=== PATIENT | female | born 1930 | race Caucasian/White ===

== ENCOUNTER 2016-04-13 10:26 | Observation (INO) | payer MEDICARE, BC ==
--- NOTE | 2016-04-13 12:18 | ED ---
General Adult HPI - General Chief complaint: Recheck/Abnormal Lab/Rx Stated complaint: Kidneys problems Time Seen by Provider: 04/13/16 11:35 Source: patient, RN notes reviewed Mode of arrival: ambulatory - History of Present Illness Initial comments: This is an 86-year-old female who presents emergency Department knows her kidney doctor center and to be evaluated. Patient states she's been feeling fine she's had no complaints and does not know why she is here. Patient states she recently saw her kidney doctor and kidney doctor did do some blood work and that is all she knows per patient denies headache patient denies numbness weakness. Patient denies lightheadedness dizziness or near syncopal episode. Patient denies any chest pain palpitations difficulty breathing shortness of breath per patient denies any recent fever chills or cough. Patient denies abdominal pain patient denies nausea vomiting diarrhea. Patient denies any back pain. Patient denies any dysuria hematuria urinary frequency. Patient states she feels perfectly fine and she's been eating and drinking normally. - Related Data Home Medications Medication Instructions Recorded Confirmed Aspirin 81 mg PO DAILY 08/26/13 04/13/16 Atorvastatin [Lipitor] 20 mg PO DAILY 08/26/13 04/13/16 Metoprolol Tartrate [Lopressor] 50 mg PO DAILY 08/26/13 04/13/16 Ergocalciferol (Vitamin D2) 50,000 unit PO VIZCAINO 05/23/14 04/13/16 [Drisdol] Febuxostat [Uloric] 40 mg PO DAILY 05/23/14 04/13/16 Pantoprazole Sodium [Protonix] 40 mg PO DAILY 05/23/14 04/13/16 Calcitriol [Rocaltrol] 0.25 mcg PO MOWEFRSA 10/11/15 04/13/16 Ferrous Sulfate [Iron (65 MG 325 mg PO BID 04/13/16 04/13/16 Elemental)] Furosemide [Lasix] 40 mg PO BID 04/13/16 04/13/16 Klor-Con (Unknown Dose) 1 dose PO DAILY 04/13/16 04/13/16 Meclizine [Antivert] 12.5 mg PO Q8HR PRN 04/13/16 04/13/16 Metolazone [Zaroxolyn] 2.5 mg PO Q48H 04/13/16 04/13/16 Warfarin [Coumadin] 3 mg PO SUWESA 04/13/16 04/13/16 cloNIDine HCL [Catapres] 0.2 mg PO BID 04/13/16 04/13/16 Allergies Allergy/AdvReac Type Severity Reaction Status Date / Time morphine Allergy Unknown Verified 04/13/16 11:38 Review of Systems ROS Statement: Those systems with pertinent positive or pertinent negative responses have been documented in the HPI. ROS Other: All systems not noted in ROS Statement are negative. Past Medical History Past Medical History: Chest Pain / Angina, Heart Failure, Hyperlipidemia, Hypertension, Sleep Apnea/CPAP/BIPAP History of Any Multi-Drug Resistant Organisms: None Reported Past Surgical History: Hysterectomy, Joint Replacement Additional Past Surgical History / Comment(s): bilateral knee replacement, hemorrhoid surgery, AAA repair, LITHOTRIPSY Past Anesthesia/Blood Transfusion Reactions: No Reported Reaction Past Psychological History: No Psychological Hx Reported Smoking Status: Never smoker Past Alcohol Use History: None Reported Past Drug Use History: None Reported General Exam - General Exam Comments Initial Comments: GENERAL: Patient is well-developed and well-nourished. Patient is nontoxic and well- hydrated and is in no acute distress. ENT: Neck is soft and supple. No significant lymphadenopathy is noted. Oropharynx is clear. Moist mucous membranes. Neck has full range of motion without eliciting any pain. EYES: The sclera were anicteric and conjunctiva were pink and moist. Extraocular movements were intact and pupils were equal round and reactive to light. Eyelids were unremarkable. PULMONARY: Unlabored respirations. Good breath sounds bilaterally. No audible rales rhonchi or wheezing was noted. CARDIOVASCULAR: There is a regular rate and rhythm without any murmurs gallops or rubs. ABDOMEN: Soft and nontender with normal bowel sounds. No palpable organomegaly was noted. There is no palpable pulsatile mass. SKIN: Skin is clear with no lesions or rashes and otherwise unremarkable. NEUROLOGIC: Patient is alert and oriented x3. Cranial nerves II through XII are grossly intact. Motor and sensory are also intact. Normal speech, volume and content. Symmetrical smile. MUSCULOSKELETAL: Normal extremities with adequate strength and full range of motion. LYMPHATICS: No significant lymphadenopathy is noted PSYCHIATRIC: Normal psychiatric evaluation. Course Vital Signs 04/13/16 04/13/16 11:32 14:12 Temperature 97.6 F 96.7 F L Pulse Rate 58 L 58 L Respiratory 18 18 Rate Blood Pressure 116/57 125/63 O2 Sat by Pulse 96 99 Oximetry Medical Decision Making - Medical Decision Making EKG shows sinus bradycardia 55 bpm PA interval is 282 which is first degree AV block QRS is 82 QT intervals 454 QTC is 434. Patient's EKG shows no ST segment elevation or depression. - Lab Data Result diagrams: 04/13/16 12:46 04/13/16 12:46 Lab Results 04/13/16 04/13/16 04/13/16 Range/Units 12:46 12:46 12:46 WBC 7.3 (3.8-10.6) k/uL RBC 3.99 (3.80-5.40) m/uL Hgb 11.5 (11.4-16.0) gm/dL Hct 35.9 (34.0-46.0) % MCV 90.0 (80.0-100.0) fL MCH 28.8 (25.0-35.0) pg MCHC 32.0 (31.0-37.0) g/dL RDW 16.4 H (11.5-15.5) % Plt Count 211 (150-450) k/uL Neutrophils % 59 % Lymphocytes % 28 % Monocytes % 5 % Eosinophils % 4 % Basophils % 1 % Neutrophils # 4.3 (1.3-7.7) k/uL Lymphocytes # 2.0 (1.0-4.8) k/uL Monocytes # 0.4 (0-1.0) k/uL Eosinophils # 0.3 (0-0.7) k/uL Basophils # 0.0 (0-0.2) k/uL Anisocytosis Slight Sodium 141 (137-145) mmol/L Potassium 3.7 (3.5-5.1) mmol/L Chloride 97 L (98-107) mmol/L Carbon Dioxide 30 (22-30) mmol/L Anion Gap 14 mmol/L BUN 107 H* (7-17) mg/dL Creatinine 2.00 H (0.52-1.04) mg/dL Est GFR (MDRD) Af Amer 29 (>60 ml/min/1.73 sqM) Est GFR (MDRD) Non-Af 24 (>60 ml/min/1.73 sqM) Glucose 171 H (74-99) mg/dL Calcium 9.5 (8.4-10.2) mg/dL Total Bilirubin 0.5 (0.2-1.3) mg/dL AST 21 (14-36) U/L ALT 28 (9-52) U/L Alkaline Phosphatase 136 H (38-126) U/L Total Protein 7.0 (6.3-8.2) g/dL Albumin 4.1 (3.5-5.0) g/dL Amylase 88 (30-110) U/L Lipase 237 (23-300) U/L Urine Color Light Yellow Urine Appearance Clear (Clear) Urine pH 5.5 (5.0-8.0) Ur Specific Morrow 1.006 (1.001-1.035) Urine Protein Negative (Negative) Urine Glucose (UA) Negative (Negative) Urine Ketones Negative (Negative) Urine Blood Negative (Negative) Urine Nitrate Negative (Negative) Urine Bilirubin Negative (Negative) Urine Urobilinogen <2.0 (<2.0) mg/dL Ur Leukocyte Esterase Negative (Negative) Disposition Clinical Impression: Acute on chronic renal failure Disposition: ADMITTED IP TO THIS [facility] Time of Disposition: 14:15
[2016-04-13 13:06] LABS: Appearance,Urine Clear (Clear); Bilirubin,Urine Negative (Negative); Glucose,Urine (UA) Negative (Negative); Ketones,Urine Negative (Negative); Leukocyte Esterase,Urine Negative (Negative); Nitrite,Urine Negative (Negative); PH, Urine 5.5 (5.0-8.0); Protein,Urine Negative (Negative); Specific Gravity,Urine 1.006 (1.001-1.035); UA Billing (MACRO vs. MICRO) CHEM; Urobilinogen,Urine <2.0 mg/dL (<2.0)
[2016-04-13 13:09] LABS: Anisocytosis Slight; Basophils % (A) 1 %; CH 29.1; CHCM 32.4; Eosinophils # (A) 0.3 k/uL (0-0.7); Eosinophils % (A) 4 %; HCT 35.9 % (34.0-46.0); HDW 2.71; HGB 11.5 gm/dL (11.4-16.0); Luc # (Auto) 0.22; Luc % (Auto) 3; Lymphocytes % (A) 28 %; MCH 28.8 pg (25.0-35.0); Mean Platelet Volume 8.3; Monocytes # (A) 0.4 k/uL (0-1.0); Monocytes % (A) 5 %; Neutrophils # (A) 4.3 k/uL (1.3-7.7); Neutrophils % (A) 59 %; RBC 3.99 m/uL (3.80-5.40); RDW 16.4 % (11.5-15.5); WBC 7.3 k/uL (3.8-10.6); WBC (Perox) 7.28
[2016-04-13 13:11] LABS: Calcium 9.5 mg/dL (8.4-10.2); Potassium 3.7 mmol/L (3.5-5.1); Total Bilirubin 0.5 mg/dL (0.2-1.3)
[2016-04-13] MEDS ORDERED: SODIUM CHLORIDE 0.9% 1,000 ML IV ONE (14:16)
[2016-04-13] MEDS ORDERED: MECLIZINE 12.5 MG TAB PO PRN (22:46)
[2016-04-13] MEDS ORDERED: MAGNESIUM HYDROXIDE 2,400 MG/10 ML CUP PO PRN (22:54)
[2016-04-13] MEDS ORDERED: METOLAZONE 2.5 MG TAB PO SCH (23:00)
[2016-04-13] MEDS: POTASSIUM CHLORIDE ER 20 MEQ TAB.ER PO SCH (23:45)
[2016-04-13] MEDS: FUROSEMIDE 40 MG TAB PO SCH (23:46)
[2016-04-13] MEDS: ALLOPURINOL 100 MG TAB PO SCH (23:50)
[2016-04-14] MEDS: FUROSEMIDE 40 MG TAB PO SCH (08:09)
[2016-04-14] MEDS: cloNIDine HCL 0.2 MG TAB PO SCH ×2 (08:09→20:04)
[2016-04-14] MEDS: PANTOPRAZOLE 40 MG TABLET PO SCH (08:09)
[2016-04-14] MEDS: VIT A,C & E-LUTEIN-MINERALS 1 EACH TAB PO SCH ×2 (08:09→20:05)
[2016-04-14] MEDS: POTASSIUM CHLORIDE ER 20 MEQ TAB.ER PO SCH (08:10)
[2016-04-14] MEDS: METOPROLOL TARTRATE 50 MG TAB PO SCH (08:10)
[2016-04-14] MEDS ORDERED: CALCITRIOL 0.25 MCG CAP PO SCH (09:00)
[2016-04-14 09:28] LABS: INR 1.7 (<1.1); Prothrombin Time 16.8 sec (9.0-12.0)
[2016-04-14 09:49] LABS: Calcium 9.7 mg/dL (8.4-10.2); Potassium 3.5 mmol/L (3.5-5.1); Total Bilirubin 0.7 mg/dL (0.2-1.3); Total Protein 7.3 g/dL (6.3-8.2)
--- NOTE | 2016-04-14 10:42 | P.NPCON ---
History of Present Illness - Reason for Consult acute renal failure - History of Present Illness Reason for consultation: Acute kidney injury History of present illness: Patient is a 86-year-old female seen in renal consultation for acute kidney injury on chronic kidney disease. Patient has chronic kidney disease stage III with baseline creatinine in the range of 1.2-1.4 secondary to nephrosclerosis. Patient had blood work done as an outpatient and was noted to have abnormal labs particularly elevated BUN and creatinine and was advised to go to the hospital for further care. Her BUN admission was 107 with creatinine 2.0. She denies any hematuria or dysuria. Admits to good urine output. Denies any chest pain or shortness of breath. No melena or hematochezia. She denies any sort of obvious bleeding. She does have history of diastolic CHF for which she is maintained on Lasix 40 mg twice daily along with potassium supplementation. Her appetite has been good. Denies any fever or chills. Denies any vomiting or diarrhea. Denies use of NSAIDs at home. Vital signs are stable. General: The patient appeared well nourished and normally developed. HEENT: Head exam is unremarkable. Neck is without jugular venous distension. LUNGS: Lungs are clear to auscultation and percussion. Breath sounds decreased. HEART: Rate and Rhythm are regular. First and second heart sounds normal. No murmurs, rubs or gallops. ABDOMEN: Abdominal exam reveals normal bowel sounds. Non-tender and non- distended. No evidence of peritonitis. EXTREMITITES: No clubbing, cyanosis, or edema. Past Medical History Past Medical History: Chest Pain / Angina, Heart Failure, Hyperlipidemia, Hypertension, Pulmonary Embolus (PE), Renal Disease, Sleep Apnea/CPAP/BIPAP Additional Past Medical History / Comment(s): CHACHO PE,BRONCHITIS,DIVERTICULOSIS, VERTIGO, FALLS, CONSTIPATION D/T MEDS-LAST BM Tuesday04-11-16. History of Any Multi-Drug Resistant Organisms: None Reported Past Surgical History: Hysterectomy, Joint Replacement Additional Past Surgical History / Comment(s): bilateral knee replacement, hemorrhoid surgery, AAA repair, LITHOTRIPSY Past Anesthesia/Blood Transfusion Reactions: No Reported Reaction Past Psychological History: No Psychological Hx Reported Smoking Status: Never smoker Past Alcohol Use History: None Reported Past Drug Use History: None Reported - Past Family History Mother History Unknown: Yes Additional Family Medical History / Comment(s): PT DOES'NT KNOW ANY HX ON MOPM- MOM LEFT HOME WHEN PT WAS 9 MONTHS OLD. Father Family Medical History: Coronary Artery Disease (CAD), Myocardial Infarction ([place] ) Additional Family Medical History / Comment(s): CABG Medications and Allergies Home Medications Medication Instructions Recorded Confirmed Type Aspirin 81 mg PO 1200 08/26/13 04/13/16 History Atorvastatin [Lipitor] 20 mg PO DAILY 08/26/13 04/13/16 History Metoprolol Tartrate [Lopressor] 50 mg PO DAILY 08/26/13 04/13/16 History Ergocalciferol (Vitamin D2) 50,000 unit PO VIZCAINO 05/23/14 04/13/16 History [Drisdol] Febuxostat [Uloric] 40 mg PO HS 05/23/14 04/13/16 History Pantoprazole Sodium [Protonix] 40 mg PO DAILY 05/23/14 04/13/16 History Calcitriol [Rocaltrol] 0.25 mcg PO MOWEFRSA 10/11/15 04/13/16 History Ferrous Sulfate [Iron (65 MG 625 mg PO 1200 04/13/16 04/13/16 History Elemental)] Furosemide [Lasix] 40 mg PO BID 04/13/16 04/13/16 History Meclizine [Antivert] 12.5 mg PO Q8HR PRN 04/13/16 04/13/16 History Metolazone [Zaroxolyn] 2.5 mg PO Q48H 04/13/16 04/13/16 History Potassium Chloride [Klor-Con 20 meq PO QID 04/13/16 04/13/16 History Sprinkle] Vit C/E/Zn/Coppr/Lutein/Zeaxan 2 cap PO BID 04/13/16 04/13/16 History [Preservision Areds 2 Softgel] Warfarin [Coumadin] 3 mg PO SUWESA 04/13/16 04/13/16 History cloNIDine HCL [Catapres] 0.2 mg PO BID 04/13/16 04/13/16 History Allergies Allergy/AdvReac Type Severity Reaction Status Date / Time morphine Allergy Rash/Hives Verified 04/13/16 21:41 Physical Exam Vitals: Vital Signs Temp Pulse Pulse Resp BP BP Pulse Ox 04/14/16 07:00 97.7 F 85 19 135/75 96 04/13/16 23:00 97.2 F L 71 18 122/72 92 L 04/13/16 20:30 97.8 F 71 18 115/51 95 04/13/16 20:17 97.9 F 59 L 16 126/58 98 04/13/16 18:37 97.8 F 62 18 120/58 95 Intake and Output 04/13/16 04/14/16 04/14/16 22:59 06:59 14:59 Output Total 700 50 Balance -700 -50 Output: Urine 700 50 Other: Voiding Method Bedside Commode # Voids 1 # Bowel Movements 1 Weight 82.327 kg 82.554 kg Results - Lab Results Most recent lab results Calcium 9.5 mg/dL (8.4-10.2) 04/13/16 12:46 04/13/16 12:46 04/13/16 12:46 Assessment and Plan Plan: Assessment: #1. Nonoliguric acute kidney injury mostly prerenal in nature secondary to diuretics. Creatinine 2.0 on admission with BUN at 107. No evidence of bleeding. She is not on any steroids. #2. Chronic kidney disease stage III secondary to nephrosclerosis with baseline creatinine in the range of 1.2-1.4. Ultrasound from November 2014 revealed normal sized kidneys with cortical thinning suggestive of chronic kidney disease. #3. Diastolic CHF. Currently compensated. Plan: Hold diuretics. Gentle IV hydration with normal saline to be run at 50 mL an hour for the next 24 hours. Avoid nephrotoxic agents and hypotensive episodes. Repeat electrolytes the morning. Thank you for the consultation. I will continue to follow patient with you during her hospital stay.
[2016-04-14] MEDS ORDERED: FERROUS SULFATE 325 MG TAB PO SCH (12:00)
[2016-04-14] MEDS: ASPIRIN 81 MG CHEW PO SCH (12:39)
[2016-04-14] MEDS: SODIUM CHLORIDE 0.9% 1,000 ML IV SCH (12:43)
--- NOTE | 2016-04-14 16:57 | P.HPIM ---
History of Present Illness H&P Date: 04/14/16 Chief Complaint: Fatigue and abnormal labs Patient is an 86-year-old female patient of [facility], who is also followed by Dr. Infante due to chronic kidney disease and bilateral lower extremity swelling, she has been maintained on diuretics including Lasix and Zaroxolyn. Recently patient has been complaining of fatigue, she had blood test done and revealed BUN more than 100 and creatinine of 2,0 she was told to go to emergency room she was evaluated in the emergency room and was admitted to medical floor for hydration and further evaluation legit consultation was requested Past Medical History Past Medical History: Chest Pain / Angina, Heart Failure, Hyperlipidemia, Hypertension, Pulmonary Embolus (PE), Renal Disease, Sleep Apnea/CPAP/BIPAP Additional Past Medical History / Comment(s): CHACHO PE,BRONCHITIS,DIVERTICULOSIS, VERTIGO, FALLS, CONSTIPATION D/T MEDS-LAST BM Tuesday04-11-16. History of Any Multi-Drug Resistant Organisms: None Reported Past Surgical History: Hysterectomy, Joint Replacement Additional Past Surgical History / Comment(s): bilateral knee replacement, hemorrhoid surgery, AAA repair, LITHOTRIPSY Past Anesthesia/Blood Transfusion Reactions: No Reported Reaction Past Psychological History: No Psychological Hx Reported Smoking Status: Never smoker Past Alcohol Use History: None Reported Past Drug Use History: None Reported - Past Family History Mother History Unknown: Yes Additional Family Medical History / Comment(s): PT DOES'NT KNOW ANY HX ON MOPM- MOM LEFT HOME WHEN PT WAS 9 MONTHS OLD. Father Family Medical History: Coronary Artery Disease (CAD), Myocardial Infarction ([place] ) Additional Family Medical History / Comment(s): CABG Medications and Allergies Home Medications Medication Instructions Recorded Confirmed Type Aspirin 81 mg PO 1200 08/26/13 04/13/16 History Atorvastatin [Lipitor] 20 mg PO DAILY 08/26/13 04/13/16 History Metoprolol Tartrate [Lopressor] 50 mg PO DAILY 08/26/13 04/13/16 History Ergocalciferol (Vitamin D2) 50,000 unit PO VIZCAINO 05/23/14 04/13/16 History [Drisdol] Febuxostat [Uloric] 40 mg PO HS 05/23/14 04/13/16 History Pantoprazole Sodium [Protonix] 40 mg PO DAILY 05/23/14 04/13/16 History Calcitriol [Rocaltrol] 0.25 mcg PO MOWEFRSA 10/11/15 04/13/16 History Ferrous Sulfate [Iron (65 MG 625 mg PO 1200 04/13/16 04/13/16 History Elemental)] Furosemide [Lasix] 40 mg PO BID 04/13/16 04/13/16 History Meclizine [Antivert] 12.5 mg PO Q8HR PRN 04/13/16 04/13/16 History Metolazone [Zaroxolyn] 2.5 mg PO Q48H 04/13/16 04/13/16 History Potassium Chloride [Klor-Con 20 meq PO QID 04/13/16 04/13/16 History Sprinkle] Vit C/E/Zn/Coppr/Lutein/Zeaxan 2 cap PO BID 04/13/16 04/13/16 History [Preservision Areds 2 Softgel] Warfarin [Coumadin] 3 mg PO SUWESA 04/13/16 04/13/16 History cloNIDine HCL [Catapres] 0.2 mg PO BID 04/13/16 04/13/16 History Allergies Allergy/AdvReac Type Severity Reaction Status Date / Time morphine Allergy Rash/Hives Verified 04/13/16 21:41 Physical Exam Vitals: Vital Signs Temp Pulse Pulse Resp BP BP Pulse Ox 04/14/16 08:00 85 19 04/14/16 07:00 97.7 F 85 19 135/75 96 04/13/16 23:00 97.2 F L 71 18 122/72 92 L 04/13/16 20:30 97.8 F 71 18 115/51 95 04/13/16 20:17 97.9 F 59 L 16 126/58 98 04/13/16 18:37 97.8 F 62 18 120/58 95 Intake and Output 04/14/16 04/14/16 04/14/16 06:59 14:59 22:59 Output Total 700 850 Balance -700 -850 Output: Urine 700 850 Other: Voiding Method Bedside Commode # Voids 2 # Bowel Movements 1 Weight 82.554 kg In general patient is alert and oriented 3 in no apparent distress HEENT head normocephalic and traumatic Neck is supple no JVD no goiter no lymphadenopathy Chest exam is clear to auscultation no crackles no wheezing Cardiac exam reveals regular heart sounds no murmurs Abdomen is soft nontender no organomegaly with normal bowel sounds Extremity exam reveals minimal edema no cyanosis or clubbing Results CBC & Chem 7: 04/13/16 12:46 04/14/16 08:59 Labs: Abnormal Lab Results - Last 24 Hours (Table) 04/14/16 04/14/16 Range/Units 08:59 09:03 PT 16.8 H (9.0-12.0) sec BUN 84 H* (7-17) mg/dL Creatinine 1.71 H (0.52-1.04) mg/dL Glucose 207 H (74-99) mg/dL Thrombosis Risk Factor Assmnt - Choose All That Apply Any of the Below Risk Factors Present?: Yes Each Factor Represents 1 point: Obesity (BMI >25) Other Risk Factors: Yes Each Risk Factor Represents 3 Points: Age 75 years or older, History of DVT/PE Other congenital or acquired thrombophilia - If yes, enter type in comment: No Thrombosis Risk Factor Assessment Total Risk Factor Score: 7 Thrombosis Risk Factor Assessment Level: High Risk Assessment and Plan Plan: #1 acute on chronic kidney disease acute component is related to prerenal azotemia related to diuretic use at this point Lasix and Zaroxolyn are on hold patient is receiving IV fluid normal saline for hydration we are monitoring kidney function closely #2 underlying history of hypertension at this time blood pressure is well- controlled continue was current medications #3 for DVT prophylaxis patient on Lovenox for GI prophylaxis will give Pepcid Will follow during this admission possible discharge within 1-2 days
[2016-04-14] MEDS ORDERED: WARFARIN 5 MG TAB PO ONE (18:00)
[2016-04-14 19:58] VITALS: RESP 16
[2016-04-14] MEDS: ALLOPURINOL 100 MG TAB PO SCH (20:05)
[2016-04-14] MEDS ORDERED: WARFARIN 3 MG TAB PO SCH (22:46)
[2016-04-15] MEDS: VIT A,C & E-LUTEIN-MINERALS 1 EACH TAB PO SCH (08:09)
[2016-04-15] MEDS: PANTOPRAZOLE 40 MG TABLET PO SCH (08:09)
[2016-04-15] MEDS: cloNIDine HCL 0.2 MG TAB PO SCH (08:09)
[2016-04-15] MEDS: METOPROLOL TARTRATE 50 MG TAB PO SCH (08:09)
[2016-04-15] MEDS: SODIUM CHLORIDE 0.9% 1,000 ML IV SCH (08:10)
[2016-04-15 09:18] LABS: Anisocytosis Slight; Basophils # (A) 0.1 k/uL (0-0.2); Basophils % (A) 1 %; CH 28.8; CHCM 31.6; Eosinophils # (A) 0.3 k/uL (0-0.7); Eosinophils % (A) 4 %; HCT 36.1 % (34.0-46.0); HDW 2.69; HGB 11.3 gm/dL (11.4-16.0); Hypochromasia Slight; Luc # (Auto) 0.17; Luc % (Auto) 2; Lymphocytes # (A) 2.2 k/uL (1.0-4.8); Lymphocytes % (A) 28 %; MCH 28.7 pg (25.0-35.0); MCHC 31.4 g/dL (31.0-37.0); MCV 91.5 fL (80.0-100.0); Mean Platelet Volume 8.1; Monocytes # (A) 0.4 k/uL (0-1.0); Monocytes % (A) 5 %; Neutrophils # (A) 4.7 k/uL (1.3-7.7); Neutrophils % (A) 60 %; RBC 3.94 m/uL (3.80-5.40); RDW 16.3 % (11.5-15.5); WBC 7.9 k/uL (3.8-10.6); WBC (Perox) 8.28
[2016-04-15 09:22] LABS: INR 1.5 (<1.1)
[2016-04-15 09:28] LABS: Calcium 9.6 mg/dL (8.4-10.2); Potassium 3.4 mmol/L (3.5-5.1); Total Bilirubin 0.6 mg/dL (0.2-1.3); Total Protein 6.7 g/dL (6.3-8.2)
[2016-04-15 09:39] VITALS: BP 121/62; PULSE 76; TEMP 97.7
[2016-04-15] MEDS ORDERED: POTASSIUM CHLORIDE ER 20 MEQ TAB.ER PO STA ×2 (09:50→09:52)
--- NOTE | 2016-04-15 11:11 | P.PN ---
Subjective Patient is seen in follow-up for acute kidney injury. Patient has chronic kidney disease stage III. Baseline creatinine in the range of 1.2-1.4 secondary to nephrosclerosis. Creatinine was 2 on admission and continues to improve with IV hydration and is down to 1.5 today. Appetite is good. No vomiting or diarrhea. No lower extremity edema. Vital signs are stable. General: The patient appeared well nourished and normally developed. HEENT: Head exam is unremarkable. Neck is without jugular venous distension. LUNGS: Lungs are clear to auscultation and percussion. Breath sounds decreased. HEART: Rate and Rhythm are regular. First and second heart sounds normal. No murmurs, rubs or gallops. ABDOMEN: Abdominal exam reveals normal bowel sounds. Non-tender and non- distended. No evidence of peritonitis. EXTREMITITES: No clubbing, cyanosis, or edema. Objective - Vital Signs Vital signs: Vital Signs Temp 97.7 F 04/15/16 07:00 Pulse 76 04/15/16 07:00 Resp 16 04/15/16 08:00 BP 121/62 04/15/16 07:00 Pulse Ox 90 L 04/15/16 07:00 Intake & Output 04/14/16 04/15/16 04/15/16 18:59 06:59 18:59 Intake Total 630 Output Total 850 300 Balance -850 330 Weight 84.822 kg Intake: Intake, IV Titration 550 Amount Sodium Chloride 0.9% 1, 550 000 ml @ 50 mls/hr IV . Q20H AMANDA Rx#:[id number] Oral 80 Output: Urine 850 300 Other: Voiding Method Bedside Commode Bedside Commode Bedside Commode # Voids 2 1 # Bowel Movements 1 - Labs CBC & Chem 7: 04/15/16 08:42 04/15/16 08:42 Labs: Abnormal Lab Results - Last 24 Hours (Table) 04/14/16 04/15/16 04/15/16 Range/Units 08:59 08:42 08:42 Hgb 11.3 L (11.4-16.0) gm/dL RDW 16.3 H (11.5-15.5) % PT (9.0-12.0) sec Potassium 3.4 L (3.5-5.1) mmol/L BUN 84 H* 62 H (7-17) mg/dL Creatinine 1.71 H 1.54 H (0.52-1.04) mg/dL Glucose 207 H 219 H (74-99) mg/dL Alkaline Phosphatase 127 H (38-126) U/L 04/15/16 Range/Units 08:42 Hgb (11.4-16.0) gm/dL RDW (11.5-15.5) % PT 15.0 H (9.0-12.0) sec Potassium (3.5-5.1) mmol/L BUN (7-17) mg/dL Creatinine (0.52-1.04) mg/dL Glucose (74-99) mg/dL Alkaline Phosphatase (38-126) U/L Assessment and Plan Plan: Assessment: #1. Nonoliguric acute kidney injury mostly prerenal in nature secondary to diuretics. Creatinine 2.0 on admission with BUN at 107. No evidence of bleeding. She is not on any steroids. Renal function improved with creatinine down to 1.5 and BUN down to 62 today. #2. Chronic kidney disease stage III secondary to nephrosclerosis with baseline creatinine in the range of 1.2-1.4. Ultrasound from November 2014 revealed normal sized kidneys with cortical thinning suggestive of chronic kidney disease. #3. Diastolic CHF. Currently compensated. #4. Hypokalemia. Plan: Hep-Lock IV fluids. Continue to hold diuretics for now. Avoid nephrotoxic agents and hypotensive episodes. Replace potassium. 40 mg once today. Stable to be discharged home from nephrology standpoint. I advised her to hold diuretics for the next 2-3 days and to gradually resume with Lasix 40 mg once daily. She will need to follow-up as an outpatient in the next 1-2 weeks.
[2016-04-15] MEDS: ASPIRIN 81 MG CHEW PO SCH (12:09)
--- NOTE | 2016-04-15 13:38 | P.DS ---
Providers Date of admission: 04/13/16 14:17 Expected date of discharge: 04/15/16 Attending physician: Chari Avelar Consults: Dr. Zapata Primary care physician: Karlie Ruiz Hospital Course: Discharge diagnosis #1 acute on chronic kidney disease , stage III. acute component is related to prerenal azotemia related to diuretic use at this point Lasix and Zaroxolyn are on hold patient is receiving IV fluid normal saline for hydration we are monitoring kidney function closely. Reevaluated by nephrology. The recommending to hold the diuretics for 3 days. Then resume Lasix at 40 mg daily. #2 underlying history of hypertension at this time blood pressure is well- controlled continue was current medications #3 history of pulmonary embolus on Coumadin #4 chronic diastolic congestive heart failure. Currently compensated Hospital course This is a 86-year-old female who has known chronic kidney disease. She is maintained on diuretics at home for her lower extremity edema. She usually on Lasix 40 mg twice a day and Zaroxolyn was recently added. She's been complaining of fatigue and had abnormal blood work. A BUN more than 100 and creatinine at 2. She was told to present to the emergency room. Lasix and Zaroxolyn were placed on hold and she was given IV fluids. Nephrology is following. Creatinine did decrease from 2 to 1.54. Nephrology is recommending that she continues to hold her diuretics for the next 3 days. And she can resume Lasix at a decreased dose of 40 mg daily on Tuesday, April 19. She's also have a CBC BMP and PT/INR checked on Tuesday. She'll follow-up with the kidney specialist next week. At that point they can do further adjustments of diuretics if needed. Also decrease her potassium dose since the diuretics have been decreased. INR at discharge is 1.5. She'll receive Coumadin 5 mg tonight and then continue with her scheduled dose of Coumadin. Recommend checking PT/ INR on Tuesday. We'll have lab results since to both Dr. Zapata and Dr. Ruiz. Patient is medically stable for discharge. Case also discussed with patient's family. Please refer to chart for any further details. Patient Condition at Discharge: Stable Plan - Discharge Summary Discharge Medication List Aspirin 81 mg PO 1200 08/26/13 [History] Atorvastatin [Lipitor] 20 mg PO DAILY 08/26/13 [History] Metoprolol Tartrate [Lopressor] 50 mg PO DAILY 08/26/13 [History] Ergocalciferol (Vitamin D2) [Drisdol] 50,000 unit PO VIZCAINO 05/23/14 [History] Febuxostat [Uloric] 40 mg PO HS 05/23/14 [History] Pantoprazole Sodium [Protonix] 40 mg PO DAILY 05/23/14 [History] Calcitriol [Rocaltrol] 0.25 mcg PO MOWEFRSA 10/11/15 [History] Ferrous Sulfate [Iron (65 MG Elemental)] 625 mg PO 1200 04/13/16 [History] Meclizine [Antivert] 12.5 mg PO Q8HR PRN 04/13/16 [History] Vit C/E/Zn/Coppr/Lutein/Zeaxan [Preservision Areds 2 Softgel] 2 cap PO BID 04/13 [History] Warfarin [Coumadin] 3 mg PO SUWESA 04/13/16 [History] cloNIDine HCL [Catapres] 0.2 mg PO BID 04/13/16 [History] Furosemide [Lasix] 40 mg PO DAILY #0 04/15/16 [Rx] Potassium Chloride [Klor-Con Sprinkle] 20 meq PO DAILY #0 04/15/16 [Rx] Follow up Appointment(s)/Referral(s): Karlie Ruiz DO [Primary Care Provider] - 1 Week Guevara Zapata DO [STAFF PHYSICIAN] - 1 Week Patient Instructions/Handouts: Heart Failure (DC) Activity/Diet/Wound Care/Special Instructions: Diet: renal, cardiac Activity: as tolerated Discharge Disposition: HOME SELF-CARE
[2016-04-15] MEDS ORDERED: WARFARIN 5 MG TAB PO ONE (18:00)
[2016-04-18] MEDS ORDERED: ERGOCALCIFEROL 50,000 UNIT CAP PO SCH (09:00)
== END 2016-04-15 14:51 | disposition home or self-care (01) ==
LOC: EC 10:26 → 4MS4W 14:17
PROVIDERS: ADMIT Internal Medicine; ATTEND Internal Medicine
DX: N17.9 Acute kidney failure, unspecified (principal); N18.3 Chronic kidney disease, stage 3 (moderate); I13.0 Hypertensive heart and chronic kidney disease with heart failure and stage 1 through stage 4 chronic kidney disease, or unspecified chronic kidney disease; I50.32 Chronic diastolic (congestive) heart failure; N14.1 Nephropathy induced by other drugs, medicaments and biological substances; E78.5 Hyperlipidemia, unspecified; G47.30 Sleep apnea, unspecified; Z99.89 Dependence on other enabling machines and devices; Z96.653 Presence of artificial knee joint, bilateral; Z86.711 Personal history of pulmonary embolism; Z79.82 Long term (current) use of aspirin; Z79.899 Other long term (current) drug therapy; Z79.01 Long term (current) use of anticoagulants; Z88.5 Allergy status to narcotic agent; Z82.49 Family history of ischemic heart disease and other diseases of the circulatory system; T50.2X5A Adverse effect of carbonic-anhydrase inhibitors, benzothiadiazides and other diuretics, initial encounter; Y92.9 Unspecified place or not applicable
CPT/HCPCS: 36415; 93005; 80053 ×3; 82150; 83690; 85025 ×2; 85610 ×2; 81003; 99284; 96360; 96361 ×5; G0378 ×3

== ENCOUNTER 2016-06-03 09:10 | Inpatient (IN) | payer MEDICARE, BC ==
--- NOTE | 2016-06-03 09:51 | ED ---
General Adult HPI - General Chief complaint: Dizziness Stated complaint: dizzy,heart racing Time Seen by Provider: 06/03/16 09:22 Source: patient, RN notes reviewed, old records reviewed Mode of arrival: wheelchair Limitations: no limitations - History of Present Illness Initial comments: This is an 86-year-old female ER for evaluation of dizziness. Patient's multiple medical issues and medical comorbidities including CHF and renal failure. Patient coming in with increasing exertional shortness of breath, patient was offered home oxygen at home and refused. Patient states her heart beating fast in her chest she feels like hisshe also feels like her breathing is getting harder at rest and with activity. No cough congestion no fever no travel history no sick contacts - Related Data Home Medications Medication Instructions Recorded Confirmed Aspirin 81 mg PO DAILY 08/26/13 06/03/16 Atorvastatin [Lipitor] 20 mg PO DAILY 08/26/13 06/03/16 Metoprolol Tartrate [Lopressor] 50 mg PO DAILY 08/26/13 06/03/16 Ergocalciferol (Vitamin D2) 50,000 unit PO MO 05/23/14 06/03/16 [Drisdol] Febuxostat [Uloric] 40 mg PO HS 05/23/14 06/03/16 Pantoprazole Sodium [Protonix] 40 mg PO DAILY 05/23/14 06/03/16 Calcitriol [Rocaltrol] 0.25 mcg PO MOWEFRSA 10/11/15 06/03/16 Meclizine [Antivert] 12.5 mg PO Q8HR PRN 04/13/16 06/03/16 Vit C/E/Zn/Coppr/Lutein/Zeaxan 2 cap PO BID 04/13/16 06/03/16 [Preservision Areds 2 Softgel] Warfarin [Coumadin] 3 mg PO MOWEFR 04/13/16 06/03/16 cloNIDine HCL [Catapres] 0.2 mg PO BID 04/13/16 06/03/16 Warfarin [Coumadin] 1.5 mg PO SUTUTHSA 06/03/16 06/03/16 hydrALAZINE HCL [Apresoline] 50 mg PO TID 06/03/16 06/03/16 Previous Rx's Medication Instructions Recorded Furosemide [Lasix] 40 mg PO DAILY #0 04/15/16 Allergies Allergy/AdvReac Type Severity Reaction Status Date / Time morphine Allergy Rash/Hives Verified 06/03/16 10:33 Review of Systems ROS Statement: Those systems with pertinent positive or pertinent negative responses have been documented in the HPI. ROS Other: All systems not noted in ROS Statement are negative. Past Medical History Past Medical History: Chest Pain / Angina, Heart Failure, Hyperlipidemia, Hypertension, Pulmonary Embolus (PE), Renal Disease, Sleep Apnea/CPAP/BIPAP Additional Past Medical History / Comment(s): CHACHO PE,BRONCHITIS,DIVERTICULOSIS, VERTIGO, FALLS, CONSTIPATION D/T History of Any Multi-Drug Resistant Organisms: None Reported Past Surgical History: Hysterectomy, Joint Replacement Additional Past Surgical History / Comment(s): bilateral knee replacement, hemorrhoid surgery, AAA repair, LITHOTRIPSY Past Anesthesia/Blood Transfusion Reactions: No Reported Reaction Past Psychological History: No Psychological Hx Reported Smoking Status: Never smoker Past Alcohol Use History: None Reported Past Drug Use History: None Reported - Past Family History Mother History Unknown: Yes Additional Family Medical History / Comment(s): PT DOES'NT KNOW ANY HX ON MOPM- MOM LEFT HOME WHEN PT WAS 9 MONTHS OLD. Father Family Medical History: Coronary Artery Disease (CAD), Myocardial Infarction ([place] ) Additional Family Medical History / Comment(s): CABG General Exam Limitations: no limitations General appearance: alert, anxious, in distress, obese Head exam: Present: atraumatic, normocephalic, normal inspection Eye exam: Present: normal appearance, PERRL, EOMI. Absent: scleral icterus, conjunctival injection, periorbital swelling ENT exam: Present: normal exam, mucous membranes moist Neck exam: Present: normal inspection. Absent: tenderness, meningismus, lymphadenopathy Respiratory exam: Present: normal lung sounds bilaterally, respiratory distress , accessory muscle use, decreased breath sounds, prolonged expiratory. Absent: wheezes, rales, rhonchi, stridor Cardiovascular Exam: Present: normal rhythm, bradycardia, normal heart sounds. Absent: systolic murmur, diastolic murmur, rubs, gallop, clicks GI/Abdominal exam: Present: soft, normal bowel sounds. Absent: distended, tenderness, guarding, rebound, rigid Extremities exam: Present: normal inspection, full ROM, normal capillary refill. Absent: tenderness, pedal edema, joint swelling, calf tenderness Back exam: Present: normal inspection Neurological exam: Present: alert, oriented X3, CN II-XII intact Psychiatric exam: Present: normal affect, normal mood Skin exam: Present: warm, dry, intact, normal color. Absent: rash Course Vital Signs 06/03/16 09:25 Temperature 97.8 F Pulse Rate 42 L Respiratory 18 Rate Blood Pressure 157/66 O2 Sat by Pulse 95 Oximetry - Reevaluation(s) Reevaluation #1: 06/03/16 10:42 Patient's symptoms are worse with any movement, worse when she attempts to stand up EKG Findings - EKG Comments: EKG Findings:: EKG shows sinus bradycardia rate 44, para 488, QRS 84, QTC 408 Medical Decision Making - Medical Decision Making 86 female the ER for evaluation of near syncope and dizziness, patient is known to be bradycardic which is new, no third-degree heart block, patient will be admitted for cardiovascular evaluation, patient's blood pressure is maintained at this time, patient is without syncopal event as long as she is lying still. Patient also has chronic renal failure - Lab Data Result diagrams: 06/03/16 09:40 06/03/16 09:40 Lab Results 06/03/16 06/03/16 06/03/16 Range/Units 09:40 09:40 09:40 WBC 9.6 (3.8-10.6) k/uL RBC 3.64 L (3.80-5.40) m/uL Hgb 10.8 L (11.4-16.0) gm/dL Hct 34.7 (34.0-46.0) % MCV 95.3 (80.0-100.0) fL MCH 29.6 (25.0-35.0) pg MCHC 31.1 (31.0-37.0) g/dL RDW 16.5 H (11.5-15.5) % Plt Count 160 (150-450) k/uL Neutrophils % 82 % Lymphocytes % 10 % Monocytes % 5 % Eosinophils % 2 % Basophils % 0 % Neutrophils # 7.8 H (1.3-7.7) k/uL Lymphocytes # 1.0 (1.0-4.8) k/uL Monocytes # 0.4 (0-1.0) k/uL Eosinophils # 0.2 (0-0.7) k/uL Basophils # 0.0 (0-0.2) k/uL Hypochromasia Slight Anisocytosis Slight PT (9.0-12.0) sec INR (<1.1) APTT (22.0-30.0) sec Sodium 142 (137-145) mmol/L Potassium 4.7 (3.5-5.1) mmol/L Chloride 106 (98-107) mmol/L Carbon Dioxide 25 (22-30) mmol/L Anion Gap 11 mmol/L BUN 36 H (7-17) mg/dL Creatinine 1.48 H (0.52-1.04) mg/dL Est GFR (MDRD) Af Amer 41 (>60 ml/min/1.73 sqM) Est GFR (MDRD) Non-Af 33 (>60 ml/min/1.73 sqM) Glucose 248 H (74-99) mg/dL Calcium 9.1 (8.4-10.2) mg/dL Phosphorus 3.6 (2.5-4.5) mg/dL Magnesium 1.9 (1.6-2.3) mg/dL Total Bilirubin 0.6 (0.2-1.3) mg/dL AST 138 H (14-36) U/L ALT 122 H (9-52) U/L Alkaline Phosphatase 172 H (38-126) U/L Total Creatine Kinase 45 (30-135) U/L CK-MB (CK-2) 1.2 (0.0-2.4) ng/mL CK-MB (CK-2) Rel Index 2.7 Troponin I 0.086 H* (0.000-0.034) ng/mL Total Protein 6.3 (6.3-8.2) g/dL Albumin 3.6 (3.5-5.0) g/dL TSH 3.470 (0.465-4.680) mIU/L 06/03/16 Range/Units 09:40 WBC (3.8-10.6) k/uL RBC (3.80-5.40) m/uL Hgb (11.4-16.0) gm/dL Hct (34.0-46.0) % MCV (80.0-100.0) fL MCH (25.0-35.0) pg MCHC (31.0-37.0) g/dL RDW (11.5-15.5) % Plt Count (150-450) k/uL Neutrophils % % Lymphocytes % % Monocytes % % Eosinophils % % Basophils % % Neutrophils # (1.3-7.7) k/uL Lymphocytes # (1.0-4.8) k/uL Monocytes # (0-1.0) k/uL Eosinophils # (0-0.7) k/uL Basophils # (0-0.2) k/uL Hypochromasia Anisocytosis PT 29.2 H (9.0-12.0) sec INR 3.0 (<1.1) APTT 32.0 H (22.0-30.0) sec Sodium (137-145) mmol/L Potassium (3.5-5.1) mmol/L Chloride (98-107) mmol/L Carbon Dioxide (22-30) mmol/L Anion Gap mmol/L BUN (7-17) mg/dL Creatinine (0.52-1.04) mg/dL Est GFR (MDRD) Af Amer (>60 ml/min/1.73 sqM) Est GFR (MDRD) Non-Af (>60 ml/min/1.73 sqM) Glucose (74-99) mg/dL Calcium (8.4-10.2) mg/dL Phosphorus (2.5-4.5) mg/dL Magnesium (1.6-2.3) mg/dL Total Bilirubin (0.2-1.3) mg/dL AST (14-36) U/L ALT (9-52) U/L Alkaline Phosphatase (38-126) U/L Total Creatine Kinase (30-135) U/L CK-MB (CK-2) (0.0-2.4) ng/mL CK-MB (CK-2) Rel Index Troponin I (0.000-0.034) ng/mL Total Protein (6.3-8.2) g/dL Albumin (3.5-5.0) g/dL TSH (0.465-4.680) mIU/L - Radiology Data Radiology results: report reviewed, image reviewed Critical Care Time Critical Care Time: Yes Total Critical Care Time: 31 Disposition Clinical Impression: Vasovagal syncope, Acute on chronic renal failure, Bradycardia, CHF ( congestive heart failure), Dizziness Disposition: ADMITTED IP TO THIS HOSP Condition: Serious Referrals: Karlie Ruiz DO [Primary Care Provider] - 1-2 days
[2016-06-03 09:54] LABS: Anisocytosis Slight; Basophils % (A) 0 %; CH 29.4; Eosinophils # (A) 0.2 k/uL (0-0.7); Eosinophils % (A) 2 %; HCT 34.7 % (34.0-46.0); HDW 2.69; HGB 10.8 gm/dL (11.4-16.0); Hypochromasia Slight; Luc # (Auto) 0.17; Luc % (Auto) 2; Lymphocytes % (A) 10 %; MCH 29.6 pg (25.0-35.0); MCHC 31.1 g/dL (31.0-37.0); MCV 95.3 fL (80.0-100.0); Mean Platelet Volume 9.3; Monocytes # (A) 0.4 k/uL (0-1.0); Monocytes % (A) 5 %; Neutrophils # (A) 7.8 k/uL (1.3-7.7); Neutrophils % (A) 82 %; RBC 3.64 m/uL (3.80-5.40); RDW 16.5 % (11.5-15.5); WBC 9.6 k/uL (3.8-10.6); WBC (Perox) 9.98
[2016-06-03 10:04] LABS: Prothrombin Time 29.2 sec (9.0-12.0)
[2016-06-03 10:07] LABS: Calcium 9.1 mg/dL (8.4-10.2); Magnesium 1.9 mg/dL (1.6-2.3); Phosphorous 3.6 mg/dL (2.5-4.5); Potassium 4.7 mmol/L (3.5-5.1); Total Bilirubin 0.6 mg/dL (0.2-1.3); Total Protein 6.3 g/dL (6.3-8.2)
[2016-06-03 10:29] LABS: Creatine Kinase MB 1.2 ng/mL (0.0-2.4)
--- NOTE | 2016-06-03 10:33 | XR ---
EXAMINATION TYPE: XR chest 2V DATE OF EXAM: 06/03/2016 10:15 AM COMPARISON: 10/11/2015 HISTORY: 86-year-old female with weakness TECHNIQUE: Frontal and lateral views FINDINGS: Evaluation limited due to portable technique and large patient body habitus resulting in underpenetra tion. The heart remains borderline enlarged. Diffuse interstitial prominence is noted. Lateral view s hows no significant pleural effusion. Elongation of the thoracic aorta with atherosclerotic arch calc ifications. IMPRESSION: Limited portable exam. Correlate to exclude mild pulmonary vascular congestion.
[2016-06-03 10:35] LABS: Troponin I 0.086 ng/mL (0.000-0.034)
[2016-06-03] MEDS ORDERED: ASPIRIN 81 MG CHEW PO STA (11:16)
[2016-06-03] MEDS ORDERED: NITROGLYCERIN SL TABS 0.4 MG TAB SUBLINGUAL PRN (11:16)
[2016-06-03 11:39] LABS: Appearance,Urine Cloudy (Clear); Bacteria,Urine Few /hpf; Bilirubin,Urine Negative (Negative); Glucose,Urine (UA) Negative (Negative); Ketones,Urine Negative (Negative); Leukocyte Esterase,Urine Negative (Negative); Mucus,Urine Rare /hpf; Nitrite,Urine Negative (Negative); PH, Urine 5.5 (5.0-8.0); Particle Count 18665; Protein,Urine Negative (Negative); RBC,Urine 5 /hpf (0-5); Specific Gravity,Urine 1.007 (1.001-1.035); Squamous Epithelial Cell,Urine 8 /hpf (0-4); UA Billing (MACRO vs. MICRO) MICRO; Urobilinogen,Urine <2.0 mg/dL (<2.0); WBC,Urine 5 /hpf (0-5)
[2016-06-03] MEDS ORDERED: MECLIZINE 12.5 MG TAB PO PRN (13:06)
--- NOTE | 2016-06-03 14:13 | P.HPIM ---
History of Present Illness H&P Date: 06/03/16 Chief Complaint: dizziness this is a 86-year-old female, patient of [facility]. She has a known past medical history of congestive heart failure, pulmonary was him, hypertension, chronic kidney disease stage III, hyperlipidemia, vertigo and obstructive sleep apnea. Patient presents to the emergency room with complaints of severe dizziness and near syncope. Patient reports no new changes in medications. However she is on Lopressor at home. She was found to be bradycardic heart rate in the 30s in the emergency room. Initial EKG had shown a s a first-degree AV block with a heart rate of 44. She was placed on telemetry there were initially concerns about possible third degree block. EKG completed and showed a second-degree AV block with 2-1 conduction with occasional PVCs. Patient has been admitted to the sixth floor. Cardiology has been consulted. Her Lopressor has been discontinued.patient reports having dizziness and shortness of breath with just sitting. Also note that she has some elevation to her liver numbers AST 138 ALT 122 and alk phos 172. Denies any abdominal pain. Denies any alcohol use or history of hepatitis. She also had a blood sugar of 248. Earlier in the day she ate zucchini bread and chocolate milk. She denies any history of diabetes.patient denies any chest pain. Denies any heart palpitations. Denies any vomiting. Denies any bowel movement changes or urinary symptoms. Review of Systems please refer to HPI otherwise unremarkable Past Medical History Past Medical History: Chest Pain / Angina, Heart Failure, Hyperlipidemia, Hypertension, Pulmonary Embolus (PE), Renal Disease, Sleep Apnea/CPAP/BIPAP Additional Past Medical History / Comment(s): CKD stage III, NEPHROLITHIASIS, CHACHO PE, GOLDY WITH CPAP USE, BRONCHITIS,DIVERTICULOSIS, VERTIGO, FALLS, recent infection/rash bilateral lower legs almost healed per pt. History of Any Multi-Drug Resistant Organisms: None Reported Past Surgical History: Hysterectomy, Joint Replacement Additional Past Surgical History / Comment(s): bilateral knee replacement, hemorrhoid surgery, AAA repair, LITHOTRIPSY Past Anesthesia/Blood Transfusion Reactions: No Reported Reaction Additional Past Anesthesia/Blood Transfusion Reaction / Comment(s): Pt states she received blood with AAA repair. No reaction. Past Psychological History: No Psychological Hx Reported Additional Psychological History / Comment(s): Pt resides alone. She uses a walker or cane at times to ambulate. She drives. Her don, Latrice, assists her with her medications at times. Smoking Status: Never smoker Past Alcohol Use History: None Reported Past Drug Use History: None Reported - Past Family History Mother History Unknown: Yes Additional Family Medical History / Comment(s): PT DOES'NT KNOW ANY HX ON MOPM- MOM LEFT HOME WHEN PT WAS 9 MONTHS OLD. Father Family Medical History: Coronary Artery Disease (CAD), Myocardial Infarction ([place] ) Additional Family Medical History / Comment(s): CABG Medications and Allergies Home Medications Medication Instructions Recorded Confirmed Type Aspirin 81 mg PO DAILY 08/26/13 06/03/16 History Atorvastatin [Lipitor] 20 mg PO DAILY 08/26/13 06/03/16 History Metoprolol Tartrate [Lopressor] 50 mg PO DAILY 08/26/13 06/03/16 History Ergocalciferol (Vitamin D2) 50,000 unit PO MO 05/23/14 06/03/16 History [Drisdol] Febuxostat [Uloric] 40 mg PO HS 05/23/14 06/03/16 History Pantoprazole Sodium [Protonix] 40 mg PO DAILY 05/23/14 06/03/16 History Calcitriol [Rocaltrol] 0.25 mcg PO MOWEFRSA 10/11/15 06/03/16 History Meclizine [Antivert] 12.5 mg PO Q8HR PRN 04/13/16 06/03/16 History Vit C/E/Zn/Coppr/Lutein/Zeaxan 2 cap PO BID 04/13/16 06/03/16 History [Preservision Areds 2 Softgel] Warfarin [Coumadin] 3 mg PO MOWEFR 04/13/16 06/03/16 History cloNIDine HCL [Catapres] 0.2 mg PO BID 04/13/16 06/03/16 History Warfarin [Coumadin] 1.5 mg PO SUTUTHSA 06/03/16 06/03/16 History hydrALAZINE HCL [Apresoline] 50 mg PO TID 06/03/16 06/03/16 History Allergies Allergy/AdvReac Type Severity Reaction Status Date / Time morphine Allergy Rash/Hives Verified 06/03/16 10:33 Physical Exam Vitals: Vital Signs Temp Pulse Resp BP Pulse Ox 06/03/16 11:32 97.2 F L 44 L 16 136/60 95 Head normocephalic Neck supple Lungs clear to auscultation bilaterally no wheezing or crackles Heart bradycardic Abdomen is soft nontender nondistended positive bowel sounds no hepatosplenomegaly Extremities no edema Neuro alert and orientated to 3 Results CBC & Chem 7: 06/03/16 09:40 06/03/16 09:40 Thrombosis Risk Factor Assmnt - Choose All That Apply Any of the Below Risk Factors Present?: Yes Each Factor Represents 1 point: Heart failure (<1month), Obesity (BMI >25) Other Risk Factors: Yes Each Risk Factor Represents 3 Points: Age 75 years or older Other congenital or acquired thrombophilia - If yes, enter type in comment: No Thrombosis Risk Factor Assessment Total Risk Factor Score: 5 Thrombosis Risk Factor Assessment Level: High Risk Assessment and Plan Plan: 1. Symptomatic bradycardia with dizziness and near syncopal episode: EKG showing a second-degree AV block. Lopressor discontinued. Cardiology has been consulted. Continue with telemetry monitoring.TSH level normal at 3.470 2.elevated troponin may be secondary to her chronic kidney disease. No chest pain. Patient will be evaluated by cardiology 3. elevated LFTs: Possibly related to the Lipitor. Discontinue Lipitor repeat labs in a.m. Patient denies any abdominal pain. If continue to increase we'll check liver ultrasound. 4. hyperglycemia with a blood sugar of 248 on admission. No history of diabetes. check hemoglobin A1c. Check blood sugars every before meals and at bedtime. Start sliding scale coverage 5. Hyperlipidemia: Hold Lipitor 6. History of chronic kidney disease stage III 7. History of chronic diastolic CHF. Echo from March 2014 shows an EF of 50- 55%. Check BNP level. Chest x-ray did show mild pulmonary vascular congestion 8. History of pulmonary embolism: Patient on Coumadin at home. Hold Coumadin due to the INR being elevated at 3.0. Check daily PT/INR 9. History of vertigo. On Antivert at home. 10. Essential hypertension: Resume hydralazine and Catapres GI prophylaxis Protonix and DVT prophylaxis Coumadin on hold due to elevated INR Time with Patient: Greater than 30 (Greater than 50% of the total time spent in counseling and coordination of care.I performed an examination of the patient and discussed their management with the physician Literacy Consultant. I have reviewed the Physician Literacy Consultant's notes and agree with the documented findings and plan of care)
[2016-06-03 14:30] VITALS: BMI 42.2
[2016-06-03] MEDS ORDERED: ATROPINE SULFATE 0.1 MG/ML 10ML SYRINGE IV PRN (14:47)
[2016-06-03 16:10] LABS: Bilirubin, Delta 0.2 mg/dL (0.0-0.2); Total Bilirubin 0.5 mg/dL (0.2-1.3); Total Protein 6.1 g/dL (6.3-8.2)
[2016-06-03 16:15] LABS: Hemoglobin A1C 7.2 % (4.2-6.1)
[2016-06-03] MEDS: hydrALAZINE HCL 50 MG TAB PO SCH ×2 (16:20→21:58)
[2016-06-03 16:31] LABS: Creatine Kinase MB 1.1 ng/mL (0.0-2.4)
[2016-06-03 16:36] LABS: Troponin I 0.109 ng/mL (0.000-0.034)
[2016-06-03 16:56] LABS: Glucose,Whole Blood 181 mg/dL (75-99)
[2016-06-03] MEDS: INSULIN LISPRO (humaLOG) 300 UNIT/3 ML VIAL SQ SCH ×2 (17:23→21:44)
[2016-06-03 20:49] LABS: Glucose,Whole Blood 125 mg/dL (75-99)
[2016-06-03] MEDS ORDERED: cloNIDine HCL 0.2 MG TAB PO SCH (21:00)
[2016-06-03] MEDS: ALLOPURINOL 100 MG TAB PO SCH (21:46)
[2016-06-03] MEDS: VIT A,C & E-LUTEIN-MINERALS 1 EACH TAB PO SCH (21:46)
[2016-06-03 22:59] LABS: Troponin I 0.114 ng/mL (0.000-0.034)
[2016-06-04 06:08] LABS: Glucose,Whole Blood 170 mg/dL (75-99)
[2016-06-04 06:25] LABS: Anisocytosis Slight; Basophils # (A) 0.1 k/uL (0-0.2); Basophils % (A) 1 %; CH 29.1; CHCM 29.7; Eosinophils # (A) 0.3 k/uL (0-0.7); Eosinophils % (A) 4 %; HDW 2.61; HGB 10.7 gm/dL (11.4-16.0); Hypochromasia Marked; Luc # (Auto) 0.26; Luc % (Auto) 3; Lymphocytes # (A) 2.2 k/uL (1.0-4.8); Lymphocytes % (A) 26 %; MCHC 30.6 g/dL (31.0-37.0); MCV 98.2 fL (80.0-100.0); Macrocytosis Slight; Mean Platelet Volume 9.2; Monocytes # (A) 0.5 k/uL (0-1.0); Monocytes % (A) 6 %; Neutrophils # (A) 5.2 k/uL (1.3-7.7); Neutrophils % (A) 61 %; RBC 3.56 m/uL (3.80-5.40); RDW 16.5 % (11.5-15.5); WBC 8.6 k/uL (3.8-10.6); WBC (Perox) 8.94
[2016-06-04 06:35] LABS: INR 2.9 (<1.1); Prothrombin Time 27.9 sec (9.0-12.0)
[2016-06-04 06:41] LABS: Calcium 9.1 mg/dL (8.4-10.2); Potassium 4.5 mmol/L (3.5-5.1); Total Bilirubin 0.6 mg/dL (0.2-1.3)
[2016-06-04] MEDS: INSULIN LISPRO (humaLOG) 300 UNIT/3 ML VIAL SQ SCH ×4 (06:47→21:26)
--- NOTE | 2016-06-04 08:20 | P.PN ---
Subjective Principal diagnosis: Dr. Braden spoke to me about this patient Very symptomatic with dizziness and lightheadedness with A-V dissociation and severe bradycardia Will check TSH Beta blockers have already been discontinued and she remains bradycardic and dizzy If she and her family members consent for permanent pacemaker implantation I would proceed with this in the next 2 days No EKG patches in the left shoulder area, daily Hibiclens bath, clean area with ChloraPrep Objective - Vital Signs Vital signs: Vital Signs Temp 97 F L 06/04/16 04:00 Pulse 53 L 06/04/16 04:00 Resp 20 06/04/16 04:00 BP 176/77 06/04/16 04:00 Pulse Ox 98 06/04/16 04:00 Intake & Output 06/03/16 06/04/16 06/04/16 18:59 06:59 18:59 Intake Total 520 Output Total 400 Balance 120 Weight 88.5 kg 88.5 kg Intake: Oral 520 Output: Urine 400 Other: Voiding Method Bedpan # Voids 1 - Labs CBC & Chem 7: 06/04/16 06:08 06/04/16 06:08 Labs: Abnormal Lab Results - Last 24 Hours (Table) 06/03/16 06/03/16 06/03/16 Range/Units 15:42 15:42 16:51 RBC (3.80-5.40) m/uL Hgb (11.4-16.0) gm/dL MCHC (31.0-37.0) g/dL RDW (11.5-15.5) % PT (9.0-12.0) sec BUN (7-17) mg/dL Creatinine (0.52-1.04) mg/dL Glucose (74-99) mg/dL POC Glucose (mg/dL) 181 H (75-99) mg/dL AST 78 H (14-36) U/L ALT 112 H (9-52) U/L Alkaline Phosphatase 141 H (38-126) U/L Troponin I 0.109 H* (0.000-0.034) ng/mL Total Protein 6.1 L (6.3-8.2) g/dL Albumin (3.5-5.0) g/dL Triglycerides (<150) mg/dL Cholesterol (<200) mg/dL HDL Cholesterol (40-60) mg/dL 06/03/16 06/03/16 06/04/16 Range/Units 20:48 21:38 06:06 RBC (3.80-5.40) m/uL Hgb (11.4-16.0) gm/dL MCHC (31.0-37.0) g/dL RDW (11.5-15.5) % PT (9.0-12.0) sec BUN (7-17) mg/dL Creatinine (0.52-1.04) mg/dL Glucose (74-99) mg/dL POC Glucose (mg/dL) 125 H 170 H (75-99) mg/dL AST (14-36) U/L ALT (9-52) U/L Alkaline Phosphatase (38-126) U/L Troponin I 0.114 H* (0.000-0.034) ng/mL Total Protein (6.3-8.2) g/dL Albumin (3.5-5.0) g/dL Triglycerides (<150) mg/dL Cholesterol (<200) mg/dL HDL Cholesterol (40-60) mg/dL 06/04/16 06/04/16 06/04/16 Range/Units 06:08 06:08 06:08 RBC 3.56 L (3.80-5.40) m/uL Hgb 10.7 L (11.4-16.0) gm/dL MCHC 30.6 L (31.0-37.0) g/dL RDW 16.5 H (11.5-15.5) % PT 27.9 H (9.0-12.0) sec BUN 35 H (7-17) mg/dL Creatinine 1.41 H (0.52-1.04) mg/dL Glucose 149 H (74-99) mg/dL POC Glucose (mg/dL) (75-99) mg/dL AST 39 H (14-36) U/L ALT 91 H (9-52) U/L Alkaline Phosphatase (38-126) U/L Troponin I (0.000-0.034) ng/mL Total Protein 6.0 L (6.3-8.2) g/dL Albumin 3.3 L (3.5-5.0) g/dL Triglycerides 437 H (<150) mg/dL Cholesterol 200 H (<200) mg/dL HDL Cholesterol 27 L (40-60) mg/dL
[2016-06-04] MEDS ORDERED: ENOXAPARIN 30 MG/0.3 ML SYRINGE SQ SCH (09:00)
[2016-06-04] MEDS ORDERED: ASPIRIN 325 MG TAB PO SCH (09:00)
[2016-06-04] MEDS ORDERED: ENOXAPARIN 40 MG/0.4 ML SYRINGE SQ SCH (09:00)
[2016-06-04] MEDS ORDERED: ATORVASTATIN 20 MG TAB PO SCH (09:00)
--- NOTE | 2016-06-04 09:30 | CONS ---
DATE OF CONSULTATION: This is an 86-year-old female. Patient follows with Dr. Karlie Ruiz as an outpatient. Patient is admitted to the hospital with dizzy spells, noted to have severe bradycardia, rates 30 to 40 range with episodes first degree with a Mobitz type 1 block, with progressive prolongation of OH interval and followed by dropped P wave. At times, patient is having ventricular escape rhythm. In view of severe bradycardia and normal TSH, patient has been on Lopressor, which has been discontinued and will also go ahead and discontinue the Catapres. The patient has elevated liver enzymes probably related to statins, will discontinue the statin also. The patient is moderately obese. Lives alone by herself. She takes care of herself and even though patient is stated to be a NO CODE agreeable for a pacemaker, but wants to have discussion with her daughter before she gives the final okay. Patient has multiple medical problems, which include history of congestive heart failure, history of hypertension, history of chronic kidney disease stage III and hyperlipidemia, history of chronic obstructive lung disease, history of pulmonary embolism 4 or 5 years who has been on therapeutic dose of Coumadin with pro times normal. Will check the D-dimer also to make sure patient does not have any evidence of pulmonary embolism. Patient has no overt failure. Patient may have a question of congestion, but there is no over history of congestive heart failure. No history of coronary artery disease in the past. Patient is on BiPAP at home for sleep apnea. Patient has a past history of smoking ( ). Patient's past surgical history is remarkable for hysterectomy, joint replacement. Denies any chest pain or pressure at present time, bilateral knee replacements, hemorrhoid surgery. Medications prior to admission include aspirin 81 mg p.o. daily, atorvastatin which is discontinued 20 mg because of liver enzyme elevation; metoprolol tartrate has been discontinued 50 mg p.o. daily; vitamin D2, 50,000 units monthly; Uloric 40 mg p.o. at bedtime, Protonix 40 mg p.o. daily, Calcitriol 0.25 mcg p.o. daily, meclizine 12.5 mg q.8 hours p.r.n., warfarin 3 mg daily per pro time, clonidine 0.2 mg p.o. b.i.d. will be discontinued to see whether there is any improvement ( ), hydralazine 50 mg p.o. t.i.d. is continued . Patient will have amlodipine 5 mg p.o. daily added. Patient's laboratory data: Patient has troponin values borderline in a patient with a creatinine of 1.41. Will get an echocardiogram to assess LV function. Physical examination revealed well-developed, well-nourished 86-year-old female not in acute distress, oriented x3 with a pulse rate of 50 beats to 143 beats per minute and is irregular with Mobitz type 1 block, progressive prolongation of OH interval followed by dropped ( ) QRS. Blood pressure 122/58, respirations of 20. HEAD: Normocephalic. HEENT: Unremarkable. NECK: Neck is supple. No thyroid enlargement. No bruit noted. No JVD. CARDIAC EXAMINATION: S1 and S2. Short systolic murmur noted at the apex, grade 2/6. Lungs are clinically to auscultation and percussion. ABDOMEN: Obese. No organomegaly. Active bowel sounds. EXTREMITIES: Decreased pedal pulses. No pedal edema. ENTRY MANAGER EXAMINATION: Grossly within normal limits. ASSESSMENT: 1. Dizziness most likely related to bradycardia Mobitz type 1 block with escape ( ) and aggravated by Lopressor and probably clonidine, both are discontinued. 2. Elevated liver enzymes secondary to statin. 3. Sleep apnea syndrome on BiPAP. 4. Past history of pulmonary embolism on therapeutic dose of Coumadin. 5. Hypertension. 6. Diabetes mellitus on insulin. RECOMMENDATIONS: Will verify the TSH has been normal and D-dimer has been ordered and will get the BNP level. Discussed with the patient extensively with the pacemaker. Patient wanted to talk to her daughter and with her consent spoke with Dr. Rios regarding pacemaker ( ) if patient's daughter agrees, tentatively scheduled for over the or Tuesday.
[2016-06-04] MEDS: amLODIPine 5 MG TAB PO SCH (09:41)
[2016-06-04] MEDS: CALCITRIOL 0.25 MCG CAP PO SCH (09:42)
[2016-06-04] MEDS: PANTOPRAZOLE 40 MG TABLET PO SCH (09:42)
[2016-06-04] MEDS: FUROSEMIDE 40 MG TAB PO SCH (09:43)
[2016-06-04] MEDS: hydrALAZINE HCL 50 MG TAB PO SCH ×3 (09:43→21:24)
[2016-06-04] MEDS: VIT A,C & E-LUTEIN-MINERALS 1 EACH TAB PO SCH ×2 (09:43→21:24)
[2016-06-04] MEDS: ASPIRIN 81 MG CHEW PO SCH (09:44)
--- NOTE | 2016-06-04 09:58 | ECHOF ---
Referral Reason:lv function MEASUREMENTS -------- HEIGHT: 149.9 cm WEIGHT: 88.5 kg BP: 176/77 IVSd: 1.5 cm (0.6 - 1.1) LVIDd: 4.7 cm (3.9 - 5.3) LVPWd: 1.6 cm (0.6 - 1.1) IVSs: 1.9 cm LVIDs: 3.7 cm LVPWs: 1.3 cm LAESV Index (A-L): 62.68 ml/m MV EXCURSION: 13.666 mm (> 18.000) MV EF SLOPE: 30 mm/s (70 - 150) EPSS: 1.1 cm MV E Jhonny: 1.09 m/s MV DecT: 314 ms MV A Jhonny: 1.31 m/s MV E/A Ratio: 0.83 AV maxP.84 mmHg AV meanP.39 mmHg RAP: 5.00 mmHg RVSP: 12.14 mmHg FINDINGS -------- Undetermined rhythm. This was a technically adequate study. There is mild concentric left ventricular hypertrophy. Overall left ventricular systolic function is low-normal with, an EF between 50 - 55 %. The right ventricle is normal in size. LA is severely dilated >40 ml/m2 echo dense lesion in left atrium - artifact vs mass lesion - consider JIMBO The right atrial size is normal. Peak/mean gradient across the Aortic Valve is 14.84mmHg / 6.39mmHg. Aov is stenotic with decrease opening. The peak and mean MV gradients are 15.87mmHg 4.25mmHg as measured by doppler. MV is Stenotic with decrease opening Mild tricuspid regurgitation present. There is no evidence of pulmonary hypertension. The right ventricular systolic pressure, as measured by Doppler, is 12.14mmHg. There is no pulmonic regurgitation present. The aortic root size is normal. There is no pericardial effusion. CONCLUSIONS -------- 1. There is mild concentric left ventricular hypertrophy. 2. The right ventricular systolic pressure, as measured by Doppler, is 12.14mmHg. 3. Overall left ventricular systolic function is low-normal with, an EF between 50 - 55 %. 4. LA is severely dilated >40 ml/m2 5. Peak/mean gradient across the Aortic Valve is 14.84mmHg / 6.39mmHg. 6. Aov is stenotic with decrease opening. 7. The peak and mean MV gradients are 15.87mmHg 4.25mmHg as measured by doppler. 8. MV is Stenotic with decrease opening 9. Mild tricuspid regurgitation present. 10. There is no evidence of pulmonary hypertension. FINANCIAL DEALERS: Cat Abrams RDCS
--- NOTE | 2016-06-04 11:12 | P.PN ---
Subjective patient presented with severe dizziness and near syncope and evidence of symptomatic bradycardia. EKG had showed a second-degree AV block with 2-1 conduction with occasional PVCs. Beta momo discontinued. Cardiology is evaluating patient for possible pacemaker placement. Patient had echo completed today. She still having some dizziness and bradycardia. patient has been diagnosed with diabetes during this admission. Denies any chest pain or shortness of breath. Denies any nausea or vomiting. Denies any bowel movement changes or urinary symptoms. Objective - Vital Signs Vital signs: Vital Signs Temp 97.1 F L 06/04/16 08:30 Pulse 42 L 06/04/16 08:30 Resp 18 06/04/16 08:30 BP 162/72 06/04/16 08:30 Pulse Ox 97 06/04/16 08:30 Intake & Output 06/03/16 06/04/16 06/04/16 18:59 06:59 18:59 Intake Total 520 Output Total 400 Balance 120 Weight 88.5 kg 88.5 kg Intake: Oral 520 Output: Urine 400 Other: Voiding Method Bedpan # Voids 1 - Exam Head normocephalic Neck supple Lungs clear to auscultation bilaterally no wheezing or crackles Heart bradycardic Abdomen is soft nontender nondistended positive bowel sounds no hepatosplenomegaly Extremities no edema Neuro alert and orientated to 3 - Labs CBC & Chem 7: 06/04/16 06:08 06/04/16 06:08 Labs: Abnormal Lab Results - Last 24 Hours (Table) 06/03/16 06/03/16 06/03/16 Range/Units 15:42 15:42 16:51 RBC (3.80-5.40) m/uL Hgb (11.4-16.0) gm/dL MCHC (31.0-37.0) g/dL RDW (11.5-15.5) % PT (9.0-12.0) sec D-Dimer (<0.60) mg/L FEU BUN (7-17) mg/dL Creatinine (0.52-1.04) mg/dL Glucose (74-99) mg/dL POC Glucose (mg/dL) 181 H (75-99) mg/dL AST 78 H (14-36) U/L ALT 112 H (9-52) U/L Alkaline Phosphatase 141 H (38-126) U/L Troponin I 0.109 H* (0.000-0.034) ng/mL Total Protein 6.1 L (6.3-8.2) g/dL Albumin (3.5-5.0) g/dL Triglycerides (<150) mg/dL Cholesterol (<200) mg/dL HDL Cholesterol (40-60) mg/dL 06/03/16 06/03/16 06/04/16 Range/Units 20:48 21:38 06:06 RBC (3.80-5.40) m/uL Hgb (11.4-16.0) gm/dL MCHC (31.0-37.0) g/dL RDW (11.5-15.5) % PT (9.0-12.0) sec D-Dimer (<0.60) mg/L FEU BUN (7-17) mg/dL Creatinine (0.52-1.04) mg/dL Glucose (74-99) mg/dL POC Glucose (mg/dL) 125 H 170 H (75-99) mg/dL AST (14-36) U/L ALT (9-52) U/L Alkaline Phosphatase (38-126) U/L Troponin I 0.114 H* (0.000-0.034) ng/mL Total Protein (6.3-8.2) g/dL Albumin (3.5-5.0) g/dL Triglycerides (<150) mg/dL Cholesterol (<200) mg/dL HDL Cholesterol (40-60) mg/dL 06/04/16 06/04/16 06/04/16 Range/Units 06:08 06:08 06:08 RBC 3.56 L (3.80-5.40) m/uL Hgb 10.7 L (11.4-16.0) gm/dL MCHC 30.6 L (31.0-37.0) g/dL RDW 16.5 H (11.5-15.5) % PT 27.9 H (9.0-12.0) sec D-Dimer (<0.60) mg/L FEU BUN 35 H (7-17) mg/dL Creatinine 1.41 H (0.52-1.04) mg/dL Glucose 149 H (74-99) mg/dL POC Glucose (mg/dL) (75-99) mg/dL AST 39 H (14-36) U/L ALT 91 H (9-52) U/L Alkaline Phosphatase (38-126) U/L Troponin I (0.000-0.034) ng/mL Total Protein 6.0 L (6.3-8.2) g/dL Albumin 3.3 L (3.5-5.0) g/dL Triglycerides 437 H (<150) mg/dL Cholesterol 200 H (<200) mg/dL HDL Cholesterol 27 L (40-60) mg/dL 06/04/16 Range/Units 06:08 RBC (3.80-5.40) m/uL Hgb (11.4-16.0) gm/dL MCHC (31.0-37.0) g/dL RDW (11.5-15.5) % PT (9.0-12.0) sec D-Dimer 0.68 H (<0.60) mg/L FEU BUN (7-17) mg/dL Creatinine (0.52-1.04) mg/dL Glucose (74-99) mg/dL POC Glucose (mg/dL) (75-99) mg/dL AST (14-36) U/L ALT (9-52) U/L Alkaline Phosphatase (38-126) U/L Troponin I (0.000-0.034) ng/mL Total Protein (6.3-8.2) g/dL Albumin (3.5-5.0) g/dL Triglycerides (<150) mg/dL Cholesterol (<200) mg/dL HDL Cholesterol (40-60) mg/dL Assessment and Plan Plan: 1. Symptomatic bradycardia with dizziness and near syncopal episode: EKG showing a second-degree AV block. Lopressor discontinued. patient seen by cardiology. They're evaluating patient for possible pacemaker placement. Continue with telemetry monitoring.TSH level normal at 3.470 2.elevated troponin may be secondary to her chronic kidney disease. No chest pain. Patient will be evaluated by cardiology 3. elevated LFTs: Possibly related to the Lipitor. Discontinue Lipitor. LFTs are showing improvement in trending down. Hepatitis panel pending 4. new diagnoses of diabetes mellitus type 2. hyperglycemia with a blood sugar of 248 on admission. hemoglobin A1c 7.2. Continue with Accu-Cheks every before meals and at bedtime with sliding scale coverage for now. likely will be discharged home with glipizide. Consults art educator and dietitian 5. Hyperlipidemia: Hold Lipitor 6. History of chronic kidney disease stage III 7. History of chronic diastolic CHF. Echo from March 2014 shows an EF of 50- 55%. no evidence of exacerbation 8. History of pulmonary embolism: Patient on Coumadin at home. Hold Coumadin due to the INR being elevated at 2.9. Check daily PT/INR 9. History of vertigo. On Antivert at home. 10. Essential hypertension: continue hydralazine and Catapres. Elevated blood pressure this morning of 176/77. Repeat blood pressure 162/72. Continue to monitor 11. Hypertriglyceridemia: Triglycerides level 437. GI prophylaxis Protonix and DVT prophylaxis Coumadin on hold due to elevated INR
[2016-06-04 11:37] LABS: Glucose,Whole Blood 201 mg/dL (75-99)
[2016-06-04] MEDS: SODIUM CHLORIDE 0.9% 1,000 ML IV SCH (11:44)
[2016-06-04 12:00] LABS: % Iron Saturation 16.5 % (20-50)
[2016-06-04 16:42] LABS: Glucose,Whole Blood 119 mg/dL (75-99)
[2016-06-04 20:50] LABS: Glucose,Whole Blood 143 mg/dL (75-99)
[2016-06-04] MEDS: ALLOPURINOL 100 MG TAB PO SCH (21:23)
[2016-06-05 06:16] LABS: Anisocytosis Slight; Basophils # (A) 0.1 k/uL (0-0.2); Basophils % (A) 1 %; CH 29.5; CHCM 31.1; Eosinophils # (A) 0.3 k/uL (0-0.7); Eosinophils % (A) 3 %; HCT 35.3 % (34.0-46.0); HGB 10.8 gm/dL (11.4-16.0); Hypochromasia Slight; Luc # (Auto) 0.24; Luc % (Auto) 3; Lymphocytes # (A) 2.2 k/uL (1.0-4.8); Lymphocytes % (A) 24 %; MCH 29.2 pg (25.0-35.0); MCHC 30.6 g/dL (31.0-37.0); MCV 95.2 fL (80.0-100.0); Monocytes # (A) 0.6 k/uL (0-1.0); Monocytes % (A) 6 %; Neutrophils # (A) 5.9 k/uL (1.3-7.7); Neutrophils % (A) 64 %; RBC 3.71 m/uL (3.80-5.40); RDW 16.6 % (11.5-15.5); WBC 9.2 k/uL (3.8-10.6)
[2016-06-05 06:21] LABS: Prothrombin Time 19.5 sec (9.0-12.0)
[2016-06-05 06:27] LABS: Calcium 9.2 mg/dL (8.4-10.2); Potassium 4.5 mmol/L (3.5-5.1); Total Bilirubin 0.9 mg/dL (0.2-1.3); Total Protein 6.4 g/dL (6.3-8.2)
[2016-06-05 06:32] LABS: Glucose,Whole Blood 145 mg/dL (75-99)
[2016-06-05] MEDS: INSULIN LISPRO (humaLOG) 300 UNIT/3 ML VIAL SQ SCH ×4 (06:34→21:53)
[2016-06-05] MEDS ORDERED: ceFAZolin 2 GM in SODIUM CHLORIDE 0.9% 100 ML IVPB ONE (09:05)
[2016-06-05] MEDS ORDERED: ceFAZolin 1,000 MG in SODIUM CHLORIDE 0.9% IRRIGATIO 250 ML IRRIGATION ONE (09:07)
[2016-06-05] MEDS: amLODIPine 5 MG TAB PO SCH (09:40)
[2016-06-05] MEDS: ASPIRIN 81 MG CHEW PO SCH (09:40)
[2016-06-05] MEDS: CALCITRIOL 0.25 MCG CAP PO SCH (09:41)
[2016-06-05] MEDS: hydrALAZINE HCL 50 MG TAB PO SCH ×3 (09:41→21:53)
[2016-06-05] MEDS: PANTOPRAZOLE 40 MG TABLET PO SCH (09:41)
[2016-06-05] MEDS: VIT A,C & E-LUTEIN-MINERALS 1 EACH TAB PO SCH ×2 (09:43→21:55)
[2016-06-05] MEDS ORDERED: MIDAZOLAM 2 MG/2 ML VIAL ONE (11:04)
--- NOTE | 2016-06-05 11:06 | P.PN ---
Subjective Principal diagnosis: Patient was admitted with dizzy spells for the last several weeks twelve-lead ECG showed a ventricular rate of 39 beats a minute with A-V dissociation, third degree heart block After discontinuation of metoprolol for 24-48 hours, heart rates remain at 40 beats a minute with a very prolonged NM interval of greater than [address] Braden. Discussed with family. Proceed with single chamber pacemaker implantation Risks and benefits discussed with the patient's family, including cardiac perforation, lung puncture and infection Objective - Vital Signs Vital signs: Vital Signs Temp 97.8 F 06/05/16 09:15 Pulse 44 L 06/05/16 09:15 Resp 18 06/05/16 09:15 BP 167/78 06/05/16 09:15 Pulse Ox 94 L 06/05/16 09:15 Intake & Output 06/04/16 06/05/16 06/05/16 18:59 06:59 18:59 Intake Total 180 Output Total 400 650 Balance -400 -470 Weight 88.5 kg 87.5 kg Intake: IV 180 0.9 @20mls/hr 180 Output: Urine 400 650 Other: Voiding Method Bedpan Bedpan # Voids 1 1 - Labs CBC & Chem 7: 06/05/16 05:58 06/05/16 05:58 Labs: Abnormal Lab Results - Last 24 Hours (Table) 06/04/16 06/04/16 06/04/16 Range/Units 06:08 11:34 16:37 RBC (3.80-5.40) m/uL Hgb (11.4-16.0) gm/dL MCHC (31.0-37.0) g/dL RDW (11.5-15.5) % PT (9.0-12.0) sec BUN (7-17) mg/dL Creatinine (0.52-1.04) mg/dL Glucose (74-99) mg/dL POC Glucose (mg/dL) 201 H 119 H (75-99) mg/dL TIBC 260 L (265-497) ug/dL % Saturation 16.5 L (20-50) % ALT (9-52) U/L Alkaline Phosphatase (38-126) U/L 06/04/16 06/05/16 06/05/16 Range/Units 20:48 05:58 05:58 RBC 3.71 L (3.80-5.40) m/uL Hgb 10.8 L (11.4-16.0) gm/dL MCHC 30.6 L (31.0-37.0) g/dL RDW 16.6 H (11.5-15.5) % PT (9.0-12.0) sec BUN 35 H (7-17) mg/dL Creatinine 1.38 H (0.52-1.04) mg/dL Glucose 154 H (74-99) mg/dL POC Glucose (mg/dL) 143 H (75-99) mg/dL TIBC (265-497) ug/dL % Saturation (20-50) % ALT 72 H (9-52) U/L Alkaline Phosphatase 133 H (38-126) U/L /18/17 /18/17 Range/Units 05:58 06:31 RBC (3.80-5.40) m/uL Hgb (11.4-16.0) gm/dL MCHC (31.0-37.0) g/dL RDW (11.5-15.5) % PT 19.5 H (9.0-12.0) sec BUN (7-17) mg/dL Creatinine (0.52-1.04) mg/dL Glucose (74-99) mg/dL POC Glucose (mg/dL) 145 H (75-99) mg/dL TIBC (265-497) ug/dL % Saturation (20-50) % ALT (9-52) U/L Alkaline Phosphatase (38-126) U/L
[2016-06-05] MEDS ORDERED: IODIXANOL 320 MG/ML 100 ML IV ONE (11:15)
[2016-06-05] MEDS: MIDAZOLAM 2 MG/2 ML VIAL IVP ONE ×2 (11:23→11:54)
[2016-06-05] MEDS ORDERED: IV FLUID CONTINUATION 500 ML IV ONE (11:23)
[2016-06-05] MEDS: LIDOCAINE 1% INJ 10MG/ML (20 ML MDV) SQ ONE ×2 (11:36→11:40)
[2016-06-05] MEDS ORDERED: LIDOCAINE 1% INJ 10MG/ML (20 ML MDV) SQ ONE (11:48)
--- NOTE | 2016-06-05 12:01 | P.PN ---
Subjective Patient is scheduled for pacemaker placement today Objective - Vital Signs Vital signs: Vital Signs Temp 97.8 F 06/05/16 09:15 Pulse 44 L 06/05/16 09:15 Resp 18 06/05/16 09:15 BP 167/78 06/05/16 09:15 Pulse Ox 94 L 06/05/16 09:15 Intake & Output 06/04/16 06/05/16 06/05/16 18:59 06:59 18:59 Intake Total 180 100 Output Total 400 650 Balance -400 -470 100 Weight 88.5 kg 87.5 kg Intake: IV 180 100 0.9 @20mls/hr 180 Output: Urine 400 650 Other: Voiding Method Bedpan Bedpan # Voids 1 1 - Labs CBC & Chem 7: 06/05/16 05:58 06/05/16 05:58 Labs: Abnormal Lab Results - Last 24 Hours (Table) 06/04/16 06/04/16 06/04/16 Range/Units 06:08 16:37 20:48 RBC (3.80-5.40) m/uL Hgb (11.4-16.0) gm/dL MCHC (31.0-37.0) g/dL RDW (11.5-15.5) % PT (9.0-12.0) sec BUN (7-17) mg/dL Creatinine (0.52-1.04) mg/dL Glucose (74-99) mg/dL POC Glucose (mg/dL) 119 H 143 H (75-99) mg/dL TIBC 260 L (265-497) ug/dL % Saturation 16.5 L (20-50) % ALT (9-52) U/L Alkaline Phosphatase (38-126) U/L 06/05/16 06/05/16 06/05/16 Range/Units 05:58 05:58 05:58 RBC 3.71 L (3.80-5.40) m/uL Hgb 10.8 L (11.4-16.0) gm/dL MCHC 30.6 L (31.0-37.0) g/dL RDW 16.6 H (11.5-15.5) % PT 19.5 H (9.0-12.0) sec BUN 35 H (7-17) mg/dL Creatinine 1.38 H (0.52-1.04) mg/dL Glucose 154 H (74-99) mg/dL POC Glucose (mg/dL) (75-99) mg/dL TIBC (265-497) ug/dL % Saturation (20-50) % ALT 72 H (9-52) U/L Alkaline Phosphatase 133 H (38-126) U/L // Range/Units 06:31 RBC (3.80-5.40) m/uL Hgb (11.4-16.0) gm/dL MCHC (31.0-37.0) g/dL RDW (11.5-15.5) % PT (9.0-12.0) sec BUN (7-17) mg/dL Creatinine (0.52-1.04) mg/dL Glucose (74-99) mg/dL POC Glucose (mg/dL) 145 H (75-99) mg/dL TIBC (265-497) ug/dL % Saturation (20-50) % ALT (9-52) U/L Alkaline Phosphatase (38-126) U/L Assessment and Plan Plan: 1. Symptomatic bradycardia with dizziness and near syncopal episode: EKG showing a second-degree AV block. Lopressor discontinued. patient seen by cardiology. Plan for pacemaker implantation today. Continue telemetry monitoring. TSH level normal at 3.470 2.elevated troponin may be secondary to her chronic kidney disease. No chest pain. Patient will be evaluated by cardiology 3. elevated LFTs: Possibly related to the Lipitor. Discontinue Lipitor. LFTs are showing improvement in trending down. Hepatitis panel negative 4. new diagnoses of diabetes mellitus type 2. hyperglycemia with a blood sugar of 248 on admission. hemoglobin A1c 7.2. Continue with Accu-Cheks every before meals and at bedtime with sliding scale coverage for now. likely will be discharged home with glipizide. Consults chemical educator and dietitian 5. Hyperlipidemia: Hold Lipitor 6. History of chronic kidney disease stage III 7. History of chronic diastolic CHF. Echo from March 2014 shows an EF of 50- 55%. no evidence of exacerbation 8. History of pulmonary embolism: Patient on Coumadin at home. Hold Coumadin due to the INR being elevated at 2.9. Check daily PT/INR 9. History of vertigo. On Antivert at home. 10. Essential hypertension: continue hydralazine and Catapres. Elevated blood pressure this morning of 176/77. Repeat blood pressure 162/72. Continue to monitor 11. Hypertriglyceridemia: Triglycerides level 437. GI prophylaxis Protonix and DVT prophylaxis Coumadin
[2016-06-05] MEDS ORDERED: ACETAMINOPHEN IV (For NPO) 1,000 MG in EMPTY BAG 1 BAG IVPB ONE (12:25)
[2016-06-05] MEDS ORDERED: HYDROcodone/APAP 5-325MG 1 EACH TAB PO PRN (12:25)
--- NOTE | 2016-06-05 12:48 | PCN ---
Mrs. King was admitted with third degree heart block. Beta blockers were discontinued for 24 to 48 hours. This morning when I examined her, she was in sinus rhythm with a heart rate in the low 40s with a very long MI interval of 400 ms; however, later she again went into third degree heart block prior to pacemaker implantation. Therefore, a decision was made to proceed with pacemaker implantation. The patient was brought to the EP lab in the fasting state. Written informed consent was obtained prior to the procedure. The left shoulder area was prepped and draped as per protocol. One percent lidocaine was used for local anesthesia. A 4 cm incision was made parallel to the deltopectoral groove, about 1.5 cm medial to it. The incision was carried down to level of pectoralis muscle. A subfascial pocket was made. Hemostasis was assured. The left axillary vein was accessed at a single point and via an appropriate-sized introducer sheath, a mat lead was positioned in the RV apex. The RV is greater than 12 mV, pacing threshold at 0.5 V at 0.5 ms, 10 V test was negative. Pacing impedance of 790 ohms. The lead was secured to the underlying pectoralis muscle with 2 nonabsorbable sutures. The pocket was irrigated with antibiotic solution. The lead was connected to the generator. The generator showed a [id number], serial #[id number]. The leads and the generator were then placed in the subfascial pocket and the wound was closed in 3 layers and dressed per protocol. The ventricular lead was a [employer] IsoFlex Optim 1948, 58 cm in length and serial [id number]. Patient tolerated the procedure well without any acute complications. Pacing was programmed VVIR at 50-110 BPM.
--- NOTE | 2016-06-05 12:50 | LTR ---
June 05, 2016 RE: Fernando Jessica Antwan Dear Karlie: I had the pleasure of seeing Jessica King in electrophysiology consultation. Jessica came in with complete heart block which persisted, despite discontinuation of beta blockers. Heart rate was in the low 40s. She underwent a single-chamber pacemaker implantation successfully and she will be discharged home after completion of IV antibiotics. I will continue to follow her in the device clinic. Thank you for entrusting us with the care of your patient. Warm regards. Sincerely, WINSTON ACKERMAN MD
[2016-06-05 16:22] LABS: Glucose,Whole Blood 136 mg/dL (75-99)
[2016-06-05] MEDS: FUROSEMIDE 40 MG TAB PO SCH (17:19)
[2016-06-05] MEDS: ceFAZolin 2 GM in SODIUM CHLORIDE 0.9% 100 ML IVPB SCH ×2 (17:20→23:32)
[2016-06-05] MEDS: WARFARIN 1.5 MG TAB PO SCH (17:23)
[2016-06-05 21:47] LABS: Glucose,Whole Blood 144 mg/dL (75-99)
[2016-06-05] MEDS: SODIUM CHLORIDE 0.9% 1,000 ML IV SCH (21:54)
[2016-06-05] MEDS: ALLOPURINOL 100 MG TAB PO SCH (21:54)
[2016-06-06] MEDS: ceFAZolin 2 GM in SODIUM CHLORIDE 0.9% 100 ML IVPB SCH ×2 (05:32→11:35)
[2016-06-06 06:12] LABS: Glucose,Whole Blood 140 mg/dL (75-99)
[2016-06-06 06:29] LABS: Anisocytosis Slight; Basophils % (A) 0 %; CH 28.6; CHCM 30.2; Eosinophils # (A) 0.2 k/uL (0-0.7); Eosinophils % (A) 2 %; HCT 33.7 % (34.0-46.0); HDW 2.59; HGB 10.3 gm/dL (11.4-16.0); Hypochromasia Moderate; Luc # (Auto) 0.22; Luc % (Auto) 2; Lymphocytes # (A) 1.6 k/uL (1.0-4.8); Lymphocytes % (A) 18 %; MCH 28.9 pg (25.0-35.0); MCHC 30.5 g/dL (31.0-37.0); MCV 94.8 fL (80.0-100.0); Mean Platelet Volume 8.1; Monocytes # (A) 0.7 k/uL (0-1.0); Monocytes % (A) 7 %; Neutrophils # (A) 6.5 k/uL (1.3-7.7); Neutrophils % (A) 71 %; RBC 3.56 m/uL (3.80-5.40); WBC 9.2 k/uL (3.8-10.6); WBC (Perox) 9.54
[2016-06-06 06:31] LABS: INR 1.7 (<1.1); Prothrombin Time 16.7 sec (9.0-12.0)
[2016-06-06] MEDS: INSULIN LISPRO (humaLOG) 300 UNIT/3 ML VIAL SQ SCH ×4 (06:34→21:41)
[2016-06-06 06:45] LABS: Calcium 8.8 mg/dL (8.4-10.2); Potassium 4.5 mmol/L (3.5-5.1); Total Bilirubin 0.8 mg/dL (0.2-1.3); Total Protein 6.1 g/dL (6.3-8.2)
--- NOTE | 2016-06-06 07:51 | XR ---
EXAMINATION TYPE: XR chest 2V DATE OF EXAM: 06/06/2016 6:50 AM COMPARISON: Prior chest x-ray 03 June 2016 HISTORY: Lead placement check TECHNIQUE: Frontal and lateral views of the chest are obtained. FINDINGS: Interval placement of a generator in the left pectoral region, there is a lead in the righ t atrium. Prominent lung volumes compatible with underlying COPD The heart is enlarged. Interstitium and central vascularity are prominent. The aorta is dense and likely ectatic. No evident pneumothorax or sizable effusion. IMPRESSION: No evident complication status post pacemaker placement
[2016-06-06] MEDS: PANTOPRAZOLE 40 MG TABLET PO SCH (08:52)
[2016-06-06] MEDS: amLODIPine 5 MG TAB PO SCH (08:52)
[2016-06-06] MEDS: ACETAMINOPHEN TAB 325 MG TAB PO PRN ×2 (08:52→21:40)
[2016-06-06] MEDS: ASPIRIN 81 MG CHEW PO SCH (08:54)
[2016-06-06] MEDS: FUROSEMIDE 40 MG TAB PO SCH (08:54)
[2016-06-06] MEDS: hydrALAZINE HCL 50 MG TAB PO SCH ×3 (08:54→21:41)
[2016-06-06] MEDS: VIT A,C & E-LUTEIN-MINERALS 1 EACH TAB PO SCH ×2 (08:55→21:41)
[2016-06-06] MEDS: SODIUM CHLORIDE 0.9% 1,000 ML IV SCH (08:57)
[2016-06-06 12:06] LABS: Glucose,Whole Blood 222 mg/dL (75-99)
--- NOTE | 2016-06-06 12:56 | P.PN ---
Subjective Patient is doing well today. She is having some tenderness at the pacemaker site. Objective - Vital Signs Vital signs: Vital Signs Temp 97.0 F L 06/06/16 08:45 Pulse 50 L 06/06/16 08:45 Resp 18 06/06/16 08:45 BP 173/73 06/06/16 08:45 Pulse Ox 99 06/06/16 08:45 Intake & Output 06/05/16 06/06/16 06/06/16 18:59 06:59 18:59 Intake Total 500 440 Output Total 350 400 Balance 150 40 Weight 89 kg Intake: IV 350 240 0.9 @20mls/hr 100 240 Intake, IV Titration 100 200 Amount ceFAZolin 2 gm In Sodium 100 200 Chloride 0.9% 100 ml @ 100 mls/hr IVPB Q6H AMANDA Rx#:[id number] Oral 50 Output: Urine 350 400 Other: Voiding Method Bedpan Bedpan # Voids 1 - Exam General: The patient is awake and alert, in no distress Eye: there is normal conjunctiva bilaterally. Neck: The neck is supple, there is no JVD. Cardiovascular: Normal S1-S2, no S3-S4, no murmurs. Respiratory: Lungs clear to auscultation bilaterally Gastrointestinal: Abdomen is soft, nontender Musculoskeletal: There is no pedal edema. Neurological:. Speech is normal. Skin: Skin is warm and dry - Labs CBC & Chem 7: 06/06/16 06:08 06/06/16 06:08 Labs: Abnormal Lab Results - Last 24 Hours (Table) 06/05/16 06/05/16 06/06/16 Range/Units 16:20 21:46 06:08 RBC 3.56 L (3.80-5.40) m/uL Hgb 10.3 L (11.4-16.0) gm/dL Hct 33.7 L (34.0-46.0) % MCHC 30.5 L (31.0-37.0) g/dL RDW 16.0 H (11.5-15.5) % PT (9.0-12.0) sec Chloride (98-107) mmol/L BUN (7-17) mg/dL Creatinine (0.52-1.04) mg/dL Glucose (74-99) mg/dL POC Glucose (mg/dL) 136 H 144 H (75-99) mg/dL Total Protein (6.3-8.2) g/dL Albumin (3.5-5.0) g/dL 06/06/16 06/06/16 06/06/16 Range/Units 06:08 06:08 06:10 RBC (3.80-5.40) m/uL Hgb (11.4-16.0) gm/dL Hct (34.0-46.0) % MCHC (31.0-37.0) g/dL RDW (11.5-15.5) % PT 16.7 H (9.0-12.0) sec Chloride 108 H (98-107) mmol/L BUN 30 H (7-17) mg/dL Creatinine 1.25 H (0.52-1.04) mg/dL Glucose 146 H (74-99) mg/dL POC Glucose (mg/dL) 140 H (75-99) mg/dL Total Protein 6.1 L (6.3-8.2) g/dL Albumin 3.3 L (3.5-5.0) g/dL 06/06/16 Range/Units 11:56 RBC (3.80-5.40) m/uL Hgb (11.4-16.0) gm/dL Hct (34.0-46.0) % MCHC (31.0-37.0) g/dL RDW (11.5-15.5) % PT (9.0-12.0) sec Chloride (98-107) mmol/L BUN (7-17) mg/dL Creatinine (0.52-1.04) mg/dL Glucose (74-99) mg/dL POC Glucose (mg/dL) 222 H (75-99) mg/dL Total Protein (6.3-8.2) g/dL Albumin (3.5-5.0) g/dL Assessment and Plan Plan: 1. Symptomatic bradycardia with dizziness and near syncopal episode: EKG showing a second-degree AV block. Lopressor discontinued. patient seen by cardiology. Status post pacemaker implantation to the left chest. Continue telemetry monitoring. TSH level normal at 3.470 2.elevated troponin may be secondary to her chronic kidney disease. No chest pain. Patient will be evaluated by cardiology 3. elevated LFTs: Possibly related to the Lipitor. Discontinue Lipitor. LFTs are showing improvement in trending down. Hepatitis panel negative 4. new diagnoses of diabetes mellitus type 2. hyperglycemia with a blood sugar of 248 on admission. hemoglobin A1c 7.2. Continue with Accu-Cheks every before meals and at bedtime with sliding scale coverage for now. likely will be discharged home with glipizide. Consults chaser tar and dietitian 5. Hyperlipidemia: Hold Lipitor 6. History of chronic kidney disease stage III 7. History of chronic diastolic CHF. Echo from March 2014 shows an EF of 50- 55%. no evidence of exacerbation 8. History of pulmonary embolism: Patient on Coumadin at home. Hold Coumadin due to the INR being elevated at 2.9. Check daily PT/INR 9. History of vertigo. On Antivert at home. 10. Essential hypertension: continue hydralazine and Catapres. Elevated blood pressure this morning of 176/77. Repeat blood pressure 162/72. Continue to monitor 11. Hypertriglyceridemia: Triglycerides level 437. GI prophylaxis Protonix and DVT prophylaxis Coumadin
--- NOTE | 2016-06-06 13:05 | P.PN ---
Progress Note - Text This is a pleasant 86-year-old female patient with a past medical history significant for hypertension as well as multiple comorbid conditions who was admitted to the hospital with symptomatic bradycardia. The patient heart rate did not recover in spite of stopping the AV pedro momo agents. She underwent yesterday successful placement of permanent pacemaker by Dr. Rios. I'll follow-up with her today, she denies having any chest pain or discomfort. Overall she is feeling better. The chest x-ray from today showed no evidence of pneumothorax. We'll continue the current medical treatment except for increasing the dose of Norvasc to 10 mg daily for better blood pressure control. We'll continue following up with her.
[2016-06-06 17:13] LABS: Glucose,Whole Blood 169 mg/dL (75-99)
[2016-06-06] MEDS: WARFARIN 1.5 MG TAB PO SCH (17:28)
[2016-06-06 20:47] LABS: Glucose,Whole Blood 143 mg/dL (75-99)
[2016-06-06] MEDS: ALLOPURINOL 100 MG TAB PO SCH (21:42)
[2016-06-07 05:45] LABS: Glucose,Whole Blood 143 mg/dL (75-99)
[2016-06-07] MEDS: INSULIN LISPRO (humaLOG) 300 UNIT/3 ML VIAL SQ SCH ×4 (06:17→22:41)
[2016-06-07 06:33] LABS: Basophils % (A) 0 %; CH 28.4; Eosinophils # (A) 0.3 k/uL (0-0.7); Eosinophils % (A) 4 %; HCT 35.3 % (34.0-46.0); HDW 2.58; HGB 10.5 gm/dL (11.4-16.0); Hypochromasia Marked; Luc # (Auto) 0.19; Luc % (Auto) 2; Lymphocytes # (A) 1.5 k/uL (1.0-4.8); Lymphocytes % (A) 17 %; MCH 28.4 pg (25.0-35.0); MCHC 29.9 g/dL (31.0-37.0); MCV 95.1 fL (80.0-100.0); Mean Platelet Volume 8.2; Monocytes # (A) 0.5 k/uL (0-1.0); Monocytes % (A) 6 %; Neutrophils # (A) 6.1 k/uL (1.3-7.7); Neutrophils % (A) 71 %; RBC 3.71 m/uL (3.80-5.40); RDW 15.9 % (11.5-15.5); WBC 8.6 k/uL (3.8-10.6); WBC (Perox) 9.59
[2016-06-07 06:38] LABS: INR 1.8 (<1.1); Prothrombin Time 17.2 sec (9.0-12.0)
[2016-06-07 06:48] LABS: Calcium 9.3 mg/dL (8.4-10.2); Potassium 4.2 mmol/L (3.5-5.1); Total Bilirubin 0.6 mg/dL (0.2-1.3); Total Protein 6.1 g/dL (6.3-8.2)
[2016-06-07] MEDS: ASPIRIN 81 MG CHEW PO SCH (09:02)
[2016-06-07] MEDS: FUROSEMIDE 40 MG TAB PO SCH (09:02)
[2016-06-07] MEDS: amLODIPine 10 MG TAB PO SCH (09:02)
[2016-06-07] MEDS: hydrALAZINE HCL 50 MG TAB PO SCH ×3 (09:02→22:42)
[2016-06-07] MEDS: CALCITRIOL 0.25 MCG CAP PO SCH (09:02)
[2016-06-07] MEDS: PANTOPRAZOLE 40 MG TABLET PO SCH (09:02)
[2016-06-07 09:09] VITALS: RESP 20
[2016-06-07 11:59] LABS: Glucose,Whole Blood 197 mg/dL (75-99)
[2016-06-07] MEDS ORDERED: ERGOCALCIFEROL 50,000 UNIT CAP PO SCH (12:00)
[2016-06-07] MEDS: SODIUM CHLORIDE 0.9% 1,000 ML IV SCH (12:10)
[2016-06-07] MEDS: VIT A,C & E-LUTEIN-MINERALS 1 EACH TAB PO SCH ×2 (12:15→22:42)
[2016-06-07] MEDS: ATENOLOL 25 MG TAB PO SCH (12:15)
--- NOTE | 2016-06-07 12:24 | PN ---
86-year-old lady was admitted to hospital with syncope secondary to complete heart block, had a permanent pacemaker done, doing well this morning, her pacemaker is functioning normally. Blood pressures have been poorly controlled with her blood pressure being 169/73 today. The rest of her exam, there is no jugular venous distention. Chest exam reveals good air entry bilaterally. Heart exam reveals first and second heart sounds. No gallop. Exam of the extremities did not reveal any edema. Peripheral pulses are palpable. She is currently on Norvasc 10 mg daily, aspirin, Lasix, hydralazine and Coumadin. INR is 1.8. I will add beta momo to her current medical regimen for optimal blood pressure control.
[2016-06-07] MEDS ORDERED: ENOXAPARIN 40 MG/0.4 ML SYRINGE SQ STA (12:35)
--- NOTE | 2016-06-07 12:42 | P.PN ---
Subjective patient presented with severe dizziness and near syncope and evidence of symptomatic bradycardia. She had evidence of third-degree heart block. Patient had pacemaker placement on 06/05/2016. Her dizziness has now resolved. Cardiology added Norvasc yesterday. They have now added atenolol 25 mg daily. Objective - Vital Signs Vital signs: Vital Signs Temp 98.2 F 06/07/16 11:37 Pulse 50 L 06/07/16 11:37 Resp 20 06/07/16 11:37 BP 169/73 06/07/16 11:37 Pulse Ox 91 L 06/07/16 11:37 Intake & Output 06/06/16 06/07/16 06/07/16 18:59 06:59 18:59 Intake Total 820 200 Output Total 150 Balance 820 50 Weight 85.8 kg Intake: Intake, IV Titration 100 Amount ceFAZolin 2 gm In Sodium 100 Chloride 0.9% 100 ml @ 100 mls/hr IVPB Q6H AMANDA Rx#:[id number] Oral 720 200 Output: Urine 150 Other: Voiding Method Toilet # Voids 1 1 # Bowel Movements 0 - Exam Head normocephalic Neck supple Lungs clear to auscultation bilaterally no wheezing or crackles Heart bradycardic Abdomen is soft nontender nondistended positive bowel sounds no hepatosplenomegaly Extremities no edema Neuro alert and orientated to 3 - Labs CBC & Chem 7: 06/07/16 05:45 06/07/16 05:45 Labs: Abnormal Lab Results - Last 24 Hours (Table) 06/06/16 06/06/16 06/07/16 Range/Units 16:40 20:46 05:43 RBC (3.80-5.40) m/uL Hgb (11.4-16.0) gm/dL MCHC (31.0-37.0) g/dL RDW (11.5-15.5) % PT (9.0-12.0) sec BUN (7-17) mg/dL Creatinine (0.52-1.04) mg/dL Glucose (74-99) mg/dL POC Glucose (mg/dL) 169 H 143 H 143 H (75-99) mg/dL Total Protein (6.3-8.2) g/dL Albumin (3.5-5.0) g/dL 0306/07/16 06/07/16 Range/Units 05:45 05:45 05:45 RBC 3.71 L (3.80-5.40) m/uL Hgb 10.5 L (11.4-16.0) gm/dL MCHC 29.9 L (31.0-37.0) g/dL RDW 15.9 H (11.5-15.5) % PT 17.2 H (9.0-12.0) sec BUN 32 H (7-17) mg/dL Creatinine 1.40 H (0.52-1.04) mg/dL Glucose 150 H (74-99) mg/dL POC Glucose (mg/dL) (75-99) mg/dL Total Protein 6.1 L (6.3-8.2) g/dL Albumin 3.3 L (3.5-5.0) g/dL 06/07/16 Range/Units 11:41 RBC (3.80-5.40) m/uL Hgb (11.4-16.0) gm/dL MCHC (31.0-37.0) g/dL RDW (11.5-15.5) % PT (9.0-12.0) sec BUN (7-17) mg/dL Creatinine (0.52-1.04) mg/dL Glucose (74-99) mg/dL POC Glucose (mg/dL) 197 H (75-99) mg/dL Total Protein (6.3-8.2) g/dL Albumin (3.5-5.0) g/dL Assessment and Plan Plan: 1. Symptomatic bradycardia with dizziness and near syncopal episode: With evidence of third-degree heart block. Patient is status post pacemaker placement on 06/05/2016 Continue with telemetry monitoring.TSH level normal at 3.470. 2.elevated troponin may be secondary to her chronic kidney disease. No chest pain. Patient will be evaluated by cardiology 3. elevated LFTs: Possibly related to the Lipitor. Discontinue Lipitor. LFTs are showing improvement in trending down. Hepatitis panel pending 4. new diagnoses of diabetes mellitus type 2. hyperglycemia with a blood sugar of 248 on admission. hemoglobin A1c 7.2. Continue with Accu-Cheks every before meals and at bedtime with sliding scale coverage for now. likely will be discharged home with glipizide. Consults adaptive physical educator and dietitian 5. Hyperlipidemia: Hold Lipitor 6. History of chronic kidney disease stage III 7. History of chronic diastolic CHF. Echo from March 2014 shows an EF of 50- 55%. no evidence of exacerbation 8. History of pulmonary embolism: Patient on Coumadin at home. Patient will receive Coumadin 3 mg tonight. INR 1.8. We'll give 1 dose of Lovenox 40 mg subcu 1 for subtherapeutic INR 9. History of vertigo. On Antivert at home. 10. Essential hypertension: continue hydralazine and Catapres. Cardiology has added Norvasc and atenolol for better blood pressure control 11. Hypertriglyceridemia: Triglycerides level 437. GI prophylaxis Protonix and DVT prophylaxis Coumadin Anticipate discharge to [facility] possibly tomorrow
[2016-06-07 16:48] LABS: Glucose,Whole Blood 149 mg/dL (75-99)
[2016-06-07] MEDS ORDERED: WARFARIN 3 MG TAB PO SCH (18:00)
[2016-06-07 21:30] LABS: Glucose,Whole Blood 177 mg/dL (75-99)
[2016-06-07] MEDS: ALLOPURINOL 100 MG TAB PO SCH (22:41)
[2016-06-08 06:08] LABS: Glucose,Whole Blood 137 mg/dL (75-99)
[2016-06-08 06:27] LABS: Anisocytosis Slight; Basophils # (A) 0.1 k/uL (0-0.2); Basophils % (A) 1 %; CH 28.8; CHCM 30.2; Eosinophils # (A) 0.5 k/uL (0-0.7); Eosinophils % (A) 6 %; HCT 35.4 % (34.0-46.0); HDW 2.62; HGB 10.7 gm/dL (11.4-16.0); Hypochromasia Moderate; Luc # (Auto) 0.24; Luc % (Auto) 3; Lymphocytes # (A) 2.2 k/uL (1.0-4.8); Lymphocytes % (A) 25 %; MCHC 30.3 g/dL (31.0-37.0); MCV 95.6 fL (80.0-100.0); Mean Platelet Volume 9.5; Monocytes # (A) 0.5 k/uL (0-1.0); Monocytes % (A) 6 %; Neutrophils # (A) 5.1 k/uL (1.3-7.7); Neutrophils % (A) 59 %; WBC 8.7 k/uL (3.8-10.6); WBC (Perox) 8.81
[2016-06-08 06:33] LABS: INR 1.6 (<1.1); Prothrombin Time 15.9 sec (9.0-12.0)
[2016-06-08 06:36] VITALS: PULSE 50
[2016-06-08 06:38] LABS: Calcium 9.2 mg/dL (8.4-10.2); Potassium 3.9 mmol/L (3.5-5.1); Total Bilirubin 0.6 mg/dL (0.2-1.3); Total Protein 6.4 g/dL (6.3-8.2)
[2016-06-08] MEDS: INSULIN LISPRO (humaLOG) 300 UNIT/3 ML VIAL SQ SCH ×2 (07:03→11:58)
[2016-06-08] MEDS: PANTOPRAZOLE 40 MG TABLET PO SCH (07:59)
[2016-06-08] MEDS: ATENOLOL 25 MG TAB PO SCH (07:59)
[2016-06-08] MEDS: VIT A,C & E-LUTEIN-MINERALS 1 EACH TAB PO SCH (07:59)
[2016-06-08] MEDS: ASPIRIN 81 MG CHEW PO SCH (07:59)
[2016-06-08] MEDS: FUROSEMIDE 40 MG TAB PO SCH (07:59)
[2016-06-08] MEDS: hydrALAZINE HCL 50 MG TAB PO SCH ×2 (07:59→15:33)
[2016-06-08] MEDS: amLODIPine 10 MG TAB PO SCH (07:59)
[2016-06-08 11:38] LABS: Glucose,Whole Blood 164 mg/dL (75-99)
[2016-06-08 11:42] VITALS: BP 157/70; TEMP 98.1
--- NOTE | 2016-06-08 14:58 | P.DS ---
Providers Date of admission: 06/03/16 11:17 Expected date of discharge: 06/08/16 Attending physician: Chari Avelar Primary care physician: Karlie Ruiz [facility] Course: 1. Symptomatic bradycardia with dizziness and near syncopal episode: EKG showing a second-degree AV block. Lopressor discontinued. patient seen by cardiology. Status post pacemaker implantation to the left chest. Continue telemetry monitoring. TSH level normal at 3.470 2. new diagnoses of diabetes mellitus type 2. 3. Hyperlipidemia 4. Chronic kidney disease stage III 5. Chronic diastolic CHF. Echo from March 2014 shows an EF of 50-55%. no evidence of exacerbation 6. History of pulmonary embolism: Patient on Coumadin at home. Hold Coumadin due to the INR being elevated at 2.9. Check daily PT/INR 7. History of vertigo. On Antivert at home. 8. Essential hypertension: Blood pressure well-controlled 9. Hypertriglyceridemia: Triglycerides level 437. Patient Condition at Discharge: Serious Plan - Discharge Summary New Discharge Prescriptions: amLODIPine [Norvasc] 5 mg PO DAILY #30 tab Discharge Medication List Aspirin 81 mg PO DAILY 08/26/13 [History] Ergocalciferol (Vitamin D2) [Drisdol] 50,000 unit PO MO 05/23/14 [History] Febuxostat [Uloric] 40 mg PO HS 05/23/14 [History] Pantoprazole Sodium [Protonix] 40 mg PO DAILY 05/23/14 [History] Calcitriol [Rocaltrol] 0.25 mcg PO MOWEFRSA 10/11/15 [History] Meclizine [Antivert] 12.5 mg PO Q8HR PRN 04/13/16 [History] Vit C/E/Zn/Coppr/Lutein/Zeaxan [Preservision Areds 2 Softgel] 2 cap PO BID 04/13 [History] Warfarin [Coumadin] 3 mg PO MOWEFR 04/13/16 [History] cloNIDine HCL [Catapres] 0.2 mg PO BID 04/13/16 [History] Furosemide [Lasix] 40 mg PO DAILY #0 04/15/16 [Rx] Warfarin [Coumadin] 1.5 mg PO SUTUTHSA 06/03/16 [History] hydrALAZINE HCL [Apresoline] 50 mg PO TID 06/03/16 [History] Atorvastatin [Lipitor] 20 mg PO HS #0 06/08/16 [Rx] amLODIPine [Norvasc] 5 mg PO DAILY #30 tab 06/08/16 [Rx] Follow up Appointment(s)/Referral(s): Karlie Ruiz DO [Primary Care Provider] - 1-2 days Missy Conte MD [STAFF PHYSICIAN] - 1 Week Discharge Disposition: TRANSFER TO SNF/ECF
--- NOTE | 2016-06-08 15:28 | P.PN ---
Subjective Principal diagnosis: CHB She is a pleasant 86-year-old female who was admitted to the hospital with syncope secondary to complete heart block. He underwent single-chamber pacemaker implant. She is doing well. Pacemaker is functioning properly. Atenolol 25 mg by mouth daily was added just today for better blood pressure control. Upon examination today, patient is sitting up in a chair. She says she is feeling much better. Left arm restrictions reinforced to the patient as well as site care. Objective - Vital Signs Vital signs: Vital Signs Temp 98.1 F 06/08/16 11:40 Pulse 50 L 06/08/16 11:40 Resp 20 06/08/16 11:40 BP 157/70 06/08/16 11:40 Pulse Ox 94 L 06/08/16 11:40 Intake & Output 06/07/16 06/08/16 06/08/16 18:59 06:59 18:59 Intake Total 180 450 Output Total 1000 Balance -820 450 Weight 85.6 kg Intake: Oral 180 450 Output: Urine 1000 Other: Voiding Method Toilet Toilet # Voids 1 - Exam PHYSICAL EXAMINATION: HEENT: Head is atraumatic, normocephalic. Pupils equal, round. Neck is supple. There is no elevated jugular venous pressure. HEART EXAMINATION: Heart sounds regular, S1 and S2 normal. No murmur or gallop heard. CHEST EXAMINATION: Lungs are clear to auscultation and precussion. No chest wall tenderness is noted on palpation or with deep breathing. LIC incision soft with dressing dry and intact. ABDOMEN: Soft, nontender. Bowel sounds are heard. No organomegaly noted. EXTREMITIES: 2+ peripheral pulses with no evidence of peripheral edema and no calf tenderness noted. NEUROLOGIC patient is awake, alert and oriented x3. . - Labs CBC & Chem 7: 06/08/16 06:07 06/08/16 06:07 Labs: Abnormal Lab Results - Last 24 Hours (Table) 06/07/16 06/07/16 06/08/16 Range/Units 16:36 21:28 06:06 RBC (3.80-5.40) m/uL Hgb (11.4-16.0) gm/dL MCHC (31.0-37.0) g/dL RDW (11.5-15.5) % PT (9.0-12.0) sec Sodium (137-145) mmol/L BUN (7-17) mg/dL Creatinine (0.52-1.04) mg/dL Glucose (74-99) mg/dL POC Glucose (mg/dL) 149 H 177 H 137 H (75-99) mg/dL Albumin (3.5-5.0) g/dL 06/08/16 06/08/16 06/08/16 Range/Units 06:07 06:07 06:07 RBC 3.70 L (3.80-5.40) m/uL Hgb 10.7 L (11.4-16.0) gm/dL MCHC 30.3 L (31.0-37.0) g/dL RDW 16.0 H (11.5-15.5) % PT 15.9 H (9.0-12.0) sec Sodium 146 H (137-145) mmol/L BUN 34 H (7-17) mg/dL Creatinine 1.33 H (0.52-1.04) mg/dL Glucose 146 H (74-99) mg/dL POC Glucose (mg/dL) (75-99) mg/dL Albumin 3.4 L (3.5-5.0) g/dL 06/08/16 Range/Units 11:31 RBC (3.80-5.40) m/uL Hgb (11.4-16.0) gm/dL MCHC (31.0-37.0) g/dL RDW (11.5-15.5) % PT (9.0-12.0) sec Sodium (137-145) mmol/L BUN (7-17) mg/dL Creatinine (0.52-1.04) mg/dL Glucose (74-99) mg/dL POC Glucose (mg/dL) 164 H (75-99) mg/dL Albumin (3.5-5.0) g/dL Assessment and Plan Plan: Assessment and plan #1 complete heart block #2 status post pacemaker implant #3 hypertension From Cardiology's perspective, patient may be discharged home. Please schedule the patient for device interrogation and follow up office visit with Dr. DELMY Art in one week. The above dictated assessment and findings were discussed with signing physician. The impression and plan of care have been directed as dictated. Crystal Joshua, Nurse Practitioner, acting as scribe for signing physician.
[2016-06-08] MEDS: SODIUM CHLORIDE 0.9% 1,000 ML IV SCH (15:33)
== END 2016-06-08 16:26 | DRG 243 ==
LOC: EC 09:10 → 6SEL 11:17
PROVIDERS: ADMIT Internal Medicine; ATTEND Internal Medicine
PROC: 02HK3JZ Insertion of Pacemaker Lead into Right Ventricle, Percutaneous Approach (ICD-10-PCS; 2016-06-05)
PROC: 0JH605Z Insertion of Pacemaker, Single Chamber Rate Responsive into Chest Subcutaneous Tissue and Fascia, Open Approach (ICD-10-PCS; principal; 2016-06-05 10:58)
DX: I44.2 Atrioventricular block, complete (principal); I13.0 Hypertensive heart and chronic kidney disease with heart failure and stage 1 through stage 4 chronic kidney disease, or unspecified chronic kidney disease; N17.9 Acute kidney failure, unspecified; I50.32 Chronic diastolic (congestive) heart failure; E11.22 Type 2 diabetes mellitus with diabetic chronic kidney disease; E11.65 Type 2 diabetes mellitus with hyperglycemia; E66.9 Obesity, unspecified; E78.1 Pure hyperglyceridemia; G47.33 Obstructive sleep apnea (adult) (pediatric); N18.3 Chronic kidney disease, stage 3 (moderate); J44.9 Chronic obstructive pulmonary disease, unspecified; K57.90 Diverticulosis of intestine, part unspecified, without perforation or abscess without bleeding; R79.89 Other specified abnormal findings of blood chemistry; T46.6X5A Adverse effect of antihyperlipidemic and antiarteriosclerotic drugs, initial encounter; T44.7X5A Adverse effect of beta-adrenoreceptor antagonists, initial encounter; T46.5X5A Adverse effect of other antihypertensive drugs, initial encounter; E78.5 Hyperlipidemia, unspecified; Z79.01 Long term (current) use of anticoagulants; Z79.82 Long term (current) use of aspirin; Z79.899 Other long term (current) drug therapy; Z87.891 Personal history of nicotine dependence; Z96.653 Presence of artificial knee joint, bilateral; Z88.5 Allergy status to narcotic agent; Z82.49 Family history of ischemic heart disease and other diseases of the circulatory system; Y92.009 Unspecified place in unspecified non-institutional (private) residence as the place of occurrence of the external cause
CPT/HCPCS: 33207; 36415; 71020; 80053; 80061; 80076; 81001; 82550; 82553; 82728; 83036; 83540; 83550; 83735; 83880; 84100; 84443; 84484; 85025; 85379; 85610; 85730; 93005; 93306; 99291

== ENCOUNTER → 2017-01-31 | Outpatient (CLI) | payer MEDICARE, BC ==
[2017-01-31 09:59] LABS: Anisocytosis Slight; CHCM 30.8; HCT 39.7 % (34.0-46.0); HGB 12.3 gm/dL (11.4-16.0); Hypochromasia Slight; MCH 28.3 pg (25.0-35.0); MCHC 31.1 g/dL (31.0-37.0); MCV 91.2 fL (80.0-100.0); RBC 4.36 m/uL (3.80-5.40); RDW 16.5 % (11.5-15.5); WBC 8.1 k/uL (3.8-10.6)
[2017-01-31 10:33] LABS: Calcium 9.9 mg/dL (8.4-10.2); Potassium 3.4 mmol/L (3.5-5.1)
== END | disposition home or self-care (01) ==
LOC: LABWHC1 09:00
PROVIDERS: ATTEND Internal Medicine Interventional Cardiology
DX: I13.0 Hypertensive heart and chronic kidney disease with heart failure and stage 1 through stage 4 chronic kidney disease, or unspecified chronic kidney disease (principal); I50.9 Heart failure, unspecified; N18.9 Chronic kidney disease, unspecified
CPT/HCPCS: 36415; 80048; 85027

== ENCOUNTER → 2018-01-03 | Outpatient (CLI) | payer MEDICARE, BC ==
--- NOTE | 2018-01-03 13:30 | US ---
EXAMINATION TYPE: US kidneys/renal and bladder DATE OF EXAM: 01/03/2018 COMPARISON: 12/02/2014 CLINICAL HISTORY: N18.3 Chronic kidney disease stage 3. EXAM MEASUREMENTS: Right Kidney: 9.4 x 3.8 x 4.6 cm Left Kidney: 9.3 x 4.8 x 6.2 cm Right Kidney: Cortical thinning and diminished cortical medullary differentiation, 7mm cortical cyst Left Kidney: Cortical thinning and diminished cortical medullary differentiation, with 2 cysts Bladder: wnl There is no evidence for hydronephrosis at this point in time. No nephrolithiasis is seen. No nemo s are identified. The urinary bladder is anechoic. Bilateral ureteral jets are seen. IMPRESSION: Sonographic sequela of medical renal disease with bilateral cortical renal cysts.
== END | disposition home or self-care (01) ==
LOC: RADUSWWP 12:09
PROVIDERS: ATTEND Internal Medicine Nephrology
DX: N28.1 Cyst of kidney, acquired (principal); N18.3 Chronic kidney disease, stage 3 (moderate)
CPT/HCPCS: 76770

== ENCOUNTER 2019-05-02 07:42 | Inpatient (IN) | payer MEDICARE, BC ==
--- NOTE | 2019-05-02 08:09 | ED ---
Recheck HPI - General Source: patient Mode of arrival: wheelchair Limitations: no limitations <April Valerio - Last Filed: 05/02/19 10:35> <Cornell Lagos - Last Filed: 05/02/19 10:51> - General Chief Complaint: Recheck/Abnormal Lab/Rx Stated Complaint: abd pain Time Seen by Provider: 05/02/19 07:51 - History of Present Illness Initial Comments: 89-year-old female presenting today for chief complaint of belching and abdominal pain. Patient states she has been belching for the past day she states she has experienced this in the past however it went away. Patient states that she has now abdominal pain all over the entire abdomen. Patient denies vomiting. States the last bowel movement was yesterday was normal no melena or hematochezia. Patient denies any new shortness of breath she states she has chronic shortness of breath. Denies any chest pain. Patient denies hemoptysis or increasing leg swelling or waking. Patient denies any headache dizziness. Patient states that she was told by her head bellhop captain that due to her end stage renal disease she might have uremia that could cause hiccups or belch ing. Upon arrival patient is obvious belching otherwise does not appears in acute distress. BP mildly elevated otherwise VS within acceptable limits. (April Valerio) - Related Data Home Medications Medication Instructions Recorded Confirmed Aspirin 81 mg PO DAILY 08/26/13 05/02/19 Meclizine [Antivert] 12.5 mg PO Q8HR PRN 04/13/16 05/02/19 Vit C/E/Zn/Coppr/Lutein/Zeaxan 1 cap PO BID 04/13/16 05/02/19 [Preservision Areds 2 Softgel] cloNIDine HCL [Catapres] 0.2 mg PO BID 04/13/16 05/02/19 hydrALAZINE HCL [Apresoline] 50 mg PO BID 06/03/16 05/02/19 Ergocalciferol [Vitamin D2 50,000 units PO MO 07/21/16 05/02/19 (DRISDOL)] Cinacalcet [Sensipar] 30 mg PO Q14D 05/01/19 05/02/19 Febuxostat [Uloric] 40 mg PO BID 05/01/19 05/02/19 Furosemide [Lasix] 40 mg PO DAILY 05/01/19 05/02/19 Potassium Chloride ER [K-Dur 10] 10 meq PO DAILY 05/01/19 05/02/19 Repaglinide [Prandin] 0.5 mg PO AC-BID 05/01/19 05/02/19 Spironolactone [Aldactone] 50 mg PO DAILY 05/01/19 05/02/19 Artificial Tears-Hypromellose 1 drop BOTH EYES HS 05/02/19 05/02/19 [Artificial Tear Drops] Warfarin Sodium [Coumadin] 4 mg PO DAILY 05/02/19 05/02/19 Previous Rx's Medication Instructions Recorded Atorvastatin [Lipitor] 20 mg PO HS #0 06/08/16 amLODIPine [Norvasc] 5 mg PO DAILY #30 tab 06/08/16 Allergies Allergy/AdvReac Type Severity Reaction Status Date / Time morphine Allergy Rash/Hives Verified 05/02/19 09:57 Review of Systems ROS Other: All systems not noted in ROS Statement are negative. <April Vlaerio - Last Filed: 05/02/19 10:35> ROS Other: All systems not noted in ROS Statement are negative. <Cornell Lagos - Last Filed: 05/02/19 10:51> ROS Statement: Those systems with pertinent positive or pertinent negative responses have been documented in the HPI. Past Medical History Past Medical History: Chest Pain / Angina, Heart Failure, Hyperlipidemia, Hypertension, Pulmonary Embolus (PE), Renal Disease, Sleep Apnea/CPAP/BIPAP Additional Past Medical History / Comment(s): CKD stage III, NEPHROLITHIASIS, CHACHO PE, GOLDY WITH CPAP USE, BRONCHITIS,DIVERTICULOSIS, VERTIGO, FALLS, recent infection/rash bilateral lower legs almost healed per pt. History of Any Multi-Drug Resistant Organisms: None Reported Past Surgical History: Hysterectomy, Joint Replacement Additional Past Surgical History / Comment(s): bilateral knee replacement, hemorrhoid surgery, AAA repair, LITHOTRIPSY Past Anesthesia/Blood Transfusion Reactions: No Reported Reaction Additional Past Anesthesia/Blood Transfusion Reaction / Comment(s): Pt states she received blood with AAA repair. No reaction. Past Psychological History: No Psychological Hx Reported Smoking Status: Never smoker - Past Family History Mother History Unknown: Yes Additional Family Medical History / Comment(s): PT DOES'NT KNOW ANY HX ON MOPM- MOM LEFT HOME WHEN PT WAS 9 MONTHS OLD. Father Family Medical History: Coronary Artery Disease (CAD), Myocardial Infarction (ME) Additional Family Medical History / Comment(s): CABG <April Valerio - Last Filed: 05/02/19 10:35> General Exam Limitations: no limitations <April Valerio - Last Filed: 05/02/19 10:35> - General Exam Comments Initial Comments: General: The patient is awake and alert, in no distress Eye: +3 mm pupils are equal, round and reactive to light, extra-ocular movements are intact. No nystagmus. There is normal conjunctiva bilaterally. No signs of icterus. Ears, nose, mouth and throat: There are moist mucous membranes and no oral lesions. Neck: The neck is supple, there is no tenderness or JVD. Cardiovascular: There is a regular rate and rhythm. No murmur, rub or gallop is appreciated. Respiratory: Lungs are clear to auscultation, respirations are non-labored, breath sounds are equal. No wheezes, stridor, rales, or rhonchi. Gastrointestinal: Soft, non-distended, abdomen diffusely tender without masses or organomegaly noted. There is no rebound or guarding present. Belching. Musculoskeletal: Normal ROM, no tenderness. Strength 5/5. Sensation intact. Radial pulses equal bilaterally 2+. Neurological: A&O x 3. CN II-XII intact grossly, There are no obvious motor or sensory deficits. Coordination appears grossly intact. Speech is normal. Skin: Skin is warm and dry and no rashes or lesions are noted. No LE edema b/l. Psychiatric: Cooperative, appropriate mood & affect, normal judgment. (April Valerio) Course Vital Signs 05/02/19 05/02/19 07:42 09:36 Temperature 97.9 F Pulse Rate 62 76 Respiratory 18 16 Rate Blood Pressure 160/73 140/70 O2 Sat by Pulse 96 99 Oximetry Medical Decision Making - Lab Data Result diagrams: 05/02/19 08:29 05/02/19 08:29 <April Valerio - Last Filed: 05/02/19 10:35> - Lab Data Result diagrams: 05/02/19 08:29 05/02/19 08:29 <Cornell Lagos - Last Filed: 05/02/19 10:51> - Medical Decision Making 89-year-old female presenting for belching abdominal pain which she feels is attributed to the belching. Patient denies chest pain or shortness of breath. Patient is found in nature fibrillation denies known history. INR greater than 10. Denies rectal bleeding. No headache. Patient has end-stage renal disease, uremia with BUN of 104, increased Cr from us recent previous creatinine on file at this facility. Patient has elevation of BNP with small pleural effusion. No significant LE edema. Feel a lot of the CMP derangements maybe secondary to decreased excretion. As including elevation of troponin however cannot rule out ACS EKG we have no recent previous 2017. Discussed case with Dr. Demond merritt patient. Dr. Lagos spoke with both admitting provider and cardiology who are aware of the patient in the emergency department. DR. Lagos as well as admitting provider did not to reverse INR until further cardiology evaluation. (April Valerio) Patient was reevaluated by myself, Dr. Lagos. Patient has recurrent what appears to be type of pickup. Patient states is starting to cause some discomfort near the diaphragm. Patient is in no respiratory distress, lungs are clear. Patient and family are updated on results. Case was discussed in [facility] with Dr. Boyer, who will admit covering for Dr. Ruiz. Case also discussed with Dr. Bravo, who will consult. (Cornell Lagos) - Lab Data Lab Results 05/02/19 05/02/19 05/02/19 Range/Units 08:29 08:29 08:29 WBC 11.6 H (3.8-10.6) k/uL RBC 4.09 (3.80-5.40) m/uL Hgb 12.0 (11.4-16.0) gm/dL Hct 37.5 (34.0-46.0) % MCV 91.8 (80.0-100.0) fL MCH 29.5 (25.0-35.0) pg MCHC 32.1 (31.0-37.0) g/dL RDW 15.3 (11.5-15.5) % Plt Count 230 (150-450) k/uL Neutrophils % 90 % Lymphocytes % 6 % Monocytes % 3 % Eosinophils % 1 % Basophils % 0 % Neutrophils # 10.5 H (1.3-7.7) k/uL Lymphocytes # 0.7 L (1.0-4.8) k/uL Monocytes # 0.3 (0-1.0) k/uL Eosinophils # 0.1 (0-0.7) k/uL Basophils # 0.0 (0-0.2) k/uL PT (9.0-12.0) sec INR (<1.2) APTT (22.0-30.0) sec Sodium 136 L (137-145) mmol/L Potassium 5.5 H (3.5-5.1) mmol/L Chloride 101 (98-107) mmol/L Carbon Dioxide 22 (22-30) mmol/L Anion Gap 13 mmol/L BUN 104 H* (7-17) mg/dL Creatinine 2.65 H (0.52-1.04) mg/dL Est GFR (CKD-EPI)AfAm 18 (>60 ml/min/1.73 sqM) Est GFR (CKD-EPI)NonAf 15 (>60 ml/min/1.73 sqM) Glucose 171 H (74-99) mg/dL Calcium 10.1 (8.4-10.2) mg/dL Phosphorus 4.5 (2.5-4.5) mg/dL Magnesium 2.6 H (1.6-2.3) mg/dL Total Bilirubin 1.3 (0.2-1.3) mg/dL AST 27 (14-36) U/L ALT 19 (4-34) U/L Alkaline Phosphatase 151 H (38-126) U/L Troponin I (0.000-0.034) ng/mL NT-Pro-B Natriuret Pep 64606 pg/mL Total Protein 8.6 H (6.3-8.2) g/dL Albumin 4.7 (3.5-5.0) g/dL 05/02/19 05/02/19 Range/Units 08:29 08:29 WBC (3.8-10.6) k/uL RBC (3.80-5.40) m/uL Hgb (11.4-16.0) gm/dL Hct (34.0-46.0) % MCV (80.0-100.0) fL MCH (25.0-35.0) pg MCHC (31.0-37.0) g/dL RDW (11.5-15.5) % Plt Count (150-450) k/uL Neutrophils % % Lymphocytes % % Monocytes % % Eosinophils % % Basophils % % Neutrophils # (1.3-7.7) k/uL Lymphocytes # (1.0-4.8) k/uL Monocytes # (0-1.0) k/uL Eosinophils # (0-0.7) k/uL Basophils # (0-0.2) k/uL PT >130.0 H (9.0-12.0) sec INR >10.0 H* (<1.2) APTT 61.3 H (22.0-30.0) sec Sodium (137-145) mmol/L Potassium (3.5-5.1) mmol/L Chloride (98-107) mmol/L Carbon Dioxide (22-30) mmol/L Anion Gap mmol/L BUN (7-17) mg/dL Creatinine (0.52-1.04) mg/dL Est GFR (CKD-EPI)AfAm (>60 ml/min/1.73 sqM) Est GFR (CKD-EPI)NonAf (>60 ml/min/1.73 sqM) Glucose (74-99) mg/dL Calcium (8.4-10.2) mg/dL Phosphorus (2.5-4.5) mg/dL Magnesium (1.6-2.3) mg/dL Total Bilirubin (0.2-1.3) mg/dL AST (14-36) U/L ALT (4-34) U/L Alkaline Phosphatase (38-126) U/L Troponin I 0.241 H* (0.000-0.034) ng/mL NT-Pro-B Natriuret Pep pg/mL Total Protein (6.3-8.2) g/dL Albumin (3.5-5.0) g/dL Disposition Is patient prescribed a controlled substance at d/c from ED?: No Time of Disposition: 10:09 <April Valerio - Last Filed: 05/02/19 10:35> <Cornell Lagos - Last Filed: 05/02/19 10:51> Clinical Impression: Uremia, ESRD (end stage renal disease), Pleural effusion, Belching, Supratherapeutic INR, Elevated troponin, Elevated brain natriuretic peptide (BNP) level Disposition: ADMITTED IP TO THIS HOSP Condition: Serious
[2019-05-02 08:46] LABS: Basophils % (A) 0 %; Eosinophils # (A) 0.1 k/uL (0-0.7); Eosinophils % (A) 1 %; HCT 37.5 % (34.0-46.0); Lymphocytes # (A) 0.7 k/uL (1.0-4.8); Lymphocytes % (A) 6 %; MCH 29.5 pg (25.0-35.0); MCHC 32.1 g/dL (31.0-37.0); MCV 91.8 fL (80.0-100.0); Mean Platelet Volume 9.1; Monocytes # (A) 0.3 k/uL (0-1.0); Monocytes % (A) 3 %; Neutrophils # (A) 10.5 k/uL (1.3-7.7); Neutrophils % (A) 90 %; Platelet Count 230 k/uL (150-450); RBC 4.09 m/uL (3.80-5.40); RDW 15.3 % (11.5-15.5); WBC 11.6 k/uL (3.8-10.6)
[2019-05-02 09:05] LABS: Albumin 4.7 g/dL (3.5-5.0); Calcium 10.1 mg/dL (8.4-10.2); Magnesium 2.6 mg/dL (1.6-2.3); Phosphorus 4.5 mg/dL (2.5-4.5); Potassium 5.5 mmol/L (3.5-5.1); Total Bilirubin 1.3 mg/dL (0.2-1.3); Total Protein 8.6 g/dL (6.3-8.2)
--- NOTE | 2019-05-02 09:16 | XR ---
EXAMINATION TYPE: XR chest 2V DATE OF EXAM: 05/02/2019 COMPARISON: 06/06/2016 TECHNIQUE: PA and lateral views submitted. HISTORY: Cough FINDINGS: The heart is enlarged there is a cardiac device with mild interstitial prominence. Arthropathy should ers. Left basilar infiltrate and tiny bilateral effusions are suspected. Hypertrophic and degenerativ e change of the spine IMPRESSION: 1. Basilar infiltrate or atelectasis with tiny effusions correlate for mild central venous congestion .
--- NOTE | 2019-05-02 09:20 | CT ---
EXAMINATION TYPE: CT abdomen pelvis wo con DATE OF EXAM: 05/02/2019 COMPARISON: CT 08/29/2013 HISTORY: pain, belching CT DLP: 752.2 mGycm Automated exposure control for dose reduction was used. TECHNIQUE: Helical acquisition of images from the lung bases through the pelvis. FINDINGS: Lack of intravenous contrast could compromise sensitivity of the exam. The heart is enlarge d. There is mitral annular calcification. Intracardiac lead is present in the right ventricle, no ple ural or pericardial effusion LUNG BASES: Some probable basilar scarring or atelectatic changes are present. AORTA: Extensive atheromatous changes are present which also involve the iliac vasculature, proximal mesenteric vasculature, renal vasculature. LIVER/GB: Cystic focus is present along the medial aspect of the lateral segment left lobe liver post eriorly measuring 3.7 cm which statistically is likely to represent cysts, gallbladder is normal. PANCREAS: No significant abnormality is seen. SPLEEN: No significant abnormality is seen. ADRENALS: No significant abnormality is seen. KIDNEYS: There is exophytic posterior cyst at the mid pole left kidney measuring 2.2 cm, lower pole e xophytic focus shows higher attenuation and measures 2 cm. At the lateral margin of the midpole the l eft kidney there is a probable large exophytic cyst measuring 10 cm or greater to be well evaluated w ith ultrasound. There is no hydronephrosis bilaterally. Renal cortices are thinned. Lower pole of lef t kidney also shows a smaller hypodense focus measuring 7 mm laterally. No evident ureteral calcifica tion, phleboliths noted within the right ovarian vein. REPRODUCTIVE ORGANS: Uterus is not present. Suspect the ovarian tissue is atrophy URINARY BLADDER: No significant abnormality is seen. BOWEL: There is abnormal thickening involving the proximal jejunum axial images #[id number] 34, some surroun ding inflammatory changes present Extensive diverticular change noted within the sigmoid colon. No ev ident bowel obstruction. Entire colon is not included on exam secondary to patient's body habitus at the descending level, additional diverticular change present throughout much of the colon. FREE AIR: No Free Air is visible. ASCITES: None visible. PELVIC ADENOPATHY: None visualized. RETROPERITONEAL ADENOPATHY: No Retroperitoneal Adenopathy visible. OSSEOUS STRUCTURES: There is extensive degenerative disc change in the visualized spine, osteoarthri tis in the hips. Sclerotic focus in the left ilium is stable and likely represents bone island. IMPRESSION: CORRELATE FOR POSSIBLE ENTERITIS PROXIMAL JEJUNUM, FOLLOW-UP RECOMMENDED. POSSIBLE PROTEINACEOUS CYST S LEFT KIDNEY COULD BE BETTER EVALUATED WITH MRI ALTHOUGH ULTRASOUND COULD BE PERFORMED TO ASSESS FOR STABILITY, LARGE EXOPHYTIC MID POLE CYST IS INCREASED IN SIZE COMPARED TO PRIOR EXAM. EXTENSIVE DIVE RTICULOSIS. LIMITATIONS DESCRIBED DUE TO PATIENT BODY HABITUS. POSTOP CHANGE. ADDITIONAL FINDINGS ABOVE. NONCONTRAST EXAM.
[2019-05-02] MEDS ORDERED: SODIUM CHLORIDE 0.9% 500 ML 500 ML IV ONE (09:23)
[2019-05-02] MEDS ORDERED: SODIUM CHLORIDE 0.9% 1,000 ML IV SCH (09:30)
[2019-05-02 09:32] LABS: Prothrombin Time >130.0 sec (9.0-12.0)
[2019-05-02 09:34] LABS: INR >10.0 (<1.2); Partial Thromboplastin Time 61.3 sec (22.0-30.0)
[2019-05-02] MEDS ORDERED: NALOXONE 0.4 MG/ML 1 ML VIAL IV PRN (10:05)
[2019-05-02] MEDS ORDERED: DIAZEPAM 2 MG TAB PO STA (10:35)
[2019-05-02] MEDS ORDERED: METOCLOPRAMIDE 5 MG/ML 2 ML VIAL IVP STA (10:35)
[2019-05-02] MEDS ORDERED: HYDROmorphone 0.5 MG/0.5 ML SYRINGE IVP STA (11:07)
[2019-05-02] MEDS ORDERED: PHYTONADIONE ORAL 5 MG/5 ML ORAL.SYRG PO STA ×2 (12:46→21:00)
--- NOTE | 2019-05-02 13:01 | CONS ---
CONSULTATION CHIEF COMPLAINT: Hiccups. This is an 89-year-old lady with history of congestive heart failure, permanent atrial fibrillation, status post permanent pacemaker, who is admitted to the hospital with the complaints of hiccups. She is fatigued, tired and has nausea. She was on Lasix 40 mg daily along with spironolactone 50 mg daily. On her initial presentation to the ER, she is extremely dehydrated with a BUN of 104 and creatinine of 2.6. Potassium is elevated at 5.5. Her INR is over 10 and BNP is elevated at 12,200. Troponin is mildly elevated at 0.241. The chest x-ray did not show significant pleural effusion or pulmonary congestion. An EKG showed paced rhythm. PAST MEDICAL HISTORY: Significant for congestive heart failure, permanent pacemaker, atrial fibrillation, chronic renal insufficiency. MEDICATIONS: At home included Apresoline, Catapres, Norvasc, Coumadin, Aldactone, Prandin, K-Dur, Antivert, Lasix 40 mg daily, Drisdol, Lipitor, aspirin. ALLERGIES: To MORPHINE. FAMILY HISTORY: Negative for premature coronary artery disease. SOCIAL HISTORY: Negative for current smoking, EtOH abuse, or drug abuse. REVIEW OF SYSTEMS: HEENT: Unremarkable. CARDIAC: As described above. RESPIRATORY: Negative. GI: As described above. GENITOURINARY: Significant for renal failure. PSYCHOSOCIAL: Negative. ENDOCRINE: Negative. DERM: Negative. CONSTITUTIONAL: As described above. ONCOLOGICAL: Negative. Rest of the system review is not relevant. PHYSICAL EXAM: Comfortable at rest. Heart rate is 76 beats per minute. Blood pressure is 140/70, respiratory rate is 18, O2 saturation is 99% on room air. There is no jugular venous distention. Carotid upstroke is diminished. There is no bruit. Chest exam reveals good air entry bilaterally. Heart exam reveals first and second heart sounds and a systolic murmur at the left lower sternal border. Abdomen is soft. Exam of the extremities did not reveal any edema. Peripheral pulses are palpable. ASSESSMENT: 1. Acute exacerbation of chronic renal failure secondary to over-diuresis. 2. History of diastolic heart failure. 3. Permanent atrial fibrillation. 4. Sick sinus syndrome, status post permanent pacemaker. 5. Elevated troponin. PLAN: I am going to hold the Coumadin, give vitamin K to reverse the coagulopathy, hydrate the patient. Obtain a 2D echo. The troponin elevation is probably related to the renal failure. MMODL / IJN: [id number] /
[2019-05-02] MEDS: HYDROmorphone 0.5 MG/0.5 ML SYRINGE IVP PRN (17:01)
[2019-05-02 20:20] LABS: Calcium 9.7 mg/dL (8.4-10.2); Potassium 5.1 mmol/L (3.5-5.1)
[2019-05-02 20:21] LABS: Prothrombin Time 103.4 sec (9.0-12.0)
[2019-05-02 20:41] LABS: INR 9.8 (<1.2)
[2019-05-02] MEDS: SIMETHICONE 80 MG CHEWABLE PO SCH (21:52)
[2019-05-02] MEDS: ATORVASTATIN 20 MG TAB PO SCH (21:52)
[2019-05-02 21:53] LABS: Glucose,Whole Blood 159 mg/dL (75-99)
[2019-05-03 06:11] LABS: Glucose,Whole Blood 138 mg/dL (75-99)
[2019-05-03] MEDS: INSULIN ASPART (NovoLOG) 100 UNIT/ML VIAL SQ SCH ×4 (06:40→21:05)
[2019-05-03 07:21] LABS: INR 2.3 (<1.2); Prothrombin Time 22.4 sec (9.0-12.0)
--- NOTE | 2019-05-03 07:42 | ECHOF ---
Referral Reason: MEASUREMENTS -------- HEIGHT: 127.0 cm WEIGHT: 82.6 kg BP: RVIDd: 3.1 cm (< 3.3) IVSd: 1.8 cm (0.6 - 1.1) LVIDd: 3.7 cm (3.9 - 5.3) LVPWd: 1.8 cm (0.6 - 1.1) IVSs: 2.4 cm LVIDs: 2.0 cm LVPWs: 2.2 cm LAESV Index (A-L): 53.15 ml/m Ao Diam: 3.0 cm (2.0 - 3.7) AV Cusp: 1.9 cm (1.5 - 2.6) LA Diam: 4.1 cm (2.7 - 3.8) MV E Jhonny: 1.46 m/s MV DecT: 323 ms MV A Jhonny: 0.41 m/s MV E/A Ratio: 3.55 AV maxP.55 mmHg AV meanP.34 mmHg RAP: 5.00 mmHg RVSP: 33.51 mmHg FINDINGS -------- Paced rhythm. This was a technically adequate study. The left ventricular size is normal. There is severe concentric left ventricular hypertrophy. Ove rall left ventricular systolic function is normal with, an EF between 60 - 65 %. The right ventricle is normal in size. LA is severely dilated >40 ml/m2 The right atrial size is normal. Aortic valve is trileaflet and is mildly thickened. There is mild aortic valve sclerosis. Peak/me an gradient across the Aortic Valve is 11.55mmHg / 5.34mmHg. The mitral valve is normal. The mitral valve leaflets are moderately thickened. Moderate mitral a nnular calcification present. Mild mitral regurgitation is present. The peak and mean MV gradien ts are 15.07mmHg 4.14mmHg as measured by doppler. Moderate mitral stenosis. The tricuspid valve appears structurally normal. Mild tricuspid regurgitation present. Right vent ricular systolic pressure is normal at < 35 mmHg. There is no pulmonic regurgitation present. The aortic root size is normal. Normal inferior vena cava with normal inspiratory collapse consistent with estimated right atrial pre ssure of 5 mmHg. There is no pericardial effusion. CONCLUSIONS -------- 1. Paced rhythm. 2. This was a technically adequate study. 3. The left ventricular size is normal. 4. There is severe concentric left ventricular hypertrophy. 5. Overall left ventricular systolic function is normal with, an EF between 60 - 65 %. 6. The right ventricle is normal in size. 7. LA is severely dilated >40 ml/m2 8. The right atrial size is normal. 9. Aortic valve is trileaflet and is mildly thickened. 10. There is mild aortic valve sclerosis. 11. Peak/mean gradient across the Aortic Valve is 11.55mmHg / 5.34mmHg. 12. The mitral valve is normal. 13. The mitral valve leaflets are moderately thickened. 14. Moderate mitral annular calcification present. 15. Mild mitral regurgitation is present. 16. The peak and mean MV gradients are 15.07mmHg 4.14mmHg as measured by doppler. 17. Moderate mitral stenosis. 18. The tricuspid valve appears structurally normal. 19. Mild tricuspid regurgitation present. 20. Right ventricular systolic pressure is normal at < 35 mmHg. 21. There is no pulmonic regurgitation present. 22. The aortic root size is normal. 23. Normal inferior vena cava with normal inspiratory collapse consistent with estimated right atrial pressure of 5 mmHg. 24. There is no pericardial effusion. INSTRUCTIONAL SYSTEMS DESIGN CONSULTANT: Savanna De La Cruz RDCS
[2019-05-03] MEDS: FUROSEMIDE 10 MG/ML 4 ML VIAL IV SCH (08:34)
[2019-05-03] MEDS: SIMETHICONE 80 MG CHEWABLE PO SCH ×4 (08:34→22:22)
[2019-05-03] MEDS ORDERED: POTASSIUM CHLORIDE ER 10 MEQ TAB.ER.PRT PO SCH (09:00)
[2019-05-03 10:46] LABS: Albumin 3.9 g/dL (3.5-5.0); Calcium 9.5 mg/dL (8.4-10.2); Potassium 5.2 mmol/L (3.5-5.1); Total Bilirubin 1.4 mg/dL (0.2-1.3); Total Protein 6.8 g/dL (6.3-8.2)
[2019-05-03 11:48] LABS: Glucose,Whole Blood 160 mg/dL (75-99)
[2019-05-03] MEDS ORDERED: PIPERACILLIN-TAZOBACTAM 3.375 GM in SODIUM CHLORIDE 0.9% 100 ML IVPB SCH (12:00)
--- NOTE | 2019-05-03 12:42 | CONS ---
CONSULTATION REASON FOR CONSULT: Renal failure. HISTORY OF PRESENT ILLNESS: The patient is an 89-year-old female with history of chronic kidney disease NKF stage IIIB to IV, with previous creatinine of about 1.8 and 1.3 in 2017. Patient was seen in the office in April at which time her creatinine was 2.5 based on labs on 04/10/2019. At this time there is no plan for renal replacement therapy down the road. The patient was admitted to the hospital with complaints of weakness and excessive belching and abdominal pain. She denies significant shortness of breath, nausea, or vomiting. No fevers, chills. Her serum creatinine is 2.4, which is not far from her previous labs in March. The patient continues to have good urine output. She was not on any ALLAN inhibitors or NSAIDs prior to admission. PAST MEDICAL HISTORY: CKD, CKD mineral bone disorder, type 2 diabetes, chest pain, hyperlipidemia, history of PE, obstructive sleep apnea, nephrolithiasis, diverticulosis. PAST SURGICAL HISTORY: Hysterectomy, bilateral knee arthroplasty, hemorrhoid surgery, lithotripsy, abdominal aortic aneurysm repair. SOCIAL HISTORY: Negative for smoking, drug abuse or alcohol abuse. MEDICATIONS: Medications prior to admission included Antivert, aspirin, clonidine, hydralazine, Uloric, Sensipar, Lasix, potassium, Prandin, Aldactone, Coumadin, Lipitor, Norvasc. ALLERGIES: Allergies include MORPHINE. REVIEW OF SYSTEMS: As per HPI. Other systems negative. PHYSICAL EXAMINATION: On examination, patient is comfortable, awake, not in any acute distress. The blood pressure is 128/63, heart rate 61 per minute. Patient is afebrile. EXAMINATION OF THE HEART: S1, S2. EXAMINATION OF THE LUNGS: Bilateral breath sounds are heard. ABDOMEN: Soft, nontender. Examination of lower extremities shows trace edema bilaterally. POOL ATTENDANT exam grossly intact. LABS: Labs show sodium 138, potassium 5.2, chloride 105, BUN 93, creatinine 2.39, calcium 9.7, troponin 0.4. CAT scan shows possible enteritis in the proximal jejunum. There is a left renal cyst. No hydronephrosis. The UA is not done. ASSESSMENT: 1. Chronic kidney disease, NKF stage IV with renal function close to baseline. Patient's creatinine was 2.5 in March of 2019 in the office. There are no plans for renal replacement therapy down the road. 2. Hiccups, etiology unclear. Patient is not significantly uremic to the hiccups from that. CT abdomen does not show any significant diaphragmatic abnormalities. 3. Coagulopathy. INR was 9.8, now down to 2.3. The patient was on Coumadin. 4. History of pulmonary embolism. 5. Mild volume overload, maintained on IV Lasix, which I will continue for now. PLAN: Discontinued potassium. Continue IV Lasix. Repeat labs in a.m. MMODL / IJN: [id number] /
[2019-05-03] MEDS: PIPERACILLIN-TAZOBACTAM 3.375 GM in SODIUM CHLORIDE 0.9% 100 ML IVPB SCH ×2 (12:44→22:23)
[2019-05-03] MEDS: IOPAMIDOL CONTRAST (ORAL USE) VIAL PO PRN ×2 (13:26→14:46)
--- NOTE | 2019-05-03 14:09 | P.PN ---
Subjective Progress Note Date: 05/03/19 This is an 89-year-old lady with history of congestive heart failure, presented to hospital with symptoms of persistent hiccups. Seen in consultation yesterday by Dr. Rush. Presentation here she was noted to be extremely dehydrated with an elevated potassium, BUN and creatinine. Her INR was over 10, she was also noted to have an elevated BNP level. Chest x-ray did not show significant pleural effusion or pulmonary congestion and her EKG showed a paced rhythm. Patient was given a dose of vitamin K, her INR today is down to 2.3. An echocardiogram with Doppler study was also performed which revealed an ejection fraction of 60-65%. Today the patient is in atrial flutter, typical, heart rate is in the 60s, blood pressure 128/60, 92% on 2 L of oxygen. An echocardiogram with Doppler study was performed which revealed an ejection fraction of 60-65%, moderate mitral stenosis noted. Patient does state that she's feeling better but is still is having occasional hiccups, significantly improved from admission here. Objective - Vital Signs Vital signs: Vital Signs Temp 98.3 F 05/03/19 04:00 Pulse 61 05/03/19 04:00 Resp 18 05/03/19 04:00 BP 128/63 05/03/19 04:00 Pulse Ox 92 L 05/03/19 04:00 Intake & Output 05/02/19 05/03/19 05/03/19 18:59 06:59 18:59 Intake Total 360 Output Total 400 Balance -400 360 Weight 90 kg 80.6 kg Intake: Oral 360 Output: Urine 400 Other: Voiding Method Toilet # Bowel Movements 2 - Exam PHYSICAL EXAMINATION: GENERAL: 89-year-old female in no acute distress at the time of my examination HEENT: Head is atraumatic, normocephalic. Pupils equal, round. Sclera anicteri c. Conjunctiva are clear. Mucous membranes of the mouth are moist. Neck is supple. There is no elevated jugular venous pressure. No carotid bruit is heard. HEART EXAMINATION: S1 and S2 irregularly irregular a systolic murmur is heard CHEST EXAMINATION: Lungs are clear to auscultation and precussion. No chest wall tenderness is noted on palpation or with deep breathing. ABDOMEN: Soft, nontender. Bowel sounds are heard. No organomegaly noted. EXTREMITIES: 2+ peripheral pulses with no evidence of peripheral edema and no calf tenderness noted. NEUROLOGIC patient is awake, alert and oriented 3 . . - Labs CBC & Chem 7: 05/02/19 08:29 05/03/19 06:41 Labs: Abnormal Lab Results - Last 24 Hours (Table) 05/02/19 05/02/19 05/02/19 Range/Units 19:39 19:39 21:02 PT 103.4 H (9.0-12.0) sec INR 9.8 H* (<1.2) Potassium (3.5-5.1) mmol/L BUN 99 H (7-17) mg/dL Creatinine 2.48 H (0.52-1.04) mg/dL Glucose 128 H (74-99) mg/dL POC Glucose (mg/dL) (75-99) mg/dL Total Bilirubin (0.2-1.3) mg/dL Alkaline Phosphatase (38-126) U/L Troponin I 0.436 H* (0.000-0.034) ng/mL 05/02/19 05/03/19 05/03/19 Range/Units 21:51 06:10 06:41 PT 22.4 H (9.0-12.0) sec INR 2.3 H (<1.2) Potassium (3.5-5.1) mmol/L BUN (7-17) mg/dL Creatinine (0.52-1.04) mg/dL Glucose (74-99) mg/dL POC Glucose (mg/dL) 159 H 138 H (75-99) mg/dL Total Bilirubin (0.2-1.3) mg/dL Alkaline Phosphatase (38-126) U/L Troponin I (0.000-0.034) ng/mL 05/03/19 05/03/19 Range/Units 06:41 11:44 PT (9.0-12.0) sec INR (<1.2) Potassium 5.2 H (3.5-5.1) mmol/L BUN 93 H (7-17) mg/dL Creatinine 2.39 H (0.52-1.04) mg/dL Glucose 125 H (74-99) mg/dL POC Glucose (mg/dL) 160 H (75-99) mg/dL Total Bilirubin 1.4 H (0.2-1.3) mg/dL Alkaline Phosphatase 132 H (38-126) U/L Troponin I (0.000-0.034) ng/mL Assessment and Plan Plan: Assessment and plan #1 acute exacerbation of chronic renal failure secondary to overdiuresis #2 history of diastolic congestive heart failure, BNP elevated on admission, no clear-cut congestive heart failure active at this time. #3 permanent atrial fibrillation #4 sick sinus syndrome with prior pacemaker #5 abnormal troponin likely secondary to renal failure #6 elevated INR Plan Patient's INR today is 2.3, we will look into see if the patient has coverage for Eliquis, if so once the INR is 2 we will initiate Eliquis 2-1/2 mg one tablet by mouth twice a day and discontinue the Coumadin. He is currently in atrial flutter with a controlled ventricular response. DNP note has been reviewed, I agree with a documented findings and plan of care. Patient was seen and examined.
--- NOTE | 2019-05-03 14:57 | P.GSCN ---
History of Present Illness Consult date: 05/03/19 Reason for Consult: Abdominal pain Requesting physician: Karlo Boyer History of present illness: CHIEF COMPLAINT: Abdominal pain HISTORY OF PRESENT ILLNESS: 89-year-old female who presented to the emergency room with chief complaint of abdominal pain. Patient examined at the bedside with Dr. Doe. Patient reports she has been belching since Tuesday. She reports some nausea but denies vomiting. Reports passing flatus and having a bowel movement today. She denies diarrhea. She denies abdominal pain at the time of examination. PAST MEDICAL HISTORY: See list. PAST SURGICAL HISTORY: See list. SOCIAL HISTORY: No illicit drug use. REVIEW OF SYSTEMS: CONSTITUTIONAL: Denies fever or chills. HEENT: Denies blurred vision, vision changes, or eye pain. Denies hemoptysis CARDIOVASCULAR: Denies chest pain or pressure. RESPIRATORY: No shortness of breath. GASTROINTESTINAL: Refer to [facility] for pertinent findings HEMATOLOGIC: Denies bleeding disorders. GENITOURINARY: Denies any blood in urine. SKIN: Denies pruitis. Denies rash. PHYSICAL EXAM: VITAL SIGNS: Reviewed. GENERAL: Well-developed in no acute distress. HEENT: No sclera icterus. Extraocular movements grossly intact. Moist buccal mucosa. Head is atraumatic, normocephalic. ABDOMEN: Soft. Nondistended. Tenderness upon palpation of left lower quadrant NEUROLOGIC: Alert and oriented. Cranial nerves II through XII grossly intact. LABORATORY DATA: WBC 11.6. Hemoglobin 12.0. Platelet count 230. INR greater than 10 on admission IMAGING: CT abdomen and pelvis completed without contrast reveals possible enteritis of the proximal jejunum. Diverticulosis. ASSESSMENT: 1. Abdominal pain 2. Possible enteritis 3. Diverticulosis PLAN: Repeat CT scan with oral contrast. Await results Diet as tolerated Begin antibiotics in the form of Zosyn No surgical intervention recommended Further recommendations pending patient's course Nurse practitioner note has been reviewed by physician. Signing provider agrees with the documented findings, assessment, and plan of care. Past Medical History Past Medical History: Chest Pain / Angina, Heart Failure, Diabetes Mellitus, Hyperlipidemia, Hypertension, Pulmonary Embolus (PE), Renal Disease, Sleep Apnea/CPAP/BIPAP Additional Past Medical History / Comment(s): CKD stage III, NEPHROLITHIASIS, CHACHO PE, GOLDY WITH CPAP USE, BRONCHITIS,DIVERTICULOSIS, VERTIGO, FALLS, recent infection/rash bilateral lower legs almost healed per pt. History of Any Multi-Drug Resistant Organisms: None Reported Past Surgical History: Hysterectomy, Joint Replacement Additional Past Surgical History / Comment(s): bilateral knee replacement, hemorrhoid surgery, AAA repair, LITHOTRIPSY Past Anesthesia/Blood Transfusion Reactions: No Reported Reaction Additional Past Anesthesia/Blood Transfusion Reaction / Comm: Pt states she received blood with AAA repair. No reaction. Past Psychological History: No Psychological Hx Reported Additional Psychological History / Comment(s): Pt resides alone. She uses a walker or cane at times to ambulate. She drives. Her don, Latrice, assists her with her medications at times. Smoking Status: Never smoker Past Alcohol Use History: None Reported Past Drug Use History: None Reported - Past Family History Mother History Unknown: Yes Additional Family Medical History / Comment(s): PT DOES'NT KNOW ANY HX ON MOPM- MOM LEFT HOME WHEN PT WAS 9 MONTHS OLD. Father Family Medical History: Coronary Artery Disease (CAD), Myocardial Infarction (HI) Additional Family Medical History / Comment(s): CABG Medications and Allergies Home Medications Medication Instructions Recorded Confirmed Type Aspirin 81 mg PO DAILY 08/26/13 05/02/19 History Meclizine [Antivert] 12.5 mg PO Q8HR PRN 04/13/16 05/02/19 History Vit C/E/Zn/Coppr/Lutein/Zeaxan 1 cap PO BID 04/13/16 05/02/19 History [Preservision Areds 2 Softgel] cloNIDine HCL [Catapres] 0.2 mg PO BID 04/13/16 05/02/19 History hydrALAZINE HCL [Apresoline] 50 mg PO BID 06/03/16 05/02/19 History Atorvastatin [Lipitor] 20 mg PO HS #0 06/08/16 05/02/19 Rx amLODIPine [Norvasc] 5 mg PO DAILY #30 tab 06/08/16 05/02/19 Rx Ergocalciferol [Vitamin D2 50,000 units PO MO 07/21/16 05/02/19 History (DRISDOL)] Cinacalcet [Sensipar] 30 mg PO Q14D 05/01/19 05/02/19 History Febuxostat [Uloric] 40 mg PO BID 05/01/19 05/02/19 History Furosemide [Lasix] 40 mg PO DAILY 05/01/19 05/02/19 History Potassium Chloride ER [K-Dur 10] 10 meq PO DAILY 05/01/19 05/02/19 History Repaglinide [Prandin] 0.5 mg PO AC-BID 05/01/19 05/02/19 History Spironolactone [Aldactone] 50 mg PO DAILY 05/01/19 05/02/19 History Artificial Tears-Hypromellose 1 drop BOTH EYES HS 05/02/19 05/02/19 History [Artificial Tear Drops] Warfarin Sodium [Coumadin] 4 mg PO DAILY 05/02/19 05/02/19 History Allergies Allergy/AdvReac Type Severity Reaction Status Date / Time morphine Allergy Rash/Hives Verified 05/02/19 09:57 Surgical - Exam Vital Signs Temp Pulse Resp BP Pulse Ox 97.9 F 62 18 160/73 96 05/02/19 07:42 05/02/19 07:42 05/02/19 07:42 05/02/19 07:42 05/02/19 07:42 Results - Labs 05/02/19 08:29 05/03/19 06:41 Abnormal Lab Results - Last 24 Hours (Table) 05/02/19 05/02/19 05/02/19 Range/Units 19:39 19:39 21:02 PT 103.4 H (9.0-12.0) sec INR 9.8 H* (<1.2) Potassium (3.5-5.1) mmol/L BUN 99 H (7-17) mg/dL Creatinine 2.48 H (0.52-1.04) mg/dL Glucose 128 H (74-99) mg/dL POC Glucose (mg/dL) (75-99) mg/dL Total Bilirubin (0.2-1.3) mg/dL Alkaline Phosphatase (38-126) U/L Troponin I 0.436 H* (0.000-0.034) ng/mL 05/02/19 05/03/19 05/03/19 Range/Units 21:51 06:10 06:41 PT 22.4 H (9.0-12.0) sec INR 2.3 H (<1.2) Potassium (3.5-5.1) mmol/L BUN (7-17) mg/dL Creatinine (0.52-1.04) mg/dL Glucose (74-99) mg/dL POC Glucose (mg/dL) 159 H 138 H (75-99) mg/dL Total Bilirubin (0.2-1.3) mg/dL Alkaline Phosphatase (38-126) U/L Troponin I (0.000-0.034) ng/mL 05/03/19 05/03/19 Range/Units 06:41 11:44 PT (9.0-12.0) sec INR (<1.2) Potassium 5.2 H (3.5-5.1) mmol/L BUN 93 H (7-17) mg/dL Creatinine 2.39 H (0.52-1.04) mg/dL Glucose 125 H (74-99) mg/dL POC Glucose (mg/dL) 160 H (75-99) mg/dL Total Bilirubin 1.4 H (0.2-1.3) mg/dL Alkaline Phosphatase 132 H (38-126) U/L Troponin I (0.000-0.034) ng/mL Diabetes panel 05/02/19 05/03/19 Range/Units 19:39 06:41 Sodium 137 138 (137-145) mmol/L Potassium 5.1 5.2 H (3.5-5.1) mmol/L Chloride 103 105 (98-107) mmol/L Carbon Dioxide 24 22 (22-30) mmol/L BUN 99 H 93 H (7-17) mg/dL Creatinine 2.48 H 2.39 H (0.52-1.04) mg/dL Glucose 128 H 125 H (74-99) mg/dL Calcium 9.7 9.5 (8.4-10.2) mg/dL AST 22 (14-36) U/L ALT 16 (4-34) U/L Alkaline Phosphatase 132 H (38-126) U/L Total Protein 6.8 (6.3-8.2) g/dL Albumin 3.9 (3.5-5.0) g/dL Calcium panel 05/02/19 05/03/19 Range/Units 19:39 06:41 Calcium 9.7 9.5 (8.4-10.2) mg/dL Albumin 3.9 (3.5-5.0) g/dL Pituitary panel 05/02/19 05/03/19 Range/Units 19:39 06:41 Sodium 137 138 (137-145) mmol/L Potassium 5.1 5.2 H (3.5-5.1) mmol/L Chloride 103 105 (98-107) mmol/L Carbon Dioxide 24 22 (22-30) mmol/L BUN 99 H 93 H (7-17) mg/dL Creatinine 2.48 H 2.39 H (0.52-1.04) mg/dL Glucose 128 H 125 H (74-99) mg/dL Calcium 9.7 9.5 (8.4-10.2) mg/dL Adrenal panel 05/02/19 05/03/19 Range/Units 19:39 06:41 Sodium 137 138 (137-145) mmol/L Potassium 5.1 5.2 H (3.5-5.1) mmol/L Chloride 103 105 (98-107) mmol/L Carbon Dioxide 24 22 (22-30) mmol/L BUN 99 H 93 H (7-17) mg/dL Creatinine 2.48 H 2.39 H (0.52-1.04) mg/dL Glucose 128 H 125 H (74-99) mg/dL Calcium 9.7 9.5 (8.4-10.2) mg/dL Total Bilirubin 1.4 H (0.2-1.3) mg/dL AST 22 (14-36) U/L ALT 16 (4-34) U/L Alkaline Phosphatase 132 H (38-126) U/L Total Protein 6.8 (6.3-8.2) g/dL Albumin 3.9 (3.5-5.0) g/dL
--- NOTE | 2019-05-03 15:40 | CT ---
EXAMINATION TYPE: CT abdomen pelvis wo con DATE OF EXAM: 05/03/2019 COMPARISON: 05/02/2019 HISTORY: Abdominal pain. CT DLP: 843.8 mGycm Examination of the solid and hollow viscera is limited given the lack of contrast. FINDINGS: LUNG BASES: No evidence for nodule. No evidence for infiltrate. Small right-sided effusion. Cardiomeg jeffrey. LIVER/GB: The gallbladder is unremarkable. No space-occupying hepatic lesion. PANCREAS: No pancreatic mass identified. No inflammatory process seen. SPLEEN: No evidence for splenomegaly. No intrasplenic lesions seen. ADRENALS: No adrenal nodules identified. No evidence for thickening. KIDNEYS: Renal lesions as noted on prior study. No nephrolithiasis. No hydronephrosis. BOWEL: Postoperative change of appendicitis appendectomy. Persistent jejunal wall thickening noted pr oximally may reflect enteritis. There is no evidence for perforation or obstruction. Sigmoid divertic ulosis without diverticulitis. Lymph nodes: No evidence for adenopathy greater than 1 cm. Abdominal aorta: Atheromatous changes seen. No evidence for aneurysm. Genital organs: No significant abnormality. Other: No significant abnormality. IMPRESSION: 1. Stable features of jejunal enteritis. The remainder of the study is unchanged relative to yesterda y's examination.
[2019-05-03 16:52] LABS: Glucose,Whole Blood 121 mg/dL (75-99)
[2019-05-03 20:27] LABS: Glucose,Whole Blood 146 mg/dL (75-99)
[2019-05-03] MEDS: ATORVASTATIN 20 MG TAB PO SCH (21:05)
[2019-05-03] MEDS: HYDROmorphone 0.5 MG/0.5 ML SYRINGE IVP PRN (22:29)
[2019-05-04] MEDS: IPRATROPIUM-ALBUTEROL 3 ML NEB INHALATION PRN ×4 (03:29→19:50)
[2019-05-04] MEDS: HYDROmorphone 0.5 MG/0.5 ML SYRINGE IVP PRN (03:50)
[2019-05-04 06:24] LABS: Glucose,Whole Blood 174 mg/dL (75-99)
[2019-05-04] MEDS: INSULIN ASPART (NovoLOG) 100 UNIT/ML VIAL SQ SCH ×4 (06:50→21:07)
[2019-05-04 07:02] LABS: Calcium 9.3 mg/dL (8.4-10.2); Potassium 5.6 mmol/L (3.5-5.1); Total Bilirubin 1.6 mg/dL (0.2-1.3); Total Protein 6.9 g/dL (6.3-8.2)
--- NOTE | 2019-05-04 07:33 | P.HPIM ---
History of Present Illness H&P Date: 05/03/19 Chief Complaint: mustapha King is an 89 yo F with PMH of CKD4, atrial fibrillation, T2DM who presented to the ED complaining of belching, abdomianl distention and discomfort x2 days. She states these symptoms have been constant since onset and also having abdominal pain. She denies nausea or vomiting. 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 In the ED, pt's vitals stable, WBC 11.6k, INR >10, BUN 100, CR 2.6, trop 0.24, BNP 12k. CT shows thickening to jejunum. Pt was given 10 mg vitamin K and INR on recheck 9.8. Review of Systems All systems: negative Constitutional: Reports anorexia, Reports malaise, Reports weakness, Denies chills, Denies fever Eyes: denies blurred vision, denies pain Ears, nose, mouth and throat: Denies headache, Denies sore throat Cardiovascular: Denies chest pain, Denies shortness of breath Respiratory: Denies cough Gastrointestinal: Reports abdominal pain, Reports belching, Reports bloating, Denies change in bowel habits, Denies diarrhea, Denies nausea, Denies vomiting Genitourinary: Denies dysuria, Denies hematuria Musculoskeletal: Denies myalgias Integumentary: Denies pruritus, Denies rash Neurological: Denies numbness, Denies weakness Psychiatric: Denies anxiety, Denies depression Endocrine: Denies fatigue, Denies weight change Past Medical History Past Medical History: Chest Pain / Angina, Heart Failure, Diabetes Mellitus, Hyperlipidemia, Hypertension, Pulmonary Embolus (PE), Renal Disease, Sleep Apnea/CPAP/BIPAP Additional Past Medical History / Comment(s): CKD stage III, NEPHROLITHIASIS, CHACHO PE, GOLDY WITH CPAP USE, BRONCHITIS,DIVERTICULOSIS, VERTIGO, FALLS, recent infection/rash bilateral lower legs almost healed per pt. History of Any Multi-Drug Resistant Organisms: None Reported Past Surgical History: Hysterectomy, Joint Replacement Additional Past Surgical History / Comment(s): bilateral knee replacement, hemorrhoid surgery, AAA repair, LITHOTRIPSY Past Anesthesia/Blood Transfusion Reactions: No Reported Reaction Additional Past Anesthesia/Blood Transfusion Reaction / Comment(s): Pt states she received blood with AAA repair. No reaction. Past Psychological History: No Psychological Hx Reported Additional Psychological History / Comment(s): Pt resides alone. She uses a walker or cane at times to ambulate. She drives. Her don, Latrice, assists her with her medications at times. Smoking Status: Never smoker Past Alcohol Use History: None Reported Past Drug Use History: None Reported - Past Family History Mother History Unknown: Yes Additional Family Medical History / Comment(s): PT DOES'NT KNOW ANY HX ON MOPM- MOM LEFT HOME WHEN PT WAS 9 MONTHS OLD. Father Family Medical History: Coronary Artery Disease (CAD), Myocardial Infarction (PA) Additional Family Medical History / Comment(s): CABG Medications and Allergies Home Medications Medication Instructions Recorded Confirmed Type Aspirin 81 mg PO DAILY 08/26/13 05/02/19 History Meclizine [Antivert] 12.5 mg PO Q8HR PRN 04/13/16 05/02/19 History Vit C/E/Zn/Coppr/Lutein/Zeaxan 1 cap PO BID 04/13/16 05/02/19 History [Preservision Areds 2 Softgel] cloNIDine HCL [Catapres] 0.2 mg PO BID 04/13/16 05/02/19 History hydrALAZINE HCL [Apresoline] 50 mg PO BID 06/03/16 05/02/19 History Atorvastatin [Lipitor] 20 mg PO HS #0 06/08/16 05/02/19 Rx amLODIPine [Norvasc] 5 mg PO DAILY #30 tab 06/08/16 05/02/19 Rx Ergocalciferol [Vitamin D2 50,000 units PO MO 07/21/16 05/02/19 History (DRISDOL)] Cinacalcet [Sensipar] 30 mg PO Q14D 05/01/19 05/02/19 History Febuxostat [Uloric] 40 mg PO BID 05/01/19 05/02/19 History Furosemide [Lasix] 40 mg PO DAILY 05/01/19 05/02/19 History Potassium Chloride ER [K-Dur 10] 10 meq PO DAILY 05/01/19 05/02/19 History Repaglinide [Prandin] 0.5 mg PO AC-BID 05/01/19 05/02/19 History Spironolactone [Aldactone] 50 mg PO DAILY 05/01/19 05/02/19 History Artificial Tears-Hypromellose 1 drop BOTH EYES HS 05/02/19 05/02/19 History [Artificial Tear Drops] Warfarin Sodium [Coumadin] 4 mg PO DAILY 05/02/19 05/02/19 History Allergies Allergy/AdvReac Type Severity Reaction Status Date / Time morphine Allergy Rash/Hives Verified 05/02/19 09:57 Physical Exam Vitals: Vital Signs Temp Pulse Resp BP Pulse Ox 05/03/19 20:00 62 16 05/03/19 19:35 97.2 F L 93 16 140/66 05/03/19 16:00 97.9 F 62 16 160/74 95 05/03/19 12:00 98.2 F 60 16 138/65 95 05/03/19 08:00 98.2 F 60 14 138/65 95 05/03/19 04:00 98.3 F 61 18 128/63 92 L 05/03/19 00:00 98.0 F 60 16 132/60 92 L Intake and Output 05/03/19 05/03/19 05/03/19 06:59 14:59 22:59 Intake Total 1265 240 Output Total 300 525 Balance -300 1265 -285 Intake: Intake, IV Titration 25 Amount Piperacillin-Tazobactam 3 25 .375 gm In Sodium Chloride 0.9% 100 ml @ 25 mls/hr IVPB Q12H [facility] Rx# :[id number] Oral 1240 240 Output: Urine 300 525 Other: Voiding Method Toilet Toilet Toilet # Voids 1 # Bowel Movements 2 Weight 80.6 kg General: well nourished, well developed, NAD. Vitals reviewed Eyes: PERRL, EOMI, conjunctiva normal HENT: normocephalic, mucus membranes moist Neck: supple, no JVD Lungs: normal respiratory effort, no wheezes or rales CV: Regular rate and rhythm, no murmur. Peripheral pulses 2+ Abdomen: soft, nondistended, no organomegaly. Generalized tenderness Lymph: no cervical or axillary LAD Skin: warm and dry. Neuro: A&Ox3, normal mood and affect Results CBC & Chem 7: 05/02/19 08:29 05/04/19 06:02 Labs: Abnormal Lab Results - Last 24 Hours (Table) 0205/03/19 05/03/19 Range/Units 06:10 06:41 06:41 PT 22.4 H (9.0-12.0) sec INR 2.3 H (<1.2) Potassium 5.2 H (3.5-5.1) mmol/L BUN 93 H (7-17) mg/dL Creatinine 2.39 H (0.52-1.04) mg/dL Glucose 125 H (74-99) mg/dL POC Glucose (mg/dL) 138 H (75-99) mg/dL Total Bilirubin 1.4 H (0.2-1.3) mg/dL Alkaline Phosphatase 132 H (38-126) U/L 05/03/19 05/03/19 05/03/19 Range/Units 11:44 16:46 20:24 PT (9.0-12.0) sec INR (<1.2) Potassium (3.5-5.1) mmol/L BUN (7-17) mg/dL Creatinine (0.52-1.04) mg/dL Glucose (74-99) mg/dL POC Glucose (mg/dL) 160 H 121 H 146 H (75-99) mg/dL Total Bilirubin (0.2-1.3) mg/dL Alkaline Phosphatase (38-126) U/L Thrombosis Risk Factor Assmnt - Choose All That Apply Any of the Below Risk Factors Present?: Yes Each Factor Represents 1 point: Obesity (BMI >25) Other Risk Factors: Yes Each Risk Factor Represents 3 Points: Age 75 years or older Other congenital or acquired thrombophilia - If yes, enter type in comment: No Thrombosis Risk Factor Assessment Total Risk Factor Score: 4 Thrombosis Risk Factor Assessment Level: Moderate Risk Assessment and Plan (1) Belching Current Visit: Yes Status: Acute Code(s): R14.2 - ERUCTATION SNOMED Code(s): 909130436 (2) ESRD (end stage renal disease) Current Visit: Yes Status: Acute Code(s): N18.6 - END STAGE RENAL DISEASE SNOMED Code(s): 66884258 (3) Supratherapeutic INR Current Visit: Yes Status: Acute Code(s): R79.1 - ABNORMAL COAGULATION PROFILE SNOMED Code(s): 671627393 (4) CHF (congestive heart failure) Current Visit: No Status: Acute Code(s): I50.9 - HEART FAILURE, UNSPECIFIED SNOMED Code(s): 21252980 (5) Demand ischemia Current Visit: Yes Status: Acute Code(s): I24.8 - OTHER FORMS OF ACUTE ISCHEMIC HEART DISEASE SNOMED Code(s): 110313386 (6) Enteritis Current Visit: Yes Status: Acute Code(s): K52.9 - NONINFECTIVE GASTROENTERITIS AND COLITIS, UNSPECIFIED SNOMED Code(s): 60076579 (7) Elevated brain natriuretic peptide (BNP) level Current Visit: Yes Status: Acute Code(s): R79.89 - OTHER SPECIFIED ABNORMAL FINDINGS OF BLOOD CHEMISTRY SNOMED Code(s): 609441462 (8) Uremia Current Visit: Yes Status: Acute Code(s): N19 - UNSPECIFIED KIDNEY FAILURE SNOMED Code(s): 50264952 Plan: 1. Abdominal pain and belching. With elevated WBC and thickening of the jejunum. Suspect enteritis. Surgery consulted. Pt started on zosyn. Simethicone for symptomatic relief 2. ESRD with mild volume overload. Nephroogy consulted. Fluid restriction. Lasix 40 mg qd 3. Supratherapeutic INR. Treat with vitamin K 4. Acute on chronic diastolic CHF. Elevated troponin. Cardiology consulted. Pt on lasix, suspect elevated trop is due to ESRD 5. T2DM. Accucheck, sliding scale
[2019-05-04] MEDS: FUROSEMIDE 10 MG/ML 4 ML VIAL IV SCH ×2 (07:46→21:08)
[2019-05-04] MEDS: SIMETHICONE 80 MG CHEWABLE PO SCH ×4 (07:46→22:18)
--- NOTE | 2019-05-04 08:21 | XR ---
EXAMINATION TYPE: XR abdomen 2V DATE OF EXAM: 05/04/2019 COMPARISON: None INDICATION: Abdomen pain TECHNIQUE: Single view abdomen frontal projection supine view. An upright view was also obtained. FINDINGS: Contrast is within the colon. No suspicious air-fluid levels or differential air-fluid levels are pre sent. No free air is identified. A minimal right pleural effusion may be present. Psoas margins are normal. No organomegaly is present. A 0.3 cm calcification may be at the left L4-5 paraspinal region. A ureteral stone could be considere d. IMPRESSION: 1. Contrast throughout the colon. 2. Clinical consideration for a mid left ureteral stone is recommended
[2019-05-04] MEDS ORDERED: INSULIN REGULAR 100 UNIT/ML VIAL IV ONE (08:39)
[2019-05-04] MEDS ORDERED: DEXTROSE 10 % IN WATER 250 ML IV ONE (08:39)
--- NOTE | 2019-05-04 09:23 | P.PN ---
Subjective Patient is seen in follow-up for chronic kidney disease. Renal function is stable. Patient feels more short of breath today. Complaining of abdominal discomfort. No vomiting or diarrhea. Vital signs are stable. General: The patient appeared well nourished and normally developed. HEENT: Head exam is unremarkable. Neck is without jugular venous distension. LUNGS: Breath sounds decreased. Crackles at bases. HEART: Rate and Rhythm are regular. First and second heart sounds normal. No murmurs, rubs or gallops. ABDOMEN: Abdominal exam reveals normal bowel sounds. Non-tender and non- distended. No evidence of peritonitis. EXTREMITITES: No clubbing, cyanosis, or edema. Objective - Vital Signs Vital signs: Vital Signs Temp 97.9 F 05/04/19 07:42 Pulse 66 05/04/19 08:08 Resp 20 05/04/19 07:42 BP 150/70 05/04/19 07:42 Pulse Ox 91 L 05/04/19 07:42 Intake & Output 05/03/19 05/04/19 05/04/19 18:59 06:59 18:59 Intake Total 1505 Output Total 975 Balance 1505 -975 Weight 80.9 kg Intake: Intake, IV Titration 25 Amount Piperacillin-Tazobactam 3 25 .375 gm In Sodium Chloride 0.9% 100 ml @ 25 mls/hr IVPB Q12H [facility] Rx# :[id number] Oral 1480 Output: Urine 975 Other: Voiding Method Toilet Toilet Toilet # Voids 1 1 # Bowel Movements 2 - Labs CBC & Chem 7: 05/02/19 08:29 05/04/19 06:02 Labs: Abnormal Lab Results - Last 24 Hours (Table) 05/03/19 05/03/19 05/03/19 Range/Units 06:41 11:44 16:46 Potassium 5.2 H (3.5-5.1) mmol/L Carbon Dioxide (22-30) mmol/L BUN 93 H (7-17) mg/dL Creatinine 2.39 H (0.52-1.04) mg/dL Glucose 125 H (74-99) mg/dL POC Glucose (mg/dL) 160 H 121 H (75-99) mg/dL Total Bilirubin 1.4 H (0.2-1.3) mg/dL Alkaline Phosphatase 132 H (38-126) U/L 05/03/19 05/04/19 05/04/19 Range/Units 20:24 06:02 06:22 Potassium 5.6 H (3.5-5.1) mmol/L Carbon Dioxide 21 L (22-30) mmol/L BUN 82 H (7-17) mg/dL Creatinine 2.33 H (0.52-1.04) mg/dL Glucose 173 H (74-99) mg/dL POC Glucose (mg/dL) 146 H 174 H (75-99) mg/dL Total Bilirubin 1.6 H (0.2-1.3) mg/dL Alkaline Phosphatase 138 H (38-126) U/L Assessment and Plan Plan: Assessment: 1. Chronic kidney disease stage IV secondary to nephrosclerosis. GFR at baseline. 2. Coagulopathy. Improved. 3. Dyspnea secondary to volume overload. 4. Acute on chronic diastolic CHF with moderate mitral stenosis. 5. Metabolic acidosis secondary to chronic kidney disease. 6. Mild hyperkalemia secondary to chronic kidney disease. Potassium supplementation discontinued. Plan: Increase Lasix to 40 mg IV twice daily. 10 units of IV regular insulin with D10 now. Add oral sodium bicarbonate. Repeat potassium level this evening. Avoid nephrotoxins. Check chest x-ray.
[2019-05-04] MEDS: SODIUM BICARBONATE TAB 650 MG TAB PO SCH ×2 (11:01→21:06)
--- NOTE | 2019-05-04 11:24 | P.PN ---
Progress Note - Text Progress Note Date: 05/04/19 Patient feels better. She states she has less bloating. On exam her vital signs are stable. Her abdomen soft. She is tolerating a diet. Probable resolving ileus/gastritis. Patient will be discharged home per medicine. There is no surgical intervention planned
[2019-05-04 11:59] LABS: Glucose,Whole Blood 235 mg/dL (75-99)
[2019-05-04] MEDS: PIPERACILLIN-TAZOBACTAM 3.375 GM in SODIUM CHLORIDE 0.9% 100 ML IVPB SCH ×2 (12:16→22:17)
--- NOTE | 2019-05-04 14:52 | P.PN ---
Subjective Progress Note Date: 04/27/19 05/03/19 This is an 89-year-old lady with history of congestive heart failure, presented to hospital with symptoms of persistent hiccups. Seen in consultation yesterday by Dr. Rush. Presentation here she was noted to be extremely dehydrated with an elevated potassium, BUN and creatinine. Her INR was over 10, she was also noted to have an elevated BNP level. Chest x-ray did not show significant pleur al effusion or pulmonary congestion and her EKG showed a paced rhythm. Patient was given a dose of vitamin K, her INR today is down to 2.3. An echocardiogram with Doppler study was also performed which revealed an ejection fraction of 60- 65%. Today the patient is in atrial flutter, typical, heart rate is in the 60s, blood pressure 128/60, 92% on 2 L of oxygen. An echocardiogram with Doppler st udy was performed which revealed an ejection fraction of 60-65%, moderate mitral stenosis noted. Patient does state that she's feeling better but is still is having occasional hiccups, significantly improved from admission here. 05/04/2019:. Patient claims she is feeling much better. Patient is much less nauseated. Her renal function was improvement though her creatinine is still 2.33. Her INR is not available. If it is okay with nephrology, it was planned that patient be switched to new anticoagulation agent from Coumadin. Examination of the lungs still show expiratory rhonchi and wheezing Objective - Vital Signs Vital signs: Vital Signs Temp 97 F L 05/04/19 11:12 Pulse 74 05/04/19 12:03 Resp 20 05/04/19 11:12 BP 167/74 05/04/19 11:12 Pulse Ox 93 L 05/04/19 11:12 Intake & Output 05/03/19 05/04/19 05/04/19 18:59 06:59 18:59 Intake Total 1505 360 Output Total 975 Balance 1505 -975 360 Weight 80.9 kg Intake: Intake, IV Titration 25 Amount Piperacillin-Tazobactam 3 25 .375 gm In Sodium Chloride 0.9% 100 ml @ 25 mls/hr IVPB Q12H [facility] Rx# :[id number] Oral 1480 360 Output: Urine 975 Other: Voiding Method Toilet Toilet Toilet # Voids 1 1 # Bowel Movements 2 - Exam GENERAL EXAM: Patient is alert and oriented and doesn't appear to be in any acut e distress HEENT: Normocephalic. Normal reaction of pupils, equal size, normal range of extraocular motion. No erythema or exudates in the throat. NECK: No masses, no nuchal rigidity. CHEST: No chest wall deformity. LUNGS: Expiratory wheezes and rhonchi. HEART: S1 and S2 normal systolic murmur ABDOMEN: No hepatosplenomegaly, normal bowel sounds, no guarding or rigidity. SKIN: No rashes CENTRAL NERVOUS SYSTEM: No focal deficits. EXTREMITIES: No cyanosis, clubbing or edema. - Labs CBC & Chem 7: 05/02/19 08:29 05/04/19 06:02 Labs: Abnormal Lab Results - Last 24 Hours (Table) 05/03/19 05/03/19 05/04/19 Range/Units 16:46 20:24 06:02 Potassium 5.6 H (3.5-5.1) mmol/L Carbon Dioxide 21 L (22-30) mmol/L BUN 82 H (7-17) mg/dL Creatinine 2.33 H (0.52-1.04) mg/dL Glucose 173 H (74-99) mg/dL POC Glucose (mg/dL) 121 H 146 H (75-99) mg/dL Total Bilirubin 1.6 H (0.2-1.3) mg/dL Alkaline Phosphatase 138 H (38-126) U/L 05/04/19 05/04/19 Range/Units 06:22 11:52 Potassium (3.5-5.1) mmol/L Carbon Dioxide (22-30) mmol/L BUN (7-17) mg/dL Creatinine (0.52-1.04) mg/dL Glucose (74-99) mg/dL POC Glucose (mg/dL) 174 H 235 H (75-99) mg/dL Total Bilirubin (0.2-1.3) mg/dL Alkaline Phosphatase (38-126) U/L Assessment and Plan (1) Acute on chronic diastolic CHF (congestive heart failure) Current Visit: Yes Status: Acute Code(s): I50.33 - ACUTE ON CHRONIC DIASTOLIC (CONGESTIVE) HEART FAILURE SNOMED Code(s): 480523939 (2) Atrial flutter Current Visit: Yes Status: Acute Code(s): I48.92 - UNSPECIFIED ATRIAL FLUTTER SNOMED Code(s): 6846288 (3) Acute on chronic renal failure Current Visit: Yes Status: Acute Code(s): N17.9 - ACUTE KIDNEY FAILURE, UNSPECIFIED; N18.9 - CHRONIC KIDNEY DISEASE, UNSPECIFIED SNOMED Code(s): 781643062 Plan: Continue current medical therapy. May switch to Eliquis, if okay with nephrology
--- NOTE | 2019-05-04 16:12 | P.PN ---
Subjective Progress Note Date: 05/04/19 Jessica King is an 89 yo F with PMH of CKD4, atrial fibrillation, T2DM who presented to the ED complaining of belching, abdomianl distention and discomfort x2 days. She states these symptoms have been constant since onset and also having abdominal pain. She denies nausea or vomiting. 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 In the ED, pt's vitals stable, WBC 11.6k, INR >10, BUN 100, CR 2.6, trop 0.24, BNP 12k. CT shows thickening to jejunum. Pt was given 10 mg vitamin K and INR on recheck 9.8. 05/04/2019 patient reports rough night during the night with increased shortness of breath. Improved with nebulized bronchodilators. Denies nausea vomiting or diarrhea. Reports abdominal pain unchanged-suspect uremic. Renal function stable. Cardiology discussing switching anticoagulation to Eliquis. Hyperkalemic, received D10, regular insulin, oral sodium bicarb. Objective - Vital Signs Vital signs: Vital Signs Temp 97.8 F 05/04/19 15:16 Pulse 63 05/04/19 15:16 Resp 20 05/04/19 15:16 BP 171/70 05/04/19 15:16 Pulse Ox 93 L 05/04/19 15:16 Intake & Output 05/03/19 05/04/19 05/04/19 18:59 06:59 18:59 Intake Total 1505 360 Output Total 975 Balance 1505 -975 360 Weight 80.9 kg Intake: Intake, IV Titration 25 Amount Piperacillin-Tazobactam 3 25 .375 gm In Sodium Chloride 0.9% 100 ml @ 25 mls/hr IVPB Q12H [facility] Rx# :[id number] Oral 1480 360 Output: Urine 975 Other: Voiding Method Toilet Toilet Toilet # Voids 1 1 # Bowel Movements 2 - Exam General: well nourished, alert and oriented 3, sitting up in bed, no acute distress Eyes: PERRL, EOMI, conjunctiva normal HENT: normocephalic, mucus membranes moist Neck: supple, no JVD Lungs: normal respiratory effort, positive expiratory wheezes with bibasilar rales CV: Regular rate and rhythm, systolic murmur. Peripheral pulses 2+ Abdomen: soft, nontender, nondistended, no organomegaly. Generalized tenderness Lymph: no cervical or axillary LAD Skin: warm and dry. Neuro: No focal deficits - Labs CBC & Chem 7: 05/02/19 08:29 05/04/19 06:02 Labs: Abnormal Lab Results - Last 24 Hours (Table) 05/03/19 05/03/19 05/04/19 Range/Units 16:46 20:24 06:02 Potassium 5.6 H (3.5-5.1) mmol/L Carbon Dioxide 21 L (22-30) mmol/L BUN 82 H (7-17) mg/dL Creatinine 2.33 H (0.52-1.04) mg/dL Glucose 173 H (74-99) mg/dL POC Glucose (mg/dL) 121 H 146 H (75-99) mg/dL Total Bilirubin 1.6 H (0.2-1.3) mg/dL Alkaline Phosphatase 138 H (38-126) U/L 05/04/19 05/04/19 Range/Units 06:22 11:52 Potassium (3.5-5.1) mmol/L Carbon Dioxide (22-30) mmol/L BUN (7-17) mg/dL Creatinine (0.52-1.04) mg/dL Glucose (74-99) mg/dL POC Glucose (mg/dL) 174 H 235 H (75-99) mg/dL Total Bilirubin (0.2-1.3) mg/dL Alkaline Phosphatase (38-126) U/L Assessment and Plan Assessment: (1) Belching Current Visit: Yes Status: Acute Code(s): R14.2 - ERUCTATION SNOMED Code(s): 053857627 (2) ESRD (end stage renal disease) Current Visit: Yes Status: Acute Code(s): N18.6 - END STAGE RENAL DISEASE SNOMED Code(s): 54858175 (3) Supratherapeutic INR Current Visit: Yes Status: Acute Code(s): R79.1 - ABNORMAL COAGULATION PROFILE SNOMED Code(s): 387895914 (4) CHF (congestive heart failure) Current Visit: No Status: Acute Code(s): I50.9 - HEART FAILURE, UNSPECIFIED SNOMED Code(s): 67499285 (5) Demand ischemia Current Visit: Yes Status: Acute Code(s): I24.8 - OTHER FORMS OF ACUTE ISCHEMIC HEART DISEASE SNOMED Code(s): 777368645 (6) Enteritis Current Visit: Yes Status: Acute Code(s): K52.9 - NONINFECTIVE GASTROENTERITIS AND COLITIS, UNSPECIFIED SNOMED Code(s): 09273023 (7) Elevated brain natriuretic peptide (BNP) level Current Visit: Yes Status: Acute Code(s): R79.89 - OTHER SPECIFIED ABNORMAL FINDINGS OF BLOOD CHEMISTRY SNOMED Code(s): 858609609 (8) Uremia Current Visit: Yes Status: Acute Code(s): N19 - UNSPECIFIED KIDNEY FAILURE SNOMED Code(s): 34826145 Plan: Continue on current medication regime ,monitoring and symptomatic brandon atment. Follow up potassium level pending this afternoon .Maintained on antibiotics. Diuretics increased as per nephrology. Aggressive pulmonary toileting with nebulized bronchodilators. Follow closely with multiple consults. The impression and plan of care has been dictated as directed. : I performed a history and examination of this patient, discussed the same with the dictator. I agree with the dictator's note ,documented as a scribe. Any additional findings or plans will be noted.
[2019-05-04 17:03] LABS: Glucose,Whole Blood 211 mg/dL (75-99)
[2019-05-04 20:23] LABS: Glucose,Whole Blood 172 mg/dL (75-99)
[2019-05-04] MEDS: ATORVASTATIN 20 MG TAB PO SCH (21:06)
[2019-05-05 06:09] LABS: Glucose,Whole Blood 194 mg/dL (75-99)
[2019-05-05] MEDS: INSULIN ASPART (NovoLOG) 100 UNIT/ML VIAL SQ SCH ×4 (06:46→20:54)
[2019-05-05 06:53] LABS: Albumin 3.8 g/dL (3.5-5.0); Calcium 9.2 mg/dL (8.4-10.2); Magnesium 2.5 mg/dL (1.6-2.3); Total Bilirubin 1.4 mg/dL (0.2-1.3); Total Protein 6.8 g/dL (6.3-8.2)
--- NOTE | 2019-05-05 07:32 | XR ---
EXAMINATION TYPE: XR chest 1V DATE OF EXAM: 05/05/2019 HISTORY: sob. REFERENCE: Previous study dated 05/02/2019. FINDINGS: There is a unipolar pacemaker place on the left. The heart is mildly enlarged. There is vascular congestion and pulmonary edema. This is worsened from previous. I suspect small, bilateral effusions. IMPRESSION: WORSENING CHANGES OF PULMONARY EDEMA.
[2019-05-05] MEDS: IPRATROPIUM-ALBUTEROL 3 ML NEB INHALATION PRN ×4 (08:10→21:53)
[2019-05-05] MEDS: SODIUM BICARBONATE TAB 650 MG TAB PO SCH ×2 (09:16→20:53)
[2019-05-05] MEDS: FUROSEMIDE 10 MG/ML 4 ML VIAL IV SCH ×2 (09:16→20:52)
[2019-05-05] MEDS: SIMETHICONE 80 MG CHEWABLE PO SCH ×4 (09:16→20:59)
--- NOTE | 2019-05-05 09:19 | P.PN ---
Subjective Patient is seen in follow-up for chronic kidney disease. Renal function is a little better today. Dyspnea improved. Good urine output. Oral intake fair. No vomiting or diarrhea. Vital signs are stable. General: The patient appeared well nourished and normally developed. HEENT: Head exam is unremarkable. Neck is without jugular venous distension. LUNGS: Breath sounds decreased. Crackles at bases. HEART: Rate and Rhythm are regular. First and second heart sounds normal. No murmurs, rubs or gallops. ABDOMEN: Abdominal exam reveals normal bowel sounds. Non-tender and non- distended. No evidence of peritonitis. EXTREMITITES: No clubbing, cyanosis, or edema. Objective - Vital Signs Vital signs: Vital Signs Temp 97.9 F 05/05/19 03:39 Pulse 64 05/05/19 08:19 Resp 19 05/05/19 03:39 BP 166/77 05/05/19 03:39 Pulse Ox 91 L 05/05/19 03:39 Intake & Output 05/04/19 05/05/19 05/05/19 18:59 06:59 18:59 Intake Total 1010 180 Output Total 600 800 Balance 410 -800 180 Weight 80.7 kg Intake: IV 350 Dextrose 10 % in Water 250 250 ml @ 999 mls/hr IV ONCE ONE Rx#:[id number] Piperacillin-Tazobactam 3 100 .375 gm In Sodium Chloride 0.9% 100 ml @ 25 mls/hr IVPB Q12H [facility] Rx# :[id number] Oral 660 180 Output: Urine 600 800 Other: Voiding Method Toilet Toilet # Voids 3 4 1 # Bowel Movements 1 - Labs CBC & Chem 7: 05/02/19 08:29 05/05/19 06:16 Labs: Abnormal Lab Results - Last 24 Hours (Table) 05/04/19 05/04/19 05/04/19 Range/Units 11:52 16:57 20:21 BUN (7-17) mg/dL Creatinine (0.52-1.04) mg/dL Glucose (74-99) mg/dL POC Glucose (mg/dL) 235 H 211 H 172 H (75-99) mg/dL Magnesium (1.6-2.3) mg/dL Total Bilirubin (0.2-1.3) mg/dL Alkaline Phosphatase (38-126) U/L 05/05/19 05/05/19 Range/Units 06:08 06:16 BUN 70 H (7-17) mg/dL Creatinine 2.13 H (0.52-1.04) mg/dL Glucose 156 H (74-99) mg/dL POC Glucose (mg/dL) 194 H (75-99) mg/dL Magnesium 2.5 H (1.6-2.3) mg/dL Total Bilirubin 1.4 H (0.2-1.3) mg/dL Alkaline Phosphatase 131 H (38-126) U/L Assessment and Plan Plan: Assessment: 1. Chronic kidney disease stage IV secondary to nephrosclerosis. GFR at baseline. 2. Coagulopathy. Improved. 3. Dyspnea secondary to volume overload. Better today. 4. Acute on chronic diastolic CHF with moderate mitral stenosis. 5. Metabolic acidosis secondary to chronic kidney disease. Better. Maintained on oral sodium bicarbonate. 6. Mild hyperkalemia secondary to chronic kidney disease. Potassium supple mentation discontinued. Better. Plan: Maintain Lasix 40 mg IV twice daily. Avoid nephrotoxins. Repeat electrolytes in the morning.
[2019-05-05] MEDS: PIPERACILLIN-TAZOBACTAM 3.375 GM in SODIUM CHLORIDE 0.9% 100 ML IVPB SCH (11:38)
[2019-05-05 11:57] LABS: Glucose,Whole Blood 174 mg/dL (75-99)
[2019-05-05] MEDS ORDERED: MECLIZINE 12.5 MG TAB PO PRN (14:45)
--- NOTE | 2019-05-05 14:45 | P.PN ---
Subjective Progress Note Date: 05/05/19 Principal diagnosis: Atrial fibrillation / Toxic INR PROGRESS NOTE 05/05/19 89-year-old female with history of PE, S/P AAA repair, HTN, hyperlipidemia, C KD4, DMII, atrial fibrillation and CHF present to hospital with persistent hiccups, dehydration, hyperkalemia with elevated BUN and creatinine. Her INR was over 10 now improved to 2.3. Pt also had abdominal pain and possible ileus on admission. Patient currently resting in chair with no acute distress. Has no current complaints of belly pain or discomfort. Patient also has no current complaints of chest pain, chest pressure or palpitations. Most recent chest x- ray shows increasing CHF with bilateral pleural effusions. Patient has preserved ejection fraction at 60-65%. Currently A-flutter on telemetry, heart rate 60. Patient continues with bilateral wheeze/crackles/rhonchi and is on s upplemental O2 at 5 liters. Okay with nephrology to start Eliquis 2.5 mg twice daily for anticoagulation. No current distress but SOB and cough continues. PHYSICAL EXAMINATION: HEENT: Head is atraumatic, normocephalic. Pupils are equal, round. Sclerae anicteric. Conjunctivae are clear. Mucous membranes of the mouth are moist. Neck is supple. There is no jugular venous distention. No carotid bruit is heard. No thyromegaly. LUNGS: Audible rhonchi and wheeze bilaterally. No chest wall tenderness is noted on palpation or with deep breathing. HEART: Irregular rhythm with controlled rate. No murmurs, rubs or gallops. S1 and S2 heard. ABDOMEN: Abdominal exam revealed normal bowel sounds. The abdomen was soft, non- tender, and without masses, organomegaly, or appreciable enlargement of the abdominal aorta. EXTREMITIES: Examination of the extremities revealed easily palpable radial, femoral and pedal pulses. There was no cyanosis, clubbing or edema. No calf tenderness noted. VASCULAR: Radial and dorsalis pedis pulses palpated, no evidence of clubbing. NEUROLOGIC: Patient is awake, alert and oriented x3. There were no obvious focal neurologic abnormalities. LAB DATA: BUN70, CR 2.13. K5.0. Mag 2.5. FINAL IMPRESSION: 1. diastolic heart failure, acute on chronic 2. atrial flutter 3. Coumadin toxicity, improved 4. troponin elevation secondary to ARF 5. acute on chronic renal failure with fluid overload PLAN: Eliquis 2.5 mg twice daily. Repeat INR/PT/PTT. Continue same medical/medication regime. Continue IV diuresis. Repeat BMP/BNP. Heart Healthy diet. Objective - Vital Signs Vital signs: Vital Signs Temp 97.9 F 05/05/19 08:30 Pulse 60 05/05/19 12:15 Resp 19 05/05/19 12:15 BP 152/71 05/05/19 12:15 Pulse Ox 95 05/05/19 12:15 Intake & Output 05/04/19 05/05/19 05/05/19 18:59 06:59 18:59 Intake Total 1010 280 Output Total 600 800 300 Balance 410 -800 -20 Weight 80.7 kg Intake: IV 350 Dextrose 10 % in Water 250 250 ml @ 999 mls/hr IV ONCE ONE Rx#:[id number] Piperacillin-Tazobactam 3 100 .375 gm In Sodium Chloride 0.9% 100 ml @ 25 mls/hr IVPB Q12H [facility] Rx# :[id number] Oral 660 280 Output: Urine 600 800 300 Other: Voiding Method Toilet Toilet # Voids 3 4 1 # Bowel Movements 1 - Labs CBC & Chem 7: 05/02/19 08:29 05/05/19 06:16 Labs: Abnormal Lab Results - Last 24 Hours (Table) 05/04/19 05/04/19 05/05/19 Range/Units 16:57 20:21 06:08 BUN (7-17) mg/dL Creatinine (0.52-1.04) mg/dL Glucose (74-99) mg/dL POC Glucose (mg/dL) 211 H 172 H 194 H (75-99) mg/dL Magnesium (1.6-2.3) mg/dL Total Bilirubin (0.2-1.3) mg/dL Alkaline Phosphatase (38-126) U/L 05/05/19 05/05/19 Range/Units 06:16 11:53 BUN 70 H (7-17) mg/dL Creatinine 2.13 H (0.52-1.04) mg/dL Glucose 156 H (74-99) mg/dL POC Glucose (mg/dL) 174 H (75-99) mg/dL Magnesium 2.5 H (1.6-2.3) mg/dL Total Bilirubin 1.4 H (0.2-1.3) mg/dL Alkaline Phosphatase 131 H (38-126) U/L
[2019-05-05 15:21] LABS: Appearance,Urine Cloudy (Clear); Bacteria,Urine Rare /hpf; Bilirubin,Urine Negative (Negative); Blood,Urine Negative (Negative); Color,Urine Light Yellow; Glucose,Urine (UA) Negative (Negative); Hyaline Casts,Urine 1 /lpf (0-2); Ketones,Urine Negative (Negative); Leukocyte Esterase,Urine Negative (Negative); Mucus,Urine Occasional /hpf; Nitrite,Urine Negative (Negative); Protein,Urine Trace (Negative); RBC,Urine <1 /hpf (0-5); Specific Gravity,Urine 1.014 (1.001-1.035); Squamous Epithelial Cell,Urine 28 /hpf (0-4); Urobilinogen,Urine <2.0 mg/dL (<2.0); WBC,Urine 1 /hpf (0-5)
[2019-05-05 16:42] LABS: Glucose,Whole Blood 163 mg/dL (75-99)
--- NOTE | 2019-05-05 17:53 | PN ---
PROGRESS NOTE DATE OF SERVICE: 05/05/2019 I am covering for Dr. Boyer. This 89-year-old woman who was admitted with atrial fibrillation with a past medical, also had some abdominal discomfort. The patient also had low oxygen at this time. The most recent chest x-ray which was personally reviewed by me showed significant lesions on both lung [place], right more than the left. The patient's BNP is also 12,200. The 2D echo showed ejection fraction of 60-65% as well as [id number] valvular abnormalities including moderate mitral stenosis also. PAST MEDICAL HISTORY: Reviewed. REVIEW OF SYSTEMS: CARDIOVASCULAR SYSTEM: No angina. RESPIRATORY: As mentioned earlier. GI: As mentioned earlier. : No dysuria. NERVOUS SYSTEM: No numbness or weakness. CURRENT MEDICATIONS: 1. [place] 5 mg q.8 p.r.n. 2. DuoNeb q.i.d. and p.r.n. 3. Eliquis 2.5 mg b.i.d. 4. Lipitor 20 mg q.h.s. 5. Lasix 40 mg IV b.i.d. 6. Dilaudid 0.2 q.2 p.r.n. 7. Narcan. 8. Zosyn 3.5 IV b.i.d. 9. Sodium bicarb. PHYSICAL EXAMINATION: Alert and oriented x3. Pulse 60, blood pressure 150/70, respiration 18, temperature 97.9, pulse ox 94% on 5 L. HEENT: Conjunctivae normal. Oral mucosa moist. NECK: No jugular venous distention. No lymph node enlargement. CARDIOVASCULAR: S1, S2. RESPIRATORY: Diminished breath sounds at the bases. A few scattered rhonchi and crackles. ABDOMEN: Soft, nontender. No mass palpable. LEGS: Bilateral leg edema. NERVOUS SYSTEM: No focal deficits. LABS: At this time show WBC 11.6. Otherwise, sodium is 140, potassium 5, creatinine is 2.13, total bilirubin is 1.4, alkaline phosphatase 131. ASSESSMENT: 1. Atrial fibrillation with fast ventricular rate. 2. Congestive heart failure acute exacerbation, acute on chronic diastolic dysfunction, ejection fraction 60-65% with acute hypoxic respiratory failure. 3. Moderate mitral stenosis and mild mitral regurgitation. 4. Increased creatinine with acute on chronic renal failure. 5. Chronic kidney disease stage III. 6. Increased WBC. 7. Troponin 0.436. Possible acute vzm-NX-koiyrns-elevation myocardial infarction present on admission. 8. History of diabetes mellitus type 2. 9. History of hypertension. 10.History of hyperlipidemia. 11.History of pulmonary embolism. 12.History of sleep apnea. 13.History of nephrolithiasis. 14.History of bilateral pulmonary embolism. 15.History of vertigo. 16.History of lithotripsy. 17.NO CODE, NO CPR, NO VENT. 18.Obesity with body mass index 38.5. RECOMMENDATIONS AND DISCUSSION: This 89-year-old woman who presented with multiple complex medical issues, we will monitor the patient closely, continue the current medication, continue symptomatic treatment. The patient is on Lasix 40 mg IV b.i.d. We will limit the fluids. Otherwise, I would add bronchodilators to the current regimen and broad-spectrum IV antibiotics initiated already. Continue with the sodium bicarb. Repeat labs. Resume the home medication. Overall prognosis guarded because of multiple complex medical issues. Further recommendations to follow. Continue the Coumadin. MMODL / IJN: [id number] /
[2019-05-05 20:34] LABS: Glucose,Whole Blood 187 mg/dL (75-99)
[2019-05-05] MEDS: ALLOPURINOL 100 MG TAB PO SCH (20:51)
[2019-05-05] MEDS: APIXABAN 2.5 MG TABLET PO SCH (20:51)
[2019-05-05] MEDS: hydrALAZINE HCL 50 MG TAB PO SCH (20:52)
[2019-05-05] MEDS: cloNIDine HCL 0.2 MG TAB PO SCH (20:52)
[2019-05-05] MEDS: ATORVASTATIN 20 MG TAB PO SCH (20:52)
[2019-05-05] MEDS: ARTIFICIAL TEARS-HYPROMELLOSE DROPS 15 ML BTL BOTH EYES SCH (20:59)
[2019-05-05] MEDS: VIT A,C & E-LUTEIN-MINERALS 1 EACH TAB PO SCH (20:59)
[2019-05-06] MEDS: PIPERACILLIN-TAZOBACTAM 3.375 GM in SODIUM CHLORIDE 0.9% 100 ML IVPB SCH ×3 (05:16→22:30)
[2019-05-06 06:23] LABS: Glucose,Whole Blood 194 mg/dL (75-99)
[2019-05-06] MEDS: INSULIN ASPART (NovoLOG) 100 UNIT/ML VIAL SQ SCH ×4 (06:52→21:22)
[2019-05-06 06:55] LABS: Basophils % (A) 0 %; Eosinophils # (A) 0.2 k/uL (0-0.7); Eosinophils % (A) 2 %; HCT 31.1 % (34.0-46.0); Hypochromasia Slight; Lymphocytes # (A) 1.1 k/uL (1.0-4.8); Lymphocytes % (A) 12 %; MCH 29.7 pg (25.0-35.0); MCV 95.9 fL (80.0-100.0); Mean Platelet Volume 9.4; Monocytes # (A) 0.6 k/uL (0-1.0); Monocytes % (A) 6 %; Neutrophils # (A) 7.8 k/uL (1.3-7.7); Neutrophils % (A) 79 %; Platelet Count 167 k/uL (150-450); RBC 3.24 m/uL (3.80-5.40); RDW 15.9 % (11.5-15.5); WBC 9.8 k/uL (3.8-10.6)
[2019-05-06 06:56] LABS: INR 1.1 (<1.2); Prothrombin Time 11.4 sec (9.0-12.0)
[2019-05-06 06:57] LABS: Calcium 8.9 mg/dL (8.4-10.2); Potassium 4.6 mmol/L (3.5-5.1)
[2019-05-06 07:01] LABS: HGB 9.6 gm/dL (11.4-16.0)
[2019-05-06] MEDS: IPRATROPIUM-ALBUTEROL 3 ML NEB INHALATION PRN ×3 (07:40→16:25)
[2019-05-06] MEDS ORDERED: NON FORMULARY DRUG (Warfarin Sodium [Coumadin] 4 MG) PO SCH (09:00)
[2019-05-06] MEDS: SIMETHICONE 80 MG CHEWABLE PO SCH ×4 (09:08→21:22)
[2019-05-06] MEDS: hydrALAZINE HCL 50 MG TAB PO SCH ×2 (09:08→21:21)
[2019-05-06] MEDS: FUROSEMIDE 10 MG/ML 4 ML VIAL IV SCH ×3 (09:08→22:34)
[2019-05-06] MEDS: APIXABAN 2.5 MG TABLET PO SCH ×2 (09:09→21:21)
[2019-05-06] MEDS: ALLOPURINOL 100 MG TAB PO SCH ×2 (09:09→21:21)
[2019-05-06] MEDS: SODIUM BICARBONATE TAB 650 MG TAB PO SCH ×2 (09:09→21:22)
[2019-05-06] MEDS: ASPIRIN 81 MG PO SCH (09:09)
[2019-05-06] MEDS: VIT A,C & E-LUTEIN-MINERALS 1 EACH TAB PO SCH ×2 (09:09→21:22)
[2019-05-06] MEDS: cloNIDine HCL 0.2 MG TAB PO SCH ×2 (09:09→21:21)
--- NOTE | 2019-05-06 09:29 | P.PN ---
Subjective Patient is seen in follow-up for chronic kidney disease. Renal function is stable. Dyspnea improved. Good urine output. Oral intake fair. No vomiting or diarrhea. Vital signs are stable. General: The patient appeared well nourished and normally developed. HEENT: Head exam is unremarkable. Neck is without jugular venous distension. LUNGS: Breath sounds decreased. Crackles at bases. HEART: Rate and Rhythm are regular. First and second heart sounds normal. No murmurs, rubs or gallops. ABDOMEN: Abdominal exam reveals normal bowel sounds. Non-tender and non- distended. No evidence of peritonitis. EXTREMITITES: Trace edema. Objective - Vital Signs Vital signs: Vital Signs Temp 97.8 F 05/06/19 03:54 Pulse 68 05/06/19 07:49 Resp 24 05/06/19 03:54 BP 154/73 05/06/19 03:54 Pulse Ox 97 05/06/19 07:44 Intake & Output 05/05/19 05/06/19 05/06/19 18:59 06:59 18:59 Intake Total 380 120 120 Output Total 300 470 Balance 80 -350 120 Weight 80.4 kg Intake: IV 100 Piperacillin-Tazobactam 3 100 .375 gm In Sodium Chloride 0.9% 100 ml @ 25 mls/hr IVPB Q12H [facility] Rx# :[id number] Oral 280 120 120 Output: Urine 300 470 Other: Voiding Method Toilet # Voids 1 1 # Bowel Movements 1 - Labs CBC & Chem 7: 05/06/19 06:26 05/06/19 06:26 Labs: Abnormal Lab Results - Last 24 Hours (Table) 05/05/19 05/05/19 05/05/19 Range/Units 11:53 16:36 20:33 RBC (3.80-5.40) m/uL Hgb (11.4-16.0) gm/dL Hct (34.0-46.0) % RDW (11.5-15.5) % Neutrophils # (1.3-7.7) k/uL BUN (7-17) mg/dL Creatinine (0.52-1.04) mg/dL Glucose (74-99) mg/dL POC Glucose (mg/dL) 174 H 163 H 187 H (75-99) mg/dL Urine Appearance (Clear) Urine Protein (Negative) Ur Squamous Epith Cells (0-4) /hpf Urine Bacteria (None) /hpf Urine Mucus (None) /hpf 05/05/19 05/06/19 05/06/19 Range/Units Unknown 06:22 06:26 RBC 3.24 L (3.80-5.40) m/uL Hgb 9.6 L D (11.4-16.0) gm/dL Hct 31.1 L (34.0-46.0) % RDW 15.9 H (11.5-15.5) % Neutrophils # 7.8 H (1.3-7.7) k/uL BUN (7-17) mg/dL Creatinine (0.52-1.04) mg/dL Glucose (74-99) mg/dL POC Glucose (mg/dL) 194 H (75-99) mg/dL Urine Appearance Cloudy H (Clear) Urine Protein Trace H (Negative) Ur Squamous Epith Cells 28 H (0-4) /hpf Urine Bacteria Rare H (None) /hpf Urine Mucus Occasional H (None) /hpf 05/06/19 Range/Units 06:26 RBC (3.80-5.40) m/uL Hgb (11.4-16.0) gm/dL Hct (34.0-46.0) % RDW (11.5-15.5) % Neutrophils # (1.3-7.7) k/uL BUN 71 H (7-17) mg/dL Creatinine 2.16 H (0.52-1.04) mg/dL Glucose 157 H (74-99) mg/dL POC Glucose (mg/dL) (75-99) mg/dL Urine Appearance (Clear) Urine Protein (Negative) Ur Squamous Epith Cells (0-4) /hpf Urine Bacteria (None) /hpf Urine Mucus (None) /hpf Assessment and Plan Plan: Assessment: 1. Chronic kidney disease stage IV secondary to nephrosclerosis. GFR at baseline. 2. Coagulopathy. Improved. 3. Dyspnea secondary to volume overload. Better today. 4. Acute on chronic diastolic CHF with moderate mitral stenosis. 5. Metabolic acidosis secondary to chronic kidney disease. Better. Maintained on oral sodium bicarbonate. 6. Mild hyperkalemia secondary to chronic kidney disease. Potassium supplementation discontinued. Better. Plan: Maintain IV Lasix at current dose. Avoid nephrotoxins. Repeat electrolytes in the morning. Check iron studies.
--- NOTE | 2019-05-06 11:42 | P.PN ---
Subjective Progress Note Date: 05/06/19 Principal diagnosis: Atrial fibrillation / Toxic INR PROGRESS NOTE 05/05/19 89-year-old female with history of PE, S/P AAA repair, HTN, hyperlipidemia, CKD4, DMII, atrial fibrillation and CHF present to hospital with persistent hiccups, dehydration, hyperkalemia with elevated BUN and creatinine. Her INR was over 10 now improved to 2.3. Pt also had abdominal pain and possible ileus on admission. Patient currently resting in chair with no acute distress. Has no current complaints of belly pain or discomfort. Patient also has no current complaints of chest pain, chest pressure or palpitations. Most recent chest x- ray shows increasing CHF with bilateral pleural effusions. Patient has preserved ejection fraction at 60-65%. Currently A-flutter on telemetry, heart rate 60. Patient continues with bilateral wheeze/crackles/rhonchi and is on supplemental O2 at 5 liters. Okay with nephrology to start Eliquis 2.5 mg twice daily for anticoagulation. No current distress but SOB and cough continues. PROGRESS NOTE 05/05/19 it seems that he up in chair this a.m. and mildly improved. Patient continues with cough and is on 5 L of supplemental O2. Chest x-ray from 2:15 shows increasing pulmonary edema and BMP has climbed to 32,700. 2+ edema to the lower extremities Patient currently on Lasix 40 mg twice daily Will increase to every 8 hours. Otherwise patient seems improved. Continues controlled atrial flutter, heart rate 60. Patient in good spirits. PHYSICAL EXAMINATION: HEENT: Head is atraumatic, normocephalic. Pupils are equal, round. Sclerae anicteric. Conjunctivae are clear. Mucous membranes of the mouth are moist. Neck is supple. There is no jugular venous distention. No carotid bruit is heard. No thyromegaly. LUNGS: Audible rhonchi, course crackles and wheeze bilaterally. No chest wall tenderness is noted on palpation or with deep breathing. HEART: Irregular rhythm with controlled rate. No murmurs, rubs or gallops. S1 and S2 heard. ABDOMEN: Abdominal exam revealed normal bowel sounds. The abdomen was soft, non- tender, and without masses, organomegaly, or appreciable enlargement of the abdominal aorta. EXTREMITIES: Examination of the extremities revealed easily palpable radial, femoral and pedal pulses. There was no cyanosis, clubbing. 2-3+ lower extremity edema. No calf tenderness noted. VASCULAR: Radial and dorsalis pedis pulses palpated, no evidence of clubbing. NEUROLOGIC: Patient is awake, alert and oriented x3. There were no obvious focal neurologic abnormalities. LAB DATA: BUN 71, CR 2.16. K 4.6. BNP 32,700 FINAL IMPRESSION: 1. diastolic heart failure, acute on chronic 2. atrial flutter 3. Coumadin toxicity, resolved, now on Eliquis 2.5 BID 4. troponin elevation secondary to ARF 5. acute on chronic renal failure with fluid overload, improving PLAN: Increase lasix to 40 mg IV Q 8 hours. THEN CHANGE TO ORAL DOSING TOMORROW. Continue same medical/medication regime. Repeat BMP/BNP/mag level. Heart Healthy diet. Objective - Vital Signs Vital signs: Vital Signs Temp 97.6 F 05/06/19 08:20 Pulse 60 05/06/19 08:20 Resp 19 05/06/19 08:20 BP 139/66 05/06/19 08:20 Pulse Ox 95 05/06/19 08:20 Intake & Output 05/05/19 05/06/19 05/06/19 18:59 06:59 18:59 Intake Total 380 120 120 Output Total 300 470 Balance 80 -350 120 Weight 80.4 kg Intake: IV 100 Piperacillin-Tazobactam 3 100 .375 gm In Sodium Chloride 0.9% 100 ml @ 25 mls/hr IVPB Q12H [facility] Rx# :[id number] Oral 280 120 120 Output: Urine 300 470 Other: Voiding Method Toilet # Voids 1 1 # Bowel Movements 1 - Labs CBC & Chem 7: 05/06/19 06:26 05/06/19 06:26 Labs: Abnormal Lab Results - Last 24 Hours (Table) 05/05/19 05/05/19 05/05/19 Range/Units 11:53 16:36 20:33 RBC (3.80-5.40) m/uL Hgb (11.4-16.0) gm/dL Hct (34.0-46.0) % RDW (11.5-15.5) % Neutrophils # (1.3-7.7) k/uL BUN (7-17) mg/dL Creatinine (0.52-1.04) mg/dL Glucose (74-99) mg/dL POC Glucose (mg/dL) 174 H 163 H 187 H (75-99) mg/dL Urine Appearance (Clear) Urine Protein (Negative) Ur Squamous Epith Cells (0-4) /hpf Urine Bacteria (None) /hpf Urine Mucus (None) /hpf 05/05/19 05/06/19 05/06/19 Range/Units Unknown 06:22 06:26 RBC 3.24 L (3.80-5.40) m/uL Hgb 9.6 L D (11.4-16.0) gm/dL Hct 31.1 L (34.0-46.0) % RDW 15.9 H (11.5-15.5) % Neutrophils # 7.8 H (1.3-7.7) k/uL BUN (7-17) mg/dL Creatinine (0.52-1.04) mg/dL Glucose (74-99) mg/dL POC Glucose (mg/dL) 194 H (75-99) mg/dL Urine Appearance Cloudy H (Clear) Urine Protein Trace H (Negative) Ur Squamous Epith Cells 28 H (0-4) /hpf Urine Bacteria Rare H (None) /hpf Urine Mucus Occasional H (None) /hpf 05/06/19 Range/Units 06:26 RBC (3.80-5.40) m/uL Hgb (11.4-16.0) gm/dL Hct (34.0-46.0) % RDW (11.5-15.5) % Neutrophils # (1.3-7.7) k/uL BUN 71 H (7-17) mg/dL Creatinine 2.16 H (0.52-1.04) mg/dL Glucose 157 H (74-99) mg/dL POC Glucose (mg/dL) (75-99) mg/dL Urine Appearance (Clear) Urine Protein (Negative) Ur Squamous Epith Cells (0-4) /hpf Urine Bacteria (None) /hpf Urine Mucus (None) /hpf
[2019-05-06 12:06] LABS: Glucose,Whole Blood 211 mg/dL (75-99)
[2019-05-06 16:31] LABS: Glucose,Whole Blood 168 mg/dL (75-99)
[2019-05-06 20:02] LABS: Glucose,Whole Blood 166 mg/dL (75-99)
[2019-05-06] MEDS: ATORVASTATIN 20 MG TAB PO SCH (21:21)
[2019-05-06] MEDS: ARTIFICIAL TEARS-HYPROMELLOSE DROPS 15 ML BTL BOTH EYES SCH (21:23)
--- NOTE | 2019-05-06 22:01 | PN ---
PROGRESS NOTE DATE OF SERVICE: 05/06/2019 I am covering for Dr. Boyer. This 89-year-old woman who was admitted with atrial fibrillation with fast ventricular rate also had CHF also. The patient is being closely monitored at this time. Cardiology following the patient. No chest pain. No palpitations. No fever. PHYSICAL EXAMINATION: Alert and oriented x3. Pulse 62. Blood pressure 129/62, respiration 18, temperature 97.9, pulse ox 94% on 3 L. HEENT: Conjunctivae normal. NECK: No JVD. CARDIOVASCULAR: S1, S2 muffled. RESPIRATION: Breath sounds diminished in the bases. A few scattered rhonchi and crackles. Expiratory wheezing also present. ABDOMEN is soft, nontender. LEGS are no edema. No swelling. CENTRAL NERVOUS SYSTEM: No focal deficits. LABS: WBC 9.2, hemoglobin 9.6, and sodium 139, potassium 130, creatinine is 2.16, slightly improving. The chest x-ray which was done yesterday which was reviewed personally by me showed evidence of CHF. PAST MEDICAL HISTORY: Reviewed. REVIEW OF SYSTEMS: CARDIOVASCULAR is as mentioned earlier. RESPIRATORY : As mentioned earlier. GI: As mentioned earlier. : No dysuria. CURRENT MEDICATIONS: Reviewed and include: 1. [place] 5 mg q.8 p.r.n. 2. DuoNeb q.i.d. and p.r.n. 3. Zyloprim. 4. Eliquis 2.5 mg b.i.d. 5. Aspirin. 6. Lipitor. 7. Lasix 40 mg IV q.8h. 8. Apresoline. 9. Dilaudid. 10.Antivert. 11.Zosyn IV. PHYSICAL EXAM: Patient alert and oriented x3. Pulse 60. Blood pressure 130/69. Respirations 19, temperature 97.2, pulse ox 94% on 3 L. HEENT: Conjunctivae normal. NECK: No JVD. CARDIOVASCULAR: S1, S2 muffled. RESPIRATORY SYSTEM: Breath sounds diminished at the bases. Bilateral scattered rhonchi and crackles. Expiratory wheezing also present. ABDOMEN: Soft, nontender. LEGS are no edema. No swelling. CENTRAL NERVOUS SYSTEM: No focal deficits. LABS: WBC 9.2, hemoglobin 9.6, sodium 130, potassium 4.2, creatinine is 2.16. ASSESSMENT: 1. Atrial fibrillation with fast ventricular rate present on admission. 2. Congestive heart failure acute exacerbation with acute on chronic diastolic dysfunction, ejection fraction 60 to 65% as well as acute hypoxic respiratory failure. 3. Moderate mitral stenosis and mild mitral regurgitation. 4. Increased creatinine with acute on chronic renal failure. 5. Chronic kidney disease stage 3 baseline. 6. Increased WBC. 7. Troponin 0.436. Possible acute gse-CT-wyzjdrs-elevation myocardial infarction, present on admission. 8. History of diabetes type 2. 9. Hypertension. 10.Hyperlipidemia. 11.Coumadin coagulopathy present on admission. 12.History of pulmonary embolism. 13.History of sleep apnea. 14.History of nephrolithiasis. 15.History of bilateral pulmonary embolism. 16.History of vertigo. 17.History of lithotripsy. 18.Obesity with body mass index of 38.5. 19.NO CODE, NO CPR, NO VENT. RECOMMENDATIONS AND DISCUSSION: In this 89-year-old woman who presented with multiple complex medical issues, we will monitor the patient closely, continue the current medications, management and symptomatic treatment. We will continue with IV Lasix. Creatinine has slightly improved, but however the patient continues to be short of breath. Oxygen requirement is also slightly better. INR is improved to 1.1 at this time. We will continue to monitor. Otherwise, the patient is on apixaban at this time. Guarded prognosis because of multiple complex medical issues as mentioned earlier and further recommendations to follow. Cardiology is following the patient closely. Dr. Boyer will follow tomorrow. MMBRENDON / LEONIDASN: [id number] /
[2019-05-07 01:58] LABS: Glucose,Whole Blood 168 mg/dL (75-99)
[2019-05-07 06:26] LABS: Glucose,Whole Blood 160 mg/dL (75-99)
[2019-05-07] MEDS: INSULIN ASPART (NovoLOG) 100 UNIT/ML VIAL SQ SCH ×4 (06:39→21:33)
[2019-05-07 07:06] LABS: Basophils % (A) 0 %; Eosinophils # (A) 0.5 k/uL (0-0.7); Eosinophils % (A) 5 %; HCT 30.8 % (34.0-46.0); HGB 9.6 gm/dL (11.4-16.0); Hypochromasia Slight; Lymphocytes # (A) 1.4 k/uL (1.0-4.8); Lymphocytes % (A) 16 %; MCH 29.6 pg (25.0-35.0); MCHC 31.1 g/dL (31.0-37.0); MCV 95.1 fL (80.0-100.0); Mean Platelet Volume 8.9; Monocytes # (A) 0.5 k/uL (0-1.0); Monocytes % (A) 5 %; Neutrophils # (A) 6.5 k/uL (1.3-7.7); Neutrophils % (A) 73 %; Platelet Count 200 k/uL (150-450); RBC 3.24 m/uL (3.80-5.40); RDW 15.9 % (11.5-15.5)
[2019-05-07 07:09] LABS: INR 1.2 (<1.2); Prothrombin Time 11.7 sec (9.0-12.0)
[2019-05-07 07:31] LABS: Calcium 8.8 mg/dL (8.4-10.2); Magnesium 2.4 mg/dL (1.6-2.3); Potassium 4.3 mmol/L (3.5-5.1)
[2019-05-07] MEDS: IPRATROPIUM-ALBUTEROL 3 ML NEB INHALATION PRN ×3 (08:20→15:53)
[2019-05-07] MEDS: FUROSEMIDE 40 MG TAB PO SCH ×3 (09:31→21:32)
[2019-05-07] MEDS: SODIUM BICARBONATE TAB 650 MG TAB PO SCH ×2 (09:31→21:34)
[2019-05-07] MEDS: ALLOPURINOL 100 MG TAB PO SCH ×2 (09:31→21:32)
[2019-05-07] MEDS: APIXABAN 2.5 MG TABLET PO SCH ×2 (09:31→21:32)
[2019-05-07] MEDS: hydrALAZINE HCL 50 MG TAB PO SCH ×2 (09:31→21:32)
[2019-05-07] MEDS: cloNIDine HCL 0.2 MG TAB PO SCH ×2 (09:31→21:32)
[2019-05-07] MEDS: ASPIRIN 81 MG PO SCH (09:31)
[2019-05-07] MEDS: VIT A,C & E-LUTEIN-MINERALS 1 EACH TAB PO SCH ×2 (09:32→21:32)
[2019-05-07] MEDS: PIPERACILLIN-TAZOBACTAM 3.375 GM in SODIUM CHLORIDE 0.9% 100 ML IVPB SCH ×2 (09:32→23:24)
[2019-05-07 10:45] LABS: % Iron Saturation 41.63 (12.00-45.00)
[2019-05-07 11:08] LABS: Ferritin 878.5 ng/mL (10.0-291.0)
--- NOTE | 2019-05-07 12:01 | P.PN ---
Subjective Progress Note Date: 05/07/19 Principal diagnosis: Long-standing persistent atrial fibrillation This is an 89-year-old female patient who was admitted to the hospital with acute exacerbation of congestive heart failure secondary to diastole dysfunction as well as Coumadin toxicity. The troponin also was elevated which was related to renal failure. She was seen this morning. Overall she is feeling good from the cardiovascular standpoint. She is not on Coumadin anymore and now currently she is on Eliquis. The heart rate is controlled. She is on Lasix by mouth and she seems to be euvolemic on examination. From the cardiovascular standpoint of view, the patient can be possibly discharged in the next 24 hours Objective - Vital Signs Vital signs: Vital Signs Temp 97.9 F 05/07/19 02:09 Pulse 56 L 05/07/19 11:56 Resp 18 05/07/19 02:09 BP 119/58 05/07/19 02:09 Pulse Ox 91 L 05/07/19 02:09 Intake & Output 05/06/19 05/07/19 05/07/19 18:59 06:59 18:59 Intake Total 500 240 Output Total 400 920 Balance 100 -920 240 Weight 81.2 kg Intake: IV 100 Piperacillin-Tazobactam 3 100 .375 gm In Sodium Chloride 0.9% 100 ml @ 25 mls/hr IVPB Q12H [facility] Rx# :[id number] Oral 400 240 Output: Urine 400 920 Other: Voiding Method Toilet # Voids 3 1 # Bowel Movements 1 - Constitutional General appearance: Present: no acute distress - Respiratory Respiratory: bilateral: diminished - Cardiovascular Rhythm: irregularly irregular Heart sounds: normal: S1, S2 - Labs CBC & Chem 7: 05/07/19 06:11 05/07/19 06:11 Labs: Abnormal Lab Results - Last 24 Hours (Table) 05/06/19 05/06/19 05/06/19 Range/Units 06:26 12:05 16:29 RBC (3.80-5.40) m/uL Hgb (11.4-16.0) gm/dL Hct (34.0-46.0) % RDW (11.5-15.5) % INR (<1.2) Sodium (137-145) mmol/L BUN (7-17) mg/dL Creatinine (0.52-1.04) mg/dL Glucose (74-99) mg/dL POC Glucose (mg/dL) 211 H 168 H (75-99) mg/dL Magnesium (1.6-2.3) mg/dL Ferritin 878.5 H (10.0-291.0) ng/mL 05/06/19 05/07/19 05/07/19 Range/Units 20:00 01:56 06:11 RBC 3.24 L (3.80-5.40) m/uL Hgb 9.6 L (11.4-16.0) gm/dL Hct 30.8 L (34.0-46.0) % RDW 15.9 H (11.5-15.5) % INR (<1.2) Sodium (137-145) mmol/L BUN (7-17) mg/dL Creatinine (0.52-1.04) mg/dL Glucose (74-99) mg/dL POC Glucose (mg/dL) 166 H 168 H (75-99) mg/dL Magnesium (1.6-2.3) mg/dL Ferritin (10.0-291.0) ng/mL 05/07/19 05/07/19 05/07/19 Range/Units 06:11 06:11 06:24 RBC (3.80-5.40) m/uL Hgb (11.4-16.0) gm/dL Hct (34.0-46.0) % RDW (11.5-15.5) % INR 1.2 H (<1.2) Sodium 136 L (137-145) mmol/L BUN 77 H (7-17) mg/dL Creatinine 2.16 H (0.52-1.04) mg/dL Glucose 130 H (74-99) mg/dL POC Glucose (mg/dL) 160 H (75-99) mg/dL Magnesium 2.4 H (1.6-2.3) mg/dL Ferritin (10.0-291.0) ng/mL Assessment and Plan Assessment: Assessment #1 acute exacerbation of congestive heart failure secondary to diastole dysfunction #2 long-standing persistent atrial fibrillation was controlled heart rate #3 Coumadin toxicity which has resolved #4 acute on chronic renal failure Plan #1 continue the current medical regimen #2 possible discharge in the next 24 hours
[2019-05-07 12:02] LABS: Glucose,Whole Blood 178 mg/dL (75-99)
[2019-05-07] MEDS: SIMETHICONE 80 MG CHEWABLE PO SCH ×4 (12:12→23:24)
--- NOTE | 2019-05-07 12:38 | P.PN ---
Subjective Patient is seen in follow-up for chronic kidney disease. Renal function is stable. Dyspnea improved. Good urine output. Oral intake fair. No vomiting or diarrhea. No changes overnight. Vital signs are stable. General: The patient appeared well nourished and normally developed. HEENT: Head exam is unremarkable. Neck is without jugular venous distension. LUNGS: Breath sounds decreased. Crackles at bases. HEART: Rate and Rhythm are regular. First and second heart sounds normal. No murmurs, rubs or gallops. ABDOMEN: Abdominal exam reveals normal bowel sounds. Non-tender and non- distended. No evidence of peritonitis. EXTREMITITES: Trace edema. Objective - Vital Signs Vital signs: Vital Signs Temp 97.9 F 05/07/19 02:09 Pulse 56 L 05/07/19 11:56 Resp 18 05/07/19 02:09 BP 119/58 05/07/19 02:09 Pulse Ox 91 L 05/07/19 02:09 Intake & Output 05/06/19 05/07/19 05/07/19 18:59 06:59 18:59 Intake Total 500 240 Output Total 400 920 Balance 100 -920 240 Weight 81.2 kg Intake: IV 100 Piperacillin-Tazobactam 3 100 .375 gm In Sodium Chloride 0.9% 100 ml @ 25 mls/hr IVPB Q12H [facility] Rx# :[id number] Oral 400 240 Output: Urine 400 920 Other: Voiding Method Toilet # Voids 3 1 # Bowel Movements 1 - Labs CBC & Chem 7: 05/07/19 06:11 05/07/19 06:11 Labs: Abnormal Lab Results - Last 24 Hours (Table) 05/06/19 05/06/19 05/06/19 Range/Units 06:26 16:29 20:00 RBC (3.80-5.40) m/uL Hgb (11.4-16.0) gm/dL Hct (34.0-46.0) % RDW (11.5-15.5) % INR (<1.2) Sodium (137-145) mmol/L BUN (7-17) mg/dL Creatinine (0.52-1.04) mg/dL Glucose (74-99) mg/dL POC Glucose (mg/dL) 168 H 166 H (75-99) mg/dL Magnesium (1.6-2.3) mg/dL Ferritin 878.5 H (10.0-291.0) ng/mL 05/07/19 05/07/19 05/07/19 Range/Units 01:56 06:11 06:11 RBC 3.24 L (3.80-5.40) m/uL Hgb 9.6 L (11.4-16.0) gm/dL Hct 30.8 L (34.0-46.0) % RDW 15.9 H (11.5-15.5) % INR 1.2 H (<1.2) Sodium (137-145) mmol/L BUN (7-17) mg/dL Creatinine (0.52-1.04) mg/dL Glucose (74-99) mg/dL POC Glucose (mg/dL) 168 H (75-99) mg/dL Magnesium (1.6-2.3) mg/dL Ferritin (10.0-291.0) ng/mL 05/07/19 05/07/19 05/07/19 Range/Units 06:11 06:24 12:01 RBC (3.80-5.40) m/uL Hgb (11.4-16.0) gm/dL Hct (34.0-46.0) % RDW (11.5-15.5) % INR (<1.2) Sodium 136 L (137-145) mmol/L BUN 77 H (7-17) mg/dL Creatinine 2.16 H (0.52-1.04) mg/dL Glucose 130 H (74-99) mg/dL POC Glucose (mg/dL) 160 H 178 H (75-99) mg/dL Magnesium 2.4 H (1.6-2.3) mg/dL Ferritin (10.0-291.0) ng/mL Assessment and Plan Plan: Assessment: 1. Chronic kidney disease stage IV secondary to nephrosclerosis. GFR at baseline. 2. Coagulopathy. Improved. 3. Dyspnea secondary to volume overload. Better. 4. Acute on chronic diastolic CHF with moderate mitral stenosis. 5. Metabolic acidosis secondary to chronic kidney disease. Better. Maintained on oral sodium bicarbonate. 6. Mild hyperkalemia secondary to chronic kidney disease. Potassium supplementation discontinued. Better. 7. Anemia of chronic kidney disease. Iron replete. Plan: Maintain IV Lasix at current dose. Avoid nephrotoxins. Repeat electrolytes in the morning. Add Aranesp.
[2019-05-07] MEDS ORDERED: DARBEPOETIN ALFA 40 MCG/0.4 ML SYRINGE SQ SCH (13:00)
--- NOTE | 2019-05-07 13:38 | P.PN ---
Subjective Progress Note Date: 05/07/19 CHIEF COMPLAINT: Abdominal pain HISTORY OF PRESENT ILLNESS: Patient examined at the bedside with Dr. Maier. Patient denies abdominal pain. She is tolerating diet. Denies nausea or vomiting. Passing flatus and having bowel movements. PHYSICAL EXAM: VITAL SIGNS: Reviewed. GENERAL: Well-developed in no acute distress. HEENT: No sclera icterus. Extraocular movements grossly intact. Moist buccal mucosa. Head is atraumatic, normocephalic. ABDOMEN: Soft. Nondistended. Nontender. NEUROLOGIC: Alert and oriented. Cranial nerves II through XII grossly intact. ASSESSMENT: 1. Abdominal pain 2. Possible enteritis 3. Diverticulosis PLAN: Continue diet as tolerated No Surgical intervention recommended We will sign off. Please reconsult if needed. Nurse practitioner note has been reviewed by physician. Signing provider agrees with the documented findings, assessment, and plan of care. Objective - Vital Signs Vital signs: Vital Signs Temp 97.9 F 05/07/19 02:09 Pulse 56 L 05/07/19 11:56 Resp 18 05/07/19 02:09 BP 119/58 05/07/19 02:09 Pulse Ox 91 L 05/07/19 02:09 Intake & Output 05/06/19 05/07/19 05/07/19 18:59 06:59 18:59 Intake Total 500 240 Output Total 400 920 Balance 100 -920 240 Weight 81.2 kg Intake: IV 100 Piperacillin-Tazobactam 3 100 .375 gm In Sodium Chloride 0.9% 100 ml @ 25 mls/hr IVPB Q12H [facility] Rx# :[id number] Oral 400 240 Output: Urine 400 920 Other: Voiding Method Toilet # Voids 3 1 # Bowel Movements 1 - Labs CBC & Chem 7: 05/07/19 06:11 05/07/19 06:11 Labs: Abnormal Lab Results - Last 24 Hours (Table) 05/06/19 05/06/19 05/06/19 Range/Units 06:26 16:29 20:00 RBC (3.80-5.40) m/uL Hgb (11.4-16.0) gm/dL Hct (34.0-46.0) % RDW (11.5-15.5) % INR (<1.2) Sodium (137-145) mmol/L BUN (7-17) mg/dL Creatinine (0.52-1.04) mg/dL Glucose (74-99) mg/dL POC Glucose (mg/dL) 168 H 166 H (75-99) mg/dL Magnesium (1.6-2.3) mg/dL Ferritin 878.5 H (10.0-291.0) ng/mL 05/07/19 05/07/19 05/07/19 Range/Units 01:56 06:11 06:11 RBC 3.24 L (3.80-5.40) m/uL Hgb 9.6 L (11.4-16.0) gm/dL Hct 30.8 L (34.0-46.0) % RDW 15.9 H (11.5-15.5) % INR 1.2 H (<1.2) Sodium (137-145) mmol/L BUN (7-17) mg/dL Creatinine (0.52-1.04) mg/dL Glucose (74-99) mg/dL POC Glucose (mg/dL) 168 H (75-99) mg/dL Magnesium (1.6-2.3) mg/dL Ferritin (10.0-291.0) ng/mL 05/07/19 05/07/19 05/07/19 Range/Units 06:11 06:24 12:01 RBC (3.80-5.40) m/uL Hgb (11.4-16.0) gm/dL Hct (34.0-46.0) % RDW (11.5-15.5) % INR (<1.2) Sodium 136 L (137-145) mmol/L BUN 77 H (7-17) mg/dL Creatinine 2.16 H (0.52-1.04) mg/dL Glucose 130 H (74-99) mg/dL POC Glucose (mg/dL) 160 H 178 H (75-99) mg/dL Magnesium 2.4 H (1.6-2.3) mg/dL Ferritin (10.0-291.0) ng/mL
--- NOTE | 2019-05-07 13:39 | P.PN ---
Subjective Progress Note Date: 04/30/19 Jessica King is an 89 yo F with PMH of CKD4, atrial fibrillation, T2DM who presented to the ED complaining of belching, abdomianl distention and discomfort x2 days. She states these symptoms have been constant since onset and also having abdominal pain. She denies nausea or vomiting. 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 In the ED, pt's vitals stable, WBC 11.6k, INR >10, BUN 100, CR 2.6, trop 0.24, BNP 12k. CT shows thickening to jejunum. Pt was given 10 mg vitamin K and INR on recheck 9.8. 05/04/2019 patient reports rough night during the night with increased shortness of breath. Improved with nebulized bronchodilators. Denies nausea vomiting or diarrhea. Reports abdominal pain unchanged-suspect uremic. Renal function stable. Cardiology discussing switching anticoagulation to Eliquis. Hyperkalemic, received D10, regular insulin, oral sodium bicarb. 05/07/2019 yesterday Lasix IV push increased, diuresed well with 24-hour I&O reflecting a negative fluid balance. Converted to oral diuretics this morning. Maintaining O2 sats in the 90s on 3 L nasal cannula. Nonproductive cough. Creatinine maintained at 2.16. Anticoagulated on Eliquis. Objective - Vital Signs Vital signs: Vital Signs Temp 97.9 F 05/07/19 02:09 Pulse 56 L 05/07/19 11:56 Resp 18 05/07/19 02:09 BP 119/58 05/07/19 02:09 Pulse Ox 91 L 05/07/19 02:09 Intake & Output 05/06/19 05/07/19 05/07/19 18:59 06:59 18:59 Intake Total 500 240 Output Total 400 920 Balance 100 -920 240 Weight 81.2 kg Intake: IV 100 Piperacillin-Tazobactam 3 100 .375 gm In Sodium Chloride 0.9% 100 ml @ 25 mls/hr IVPB Q12H [facility] Rx# :[id number] Oral 400 240 Output: Urine 400 920 Other: Voiding Method Toilet # Voids 3 1 # Bowel Movements 1 - Exam General: well nourished, alert and oriented 3, sitting up in chair, no acute distress Eyes: PERRL, EOMI, conjunctiva normal HENT: normocephalic, mucus membranes moist Neck: supple, no JVD Lungs: normal respiratory effort, positive expiratory wheezes, no rhonchi, no crackles CV: Irregular rate and rhythm, systolic murmur. Peripheral pulses 2+ Abdomen: soft, nontender, nondistended, no organomegaly. Generalized tenderness. Positive Skin: warm and dry, trace edema. Neuro: No focal deficits - Labs CBC & Chem 7: 05/07/19 06:11 05/07/19 06:11 Labs: Abnormal Lab Results - Last 24 Hours (Table) 05/06/19 05/06/19 05/06/19 Range/Units 06:26 16:29 20:00 RBC (3.80-5.40) m/uL Hgb (11.4-16.0) gm/dL Hct (34.0-46.0) % RDW (11.5-15.5) % INR (<1.2) Sodium (137-145) mmol/L BUN (7-17) mg/dL Creatinine (0.52-1.04) mg/dL Glucose (74-99) mg/dL POC Glucose (mg/dL) 168 H 166 H (75-99) mg/dL Magnesium (1.6-2.3) mg/dL Ferritin 878.5 H (10.0-291.0) ng/mL 05/07/19 05/07/19 05/07/19 Range/Units 01:56 06:11 06:11 RBC 3.24 L (3.80-5.40) m/uL Hgb 9.6 L (11.4-16.0) gm/dL Hct 30.8 L (34.0-46.0) % RDW 15.9 H (11.5-15.5) % INR 1.2 H (<1.2) Sodium (137-145) mmol/L BUN (7-17) mg/dL Creatinine (0.52-1.04) mg/dL Glucose (74-99) mg/dL POC Glucose (mg/dL) 168 H (75-99) mg/dL Magnesium (1.6-2.3) mg/dL Ferritin (10.0-291.0) ng/mL 05/07/19 05/07/19 05/07/19 Range/Units 06:11 06:24 12:01 RBC (3.80-5.40) m/uL Hgb (11.4-16.0) gm/dL Hct (34.0-46.0) % RDW (11.5-15.5) % INR (<1.2) Sodium 136 L (137-145) mmol/L BUN 77 H (7-17) mg/dL Creatinine 2.16 H (0.52-1.04) mg/dL Glucose 130 H (74-99) mg/dL POC Glucose (mg/dL) 160 H 178 H (75-99) mg/dL Magnesium 2.4 H (1.6-2.3) mg/dL Ferritin (10.0-291.0) ng/mL Assessment and Plan Assessment: (1) Belching Current Visit: Yes Status: Acute Code(s): R14.2 - ERUCTATION SNOMED Code(s): 639652717 (2) ESRD (end stage renal disease) Current Visit: Yes Status: Acute Code(s): N18.6 - END STAGE RENAL DISEASE SNOMED Code(s): 84025888 (3) Supratherapeutic INR. Current Visit: Yes Status: Acute Code(s): R79.1 - ABNORMAL COAGULATION PROFILE SNOMED Code(s): 173598019 (4) CHF (congestive heart failure), acute diastolic dysfunction Current Visit: No Status: Acute Code(s): I50.9 - HEART FAILURE, UNSPECIFIED SNOMED Code(s): 44510123 (5) Demand ischemia Current Visit: Yes Status: Acute Code(s): I24.8 - OTHER FORMS OF ACUTE ISCHEMIC HEART DISEASE SNOMED Code(s): 489096695 (6) Enteritis Current Visit: Yes Status: Acute Code(s): K52.9 - NONINFECTIVE G ASTROENTERITIS AND COLITIS, UNSPECIFIED SNOMED Code(s): 97343632 (7) Elevated brain natriuretic peptide (BNP) level Current Visit: Yes Status: Acute Code(s): R79.89 - OTHER SPECIFIED ABNORMAL FINDINGS OF BLOOD CHEMISTRY SNOMED Code(s): 423753882 (8) Uremia Current Visit: Yes Status: Acute Code(s): N19 - UNSPECIFIED KIDNEY FAILURE SNOMED Code(s): 27382505 (9) chronic persistent atrial fibrillation with controlled ventricular rate (10) acute on chronic renal failure, stage IV (11) moderate mitral stenosis (12) metabolic acidosis secondary to CKD (13) anemia of chronic kidney disease Plan: Continue on current medication regime ,monitoring and symptomatic treatment. Anticoagulated on Eliquis Increase ambulation as tolerated. Discharge planning in progress for tomorrow pending clearance from consults. The impression and plan of care has been dictated as directed. : I performed a history and examination of this patient, discussed the same with the dictator. I agree with the dictator's note ,documented as a scribe. Any additional findings or plans will be noted.
[2019-05-07 16:56] LABS: Glucose,Whole Blood 185 mg/dL (75-99)
[2019-05-07] MEDS: FUROSEMIDE 10 MG/ML 4 ML VIAL IV SCH (18:36)
[2019-05-07 20:22] LABS: Glucose,Whole Blood 167 mg/dL (75-99)
[2019-05-07] MEDS: ATORVASTATIN 20 MG TAB PO SCH (21:32)
[2019-05-07] MEDS: ARTIFICIAL TEARS-HYPROMELLOSE DROPS 15 ML BTL BOTH EYES SCH (21:33)
[2019-05-08 06:11] LABS: Anisocytosis Slight; Basophils % (A) 0 %; Eosinophils # (A) 0.5 k/uL (0-0.7); Eosinophils % (A) 6 %; HCT 31.1 % (34.0-46.0); HGB 9.6 gm/dL (11.4-16.0); Hypochromasia Slight; Lymphocytes # (A) 1.1 k/uL (1.0-4.8); Lymphocytes % (A) 14 %; MCH 29.5 pg (25.0-35.0); MCHC 30.9 g/dL (31.0-37.0); MCV 95.7 fL (80.0-100.0); Mean Platelet Volume 9.1; Monocytes # (A) 0.4 k/uL (0-1.0); Monocytes % (A) 5 %; Neutrophils # (A) 5.5 k/uL (1.3-7.7); Neutrophils % (A) 73 %; Platelet Count 185 k/uL (150-450); RBC 3.25 m/uL (3.80-5.40); RDW 16.2 % (11.5-15.5); WBC 7.5 k/uL (3.8-10.6)
[2019-05-08 06:12] LABS: Glucose,Whole Blood 156 mg/dL (75-99)
[2019-05-08 06:17] LABS: INR 1.2 (<1.2); Prothrombin Time 11.9 sec (9.0-12.0)
[2019-05-08 06:21] LABS: Calcium 8.7 mg/dL (8.4-10.2); Magnesium 2.4 mg/dL (1.6-2.3); Potassium 4.3 mmol/L (3.5-5.1)
[2019-05-08] MEDS: HYDROcodone/APAP 5-325MG 1 EACH TAB PO PRN ×2 (06:54→22:53)
[2019-05-08] MEDS: INSULIN ASPART (NovoLOG) 100 UNIT/ML VIAL SQ SCH ×4 (06:55→21:19)
[2019-05-08] MEDS: hydrALAZINE HCL 50 MG TAB PO SCH ×2 (08:25→21:19)
[2019-05-08] MEDS: ALLOPURINOL 100 MG TAB PO SCH ×2 (08:25→21:19)
[2019-05-08] MEDS: APIXABAN 2.5 MG TABLET PO SCH ×2 (08:25→21:19)
[2019-05-08] MEDS: ASPIRIN 81 MG PO SCH (08:25)
[2019-05-08] MEDS: cloNIDine HCL 0.2 MG TAB PO SCH ×2 (08:25→21:19)
[2019-05-08] MEDS: SODIUM BICARBONATE TAB 650 MG TAB PO SCH ×2 (08:25→21:19)
[2019-05-08] MEDS: FUROSEMIDE 40 MG TAB PO SCH (08:25)
[2019-05-08] MEDS: SIMETHICONE 80 MG CHEWABLE PO SCH ×4 (08:26→21:19)
[2019-05-08] MEDS: VIT A,C & E-LUTEIN-MINERALS 1 EACH TAB PO SCH ×2 (08:26→21:19)
[2019-05-08] MEDS: IPRATROPIUM-ALBUTEROL 3 ML NEB INHALATION PRN (10:54)
--- NOTE | 2019-05-08 10:54 | P.PN ---
Subjective Patient is seen in follow-up for chronic kidney disease. Renal function is better. Dyspnea improved. Good urine output. Oral intake fair. No vomiting or diarrhea. No changes overnight. Vital signs are stable. General: The patient appeared well nourished and normally developed. HEENT: Head exam is unremarkable. Neck is without jugular venous distension. LUNGS: Breath sounds decreased. Crackles at bases. HEART: Rate and Rhythm are regular. First and second heart sounds normal. No murmurs, rubs or gallops. ABDOMEN: Abdominal exam reveals normal bowel sounds. Non-tender and non- distended. No evidence of peritonitis. EXTREMITITES: Trace edema. Objective - Vital Signs Vital signs: Vital Signs Temp 97.9 F 05/08/19 04:00 Pulse 60 05/08/19 08:00 Resp 16 05/08/19 08:00 BP 127/60 05/08/19 08:00 Pulse Ox 83 L 05/08/19 08:00 Intake & Output 05/07/19 05/08/19 05/08/19 18:59 06:59 18:59 Intake Total 1060 Output Total 1000 360 Balance 60 -360 Weight 81.7 kg Intake: Intake, IV Titration 100 Amount Piperacillin-Tazobactam 3 100 .375 gm In Sodium Chloride 0.9% 100 ml @ 25 mls/hr IVPB Q12H [facility] Rx# :[id number] Oral 960 Output: Urine 1000 360 Other: Voiding Method Toilet Toilet # Voids 2 2 1 # Bowel Movements 1 - Labs CBC & Chem 7: 05/08/19 05:50 05/08/19 05:50 Labs: Abnormal Lab Results - Last 24 Hours (Table) 05/06/19 05/07/19 05/07/19 Range/Units 06:26 12:01 16:54 RBC (3.80-5.40) m/uL Hgb (11.4-16.0) gm/dL Hct (34.0-46.0) % MCHC (31.0-37.0) g/dL RDW (11.5-15.5) % INR (<1.2) BUN (7-17) mg/dL Creatinine (0.52-1.04) mg/dL Glucose (74-99) mg/dL POC Glucose (mg/dL) 178 H 185 H (75-99) mg/dL Magnesium (1.6-2.3) mg/dL Ferritin 878.5 H (10.0-291.0) ng/mL 05/07/19 05/08/19 05/08/19 Range/Units 20:21 05:50 05:50 RBC 3.25 L (3.80-5.40) m/uL Hgb 9.6 L (11.4-16.0) gm/dL Hct 31.1 L (34.0-46.0) % MCHC 30.9 L (31.0-37.0) g/dL RDW 16.2 H (11.5-15.5) % INR 1.2 H (<1.2) BUN (7-17) mg/dL Creatinine (0.52-1.04) mg/dL Glucose (74-99) mg/dL POC Glucose (mg/dL) 167 H (75-99) mg/dL Magnesium (1.6-2.3) mg/dL Ferritin (10.0-291.0) ng/mL 05/08/19 05/08/19 Range/Units 05:50 06:10 RBC (3.80-5.40) m/uL Hgb (11.4-16.0) gm/dL Hct (34.0-46.0) % MCHC (31.0-37.0) g/dL RDW (11.5-15.5) % INR (<1.2) BUN 72 H (7-17) mg/dL Creatinine 1.81 H (0.52-1.04) mg/dL Glucose 132 H (74-99) mg/dL POC Glucose (mg/dL) 156 H (75-99) mg/dL Magnesium 2.4 H (1.6-2.3) mg/dL Ferritin (10.0-291.0) ng/mL Assessment and Plan Plan: Assessment: 1. Chronic kidney disease stage IV secondary to nephrosclerosis. GFR at baseline. 2. Coagulopathy. Improved. 3. Dyspnea secondary to volume overload. Better. 4. Acute on chronic diastolic CHF with moderate mitral stenosis. 5. Metabolic acidosis secondary to chronic kidney disease. Better. Maintained on oral sodium bicarbonate. 6. Mild hyperkalemia secondary to chronic kidney disease. Potassium supplementation discontinued. Better. 7. Anemia of chronic kidney disease. Iron replete. Maintained on Aranesp. Plan: Maintain IV Lasix at current dose. Avoid nephrotoxins. Repeat electrolytes in the morning.
[2019-05-08 11:57] LABS: Glucose,Whole Blood 157 mg/dL (75-99)
--- NOTE | 2019-05-08 12:47 | P.PN ---
Subjective Progress Note Date: 05/08/19 Principal diagnosis: Long-standing persistent atrial fibrillation This is an 89-year-old female patient who was admitted to the hospital with acute exacerbation of congestive heart failure secondary to diastole dysfunction as well as Coumadin toxicity. The troponin also was elevated which was related to renal failure. The patient was seen today. Overall she is not feeding well in terms of shortness of breath. On examination she does have bilateral expiratory wheezing. She does have also bilateral lower extremities edema. Currently she is on Lasix by mouth. Nephrology continues to be on the case as well. I'm going to obtain a chest x-ray and the patient possibly to be given an additional dose of Lasix IV. We'll discuss that with a nephrology. Objective - Vital Signs Vital signs: Vital Signs Temp 97.9 F 05/08/19 04:00 Pulse 64 05/08/19 11:08 Resp 16 05/08/19 12:00 BP 127/60 05/08/19 08:00 Pulse Ox 83 L 05/08/19 08:00 Intake & Output 05/07/19 05/08/19 05/08/19 18:59 06:59 18:59 Intake Total 1060 Output Total 1000 360 Balance 60 -360 Weight 81.7 kg Intake: Intake, IV Titration 100 Amount Piperacillin-Tazobactam 3 100 .375 gm In Sodium Chloride 0.9% 100 ml @ 25 mls/hr IVPB Q12H [facility] Rx# :[id number] Oral 960 Output: Urine 1000 360 Other: Voiding Method Toilet Toilet Toilet # Voids 2 2 1 # Bowel Movements 1 - Constitutional General appearance: Present: no acute distress - Respiratory Respiratory: bilateral: wheezing - Cardiovascular Heart sounds: normal: S1, S2 - Labs CBC & Chem 7: 05/08/19 05:50 05/08/19 05:50 Labs: Abnormal Lab Results - Last 24 Hours (Table) 05/07/19 05/07/19 05/08/19 Range/Units 16:54 20:21 05:50 RBC 3.25 L (3.80-5.40) m/uL Hgb 9.6 L (11.4-16.0) gm/dL Hct 31.1 L (34.0-46.0) % MCHC 30.9 L (31.0-37.0) g/dL RDW 16.2 H (11.5-15.5) % INR (<1.2) BUN (7-17) mg/dL Creatinine (0.52-1.04) mg/dL Glucose (74-99) mg/dL POC Glucose (mg/dL) 185 H 167 H (75-99) mg/dL Magnesium (1.6-2.3) mg/dL 05/08/19 05/08/19 05/08/19 Range/Units 05:50 05:50 06:10 RBC (3.80-5.40) m/uL Hgb (11.4-16.0) gm/dL Hct (34.0-46.0) % MCHC (31.0-37.0) g/dL RDW (11.5-15.5) % INR 1.2 H (<1.2) BUN 72 H (7-17) mg/dL Creatinine 1.81 H (0.52-1.04) mg/dL Glucose 132 H (74-99) mg/dL POC Glucose (mg/dL) 156 H (75-99) mg/dL Magnesium 2.4 H (1.6-2.3) mg/dL 05/08/19 Range/Units 11:56 RBC (3.80-5.40) m/uL Hgb (11.4-16.0) gm/dL Hct (34.0-46.0) % MCHC (31.0-37.0) g/dL RDW (11.5-15.5) % INR (<1.2) BUN (7-17) mg/dL Creatinine (0.52-1.04) mg/dL Glucose (74-99) mg/dL POC Glucose (mg/dL) 157 H (75-99) mg/dL Magnesium (1.6-2.3) mg/dL Assessment and Plan Assessment: Assessment #1 acute exacerbation of congestive heart failure secondary to diastole dysfunction #2 long-standing persistent atrial fibrillation was controlled heart rate #3 Coumadin toxicity which has resolved #4 acute on chronic renal failure Plan #1 chest x-ray #2 continue the current dose of Lasix by mouth #3 follow-up with the patient
[2019-05-08] MEDS: guaiFENesin 600 MG TABLET.ER PO SCH ×2 (13:13→21:21)
[2019-05-08] MEDS: PIPERACILLIN-TAZOBACTAM 3.375 GM in SODIUM CHLORIDE 0.9% 100 ML IVPB SCH ×2 (13:15→22:54)
--- NOTE | 2019-05-08 13:38 | XR ---
EXAMINATION TYPE: XR chest 2V DATE OF EXAM: 05/08/2019 COMPARISON: 05/05/2019 HISTORY: 89-year-old female fluid overload TECHNIQUE: AP and lateral views FINDINGS: Left anterior chest wall pacemaker generator with right ventricular lead. Heart mildly enlarged. Diff use interstitial and vascular prominence. Elongated/ectatic thoracic aorta. Small effusions with biba silar opacities. IMPRESSION: 1. Mild cardiomegaly with interstitial changes. Correlate for CHF and pulmonary vascular congestion/e florencia interstitial pulmonary edema. 2. Small pleural effusions with adjacent atelectasis and/or consolidation. 3. Tortuous/ectatic thoracic aorta.
[2019-05-08 14:06] VITALS: BMI 38.9
[2019-05-08] MEDS: FUROSEMIDE 10 MG/ML 4 ML VIAL IV SCH ×2 (16:04→21:18)
[2019-05-08 17:05] LABS: Glucose,Whole Blood 159 mg/dL (75-99)
[2019-05-08 20:19] LABS: Glucose,Whole Blood 150 mg/dL (75-99)
[2019-05-08] MEDS: ATORVASTATIN 20 MG TAB PO SCH (21:19)
[2019-05-08] MEDS: ARTIFICIAL TEARS-HYPROMELLOSE DROPS 15 ML BTL BOTH EYES SCH (21:21)
[2019-05-09 06:03] LABS: Glucose,Whole Blood 136 mg/dL (75-99)
[2019-05-09] MEDS: INSULIN ASPART (NovoLOG) 100 UNIT/ML VIAL SQ SCH ×4 (06:57→21:04)
--- NOTE | 2019-05-09 08:24 | P.PN ---
Subjective Progress Note Date: 05/08/19 Jessica King is an 89 yo F with PMH of CKD4, atrial fibrillation, T2DM who presented to the ED complaining of belching, abdomianl distention and discomfort x2 days. She states these symptoms have been constant since onset and also having abdominal pain. She denies nausea or vomiting. Pt was recently seen at her gear straight[employer] office and her GFR at that time was 18 and pt decided she did not want to pursue plans for dialysis. In the ED, pt's vitals stable, WBC 11.6k, INR >10, BUN 100, CR 2.6, trop 0.24, BNP 12k. CT shows thickening to jejunum. Pt was given 10 mg vitamin K and INR on recheck 9.8. 05/04/2019 patient reports rough night during the night with increased shortness of breath. Improved with nebulized bronchodilators. Denies nausea vomiting or diarrhea. Reports abdominal pain unchanged-suspect uremic. Renal function stable. Cardiology discussing switching anticoagulation to Eliquis. Hyperkalemic, received D10, regular insulin, oral sodium bicarb. 05/07/2019 yesterday Lasix IV push increased, diuresed well with 24-hour I&O reflecting a negative fluid balance. Converted to oral diuretics this morning. Maintaining O2 sats in the 90s on 3 L nasal cannula. Nonproductive cough. Creatinine maintained at 2.16. Anticoagulated on Eliquis. 05/08/2019. She continues to complain of cough but feels breathing is improved. She is down to 2 L O2. She remains in negative fluid balance. Creatinine down to 1.8. Objective - Vital Signs Vital signs: Vital Signs Temp 98.0 F 05/09/19 08:06 Pulse 60 05/09/19 08:06 Resp 18 05/09/19 08:06 BP 137/64 05/09/19 08:06 Pulse Ox 96 05/09/19 08:06 Intake & Output 05/08/19 05/09/19 05/09/19 18:59 06:59 18:59 Intake Total 420 Output Total 1400 Balance 420 -1400 Weight 81.7 kg 82.2 kg Intake: Oral 420 Output: Urine 1400 Other: Voiding Method Toilet # Voids 3 1 - Exam General: well nourished, alert and oriented 3, sitting up in chair, no acute distress Eyes: PERRL, EOMI, conjunctiva normal HENT: normocephalic, mucus membranes moist Neck: supple, no JVD Lungs: normal respiratory effort, positive expiratory wheezes, no rhonchi, no crackles CV: Irregular rate and rhythm, systolic murmur. Peripheral pulses 2+ Abdomen: soft, nontender, nondistended, no organomegaly. Nontender Skin: warm and dry, trace edema. Neuro: No focal deficits - Labs CBC & Chem 7: 05/08/19 05:50 05/08/19 05:50 Labs: Abnormal Lab Results - Last 24 Hours (Table) 05/08/19 05/08/19 05/08/19 Range/Units 11:56 17:04 20:17 POC Glucose (mg/dL) 157 H 159 H 150 H (75-99) mg/dL 05/09/19 Range/Units 06:01 POC Glucose (mg/dL) 136 H (75-99) mg/dL Assessment and Plan (1) Belching Current Visit: Yes Status: Acute Code(s): R14.2 - ERUCTATION SNOMED Code(s): 055713721 (2) ESRD (end stage renal disease) Current Visit: Yes Status: Acute Code(s): N18.6 - END STAGE RENAL DISEASE SNOMED Code(s): 41732521 (3) Supratherapeutic INR Current Visit: Yes Status: Acute Code(s): R79.1 - ABNORMAL COAGULATION PROFILE SNOMED Code(s): 389157010 (4) CHF (congestive heart failure) Current Visit: No Status: Acute Code(s): I50.9 - HEART FAILURE, UNSPECIFIED SNOMED Code(s): 80625666 (5) Demand ischemia Current Visit: Yes Status: Acute Code(s): I24.8 - OTHER FORMS OF ACUTE ISCHEMIC HEART DISEASE SNOMED Code(s): 049165384 (6) Enteritis Current Visit: Yes Status: Acute Code(s): K52.9 - NONINFECTIVE GASTROENTERITIS AND COLITIS, UNSPECIFIED SNOMED Code(s): 13823780 (7) Elevated brain natriuretic peptide (BNP) level Current Visit: Yes Status: Acute Code(s): R79.89 - OTHER SPECIFIED ABNORMAL FINDINGS OF BLOOD CHEMISTRY SNOMED Code(s): 408614146 (8) Uremia Current Visit: Yes Status: Acute Code(s): N19 - UNSPECIFIED KIDNEY FAILURE SNOMED Code(s): 41915064 Plan: Continue to monitor, continue with current medications and treatments. Pt switched back to IV lasix today per cardiology will continue diuresing. Discharge planning in progress to [facility] tomorrow
[2019-05-09] MEDS: ALLOPURINOL 100 MG TAB PO SCH ×2 (11:05→21:03)
[2019-05-09] MEDS: APIXABAN 2.5 MG TABLET PO SCH ×2 (11:06→21:03)
[2019-05-09] MEDS: ASPIRIN 81 MG PO SCH (11:07)
[2019-05-09] MEDS: FUROSEMIDE 10 MG/ML 4 ML VIAL IV SCH (11:07)
[2019-05-09] MEDS: cloNIDine HCL 0.2 MG TAB PO SCH ×2 (11:07→21:03)
[2019-05-09] MEDS: guaiFENesin 600 MG TABLET.ER PO SCH ×2 (11:08→21:03)
[2019-05-09] MEDS: hydrALAZINE HCL 50 MG TAB PO SCH ×2 (11:08→21:04)
[2019-05-09] MEDS: SODIUM BICARBONATE TAB 650 MG TAB PO SCH ×2 (11:09→21:04)
[2019-05-09] MEDS: VIT A,C & E-LUTEIN-MINERALS 1 EACH TAB PO SCH ×2 (11:09→21:04)
[2019-05-09] MEDS: SIMETHICONE 80 MG CHEWABLE PO SCH ×5 (11:09→22:41)
[2019-05-09 11:31] LABS: Glucose,Whole Blood 191 mg/dL (75-99)
[2019-05-09] MEDS: PIPERACILLIN-TAZOBACTAM 3.375 GM in SODIUM CHLORIDE 0.9% 100 ML IVPB SCH ×2 (12:02→22:41)
--- NOTE | 2019-05-09 12:19 | P.PN ---
Subjective Progress Note Date: 05/09/19 This is an 89-year-old lady with history of congestive heart failure, presented to hospital with symptoms of persistent hiccups. Seen in consultation yesterday by Dr. Rush. Presentation here she was noted to be extremely dehydrated with an elevated potassium, BUN and creatinine. Her INR was over 10, she was also noted to have an elevated BNP level. Chest x-ray did not show significant pleural effusion or pulmonary congestion and her EKG showed a paced rhythm. Patient was given a dose of vitamin K, her INR today is down to 2.3. An echocardiogram with Doppler study was also performed which revealed an ejection fraction of 60-65%. Today the patient is in atrial flutter, typical, heart rate is in the 60s, blood pressure 128/60, 92% on 2 L of oxygen. An echocardiogram with Doppler study was performed which revealed an ejection fraction of 60-65%, moderate mitral stenosis noted. Patient does state that she's feeling better but is still is having occasional hiccups, significantly improved from admission here. 05/09/2019 Patient seen and examined this morning, she did have an x-ray performed yesterday afternoon which revealed congestive heart failure, she was initiated on IV Lasix and diuresed well through the night last night. She does state overall that her breathing is better than yesterday but still complains of feeling somewhat short of breath today. Her blood pressure this morning 136/60 with a heart rate in the 60s, 96% on 2 L of oxygen. No lab data today. Objective - Vital Signs Vital signs: Vital Signs Temp 98.0 F 05/09/19 08:06 Pulse 60 05/09/19 08:06 Resp 18 05/09/19 08:06 BP 137/64 05/09/19 08:06 Pulse Ox 96 05/09/19 08:06 Intake & Output 05/08/19 05/09/19 05/09/19 18:59 06:59 18:59 Intake Total 420 240 Output Total 1400 950 Balance 420 -1400 -710 Weight 81.7 kg 82.2 kg Intake: Oral 420 240 Output: Urine 1400 950 Other: Voiding Method Toilet # Voids 3 1 - Exam PHYSICAL EXAMINATION: GENERAL: 89-year-old female in no acute distress at the time of my examination HEENT: Head is atraumatic, normocephalic. Pupils equal, round. Sclera anicteric. Conjunctiva are clear. Mucous membranes of the mouth are moist. Neck is supple. There is no elevated jugular venous pressure. No carotid bruit is heard. HEART EXAMINATION: S1 and S2 irregularly irregular a systolic murmur is heard CHEST EXAMINATION: Lungs are clear to auscultation with diminished air entry to the bases bilaterally . ABDOMEN: Soft, nontender. Bowel sounds are heard. No organomegaly noted. EXTREMITIES: 2+ peripheral pulses with no evidence of peripheral edema and no calf tenderness noted. NEUROLOGIC patient is awake, alert and oriented 3 . . - Labs CBC & Chem 7: 05/08/19 05:50 05/08/19 05:50 Labs: Abnormal Lab Results - Last 24 Hours (Table) 05/08/19 05/08/19 05/09/19 Range/Units 17:04 20:17 06:01 POC Glucose (mg/dL) 159 H 150 H 136 H (75-99) mg/dL 05/09/19 Range/Units 11:30 POC Glucose (mg/dL) 191 H (75-99) mg/dL Assessment and Plan Plan: Assessment and plan #1 acute exacerbation of chronic renal failure secondary to overdiuresis #2 history of diastolic congestive heart failure, BNP elevated on admission, no clear-cut congestive heart failure active at this time. #3 permanent atrial fibrillation #4 sick sinus syndrome with prior pacemaker #5 abnormal troponin likely secondary to renal failure #6 elevated INR Plan We will discontinue the IV Lasix today and start the patient on oral diuretics. Plan for possible discharge home in 24 hours if stable. Echo lytes BUN and creatinine in the morning. DNP note has been reviewed, I agree with a documented findings and plan of care. Patient was seen and examined.
--- NOTE | 2019-05-09 12:47 | P.PN ---
Subjective Progress Note Date: 05/09/19 Jessica King is an 89 yo F with PMH of CKD4, atrial fibrillation, T2DM who presented to the ED complaining of belching, abdomianl distention and discomfort x2 days. She states these symptoms have been constant since onset and also having abdominal pain. She denies nausea or vomiting. Pt was recently seen at her medical screener office and her GFR at that time was 18 and pt decided she did not want to pursue plans for dialysis. In the ED, pt's vitals stable, WBC 11.6k, INR >10, BUN 100, CR 2.6, trop 0.24, BNP 12k. CT shows thickening to jejunum. Pt was given 10 mg vitamin K and INR on recheck 9.8. 05/04/2019 patient reports rough night during the night with increased shortness of breath. Improved with nebulized bronchodilators. Denies nausea vomiting or diarrhea. Reports abdominal pain unchanged-suspect uremic. Renal function stable. Cardiology discussing switching anticoagulation to Eliquis. Hyperkalemic, received D10, regular insulin, oral sodium bicarb. 05/07/2019 yesterday Lasix IV push increased, diuresed well with 24-hour I&O reflecting a negative fluid balance. Converted to oral diuretics this morning. Maintaining O2 sats in the 90s on 3 L nasal cannula. Nonproductive cough. Creatinine maintained at 2.16. Anticoagulated on Eliquis. 05/09/2019 chest x-ray yesterday reported CHF. Lasix IV push reinitiated. Short of breath conversing, states she continues to lay flat at night sleeping. Complains of sore rib cage for nonproductive cough, improving with addition of Mucinex yesterday. Maintaining O2 sats in the 90s on 2 L nasal cannula. Objective - Vital Signs Vital signs: Vital Signs Temp 98.0 F 05/09/19 08:06 Pulse 60 05/09/19 08:06 Resp 18 05/09/19 08:06 BP 137/64 05/09/19 08:06 Pulse Ox 96 05/09/19 08:06 Intake & Output 05/08/19 05/09/19 05/09/19 18:59 06:59 18:59 Intake Total 420 Output Total 1400 Balance 420 -1400 Weight 81.7 kg 82.2 kg Intake: Oral 420 Output: Urine 1400 Other: Voiding Method Toilet # Voids 3 1 - Exam General: alert and oriented 3, sitting up in chair, no acute distress. Eyes: PERRL, EOMI, conjunctiva normal HENT: normocephalic, mucus membranes moist Neck: supple, no JVD Lungs: normal respiratory effort, minimal expiratory wheezes, no rhonchi, no crackles CV: Irregular rate and rhythm, systolic murmur. Peripheral pulses 2+ Abdomen: soft, nontender, nondistended, no organomegaly. Generalized tenderness. Positive Skin: warm and dry, no edema. Neuro: No focal deficits - Labs CBC & Chem 7: 05/08/19 05:50 05/08/19 05:50 Labs: Abnormal Lab Results - Last 24 Hours (Table) 05/08/19 05/08/19 05/08/19 Range/Units 11:56 17:04 20:17 POC Glucose (mg/dL) 157 H 159 H 150 H (75-99) mg/dL 05/09/19 Range/Units 06:01 POC Glucose (mg/dL) 136 H (75-99) mg/dL Assessment and Plan Assessment: (1) Belching Current Visit: Yes Status: Acute Code(s): R14.2 - ERUCTATION SNOMED Code(s): 668380919 (2) ESRD (end stage renal disease) Current Visit: Yes Status: Acute Code(s): N18.6 - END STAGE RENAL DISEASE SNOMED Code(s): 19878677 (3) Supratherapeutic INR. Current Visit: Yes Status: Acute Code(s): R79.1 - ABNORMAL COAGULATION PROFILE SNOMED Code(s): 165120338 (4) CHF (congestive heart failure), acute diastolic dysfunction Current Visit: No Status: Acute Code(s): I50.9 - HEART FAILURE, UNSPECIFIED SNOMED Code(s): 66287663 (5) Demand ischemia Current Visit: Yes Status: Acute Code(s): I24.8 - OTHER FORMS OF ACUTE ISCHEMIC HEART DISEASE SNOMED Code(s): 608942060 (6) Enteritis Current Visit: Yes Status: Acute Code(s): K52.9 - NONINFECTIVE GASTROENTERITIS AND COLITIS, UNSPECIFIED SNOMED Code(s): 78792987 (7) Elevated brain natriuretic peptide (BNP) level Current Visit: Yes Status: Acute Code(s): R79.89 - OTHER SPECIFIED ABNORMAL FINDINGS OF BLOOD CHEMISTRY SNOMED Code(s): 342116758 (8) Uremia Current Visit: Yes Status: Acute Code(s): N19 - UNSPECIFIED KIDNEY FAILURE SNOMED Code(s): 49197495 (9) chronic persistent atrial fibrillation with controlled ventricular rate (10) acute on chronic renal failure, stage IV (11) moderate mitral stenosis (12) metabolic acidosis secondary to CKD (13) anemia of chronic kidney disease (14) history of permanent pacemaker secondary to sick sinus syndrome. Plan: Continue on current medication regime ,monitoring and symptomatic treatment. Diuretics being converted to oral today .Anticoagulated on Eliquis Increase ambulation as tolerated. Discharge planning in progress for tomorrow to subacute rehab pending cardiology clearance. The impression and plan of care has been dictated as directed. : I performed a history and examination of this patient, discussed the same with the dictator. I agree with the dictator's note ,documented as a scribe. Any additional findings or plans will be noted.
--- NOTE | 2019-05-09 15:12 | PN ---
PROGRESS NOTE Patient is seen for followup for chronic kidney disease. She is currently doing fairly well. Patient is being diuresed. She is maintained on a small dose of oral Lasix. PHYSICAL EXAMINATION: On examination, blood pressure was 136/79, heart rate 60 per minute. She is afebrile. Examination of the heart S1, S2. Examination of the lungs, bilateral breath sounds are heard. Abdomen is soft, nontender. Examination of lower extremities shows trace edema bilaterally. [employer] exam grossly intact. LABS: Show sodium of 138, potassium 4.3, chloride 105, BUN 72, creatinine 1.8, hemoglobin 9.6 g/dL. ASSESSMENT: 1. Chronic kidney disease stage IV, secondary to nephrosclerosis, renal function at baseline. 2. Volume overload, now improved. 3. Metabolic acidosis secondary to CKD, maintained on oral sodium bicarb and improved. 4. Anemia of chronic disease, iron replete. Maintained on Aranesp. 5. Mild hyperkalemia associated with chronic kidney disease on potassium supplementation, currently improved, post discontinuation of potassium. PLAN: Continue current dose of diuretics. Possible discharge soon. Patient should follow up in the office in 1-2 weeks post discharge. MMODL / IJN: [id number] /
[2019-05-09 17:14] LABS: Glucose,Whole Blood 129 mg/dL (75-99)
[2019-05-09 20:29] LABS: Glucose,Whole Blood 384 mg/dL (75-99)
[2019-05-09] MEDS: ATORVASTATIN 20 MG TAB PO SCH (21:03)
[2019-05-09] MEDS: ARTIFICIAL TEARS-HYPROMELLOSE DROPS 15 ML BTL BOTH EYES SCH (22:41)
[2019-05-10 04:54] VITALS: RESP 20
[2019-05-10 06:02] LABS: Anisocytosis Slight; Basophils % (A) 1 %; Eosinophils # (A) 0.4 k/uL (0-0.7); Eosinophils % (A) 4 %; HCT 32.1 % (34.0-46.0); Hypochromasia Slight; Lymphocytes # (A) 1.1 k/uL (1.0-4.8); Lymphocytes % (A) 13 %; MCH 30.1 pg (25.0-35.0); MCHC 31.1 g/dL (31.0-37.0); MCV 96.6 fL (80.0-100.0); Macrocytosis Slight; Mean Platelet Volume 8.6; Monocytes # (A) 0.4 k/uL (0-1.0); Monocytes % (A) 5 %; Neutrophils # (A) 6.4 k/uL (1.3-7.7); Neutrophils % (A) 76 %; Platelet Count 207 k/uL (150-450); RBC 3.32 m/uL (3.80-5.40); RDW 16.1 % (11.5-15.5); WBC 8.5 k/uL (3.8-10.6)
[2019-05-10 06:02] LABS: Glucose,Whole Blood 128 mg/dL (75-99)
[2019-05-10] MEDS: INSULIN ASPART (NovoLOG) 100 UNIT/ML VIAL SQ SCH ×2 (06:10→12:33)
[2019-05-10 06:21] LABS: Potassium 4.1 mmol/L (3.5-5.1)
[2019-05-10] MEDS: ASPIRIN 81 MG PO SCH (08:27)
[2019-05-10] MEDS: guaiFENesin 600 MG TABLET.ER PO SCH (08:27)
[2019-05-10] MEDS: hydrALAZINE HCL 50 MG TAB PO SCH (08:27)
[2019-05-10] MEDS: SODIUM BICARBONATE TAB 650 MG TAB PO SCH (08:27)
[2019-05-10] MEDS: ALLOPURINOL 100 MG TAB PO SCH (08:27)
[2019-05-10] MEDS: VIT A,C & E-LUTEIN-MINERALS 1 EACH TAB PO SCH (08:27)
[2019-05-10] MEDS: APIXABAN 2.5 MG TABLET PO SCH (08:27)
[2019-05-10] MEDS: SIMETHICONE 80 MG CHEWABLE PO SCH ×2 (08:27→12:34)
[2019-05-10] MEDS: cloNIDine HCL 0.2 MG TAB PO SCH (08:27)
[2019-05-10] MEDS ORDERED: FUROSEMIDE 40 MG TAB PO SCH (09:00)
[2019-05-10] MEDS: IPRATROPIUM-ALBUTEROL 3 ML NEB INHALATION PRN (09:00)
--- NOTE | 2019-05-10 10:05 | P.PN ---
Subjective Progress Note Date: 05/10/19 Principal diagnosis: Long-standing persistent atrial fibrillation This is an 89-year-old female patient who was admitted to the hospital with acute exacerbation of congestive heart failure secondary to diastole dysfunction as well as Coumadin toxicity. The troponin also was elevated which was related to renal failure. The patient was seen today, 05/10/2019. She is doing good in terms of heart failure but she still have what it seems to be lower extremity cellulitis and cu rrently she is on IV antibiotic. Otherwise she is on Lasix by mouth. From a cardiovascular standpoint of view, the patient possibly can be discharged home if the antibiotic can be taken by mouth. Objective - Vital Signs Vital signs: Vital Signs Temp 98.0 F 05/10/19 04:00 Pulse 66 05/10/19 09:13 Resp 20 05/10/19 04:00 BP 166/76 05/10/19 04:00 Pulse Ox 96 05/10/19 09:02 Intake & Output 05/09/19 05/10/19 05/10/19 18:59 06:59 18:59 Intake Total 240 240 240 Output Total 1250 800 Balance -1010 -560 240 Weight 82.8 kg Intake: Oral 240 240 240 Output: Urine 1250 800 Other: Voiding Method Toilet # Voids 3 - Constitutional General appearance: Present: no acute distress - Respiratory Respiratory: bilateral: CTA - Cardiovascular Heart sounds: normal: S1, S2 - Labs CBC & Chem 7: 05/10/19 05:35 05/10/19 05:35 Labs: Abnormal Lab Results - Last 24 Hours (Table) 05/09/19 05/09/19 05/09/19 Range/Units 11:30 17:13 20:26 RBC (3.80-5.40) m/uL Hgb (11.4-16.0) gm/dL Hct (34.0-46.0) % RDW (11.5-15.5) % BUN (7-17) mg/dL Creatinine (0.52-1.04) mg/dL POC Glucose (mg/dL) 191 H 129 H 384 H (75-99) mg/dL 05/10/19 05/10/19 05/10/19 Range/Units 05:35 05:35 06:01 RBC 3.32 L (3.80-5.40) m/uL Hgb 10.0 L (11.4-16.0) gm/dL Hct 32.1 L (34.0-46.0) % RDW 16.1 H (11.5-15.5) % BUN 59 H (7-17) mg/dL Creatinine 1.87 H (0.52-1.04) mg/dL POC Glucose (mg/dL) 128 H (75-99) mg/dL Assessment and Plan Assessment: Assessment #1 acute exacerbation of congestive heart failure secondary to diastole dysfunction #2 long-standing persistent atrial fibrillation was controlled heart rate #3 Coumadin toxicity which has resolved #4 acute on chronic renal failure Plan #1 continue the current medical regimen #2 possible discharge home
[2019-05-10 12:01] VITALS: PULSE 60; TEMP 97.8
[2019-05-10 12:03] LABS: Glucose,Whole Blood 201 mg/dL (75-99)
--- NOTE | 2019-05-10 12:10 | P.DS ---
Providers Date of admission: 05/02/19 10:10 Expected date of discharge: 05/10/19 Attending physician: Karlo Boyer MD Consults: 05/02/19 10:07 Consult Physician Urgent Consulting Provider: Fede Correa Consult Reason/Comments: elevated troponin, ESRD, small pleural effusion Do you want consulting provider notified?: Yes Consult Physician Urgent Consulting Provider: Yudi Infante Consult Reason/Comments: Uremia, ESRD, INR > 10 Do you want consulting provider notified?: Yes Primary care physician: Karlie Ruiz Hospital Course: Final Diagnoses: (1) Belching Current Visit: Yes Status: Acute Code(s): R14.2 - ERUCTATION SNOMED Code(s): 785831804 (2) ESRD (end stage renal disease) Current Visit: Yes Status: Acute Code(s): N18.6 - END STAGE RENAL DISEASE SNOMED Code(s): 47165415 (3) Supratherapeutic INR. Current Visit: Yes Status: Acute Code(s): R79.1 - ABNORMAL COAGULATION PROFILE SNOMED Code(s): 258845392 (4) CHF (congestive heart failure), acute diastolic dysfunction Current Visit: No Status: Acute Code(s): I50.9 - HEART FAILURE, UNSPECIFIED SNOMED Code(s): 77215333 (5) Demand ischemia Current Visit: Yes Status: Acute Code(s): I24.8 - OTHER FORMS OF ACUTE ISCHEMIC HEART DISEASE SNOMED Code(s): 476784461 (6) Enteritis Current Visit: Yes Status: Acute Code(s): K52.9 - NONINFECTIVE GASTROENTERITIS AND COLITIS, UNSPECIFIED SNOMED Code(s): 19816316 (7) Elevated brain natriuretic peptide (BNP) level Current Visit: Yes Status: Acute Code(s): R79.89 - OTHER SPECIFIED ABNORMAL FINDINGS OF BLOOD CHEMISTRY SNOMED Code(s): 045080474 (8) Uremia Current Visit: Yes Status: Acute Code(s): N19 - UNSPECIFIED KIDNEY FAILURE SNOMED Code(s): 29520163 (9) chronic persistent atrial fibrillation with controlled ventricular rate (10) acute on chronic renal failure, stage IV (11) moderate mitral stenosis (12) metabolic acidosis secondary to CKD (13) anemia of chronic kidney disease (14) history of permanent pacemaker secondary to sick sinus syndrome. Hospital course:Jessica King is an 89 yo F with PMH of CKD4, atrial fibrillation, T2DM who presented to the ED complaining of belching, abdomianl distention and discomfort x2 days. She states these symptoms have been constant since onset and also having abdominal pain. She denies nausea or vomiting. 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 In the ED, pt's vitals stable, WBC 11.6k, INR >10, BUN 100, CR 2.6, trop 0.24, BNP 12k. CT shows thickening to jejunum. Pt was given 10 mg vitamin K and INR on recheck 9.8. 05/04/2019 patient reports rough night during the night with increased shortness of breath. Improved with nebulized bronchodilators. Denies nausea vomiting or diarrhea. Reports abdominal pain unchanged-suspect uremic. Renal function stable. Cardiology discussing switching anticoagulation to Eliquis. Hyperkalemic, received D10, regular insulin, oral sodium bicarb. 05/07/2019 yesterday Lasix IV push increased, diuresed well with 24-hour I&O reflecting a negative fluid balance. Converted to oral diuretics this morning. Maintaining O2 sats in the 90s on 3 L nasal cannula. Nonproductive cough. Creatinine maintained at 2.16. Anticoagulated on Eliquis. 05/09/2019 chest x-ray yesterday reported CHF. Lasix IV push reinitiated. Short of breath conversing, states she continues to lay flat at night sleeping. Complains of sore rib cage for nonproductive cough, improving with addition of Mucinex yesterday. Maintaining O2 sats in the 90s on 2 L nasal cannula. Significant clinical improvement. Cleared by cardiology, nephrology for discharge. Patient is being discharged to subacute rehab in a stable condition with guarded prognosis. - Exam General: alert and oriented 3, no acute distress. Neck: supple, no JVD Lungs: normal respiratory effort, minimal expiratory wheezes, no rhonchi, no crackles CV: Irregular rate and rhythm, systolic murmur. Peripheral pulses 2+ Abdomen: soft, nontender, nondistended, no organomegaly. Positive Skin: warm and dry, trace edema Neuro: No focal deficits The impression and plan of care has been dictated as directed. : I performed a history and examination of this patient, discussed the same with the dictator. I agree with the dictator's note ,documented as a scribe. Any additional findings or plans will be noted. Patient Condition at Discharge: Stable Plan - Discharge Summary Discharge Rx Participant: No New Discharge Prescriptions: New Ipratropium-Albuterol Nebulize [Duoneb 0.5 mg-3 mg/3 ml Soln] 3 ml INHALATION QID #1 ml Apixaban [Eliquis] 2.5 mg PO BID tablet INSULIN LISPRO (HumaLOG) [humaLOG] 0 unit SQ ACHS #1 vial guaiFENesin [Mucinex] 600 mg PO Q12HR tablet.er Simethicone Chew [Mylicon Chew] 80 mg PO QID chew Sodium Bicarbonate Tab 650 mg PO BID tab Acetaminophen Tab [Tylenol] 650 mg PO Q6H PRN #1 tab PRN Reason: Pain Continue cloNIDine HCL [Catapres] 0.2 mg PO BID Meclizine [Antivert] 12.5 mg PO Q8HR PRN PRN Reason: Vertigo hydrALAZINE HCL [Apresoline] 50 mg PO BID Atorvastatin [Lipitor] 20 mg PO HS #0 Ergocalciferol [Vitamin D2 (DRISDOL)] 50,000 units PO MO Cinacalcet [Sensipar] 30 mg PO Q14D Febuxostat [Uloric] 40 mg PO BID Furosemide [Lasix] 40 mg PO DAILY Artificial Tears-Hypromellose [Artificial Tear Drops] 1 drop BOTH EYES HS Discontinued amLODIPine [Norvasc] 5 mg PO DAILY #30 tab Spironolactone [Aldactone] 50 mg PO DAILY Warfarin Sodium [Coumadin] 4 mg PO DAILY No Action Aspirin 81 mg PO DAILY Vit C/E/Zn/Coppr/Lutein/Zeaxan [Preservision Areds 2 Softgel] 1 cap PO BID Discharge Medication List Aspirin 81 mg PO DAILY 08/26/13 [History] Meclizine [Antivert] 12.5 mg PO Q8HR PRN 04/13/16 [History] Vit C/E/Zn/Coppr/Lutein/Zeaxan [Preservision Areds 2 Softgel] 1 cap PO BID 04/13/16 [History] cloNIDine HCL [Catapres] 0.2 mg PO BID 04/13/16 [History] hydrALAZINE HCL [Apresoline] 50 mg PO BID 06/03/16 [History] Atorvastatin [Lipitor] 20 mg PO HS #0 06/08/16 [Rx] Ergocalciferol [Vitamin D2 (DRISDOL)] 50,000 units PO MO 07/21/16 [History] Cinacalcet [Sensipar] 30 mg PO Q14D 05/01/19 [History] Febuxostat [Uloric] 40 mg PO BID 05/01/19 [History] Furosemide [Lasix] 40 mg PO DAILY 05/01/19 [History] Artificial Tears-Hypromellose [Artificial Tear Drops] 1 drop BOTH EYES HS 05/02/19 [History] Acetaminophen Tab [Tylenol] 650 mg PO Q6H PRN #1 tab 05/10/19 [Rx] Apixaban [Eliquis] 2.5 mg PO BID tablet 05/10/19 [Rx] INSULIN LISPRO (HumaLOG) [humaLOG] 0 unit SQ ACHS #1 vial 05/10/19 [Rx] Ipratropium-Albuterol Nebulize [Duoneb 0.5 mg-3 mg/3 ml Soln] 3 ml INHALATION QID #1 ml 05/10/19 [Rx] Simethicone Chew [Mylicon Chew] 80 mg PO QID chew 05/10/19 [Rx] Sodium Bicarbonate Tab 650 mg PO BID tab 05/10/19 [Rx] guaiFENesin [Mucinex] 600 mg PO Q12HR tablet.er 05/10/19 [Rx] Follow up Appointment(s)/Referral(s): Roberto Doe MD [STAFF PHYSICIAN] - 1 Week Karlie Ruiz DO [Primary Care Provider] - 3 Days (after dc from sub acute rehab) Yudi Infante MD [STAFF PHYSICIAN] - 1 Week Activity/Diet/Wound Care/Special Instructions: Marie [facility] cbc,bmp in 3 days DIet:: Consist carb/renal/CHF, GIRISH Activity: as tolerated. Discharge Disposition: TRANSFER TO SNF/F
[2019-05-10 13:48] VITALS: BP 136/63
[2019-05-10] MEDS: PIPERACILLIN-TAZOBACTAM 3.375 GM in SODIUM CHLORIDE 0.9% 100 ML IVPB SCH (14:23)
--- NOTE | 2019-05-10 16:48 | PN ---
PROGRESS NOTE The patient is seen for followup for chronic kidney disease and acute kidney injury. Renal function is currently stable with creatinine staying at 1.8 mg/dL. It had peaked at 2.65 this admission. There are plans for possible discharge today to rehab. PHYSICAL EXAMINATION: On examination, blood pressure was 136/63, heart rate 60 per minute, patient is afebrile. Examination of the heart S1, S2. Examination of the lungs, decreased breath sounds at the bases. Abdomen is soft, nontender. Examination lower extremities shows trace edema bilaterally. Chronic skin changes noted bilaterally. [employer] exam grossly intact. LABS: Show sodium 139, potassium 4.1, chloride 103. CO2 is 27, BUN 59, creatinine 1.87, hemoglobin 10.0 g/dL. ASSESSMENT: 1. Acute kidney injury, currently improved, mainly cardiorenal. 2. Chronic kidney disease, stage IV, secondary to nephrosclerosis, renal function at baseline. 3. Metabolic acidosis associated with chronic kidney disease, stable. 4. Mild hyperkalemia, currently improved. 5. Volume overload, now improved as well. PLAN: Continue current dose of diuretics. Follow up as outpatient for CKD in 1-2 weeks. MMODL / IJN: [id number] /
[2019-05-14] MEDS ORDERED: CINACALCET 30 MG TAB PO SCH (09:00)
--- NOTE | 2019-05-17 06:01 | CDI ---
Documentation Clarification Form Date: 05/17/2019 05:44:11 AM From: Sasha Hudson Phone: If you have a question about this query, please contact Rasheeda Grimaldo, Saw Runner at [phone] between 8am and 5pm. Admit Date: 05/02/2019 10:10:00 AM Patient Name: Jessica King Visit Number: [id number] Discharge Date: 05/10/2019 04:46:00 PM ATTENTION: The Clinical Documentation Specialists (CDI) and [facility] Coding Staff appreciate your assistance in clarifying documentation. Please respond to the clarification below the line at the bottom and electronically sign. The CDI & [facility] Coding staff will review the response and follow-up if needed. Please note: Queries are made part of the Legal Health Record. If you have any questions, please contact the author of this message via ITS. Dr. Karlo Boyer Uremia is documented throughout the chart as a possible cause of patient's belching/abdominal pain. Please clarify cause of uremia: Patient history/risk factors: Documentation of CKD IV and ESRD Radiology: Labs: BUN 104 CREAT 2.65 GFR 15 Vital Signs:97.9 F, 62, 18, 160/73, 96 RA Consults: Nephrology Acute Renal failure CKD IV and ESRD both documented Clinical significance of diagnostic testing and treatment cannot be assumed or coded without physician documentation of the significance, if any. Signs or symptoms of an underlying condition should be coded only if not definite diagnosis is determined. In your professional opinion, can you please clarify the underlying cause of the patients uremia. if known? JAYE on CDK IV JAYE with ESRD, JAYE Other, please specify Unable to determine JAYE on CKD4 MTDD
--- NOTE | 2019-05-17 06:12 | CDI ---
Documentation Clarification Form Date: 05/17/2019 06:01:52 AM From: Sasha Hudson Phone: If you have a question about this query, please contact Rasheeda Grimaldo, Reimbursement Coordinator at [phone] between 8am and 5pm. Admit Date: 05/02/2019 10:10:00 AM Patient Name: Jessica King Visit Number: [id number] Discharge Date: 05/10/2019 04:46:00 PM ATTENTION: The Clinical Documentation Specialists (CDI) and [facility] Coding Staff appreciate your assistance in clarifying documentation. Please respond to the clarification below the line at the bottom and electronically sign. The CDI & [facility] Coding staff will review the response and follow-up if needed. Please note: Queries are made part of the Legal Health Record. If you have any questions, please contact the author of this message via ITS. Dr. Karlo Boyer Belching, abdominal pain, bloating and hiccoughs are documented throughout the chart. Please clarify the underlying cause. Patient history/risk factors: CKD, uremia, CHF, enteritis Vital Signs: 97.9 F, 62, 18, 160/73, 96 RA Consults: Nephrology Clinical significance of diagnostic testing and treatment cannot be assumed or coded without physician documentation of the significance, if any. Signs or symptoms of an underlying condition should be coded only if not definite diagnosis is determined. In your professional opinion, can you please clarify the underlying cause of the patients belching, abdominal pain and hiccoughs. Uremia Enteritis A/C diastolic CHF Other, please specify Unable to determine Uremia MTDD
== END 2019-05-10 16:46 | DRG 682 ==
LOC: EC 07:42 → 3SCARD 10:10
PROVIDERS: ADMIT Family Medicine; ATTEND Family Medicine
DX: N17.9 Acute kidney failure, unspecified (principal); I50.33 Acute on chronic diastolic (congestive) heart failure; J96.01 Acute respiratory failure with hypoxia; D68.9 Coagulation defect, unspecified; E87.2 Acidosis; I13.2 Hypertensive heart and chronic kidney disease with heart failure and with stage 5 chronic kidney disease, or end stage renal disease; I24.8 Other forms of acute ischemic heart disease; I48.21 Permanent atrial fibrillation; I48.3 Typical atrial flutter; K56.7 Ileus, unspecified; L03.119 Cellulitis of unspecified part of limb; K52.9 Noninfective gastroenteritis and colitis, unspecified; N18.6 End stage renal disease; K57.90 Diverticulosis of intestine, part unspecified, without perforation or abscess without bleeding; D63.1 Anemia in chronic kidney disease; E11.22 Type 2 diabetes mellitus with diabetic chronic kidney disease; E66.9 Obesity, unspecified; Z68.39 Body mass index [BMI] 39.0-39.9, adult; E78.5 Hyperlipidemia, unspecified; E86.0 Dehydration; E87.5 Hyperkalemia; I05.0 Rheumatic mitral stenosis; K29.70 Gastritis, unspecified, without bleeding; T45.515A Adverse effect of anticoagulants, initial encounter; T50.2X5A Adverse effect of carbonic-anhydrase inhibitors, benzothiadiazides and other diuretics, initial encounter; Z79.01 Long term (current) use of anticoagulants; Z79.82 Long term (current) use of aspirin; Z79.899 Other long term (current) drug therapy; Z82.49 Family history of ischemic heart disease and other diseases of the circulatory system; Z86.711 Personal history of pulmonary embolism; Z86.79 Personal history of other diseases of the circulatory system; Z87.442 Personal history of urinary calculi; Z90.710 Acquired absence of both cervix and uterus; Z95.0 Presence of cardiac pacemaker; Z96.653 Presence of artificial knee joint, bilateral; G47.33 Obstructive sleep apnea (adult) (pediatric); Z99.89 Dependence on other enabling machines and devices; R14.2 Eructation; Z60.2 Problems related to living alone; Z88.5 Allergy status to narcotic agent; E83.89 Other disorders of mineral metabolism
CPT/HCPCS: 36415; 71045; 71046; 74019; 74176; 80048; 80053; 81001; 82728; 83540; 83550; 83735; 83880; 84100; 84132; 84484; 85025; 85610; 85730; 93005; 93306; 94640; 94760; 96361; 96365; 96374; 96375; 96376; 99285

== ENCOUNTER 2019-08-11 10:55 | Inpatient (IN) | payer MEDICARE, BC ==
[2019-08-11 11:27] LABS: Anisocytosis Slight; Basophils % (A) 0 %; Eosinophils # (A) 0.2 k/uL (0-0.7); Eosinophils % (A) 3 %; HCT 33.8 % (34.0-46.0); HGB 10.4 gm/dL (11.4-16.0); Hypochromasia Marked; Lymphocytes # (A) 0.9 k/uL (1.0-4.8); Lymphocytes % (A) 12 %; MCH 29.3 pg (25.0-35.0); MCHC 30.6 g/dL (31.0-37.0); Mean Platelet Volume 9.2; Monocytes # (A) 0.4 k/uL (0-1.0); Monocytes % (A) 5 %; Neutrophils # (A) 5.6 k/uL (1.3-7.7); Neutrophils % (A) 78 %; Platelet Count 173 k/uL (150-450); RBC 3.54 m/uL (3.80-5.40); RDW 16.3 % (11.5-15.5); WBC 7.2 k/uL (3.8-10.6)
--- NOTE | 2019-08-11 11:28 | XR ---
EXAMINATION TYPE: XR chest 1V portable DATE OF EXAM: 08/11/2019 COMPARISON: Prior chest x-ray 05/08/2019 HISTORY: Shortness of breath, hypoxemia TECHNIQUE: Single frontal view of the chest is obtained. FINDINGS: The heart is enlarged. Central vascularity is increased. There is blunting of the costophr enic angles. Interstitium is prominent. No pneumothorax. Aorta is dense. Pacemaker is stable. IMPRESSION: Correlate for congestive heart failure. There are likely associated effusions.
[2019-08-11 11:29] LABS: MCV 95.5 fL (80.0-100.0)
[2019-08-11 11:33] LABS: INR 1.2 (<1.2); Partial Thromboplastin Time 24.5 sec (22.0-30.0); Prothrombin Time 11.9 sec (9.0-12.0)
[2019-08-11 11:34] LABS: Albumin 3.4 g/dL (3.5-5.0); Magnesium 1.9 mg/dL (1.6-2.3); Potassium 3.6 mmol/L (3.5-5.1); Total Bilirubin 0.6 mg/dL (0.2-1.3); Total Protein 6.4 g/dL (6.3-8.2)
[2019-08-11] MEDS ORDERED: FUROSEMIDE 10 MG/ML 10 ML VIAL IV STA (12:07)
[2019-08-11] MEDS ORDERED: NALOXONE 0.4 MG/ML 1 ML VIAL IV PRN (13:48)
--- NOTE | 2019-08-11 13:48 | ED ---
SOB HPI - General Chief Complaint: Shortness of Breath Stated Complaint: OFELIA Time Seen by Provider: 08/11/19 11:05 Source: patient, EMS Mode of arrival: EMS Limitations: no limitations - History of Present Illness Initial Comments: The patient is an 89-year-old female past history of diabetes, heart failure, PE who presents to the emergency department with complaint of respiratory insufficiency. She does wear 2 L of oxygen at all times and resides at [facility]. Facility states that the patient was having O2 in the high 80s. They tried to put her on a nonrebreather however she had no improvement in her oxygen saturations. EMS transferred her on 4 L and had 100% O2. The patient denies any chest pain. Does have a history of PE and is on Eliquis. Denies missing any doses. Denies cough or hemoptysis. No fevers or chills. Patient has bilateral lower externally edema which has been chronic for her. Patient reports orthopnea and exertional dyspnea. She is on Lasix 40 mg once daily per patient (noted to be BID on med rec) and Zaroxolyn 2.5 mg daily. There are no other alleviating, precipitating or modifying factors - Related Data Home Medications Medication Instructions Recorded Confirmed Aspirin 81 mg PO DAILY@1700 08/26/08/11/19 Meclizine [Antivert] 12.5 mg PO Q8HR PRN 04/13/16 08/11/19 Vit C/E/Zn/Coppr/Lutein/Zeaxan 1 cap PO BID@0800,1700 04/13/16 08/11/19 [Preservision Areds 2 Softgel] cloNIDine HCL [Catapres] 0.2 mg PO BID@0800,1700 04/13/16 08/11/19 Ergocalciferol [Vitamin D2 50,000 units PO MO 07/21/16 08/11/19 (DRISDOL)] Cinacalcet [Sensipar] 30 mg PO Q14D 05/01/19 08/11/19 Febuxostat [Uloric] 40 mg PO BID@0800,1700 05/01/19 08/11/19 Furosemide [Lasix] 40 mg PO DAILY@0800,1400 05/01/19 08/11/19 Artificial Tears-Hypromellose 1 drop BOTH EYES HS@2100 05/02/1920 [Artificial Tear Drops] Apixaban [Eliquis] 2.5 mg PO BID@0800,169908/11/19 08/11/19 Atorvastatin [Lipitor] 20 mg PO HS@209908/11/19 08/11/19 Bisacodyl [Dulcolax] 10 mg RECTAL DAILY PRN 08/11/19 08/11/19 Docusate [Colace] 100 mg PO BID@0800,169908/11/19 08/11/19 INSULIN LISPRO (HumaLOG) [humaLOG] See Protocol SQ ACHS 08/11/19 08/11/19 Insulin Glargine [Lantus] 12 unit SQ HS@212908/11/19 08/11/19 Ipratropium-Albuterol Nebulize 3 ml INHALATION RT-Q4H PRN 08/11/19 08/11/19 [Duoneb 0.5 mg-3 mg/3 ml Soln] Ipratropium-Albuterol Nebulize 3 ml INHALATION RT-QID 08/11/19 08/11/19 [Duoneb 0.5 mg-3 mg/3 ml Soln] Magnesium Hydroxide [Milk of 2,400 mg PO DAILY PRN 08/11/19 08/11/19 Magnesia] Metolazone [Zaroxolyn] 2.5 mg PO DAILY@59908/11/19 08/11/19 Na Phos,M-B/Na Phos,Di-Ba [Fleet 133 ml RECTAL ONCE PRN 08/11/19 08/11/19 Adult] Nystatin 100,000Unit/gm Cream 1 applic TOPICAL BID@0800,209908/11/19 08/11/19 [Mycostatin Cream] Polyethylene Glycol 3350 [Miralax] 17 gm PO DAILY PRN 08/11/19 08/11/19 Potassium Chloride ER [K-Dur 10] 10 meq PO DAILY@169908/11/19 08/11/19 SILVER sulfADIAZINE Cream 1 applic TOPICAL BID@0600,209908/11/19 08/11/19 [Silvadene 1% Cream] Sodium Bicarbonate Tab 650 mg PO BID@0800,169908/11/19 08/11/19 Triamcinolone 0.5% Cream [Kenalog 1 applic TOPICAL BID@0800,2100 08/11/19 08/11/19 0.5% Cream] guaiFENesin [Mucinex] 600 mg PO BID@0800,2100 08/11/19 08/11/19 hydrALAZINE HCL [Apresoline] 50 mg PO BID@0800,1700 08/11/19 08/11/19 Previous Rx's Medication Instructions Recorded Acetaminophen Tab [Tylenol] 650 mg PO Q6H PRN #1 tab 05/10/19 Simethicone Chew [Mylicon Chew] 80 mg PO QID chew 05/10/19 Allergies Allergy/AdvReac Type Severity Reaction Status Date / Time morphine Allergy Rash/Hives Verified 08/11/19 12:49 Review of Systems ROS Statement: Those systems with pertinent positive or pertinent negative responses have been documented in the HPI. ROS Other: All systems not noted in ROS Statement are negative. Past Medical History Past Medical History: Chest Pain / Angina, Heart Failure, Diabetes Mellitus, Hyperlipidemia, Hypertension, Pulmonary Embolus (PE), Renal Disease, Sleep Apne a/CPAP/BIPAP Additional Past Medical History / Comment(s): CKD stage III, NEPHROLITHIASIS, CHACHO PE, GOLDY WITH CPAP USE, BRONCHITIS,DIVERTICULOSIS, VERTIGO, FALLS, recent infection/rash bilateral lower legs almost healed per pt. History of Any Multi-Drug Resistant Organisms: None Reported Past Surgical History: Hysterectomy, Joint Replacement Additional Past Surgical History / Comment(s): bilateral knee replacement, hemorrhoid surgery, AAA repair, LITHOTRIPSY Past Anesthesia/Blood Transfusion Reactions: No Reported Reaction Additional Past Anesthesia/Blood Transfusion Reaction / Comment(s): Pt states she received blood with AAA repair. No reaction. Past Psychological History: No Psychological Hx Reported Smoking Status: Never smoker Past Alcohol Use History: None Reported Past Drug Use History: None Reported - Past Family History Mother History Unknown: Yes Additional Family Medical History / Comment(s): PT DOES'NT KNOW ANY HX ON MOPM- MOM LEFT HOME WHEN PT WAS 9 MONTHS OLD. Father Family Medical History: Coronary Artery Disease (CAD), Myocardial Infarction ([place]) Additional Family Medical History / Comment(s): CABG General Exam Limitations: no limitations General appearance: alert, anxious Eye exam: Present: normal appearance, PERRL, EOMI. Absent: scleral icterus, conjunctival injection, periorbital swelling Neck exam: Present: normal inspection. Absent: tenderness, meningismus, lymphadenopathy Respiratory exam: Present: wheezes, rales, decreased breath sounds (left greater than right), other (tachypnia). Absent: rhonchi, stridor Cardiovascular Exam: Present: regular rate, normal rhythm, normal heart sounds. Absent: systolic murmur, diastolic murmur, rubs, gallop, clicks Extremities exam: Present: pedal edema Neurological exam: Present: alert, oriented X3 Psychiatric exam: Present: anxious Skin exam: Present: warm, dry, intact, normal color. Absent: rash Course Vital Signs 08/11/19 08/11/19 08/11/19 11:05 11:09 11:10 Temperature 98.2 F Pulse Rate 60 Respiratory 18 18 18 Rate Blood Pressure 140/65 O2 Sat by Pulse 96 Oximetry 08/11/19 08/11/19 08/11/19 12:09 14:40 14:46 Temperature Pulse Rate 60 60 Respiratory 18 20 Rate Blood Pressure 140/72 163/80 O2 Sat by Pulse 97 92 L 98 Oximetry Medical Decision Making - Medical Decision Making Upon arrival the patient is placed into room 3. She is saturating 97% on 4 L. Peripheral IV had been established. Laboratories his were conducted. A portal chest x-ray was performed due to decreased breath sounds on the left. Portable chest x-ray demonstrates signs of congestive heart failure with associated effusions. Laboratory studies are remarkable for a creatinine of 1.5. Troponin 0.355 and BNP is 15,800. The patient does have a history of PE and therefore I recommended ventilation perfusion study. Patient is taken to nuclear medicine however is unable to tolerate the exam lying flat. At this time the patient will be continued on Ahlquist. She is given 60 mg of IV Lasix to be continued twice a day. I discussed the case with Dr. Tobar who accepted admission for the patient. I will consult cardiology. Patient was transferred to the floor in stable condition - Lab Data Result diagrams: 08/12/19 05:10 08/14/19 06:06 Lab Results 08/11/19 08/11/19 08/11/19 Range/Units 00:30 11:04 11:04 WBC 7.2 (3.8-10.6) k/uL RBC 3.54 L (3.80-5.40) m/uL Hgb 10.4 L (11.4-16.0) gm/dL Hct 33.8 L (34.0-46.0) % MCV 95.5 D (80.0-100.0) fL MCH 29.3 (25.0-35.0) pg MCHC 30.6 L (31.0-37.0) g/dL RDW 16.3 H (11.5-15.5) % Plt Count 173 (150-450) k/uL Neutrophils % 78 % Lymphocytes % 12 % Monocytes % 5 % Eosinophils % 3 % Basophils % 0 % Neutrophils # 5.6 (1.3-7.7) k/uL Lymphocytes # 0.9 L (1.0-4.8) k/uL Monocytes # 0.4 (0-1.0) k/uL Eosinophils # 0.2 (0-0.7) k/uL Basophils # 0.0 (0-0.2) k/uL Hypochromasia Marked Anisocytosis Slight PT 11.9 (9.0-12.0) sec INR 1.2 H (<1.2) APTT 24.5 (22.0-30.0) sec Sodium (137-145) mmol/L Potassium (3.5-5.1) mmol/L Chloride (98-107) mmol/L Carbon Dioxide (22-30) mmol/L Anion Gap mmol/L BUN (7-17) mg/dL Creatinine (0.52-1.04) mg/dL Est GFR (CKD-EPI)AfAm (>60 ml/min/1.73 sqM) Est GFR (CKD-EPI)NonAf (>60 ml/min/1.73 sqM) Glucose (74-99) mg/dL Plasma Lactic Acid Jairo (0.7-2.0) mmol/L Calcium (8.4-10.2) mg/dL Magnesium (1.6-2.3) mg/dL Total Bilirubin (0.2-1.3) mg/dL AST (14-36) U/L ALT (4-34) U/L Alkaline Phosphatase (38-126) U/L Troponin I (0.000-0.034) ng/mL NT-Pro-B Natriuret Pep pg/mL Total Protein (6.3-8.2) g/dL Albumin (3.5-5.0) g/dL Urine Color Light Yellow Urine Appearance Clear (Clear) Urine pH 7.0 (5.0-8.0) Ur Specific Knott 1.010 (1.001-1.035) Urine Protein Negative (Negative) Urine Glucose (UA) Negative (Negative) Urine Ketones Negative (Negative) Urine Blood Negative (Negative) Urine Nitrite Negative (Negative) Urine Bilirubin Negative (Negative) Urine Urobilinogen <2.0 (<2.0) mg/dL Ur Leukocyte Esterase Negative (Negative) 08/11/19 08/11/19 08/11/19 Range/Units 11:04 11:04 11:04 WBC (3.8-10.6) k/uL RBC (3.80-5.40) m/uL Hgb (11.4-16.0) gm/dL Hct (34.0-46.0) % MCV (80.0-100.0) fL MCH (25.0-35.0) pg MCHC (31.0-37.0) g/dL RDW (11.5-15.5) % Plt Count (150-450) k/uL Neutrophils % % Lymphocytes % % Monocytes % % Eosinophils % % Basophils % % Neutrophils # (1.3-7.7) k/uL Lymphocytes # (1.0-4.8) k/uL Monocytes # (0-1.0) k/uL Eosinophils # (0-0.7) k/uL Basophils # (0-0.2) k/uL Hypochromasia Anisocytosis PT (9.0-12.0) sec INR (<1.2) APTT (22.0-30.0) sec Sodium 140 (137-145) mmol/L Potassium 3.6 (3.5-5.1) mmol/L Chloride 93 L (98-107) mmol/L Carbon Dioxide 38 H (22-30) mmol/L Anion Gap 9 mmol/L BUN 67 H (7-17) mg/dL Creatinine 1.56 H (0.52-1.04) mg/dL Est GFR (CKD-EPI)AfAm 34 (>60 ml/min/1.73 sqM) Est GFR (CKD-EPI)NonAf 29 (>60 ml/min/1.73 sqM) Glucose 173 H (74-99) mg/dL Plasma Lactic Acid Jairo (0.7-2.0) mmol/L Calcium 9.0 (8.4-10.2) mg/dL Magnesium 1.9 (1.6-2.3) mg/dL Total Bilirubin 0.6 (0.2-1.3) mg/dL AST 23 (14-36) U/L ALT 17 (4-34) U/L Alkaline Phosphatase 160 H (38-126) U/L Troponin I 0.355 H* (0.000-0.034) ng/mL NT-Pro-B Natriuret Pep 02630 pg/mL Total Protein 6.4 (6.3-8.2) g/dL Albumin 3.4 L (3.5-5.0) g/dL Urine Color Urine Appearance (Clear) Urine pH (5.0-8.0) Ur Specific Knott (1.001-1.035) Urine Protein (Negative) Urine Glucose (UA) (Negative) Urine Ketones (Negative) Urine Blood (Negative) Urine Nitrite (Negative) Urine Bilirubin (Negative) Urine Urobilinogen (<2.0) mg/dL Ur Leukocyte Esterase (Negative) 08/11/19 Range/Units 11:30 WBC (3.8-10.6) k/uL RBC (3.80-5.40) m/uL Hgb (11.4-16.0) gm/dL Hct (34.0-46.0) % MCV (80.0-100.0) fL MCH (25.0-35.0) pg MCHC (31.0-37.0) g/dL RDW (11.5-15.5) % Plt Count (150-450) k/uL Neutrophils % % Lymphocytes % % Monocytes % % Eosinophils % % Basophils % % Neutrophils # (1.3-7.7) k/uL Lymphocytes # (1.0-4.8) k/uL Monocytes # (0-1.0) k/uL Eosinophils # (0-0.7) k/uL Basophils # (0-0.2) k/uL Hypochromasia Anisocytosis PT (9.0-12.0) sec INR (<1.2) APTT (22.0-30.0) sec Sodium (137-145) mmol/L Potassium (3.5-5.1) mmol/L Chloride (98-107) mmol/L Carbon Dioxide (22-30) mmol/L Anion Gap mmol/L BUN (7-17) mg/dL Creatinine (0.52-1.04) mg/dL Est GFR (CKD-EPI)AfAm (>60 ml/min/1.73 sqM) Est GFR (CKD-EPI)NonAf (>60 ml/min/1.73 sqM) Glucose (74-99) mg/dL Plasma Lactic Acid Jairo 1.2 (0.7-2.0) mmol/L Calcium (8.4-10.2) mg/dL Magnesium (1.6-2.3) mg/dL Total Bilirubin (0.2-1.3) mg/dL AST (14-36) U/L ALT (4-34) U/L Alkaline Phosphatase (38-126) U/L Troponin I (0.000-0.034) ng/mL NT-Pro-B Natriuret Pep pg/mL Total Protein (6.3-8.2) g/dL Albumin (3.5-5.0) g/dL Urine Color Urine Appearance (Clear) Urine pH (5.0-8.0) Ur Specific Knott (1.001-1.035) Urine Protein (Negative) Urine Glucose (UA) (Negative) Urine Ketones (Negative) Urine Blood (Negative) Urine Nitrite (Negative) Urine Bilirubin (Negative) Urine Urobilinogen (<2.0) mg/dL Ur Leukocyte Esterase (Negative) - EKG Data EKG Comments: EKG demonstrates A. fib with a rate of 60. QRS 142. QTC 590. There is an intraventricular block. No acute ST segment elevations or depressions. EKG compared to previous and is the same Disposition Clinical Impression: CHF (congestive heart failure), Elevated troponin, Fluid overload, Chronic renal failure Disposition: ADMITTED IP TO THIS [facility] Condition: Stable Is patient prescribed a controlled substance at d/c from ED?: No Decision to Admit Reason: Admit from EC Decision Date: 08/11/19 Decision Time: 13:48
[2019-08-11 16:59] LABS: Glucose,Whole Blood 155 mg/dL (75-99)
[2019-08-11] MEDS: POTASSIUM CHLORIDE ER 10 MEQ TAB.ER.PRT PO SCH (18:00)
[2019-08-11] MEDS: SODIUM BICARBONATE TAB 650 MG TAB PO SCH (18:00)
[2019-08-11] MEDS: hydrALAZINE HCL 50 MG TAB PO SCH (18:00)
[2019-08-11] MEDS: ASPIRIN 81 MG PO SCH (18:00)
[2019-08-11] MEDS: APIXABAN 2.5 MG TABLET PO SCH (18:00)
[2019-08-11] MEDS: cloNIDine HCL 0.2 MG TAB PO SCH (18:00)
--- NOTE | 2019-08-11 19:59 | NM ---
EXAMINATION TYPE: NM pul vent and perfuse DATE OF EXAM: 08/11/2019 COMPARISON: Chest x-ray dated 08/11/2019 HISTORY: Hypoxia TECHNIQUE: Utilizing inhalation of 39 mCi Tc 99m DTPA aerosol and intravenous injection of 5.2 mCi o f Tc 99m MAA, ventilation and perfusion images are acquired post injection in multiple projections. FINDINGS: The exam is markedly suboptimal with only posterior and lateral ventilation and perfusion images obta ined. Large defect is seen within the left lower lobe on both ventilation and perfusion corresponding to a matched defect. Heart is enlarged. Central radiotracer accumulation is seen in the ventilation portion examination suggesting reactive airway disease or COPD. Bronchitis as an alternative possibil ity. Ventilation portion is markedly limited with only patchy radiotracer seen in the lungs. Overall low lung volumes. IMPRESSION: Markedly limited examination as described above. Intermediate probability of pulmonary em bolus as the ventilation images are nearly nondiagnostic however there is a matched defect in the lef t lower lobe.
[2019-08-11 20:37] LABS: Glucose,Whole Blood 235 mg/dL (75-99)
[2019-08-11] MEDS ORDERED: POLYETHYLENE GLYCOL 3350 17 GM POWD.PACK PO PRN (20:39)
[2019-08-11] MEDS ORDERED: IPRATROPIUM-ALBUTEROL 3 ML NEB INHALATION PRN (20:39)
[2019-08-11] MEDS ORDERED: BISACODYL 10 MG SUPP RECTAL PRN (20:39)
[2019-08-11] MEDS ORDERED: MECLIZINE 25 MG TAB PO PRN (20:39)
[2019-08-11] MEDS ORDERED: ACETAMINOPHEN TAB 325 MG TAB PO PRN (20:39)
[2019-08-11] MEDS ORDERED: ATORVASTATIN 20 MG TAB PO SCH (21:00)
[2019-08-11] MEDS: guaiFENesin 600 MG TABLET.ER PO SCH (21:32)
[2019-08-11] MEDS: ARTIFICIAL TEARS-HYPROMELLOSE DROPS 15 ML BTL BOTH EYES SCH (21:32)
[2019-08-11] MEDS: INSULIN DETEMIR (LEVEMIR) 100 UNIT/ML SYR SQ SCH (21:33)
[2019-08-11] MEDS: NYSTATIN 100,000UNIT/GM CREAM 30 GM TUBE TOPICAL SCH (21:33)
[2019-08-11] MEDS: TRIAMCINOLONE ACET 0.5% CREAM 15 GM TUBE TOPICAL SCH (21:34)
--- NOTE | 2019-08-11 22:55 | HP ---
HISTORY AND PHYSICAL DATE OF SERVICE: 08/11/2019 CHIEF COMPLAINTS: Shortness of breath. HISTORY OF PRESENT ILLNESS: This 89-year-old woman with a past medical history of multiple medical problems including history of CHF, history of diabetes type 2, hyperlipidemia, history of pulmonary embolism, sleep apnea, hysterectomy, being followed by Dr. Karlie Ruiz in the outpatient setting, was complaining of shortness of breath for the last several days. Patient is on 2 L nasal cannula at home, but the oxygen was in high 80s and with 4 L of oxygen, the oxygenation improved and the patient came to [facility] and was admitted for further evaluation and treatment. The patient initially refused V/Q scan. The troponins elevated to 0.355, but however, mild chronic elevation of troponins are noted from the previous labs. There is no chest pain. The patient was given Lasix 60 mg IV in the ER which resulted in some significant improvement. As far as labs are concerned, the creatinine is 1.56. NT proBNP is elevated 15,800 and a chest x-ray which is done, which personally reviewed by me showed features of CHF and bilateral lower lobe lesions also and a V/Q scan was done eventually which showed markedly limited exam with intermediate probability. There is no history of any fever, rigors. No headache, loss of consciousness, seizures. No history of contact with Covid-19 cases either. PAST MEDICAL HISTORY: History of congestive heart failure, history of diabetes type 2, hypertension, hyperlipidemia, history of pulmonary embolism, history of hysterectomy. MEDICATIONS: Prior to admission include home medications are: 1. Milk of Magnesia 2.4 g daily. 2. MiraLAX 17 g daily. 3. DuoNeb q.4 p.r.n. 4. Fleets enema. 5. Dulcolax 10 mg rectally daily. 6. Mylicon 80 mg p.o. q. 7. Antivert 12.5 mg p.o. p.r.n. 8. Tylenol 650 q.6h p.r.n. 9. DuoNeb q.i.d. and p.r.n. 10.NovoLog scale. 11.Kenalog. 12.Silvadene b.i.d. 13.Sodium bicarb 650 p.o. b.i.d. 14.Nystatin. 15.Apresoline 50 mg p.o. b.i.d. 16.Lasix 40 mg p.o. daily. 17.Uloric 40 mg p.o. b.i.d. 18.Mucinex 600 mg p.o. b.i.d. 19.Colace 100 mg p.o. b.i.d. 20.Catapres 0.2 b.i.d. 21.Eliquis 2.5 mg b.i.d. 22.K-Dur 10 mg p.o. daily. 23.Sensipar 30 mg p.o. Q 14. 24.Zaroxolyn 2.5 mg daily. 25.Lantus 12 units subcu q.h.s. 26.Lipitor 20 mg q.h.s. 27.Drisdol 55567 p.o. Tuesday. 28.Aspirin 81 mg p.o. daily. 29.Artificial Tears 1 drop both eyes q.h.s. ALLERGIES: MORPHINE. FAMILY HISTORY: History of CAD, myocardial infarction. SOCIAL HISTORY: No history of smoking. No history of alcohol intake. REVIEW OF SYSTEMS: ENT: Diminished vision. Diminished hearing. CARDIOVASCULAR as mentioned earlier. RESPIRATORY: As mentioned earlier. GI no nausea or vomiting. no dysuria. NERVOUS SYSTEM: No numbness or weakness. ALLERGY/IMMUNOLOGY: No asthma or hayfever. MUSCULOSKELETAL as mentioned earlier. HEMATOLOGY/ONCOLOGY: No history of anemia. ENDOCRINE: History of diabetes. CONSTITUTIONAL: As mentioned earlier. DERMATOLOGY: Negative. RHEUMATOLOGY negative. PSYCHIATRY as mentioned earlier. PHYSICAL EXAM: Patient is alert and oriented x3. Pulse 57, blood pressure 117/80, respiration 20, temperature 97.9, pulse ox 98% on 4 L. HEENT: Normal. Oral mucosa moist. NECK is no jugular venous distention. No carotid bruit. No lymph enlargement. CARDIOVASCULAR system: S1, S2 muffled. RESPIRATORY: Breath sounds diminished in the bases. Bilateral scattered rhonchi and crackles. ABDOMEN: Soft, nontender. No mass palpable. LEGS: Bilateral leg edema which is bandaged. NERVOUS SYSTEM: Higher functions as mentioned earlier. Moves all 4 limbs. No focal motor-sensory deficits. LYMPHATICS: No lymph nodes palpable in the neck, axilla or groin. SKIN: No ulcer, rash or bleeding. JOINTS: No active deforming arthropathy. LABS: WBC 7.8, hemoglobin 10.4, sodium 140, potassium 3.2, creatinine is 1.56 and troponin 0.39. ASSESSMENT: 1. Shortness of breath, possible congestive heart failure acute exacerbation with ejection fraction 60 to 65% with acute on chronic diastolic dysfunction. 2. with acute hypoxic respiratory failure. 3. Moderate mitral stenosis in the previous 2D echo. 4. Anemia, normocytic anemia of chronic disease. 5. Increased creatinine with chronic kidney disease stage III. 6. Diabetes mellitus type 2. 7. Troponin 0.355, possibly chronic elevation related to congestive heart failure. 8. History of diabetes type 2. 9. Hypertension. 10.Hyperlipidemia. 11.History of pulmonary embolism. 12.History of obstructive sleep apnea. 13.History of nephrolithiasis. 14.History of bilateral pulmonary embolism. 15.History of CPAP. 16.History of degenerative joint disease. 17.History of abdominal aortic aneurysm repair. 18.Obesity with body mass index 43. 19.FULL CODE. RECOMMENDATIONS AND DISCUSSION: This 89-year-old woman presented with multiple complex medical issues, we will monitor the patient closely. Continue the current management. Symptomatic treatment. We will initiate intravenous Lasix and monitor fluid/electrolyte balance closely. Limit the intake fluid to 1200 mL per 24 hours. We will consult Cardiology and pulmonology. Otherwise V/Q scan is intermediate most likely due to CHF. Covid-19 testing is pending. Otherwise, nephrology also will be consulted. Prognosis extremely guarded because of multiple complex medical issues. Home medication also will be reconciled when available. Discussed with the patient who understands and agrees. Further recommendations to follow. A copy of dictation will be forwarded to Dr. Ruiz who is the primary physician. Dr. Boyer will follow on Tuesday. MMODL / IJN: [id number] /
[2019-08-11] MEDS: SIMETHICONE 80 MG CHEWABLE PO SCH (23:50)
[2019-08-11] MEDS: FUROSEMIDE 10 MG/ML 4 ML VIAL IV SCH (23:50)
[2019-08-12 05:00] LABS: Appearance,Urine Clear (Clear); Bilirubin,Urine Negative (Negative); Blood,Urine Negative (Negative); Color,Urine Light Yellow; Glucose,Urine (UA) Negative (Negative); Ketones,Urine Negative (Negative); Leukocyte Esterase,Urine Negative (Negative); Nitrite,Urine Negative (Negative); Protein,Urine Negative (Negative); Urobilinogen,Urine <2.0 mg/dL (<2.0)
[2019-08-12 05:58] LABS: Anisocytosis Slight; Basophils % (A) 1 %; Eosinophils # (A) 0.2 k/uL (0-0.7); Eosinophils % (A) 4 %; HCT 33.8 % (34.0-46.0); HGB 9.9 gm/dL (11.4-16.0); Hypochromasia Marked; Lymphocytes % (A) 16 %; MCH 28.4 pg (25.0-35.0); MCHC 29.4 g/dL (31.0-37.0); MCV 96.6 fL (80.0-100.0); Monocytes # (A) 0.3 k/uL (0-1.0); Monocytes % (A) 6 %; Neutrophils # (A) 4.2 k/uL (1.3-7.7); Neutrophils % (A) 72 %; Platelet Count 173 k/uL (150-450); WBC 5.8 k/uL (3.8-10.6)
[2019-08-12 06:11] LABS: Calcium 9.2 mg/dL (8.4-10.2); Potassium 3.8 mmol/L (3.5-5.1)
[2019-08-12 06:20] LABS: Glucose,Whole Blood 96 mg/dL (75-99)
[2019-08-12] MEDS: IPRATROPIUM-ALBUTEROL 3 ML NEB INHALATION SCH ×4 (07:48→20:19)
[2019-08-12] MEDS ORDERED: NON FORMULARY DRUG (Vit C/E/Zn/Coppr/Lutein/Zeaxan [Preservision Areds 2 Softgel] 1 CAP) PO SCH (08:00)
[2019-08-12] MEDS: APIXABAN 2.5 MG TABLET PO SCH ×2 (08:08→16:57)
[2019-08-12] MEDS: FUROSEMIDE 10 MG/ML 4 ML VIAL IV SCH ×2 (08:08→21:25)
[2019-08-12] MEDS: ALLOPURINOL 100 MG TAB PO SCH ×2 (08:08→16:57)
[2019-08-12] MEDS: hydrALAZINE HCL 50 MG TAB PO SCH ×2 (08:08→16:57)
[2019-08-12] MEDS: SODIUM BICARBONATE TAB 650 MG TAB PO SCH (08:08)
[2019-08-12] MEDS: SIMETHICONE 80 MG CHEWABLE PO SCH ×4 (08:08→21:43)
[2019-08-12] MEDS: cloNIDine HCL 0.2 MG TAB PO SCH ×2 (08:08→16:57)
[2019-08-12] MEDS: guaiFENesin 600 MG TABLET.ER PO SCH ×2 (08:09→21:24)
[2019-08-12] MEDS: DOCUSATE 100 MG CAP PO SCH ×2 (08:09→16:57)
[2019-08-12] MEDS: TRIAMCINOLONE ACET 0.5% CREAM 15 GM TUBE TOPICAL SCH ×2 (08:09→21:37)
[2019-08-12] MEDS ORDERED: FUROSEMIDE 10 MG/ML 4 ML VIAL IV SCH (09:00)
--- NOTE | 2019-08-12 11:46 | P.CRDCN ---
History of Present Illness History of present illness: Hananesultana King 89-year-old female This is Dr. Rios dictating a consult on this patient The patient was interviewed and examined by me IMPRESSION / ASSESSMENT: Patient admitted with hypoxia She has an intermediate probability of pulmonary embolism, and is being managed by pulmonary medicine/internal medicine She is already on apixaban 2.5 mg twice daily for history of pulmonary embolism as well as atrial fibrillation She is rate controlled atrial fibrillation and is relatively bradycardic She came in her blood pressure is quite high. She's been complaining of shortness of breath and orthopnea. She does have abnormal troponins and this could represent non-Q-wave [place] unless w e definitively prove that this is pulmonary embolism despite apixaban At this point we are not sure if this is simply myocardial injury secondary to a pulmonary event or true non-Q-wave myocardial infarction PLAN: Increase hydralazine to 50 mrem 3 times a day and added Imdur 30 mg by mouth daily Reduce Lasix to 40 mg twice daily IV Follow BMP Management of pulmonary embolism. Pulmonary medicine and internal medicine HPI: Elderly female who is on home oxygen, resides at [facility] presenting with difficulty breathing and respiratory insufficiency. The facility stated that the patient's oxygen levels were in the high 80s and they tried putting her on a nonrebreather mask but without any improvement in O2 sats The patient denied any chest discomfort she does have a history of pulmonary embolism and is on ELIQUIS she has chronic bilateral lower extremity edema The patient reported orthopnea and exertional dyspnea She is a past history of heart failure diabetes type 2 and dyslipidemia and kidney disease as well as sleep apnea. She is atrial fibrillation A 12-lead ECG was reviewed and shows atrial fibrillation with a controlled ventricular response right bundle branch block left anterior fascicular block wide QRS Intermediate probability for pulmonary embolism, patient is on ELIQUIS 2.5 mg twice daily She is also on Lasix 40 mg every 8 ROS: No fever chills or rigors, no cough, phlegm or expectoration, no nausea, vomiting or diarrhea, no hematuria, dysuria, no musculoskeletal complaints, no strokes or seizures, no skin lesions. EXAMINATION: Afebrile, normal blood pressure readings, normal heart rates Reduced breath sounds bilaterally with crackles Soft ejection systolic murmur REVIEW OF LABS, ECG & MEDICAL DATA Abnormal troponin of 0.39 and 0.45 Bicarb 43 Sodium 142 and potassium 3.8 Hemoglobin 9.9 BUN is 66 and creatinine is 1.44 2-D echo in April showed preserved LV systolic function normal RV size and function normal RVSP normal IVC Past Medical History Past Medical History: Chest Pain / Angina, Heart Failure, Diabetes Mellitus, Hyperlipidemia, Hypertension, Pulmonary Embolus (PE), Renal Disease, Sleep Apnea/CPAP/BIPAP Additional Past Medical History / Comment(s): CKD stage III, NEPHROLITHIASIS, CHACHO PE, GOLDY WITH CPAP USE, BRONCHITIS,DIVERTICULOSIS, VERTIGO, FALLS, recent infection/rash bilateral lower legs almost healed per pt. History of Any Multi-Drug Resistant Organisms: None Reported Past Surgical History: Hysterectomy, Joint Replacement Additional Past Surgical History / Comment(s): bilateral knee replacement, hemorrhoid surgery, AAA repair, LITHOTRIPSY Past Anesthesia/Blood Transfusion Reactions: No Reported Reaction Additional Past Anesthesia/Blood Transfusion Reaction / Comment(s): Pt states she received blood with AAA repair. No reaction. Past Psychological History: No Psychological Hx Reported Smoking Status: Never smoker Past Alcohol Use History: None Reported Past Drug Use History: None Reported - Past Family History Mother History Unknown: Yes Additional Family Medical History / Comment(s): PT DOES'NT KNOW ANY HX ON MOPM- MOM LEFT HOME WHEN PT WAS 9 MONTHS OLD. Father Family Medical History: Coronary Artery Disease (CAD), Myocardial Infarction ([place]) Additional Family Medical History / Comment(s): CABG Medications and Allergies Home Medications Medication Instructions Recorded Confirmed Type Aspirin 81 mg PO DAILY@1700 //14 08/11/19 History Meclizine [Antivert] 12.5 mg PO Q8HR PRN 04/13/16 08/11/19 History Vit C/E/Zn/Coppr/Lutein/Zeaxan 1 cap PO BID@0800,1700 04/13/16 08/11/19 History [Preservision Areds 2 Softgel] cloNIDine HCL [Catapres] 0.2 mg PO BID@0800,1700 04/13/16 08/11/19 History Ergocalciferol [Vitamin D2 50,000 units PO MO 07/21/16 08/11/19 History (DRISDOL)] Cinacalcet [Sensipar] 30 mg PO Q14D 05/01/19 08/11/19 History Febuxostat [Uloric] 40 mg PO BID@0800,1700 05/01/19 08/11/19 History Furosemide [Lasix] 40 mg PO DAILY@0800,1400 05/01/19 08/11/19 History Artificial Tears-Hypromellose 1 drop BOTH EYES HS@209905/02/19 08/11/19 History [Artificial Tear Drops] Acetaminophen Tab [Tylenol] 650 mg PO Q6H PRN #1 tab 05/10/19 08/11/19 Rx Simethicone Chew [Mylicon Chew] 80 mg PO QID chew 05/10/19 08/11/19 Rx Apixaban [Eliquis] 2.5 mg PO BID@0800,1700 08/11/19 08/11/19 History Atorvastatin [Lipitor] 20 mg PO HS@209908/11/19 08/11/19 History Bisacodyl [Dulcolax] 10 mg RECTAL DAILY PRN 08/11/19 08/11/19 History Docusate [Colace] 100 mg PO BID@0800,1700 08/11/19 08/11/19 History INSULIN LISPRO (HumaLOG) [humaLOG] See Protocol SQ ACHS 08/11/19 08/11/19 History Insulin Glargine [Lantus] 12 unit SQ HS@212908/11/19 08/11/19 History Ipratropium-Albuterol Nebulize 3 ml INHALATION RT-Q4H PRN 08/11/19 08/11/19 History [Duoneb 0.5 mg-3 mg/3 ml Soln] Ipratropium-Albuterol Nebulize 3 ml INHALATION RT-QID 08/11/19 08/11/19 History [Duoneb 0.5 mg-3 mg/3 ml Soln] Magnesium Hydroxide [Milk of 2,400 mg PO DAILY PRN 08/11/19 08/11/19 History Magnesia] Metolazone [Zaroxolyn] 2.5 mg PO DAILY@0600 08/11/19 08/11/19 History Na Phos,M-B/Na Phos,Di-Ba [Fleet 133 ml RECTAL ONCE PRN 08/11/19 08/11/19 History Adult] Nystatin 100,000Unit/gm Cream 1 applic TOPICAL BID@0800,2100 08/11/19 08/11/19 History [Mycostatin Cream] Polyethylene Glycol 3350 [Miralax] 17 gm PO DAILY PRN 08/11/19 08/11/19 History Potassium Chloride ER [K-Dur 10] 10 meq PO DAILY@1700 08/11/19 08/11/19 History SILVER sulfADIAZINE Cream 1 applic TOPICAL BID@0600,209908/11/19 08/11/19 History [Silvadene 1% Cream] Sodium Bicarbonate Tab 650 mg PO BID@0800,1700 08/11/19 08/11/19 History Triamcinolone 0.5% Cream [Kenalog 1 applic TOPICAL BID@0800,209908/11/19 08/11/19 History 0.5% Cream] guaiFENesin [Mucinex] 600 mg PO BID@0800,209908/11/19 08/11/19 History hydrALAZINE HCL [Apresoline] 50 mg PO BID@0800,1700 08/11/19 08/11/19 History Allergies Allergy/AdvReac Type Severity Reaction Status Date / Time morphine Allergy Rash/Hives Verified 08/11/19 12:49 Physical Exam Vitals: Vital Signs Temp Pulse Pulse Resp BP BP Pulse Ox 08/12/19 11:21 72 08/12/19 11:12 72 08/12/19 08:00 98 F 60 20 121/56 99 08/12/19 07:59 76 08/12/19 07:51 72 08/12/19 04:00 98 F 78 24 169/79 97 08/12/19 00:00 98.4 F 60 20 139/66 97 08/11/19 20:00 97.4 F L 60 20 166/71 95 08/11/19 15:58 97.9 F 57 L 20 172/80 99 08/11/19 14:46 98 08/11/19 14:40 60 20 163/80 92 L 08/11/19 12:09 60 18 140/72 97 Intake and Output 08/11/19 08/12/19 08/12/19 22:59 06:59 14:59 Intake Total 780 Output Total 750 200 Balance 30 -200 Intake: Oral 780 Output: Urine 750 200 Other: Weight 92.079 kg 87.7 kg Results 08/12/19 05:10 08/12/19 05:10 Cardiac Enzymes 08/11/19 08/11/19 08/11/19 Range/Units 11:04 17:20 22:54 Troponin I 0.355 H* 0.394 H* 0.450 H* (0.000-0.034) ng/mL CBC 08/12/19 Range/Units 05:10 WBC 5.8 (3.8-10.6) k/uL RBC 3.50 L (3.80-5.40) m/uL Hgb 9.9 L (11.4-16.0) gm/dL Hct 33.8 L (34.0-46.0) % Plt Count 173 (150-450) k/uL Comprehensive Metabolic Panel 08/12/19 Range/Units 05:10 Sodium 142 (137-145) mmol/L Potassium 3.8 (3.5-5.1) mmol/L Chloride 91 L (98-107) mmol/L Carbon Dioxide 43 H* (22-30) mmol/L BUN 66 H (7-17) mg/dL Creatinine 1.44 H (0.52-1.04) mg/dL Glucose 71 L (74-99) mg/dL Calcium 9.2 (8.4-10.2) mg/dL Current Medications Generic Name Dose Route Start Last Admin Trade Name Freq PRN Reason Stop Dose Admin Acetaminophen 650 mg 08/11/19 20:39 Tylenol Tab PO Q6H PRN Pain Albuterol/Ipratropium 3 ml 08/12/19 08:00 08/12/19 11:11 Duoneb 0.5 Mg-3 Mg/3 Ml Soln INHALATION 3 ml RT-QID AMANDA Administration Albuterol/Ipratropium 3 ml 08/11/19 20:39 Duoneb 0.5 Mg-3 Mg/3 Ml Soln INHALATION RT-Q4H PRN Shortness Of Breath Allopurinol 200 mg 08/12/19 08:00 08/12/19 08:08 Zyloprim PO 200 mg BID@0800,1700 AMANDA Administration Apixaban 2.5 mg 08/11/19 17:00 08/12/19 08:08 Eliquis PO 2.5 mg BID@0800,1700 AMANDA Administration Artificial Tears 1 drops 08/11/19 21:00 08/11/19 21:32 Artificial Tear Drops BOTH EYES 1 drops HS@2100 AMANDA Administration Aspirin 81 mg 08/11/19 17:00 08/11/19 18:00 Aspirin PO 81 mg DAILY@1700 [facility] Administration Atorvastatin Calcium 20 mg 08/11/19 21:00 08/11/19 21:32 Lipitor PO 20 mg HS@2100 AMANDA Administration Bisacodyl 10 mg 08/11/19 20:39 Dulcolax RECTAL DAILY PRN Constipation Cinacalcet 30 mg 08/20/19 09:00 Sensipar PO Q14D [facility] Clonidine 0.2 mg 08/11/19 17:00 08/12/19 08:08 Catapres PO 0.2 mg BID@0800,1700 [facility] Administration Docusate Sodium 100 mg 08/12/19 08:00 08/12/19 08:09 Colace PO 100 mg BID@0800,1700 [facility] Administration Ergocalciferol 50,000 unit 08/13/19 09:00 Vitamin D2 PO Mo@0900 [facility] Furosemide 40 mg 08/12/19 00:00 08/12/19 08:08 Lasix IV 40 mg Q8HR [facility] Administration Guaifenesin 600 mg 08/11/19 21:00 08/12/19 08:09 Mucinex PO 600 mg BID@0800,2100 [facility] Administration Hydralazine HCl 50 mg 08/11/19 17:00 08/12/19 08:08 Apresoline PO 50 mg BID@0800,1700 [facility] Administration Insulin Detemir 12 unit 08/11/19 21:30 08/11/19 21:33 Levemir SQ 12 unit HS@2130 [facility] Administration Magnesium Hydroxide 2,400 mg 08/11/19 20:39 Milk Of Magnesia PO DAILY PRN Constipation Meclizine HCl 12.5 mg 08/11/19 20:39 Antivert PO Q8HR PRN Vertigo Naloxone HCl 0.2 mg 08/11/19 13:48 Narcan IV Q2M PRN Opioid Reversal Nystatin 1 applic 08/11/19 21:00 08/11/19 21:33 Mycostatin Cream TOPICAL 1 applic BID@0800,2100 [facility] Administration Polyethylene Glycol 17 gm 08/11/19 20:39 Miralax PO DAILY PRN Constipation Potassium Chloride 10 meq 08/11/19 17:00 08/11/19 18:00 K-Dur 10 PO 10 meq DAILY@1700 AMANDA Administration Silver Sulfadiazine 1 applic 08/11/19 21:00 08/12/19 06:04 Silvadene Cream TOPICAL 1 applic BID@06,2099 [facility]AN[facility] Administration Simethicone 80 mg 08/11/19 22:00 08/12/19 08:08 Mylicon Chew PO 80 mg QID AMANDA Administration Sodium Bicarbonate 650 mg 08/11/19 17:00 08/12/19 08:08 Sodium Bicarbonate Tab PO 650 mg BID@0800,1700 [facility] Administration Triamcinolone Acetonide 1 applic 08/11/19 21:00 08/12/19 08:09 Kenalog 0.5% Cream TOPICAL Not Given BID@799,2099 [facility]AN[facility] Intake and Output 08/11/19 08/12/19 08/12/19 22:59 06:59 14:59 Intake Total 780 Output Total 750 200 Balance 30 -200 Intake: Oral 780 Output: Urine 750 200 Other: Weight 92.079 kg 87.7 kg 08/12/19 05:10 08/12/19 05:10
[2019-08-12 12:37] LABS: Glucose,Whole Blood 117 mg/dL (75-99)
--- NOTE | 2019-08-12 12:44 | XR ---
EXAMINATION TYPE: XR chest 1V portable DATE OF EXAM: 08/12/2019 COMPARISON: 08/11/2019 HISTORY: Congestive heart failure and pleural effusion TECHNIQUE: Single frontal view of the chest is obtained. FINDINGS: Similar layering pleural effusions, moderate on the left and small the right are seen with moderate pulmonary vascular congestion and partially obscured but enlarged cardiac mediastinal silho uette. Single lead left-sided cardiac device. Diffuse osseous demineralization. No sizable pneumothor ax. IMPRESSION: Stable exam from the prior 08/11/2019 with moderate left and small right pleural effusion s. Findings suggest cardiogenic fluid overload.
--- NOTE | 2019-08-12 13:22 | P.NPCON ---
History of Present Illness - Reason for Consult acute renal failure, chronic renal failure - History of Present Illness Reason for consultation: Acute kidney injury on chronic kidney disease History of present illness: Patient is a 89-year-old female seen in renal consultation for acute kidney injury and chronic kidney disease. Patient has chronic kidney disease stage III with baseline creatinine in the range of 1.3-1.5. Creatinine peaked at 1.56 this admission and is 1.44 today. Patient presented to the hospital with progressively worsening shortness of breath. VQ scan was suggestive of interme diate probability of PE. Patient is maintained on eliquis. She denies any chest pain at this time. Dyspnea has improved. She was maintained on IV Lasix 40 mg 3 times daily and was decreased to twice daily today. Good urine output. No hematuria or dysuria. UA is benign. Bicarb is up to 43 today. Patient does have history of COPD. She also has long-standing history of diabetes mellitus. Hemodynamically stable. No dizziness. Denies use of nonsteroidals. Vital signs are stable. General: The patient appeared well nourished and normally developed. HEENT: Head exam is unremarkable. Neck is without jugular venous distension. LUNGS: Breath sounds decreased. HEART: Rate and Rhythm are regular. First and second heart sounds normal. No murmurs, rubs or gallops. ABDOMEN: Abdominal exam reveals normal bowel sounds. Non-tender and non- distended. EXTREMITITES: 1+ edema. Past Medical History Past Medical History: Chest Pain / Angina, Heart Failure, Diabetes Mellitus, Hyperlipidemia, Hypertension, Pulmonary Embolus (PE), Renal Disease, Sleep Apne a/CPAP/BIPAP Additional Past Medical History / Comment(s): CKD stage III, NEPHROLITHIASIS, CHACHO PE, GOLDY WITH CPAP USE, BRONCHITIS,DIVERTICULOSIS, VERTIGO, FALLS, recent infection/rash bilateral lower legs almost healed per pt. History of Any Multi-Drug Resistant Organisms: None Reported Past Surgical History: Hysterectomy, Joint Replacement Additional Past Surgical History / Comment(s): bilateral knee replacement, hemorrhoid surgery, AAA repair, LITHOTRIPSY Past Anesthesia/Blood Transfusion Reactions: No Reported Reaction Additional Past Anesthesia/Blood Transfusion Reaction / Comment(s): Pt states she received blood with AAA repair. No reaction. Past Psychological History: No Psychological Hx Reported Smoking Status: Never smoker Past Alcohol Use History: None Reported Past Drug Use History: None Reported - Past Family History Mother History Unknown: Yes Additional Family Medical History / Comment(s): PT DOES'NT KNOW ANY HX ON MOPM- MOM LEFT HOME WHEN PT WAS 9 MONTHS OLD. Father Family Medical History: Coronary Artery Disease (CAD), Myocardial Infarction ([place]) Additional Family Medical History / Comment(s): CABG Medications and Allergies Home Medications Medication Instructions Recorded Confirmed Type Aspirin 81 mg PO DAILY@1700 06/08/14 08/11/19 History Meclizine [Antivert] 12.5 mg PO Q8HR PRN 04/13/16 08/11/19 History Vit C/E/Zn/Coppr/Lutein/Zeaxan 1 cap PO BID@0800,1700 04/13/16 08/11/19 History [Preservision Areds 2 Softgel] cloNIDine HCL [Catapres] 0.2 mg PO BID@0800,1700 04/13/16 08/11/19 History Ergocalciferol [Vitamin D2 50,000 units PO MO 07/21/16 08/11/19 History (DRISDOL)] Cinacalcet [Sensipar] 30 mg PO Q14D 05/01/19 08/11/19 History Febuxostat [Uloric] 40 mg PO BID@0800,1700 05/01/19 08/11/19 History Furosemide [Lasix] 40 mg PO DAILY@0800,1400 05/01/19 08/11/19 History Artificial Tears-Hypromellose 1 drop BOTH EYES HS@209905/02/19 08/11/19 History [Artificial Tear Drops] Acetaminophen Tab [Tylenol] 650 mg PO Q6H PRN #1 tab 05/10/19 08/11/19 Rx Simethicone Chew [Mylicon Chew] 80 mg PO QID chew 05/10/19 08/11/19 Rx Apixaban [Eliquis] 2.5 mg PO BID@0800,1700 08/11/19 08/11/19 History Atorvastatin [Lipitor] 20 mg PO HS@209908/11/19 08/11/19 History Bisacodyl [Dulcolax] 10 mg RECTAL DAILY PRN 08/11/19 08/11/19 History Docusate [Colace] 100 mg PO BID@0800,1700 08/11/1923/20 History INSULIN LISPRO (HumaLOG) [humaLOG] See Protocol SQ ACHS 08/11/19 08/11/19 History Insulin Glargine [Lantus] 12 unit SQ HS@212908/11/19 08/11/19 History Ipratropium-Albuterol Nebulize 3 ml INHALATION RT-Q4H PRN 08/11/19 08/11/19 History [Duoneb 0.5 mg-3 mg/3 ml Soln] Ipratropium-Albuterol Nebulize 3 ml INHALATION RT-QID 08/11/19 08/11/19 History [Duoneb 0.5 mg-3 mg/3 ml Soln] Magnesium Hydroxide [Milk of 2,400 mg PO DAILY PRN 08/11/19 08/11/19 History Magnesia] Metolazone [Zaroxolyn] 2.5 mg PO DAILY@0608/11/19 08/11/19 History Na Phos,M-B/Na Phos,Di-Ba [Fleet 133 ml RECTAL ONCE PRN 08/11/19 08/11/19 History Adult] Nystatin 100,000Unit/gm Cream 1 applic TOPICAL BID@0800,209908/11/19 08/11/19 History [Mycostatin Cream] Polyethylene Glycol 3350 [Miralax] 17 gm PO DAILY PRN 08/11/19 08/11/19 History Potassium Chloride ER [K-Dur 10] 10 meq PO DAILY@169908/11/19 08/11/19 History SILVER sulfADIAZINE Cream 1 applic TOPICAL BID@0600,209908/11/19 08/11/19 History [Silvadene 1% Cream] Sodium Bicarbonate Tab 650 mg PO BID@0800,169908/11/19 08/11/19 History Triamcinolone 0.5% Cream [Kenalog 1 applic TOPICAL BID@0800,209908/11/19 08/11/19 History 0.5% Cream] guaiFENesin [Mucinex] 600 mg PO BID@0800,209908/11/19 08/11/19 History hydrALAZINE HCL [Apresoline] 50 mg PO BID@0800,169908/11/19 08/11/19 History Allergies Allergy/AdvReac Type Severity Reaction Status Date / Time morphine Allergy Rash/Hives Verified 08/11/19 12:49 Physical Exam Vitals: Vital Signs Temp Pulse Pulse Resp BP BP Pulse Ox 08/12/19 12:00 98.1 F 60 20 134/65 98 08/12/19 11:21 72 08/12/19 11:12 72 08/12/19 08:00 98 F 60 20 121/56 99 08/12/19 07:59 76 08/12/19 07:51 72 08/12/19 04:00 98 F 78 24 169/79 97 08/12/19 00:00 98.4 F 60 20 139/66 97 08/11/19 20:00 97.4 F L 60 20 166/71 95 08/11/19 15:58 97.9 F 57 L 20 172/80 99 08/11/19 14:46 98 08/11/19 14:40 60 20 163/80 92 L Intake and Output 08/11/19 08/12/19 08/12/19 22:59 06:59 14:59 Intake Total 780 50 Output Total 750 200 200 Balance 30 -200 -150 Intake: Oral 780 50 Output: Urine 750 200 200 Other: Weight 92.079 kg 87.7 kg Results - Lab Results Most recent lab results Calcium 9.2 mg/dL (8.4-10.2) 08/12/19 05:10 Magnesium 1.9 mg/dL (1.6-2.3) 08/11/19 11:04 08/12/19 05:10 08/12/19 05:10 Assessment and Plan Plan: Assessment: 1. Acute kidney injury mostly prerenal secondary to prerenal syndrome. Creatinine peaked at 1.56 this admission and is 1.44 today. UA benign. 2. Chronic kidney disease stage III with baseline creatinine in the range of 1.3-1.5 secondary to nephrosclerosis. 3. Volume overload. Improving with diuresis. 4. Metabolic alkalosis secondary to diuresis as well as compensation for underlying respiratory acidosis from COPD. 5. Insulin-dependent diabetes mellitus. 6. Acute on chronic diastolic CHF with moderate mitral stenosis. 7. Hypertension with chronic kidney disease. Controlled. 8. Chronic A. fib maintained on anticoagulation. Plan: Maintain Lasix 40 mg IV twice daily. Add Diamox 250 mg IV twice daily. Discontinue sodium bicarb. Repeat electrolytes in the morning. Thank you for the consultation. I will continue to follow the patient with you during her hospital stay.
[2019-08-12] MEDS: NYSTATIN 100,000UNIT/GM CREAM 30 GM TUBE TOPICAL SCH ×2 (14:13→21:37)
[2019-08-12] MEDS: POTASSIUM CHLORIDE ER 10 MEQ TAB.ER.PRT PO SCH (16:57)
[2019-08-12] MEDS: ASPIRIN 81 MG PO SCH (16:58)
[2019-08-12 17:17] LABS: Glucose,Whole Blood 207 mg/dL (75-99)
--- NOTE | 2019-08-12 20:04 | US ---
EXAMINATION TYPE: US venous doppler duplex LE BI DATE OF EXAM: 08/12/2019 7:53 PM COMPARISON: NONE CLINICAL HISTORY: dvt. SOB, edema SIDE PERFORMED: Bilateral TECHNIQUE: The lower extremity deep venous system is examined utilizing real time linear array sonog harley with graded compression, doppler sonography and color-flow sonography. VESSELS IMAGED: External Iliac Vein (EIV) Common Femoral Vein Deep Femoral Vein Greater Saphenous Vein * Femoral Vein Popliteal Vein Small Saphenous Vein * Proximal Calf Veins (* superficial vessels) Technical limitations due to patient's body habitus and large amount of edema, patient scanned in r eclining chair Right Leg: no evidence of acute DVT as visualized, unable to visualize lower femoral vein for compre ssion Left Leg: no evidence of acute DVT as visualized, unable to visualize lower femoral vein IMPRESSION: No evident deep venous thrombosis within the limitations of the exam
--- NOTE | 2019-08-12 20:14 | P.CNPUL ---
History of Present Illness Consult date: 08/12/19 Reason for consult: dyspnea Chief complaint: Shortness of breath History of present illness: This is a 89-year-old female who was seen eval reexamined on third floor patient presented into the hospital with increasing shortness of breath at baseline, patient is a resident of extended care facility she is at home 2 L nasal cannula, patient has been noted to have low oxygen saturation into 80s and decided to brought into hospital, she was however treated with nonrebreather mask without significant improvement oxygen, patient has been transferred to hospital with 4 L nasal cannula, currently his oxygen saturations stable, patient has significant history of the heart failure degenerative joint disease osteoarthritis as well as pulmonary embolism along with hypertension hypertensive cardiovascular disease she has been on oral anticoagulants Eliquis currently patient is getting bronchodilators continuation of anticoagulation along with insulin and other antihypertensive agents, her admit x-ray more suggestive of CHF-like changes with bilateral pleural effusion, VQ scan is indeterminate, DVT for bilateral ultrasound is negative, patient has elevated d- dimer, patient has elevated CO2 of 38 at the time admission increased to 43, BUN/creatinine stable 66/1.44 patient appeared to be somnolent and lethargic dif ficult to arose Review of Systems All systems: negative Past Medical History Past Medical History: Chest Pain / Angina, Heart Failure, Diabetes Mellitus, Hyperlipidemia, Hypertension, Pulmonary Embolus (PE), Renal Disease, Sleep Apnea/CPAP/BIPAP Additional Past Medical History / Comment(s): CKD stage III, NEPHROLITHIASIS, CHACHO PE, GOLDY WITH CPAP USE, BRONCHITIS,DIVERTICULOSIS, VERTIGO, FALLS, recent infection/rash bilateral lower legs almost healed per pt. History of Any Multi-Drug Resistant Organisms: None Reported Past Surgical History: Hysterectomy, Joint Replacement Additional Past Surgical History / Comment(s): bilateral knee replacement, hemorrhoid surgery, AAA repair, LITHOTRIPSY Past Anesthesia/Blood Transfusion Reactions: No Reported Reaction Additional Past Anesthesia/Blood Transfusion Reaction / Comment(s): Pt states she received blood with AAA repair. No reaction. Past Psychological History: No Psychological Hx Reported Smoking Status: Never smoker Past Alcohol Use History: None Reported Past Drug Use History: None Reported - Past Family History Mother History Unknown: Yes Additional Family Medical History / Comment(s): PT DOES'NT KNOW ANY HX ON MOPM- MOM LEFT HOME WHEN PT WAS 9 MONTHS OLD. Father Family Medical History: Coronary Artery Disease (CAD), Myocardial Infarction (DE) Additional Family Medical History / Comment(s): CABG Medications and Allergies Home Medications Medication Instructions Recorded Confirmed Type Aspirin 81 mg PO DAILY@1700 08/26/08/11/19 History Meclizine [Antivert] 12.5 mg PO Q8HR PRN 04/13/16 08/11/19 History Vit C/E/Zn/Coppr/Lutein/Zeaxan 1 cap PO BID@0800,1700 04/13/16 08/11/19 History [Preservision Areds 2 Softgel] cloNIDine HCL [Catapres] 0.2 mg PO BID@0800,1700 04/13/16 08/11/19 History Ergocalciferol [Vitamin D2 50,000 units PO MO 07/21/16 08/11/19 History (DRISDOL)] Cinacalcet [Sensipar] 30 mg PO Q14D 05/01/19 08/11/19 History Febuxostat [Uloric] 40 mg PO BID@0800,1700 05/01/19 08/11/19 History Furosemide [Lasix] 40 mg PO DAILY@0800,1400 05/01/19 08/11/19 History Artificial Tears-Hypromellose 1 drop BOTH EYES HS@209905/02/19 08/11/19 History [Artificial Tear Drops] Acetaminophen Tab [Tylenol] 650 mg PO Q6H PRN #1 tab 05/10/19 08/11/19 Rx Simethicone Chew [Mylicon Chew] 80 mg PO QID chew 05/10/19 08/11/19 Rx Apixaban [Eliquis] 2.5 mg PO BID@0800,1700 08/11/19 08/11/19 History Atorvastatin [Lipitor] 20 mg PO HS@209908/11/19 08/11/19 History Bisacodyl [Dulcolax] 10 mg RECTAL DAILY PRN 08/11/19 08/11/19 History Docusate [Colace] 100 mg PO BID@0800,1700 08/11/19 08/11/19 History INSULIN LISPRO (HumaLOG) [humaLOG] See Protocol SQ ACHS 08/11/19 08/11/19 History Insulin Glargine [Lantus] 12 unit SQ HS@2130 08/11/19 08/11/19 History Ipratropium-Albuterol Nebulize 3 ml INHALATION RT-Q4H PRN 08/11/19 08/11/19 History [Duoneb 0.5 mg-3 mg/3 ml Soln] Ipratropium-Albuterol Nebulize 3 ml INHALATION RT-QID 08/11/19 08/11/19 History [Duoneb 0.5 mg-3 mg/3 ml Soln] Magnesium Hydroxide [Milk of 2,400 mg PO DAILY PRN 08/11/19 08/11/19 History Magnesia] Metolazone [Zaroxolyn] 2.5 mg PO DAILY@0608/11/19 08/11/19 History Na Phos,M-B/Na Phos,Di-Ba [Fleet 133 ml RECTAL ONCE PRN 08/11/19 08/11/19 History Adult] Nystatin 100,000Unit/gm Cream 1 applic TOPICAL BID@0800,209908/11/19 08/11/19 History [Mycostatin Cream] Polyethylene Glycol 3350 [Miralax] 17 gm PO DAILY PRN 08/11/19 08/11/19 History Potassium Chloride ER [K-Dur 10] 10 meq PO DAILY@169908/11/19 08/11/19 History SILVER sulfADIAZINE Cream 1 applic TOPICAL BID@0600,209908/11/19 08/11/19 History [Silvadene 1% Cream] Sodium Bicarbonate Tab 650 mg PO BID@0800,169908/11/19 08/11/19 History Triamcinolone 0.5% Cream [Kenalog 1 applic TOPICAL BID@0800,209908/11/19 08/11/19 History 0.5% Cream] guaiFENesin [Mucinex] 600 mg PO BID@0800,209908/11/19 08/11/19 History hydrALAZINE HCL [Apresoline] 50 mg PO BID@0800,169908/11/19 08/11/19 History Allergies Allergy/AdvReac Type Severity Reaction Status Date / Time morphine Allergy Rash/Hives Verified 08/11/19 12:49 Physical Exam Vitals: Vital Signs Temp Pulse Pulse Resp BP Pulse Ox 08/12/19 16:25 72 08/12/19 16:10 70 08/12/19 15:24 98.4 F 59 L 20 124/61 98 08/12/19 12:00 98.1 F 60 20 134/65 98 08/12/19 11:21 72 08/12/19 11:12 72 08/12/19 08:00 98 F 60 20 121/56 99 08/12/19 07:59 76 08/12/19 07:51 72 08/12/19 04:00 98 F 78 24 169/79 97 08/12/19 00:00 98.4 F 60 20 139/66 97 Intake and Output 08/12/19 08/12/19 08/12/19 06:59 14:59 22:59 Intake Total 50 1226 Output Total 017 126 4107 Balance -200 -150 76 Intake: Oral 50 1226 Output: Urine 912 563 0505 Other: # Voids 4 # Bowel Movements 0 Weight 87.7 kg - Constitutional General appearance: disheveled, morbidly obese, no acute distress - EENT Eyes: EOMI, PERRLA Ears: bilateral: normal - Neck Neck: normal ROM Carotids: bilateral: upstroke normal - Respiratory Respiratory: bilateral: diminished, rales - Cardiovascular Rhythm: regular Heart sounds: normal: S1, S2 - Gastrointestinal General gastrointestinal: normal bowel sounds - Musculoskeletal Musculoskeletal: generalized weakness - Psychiatric Somnolent but arousable Results - Laboratory Findings CBC and BMP: 08/12/19 05:10 08/12/19 05:10 PT/INR, D-dimer PT 11.9 sec (9.0-12.0) 08/11/19 11:04 INR 1.2 (<1.2) H 08/11/19 11:04 D-Dimer 0.93 mg/L FEU (<0.60) H 08/12/19 18:31 Abnormal lab findings: Abnormal Labs 08/11/19 08/11/19 08/11/19 11:04 11:04 11:04 RBC 3.54 L Hgb 10.4 L Hct 33.8 L MCHC 30.6 L RDW 16.3 H Lymphocytes # 0.9 L INR 1.2 H D-Dimer Chloride 93 L Carbon Dioxide 38 H BUN 67 H Creatinine 1.56 H Glucose 173 H POC Glucose (mg/dL) Alkaline Phosphatase 160 H Troponin I Albumin 3.4 L 05/23/20 05/23/20 05/23/20 11:04 16:57 17:20 RBC Hgb Hct MCHC RDW Lymphocytes # INR D-Dimer Chloride Carbon Dioxide BUN Creatinine Glucose POC Glucose (mg/dL) 155 H Alkaline Phosphatase Troponin I 0.355 H* 0.394 H* Albumin 08/11/19 08/11/19 08/12/19 20:36 22:54 05:10 RBC 3.50 L Hgb 9.9 L Hct 33.8 L MCHC 29.4 L RDW 16.0 H Lymphocytes # INR D-Dimer Chloride Carbon Dioxide BUN Creatinine Glucose POC Glucose (mg/dL) 235 H Alkaline Phosphatase Troponin I 0.450 H* Albumin 08/12/19 08/12/19 08/12/19 05:10 12:36 17:15 RBC Hgb Hct MCHC RDW Lymphocytes # INR D-Dimer Chloride 91 L Carbon Dioxide 43 H* BUN 66 H Creatinine 1.44 H Glucose 71 L POC Glucose (mg/dL) 117 H 207 H Alkaline Phosphatase Troponin I Albumin 08/12/19 18:31 RBC Hgb Hct MCHC RDW Lymphocytes # INR D-Dimer 0.93 H Chloride Carbon Dioxide BUN Creatinine Glucose POC Glucose (mg/dL) Alkaline Phosphatase Troponin I Albumin - Diagnostic Findings Chest x-ray: report reviewed, image reviewed (Finding as noted above) Assessment and Plan Assessment: Acute hypercapnic hypoxic respiratory failure likely related to hypoventilation and heart failure Elevated troponin suggestive of non-Q-wave DE Chronic atrial fibrillation well controlled Elevated d-dimer likely multifactorial inflammation, Plan: Continue bronchodilator Continue gentle diuresis Conservative management for non-ST segment elevated DE Continue anticoagulation We'll check arterial blood gas if significant hypercapnia with respiratory acidosis is noted then consider starting BiPAP 10 and 5 with oxygen to keep saturation around 88-90% Time with Patient: Greater than 30
[2019-08-12 20:23] LABS: Glucose,Whole Blood 210 mg/dL (75-99)
[2019-08-12 20:53] LABS: ABG Base Excess 19.6 mmol/L; ABG Oxygen Saturation 91.8 % (94-97); ABG PCO2 62 mmHg (35-45); ABG PH 7.45 (7.35-7.45); ABG PO2 62 mmHg (83-108); ABG TCO2 45 mmol/L (19-24); Allen Test Performed? Yes
[2019-08-12 21:02] LABS: ABG HCO3 44 mmol/L (21-25)
[2019-08-12] MEDS: ATORVASTATIN 40 MG TAB PO SCH (21:24)
[2019-08-12] MEDS: ARTIFICIAL TEARS-HYPROMELLOSE DROPS 15 ML BTL BOTH EYES SCH (21:31)
[2019-08-12] MEDS: INSULIN DETEMIR (LEVEMIR) 100 UNIT/ML SYR SQ SCH (21:31)
--- NOTE | 2019-08-12 21:41 | PN ---
PROGRESS NOTE DATE OF SERVICE: 08/12/2019 I am covering for Dr. Boyer. This 89-year-old woman was admitted with shortness of breath, possibly congestive heart failure acute exacerbation with acute on chronic diastolic dysfunction. The patient also had some moderate mitral stenosis. The patient also had some confusion indicating some metabolic encephalopathy. Patient is being closely monitored at this time. Multiple consultants are following the patient closely including Nephrology also. The troponin was found to be 0.450. Cardiology recommend increase hydralazine to 50 mg t.i.d. and Imdur. The patient also had a V/Q scan, showed intermediate probability and Pulmonary also been consulted. PAST MEDICAL HISTORY: Reviewed. REVIEW OF SYSTEMS: CARDIOVASCULAR SYSTEM: No angina or palpitations. RESPIRATORY: As mentioned earlier. GI: As mentioned earlier. NERVOUS SYSTEM: No numbness, weakness. CURRENT MEDICATIONS: 1. Tylenol p.r.n. 2. Diamox 250 mg IV b.i.d. 3. DuoNeb p.o. q.i.d. p.r.n. 4. Zyloprim. 5. Eliquis. 6. Ecotrin 81 mg. 7. Lipitor. 8. Dulcolax. 9. Sensipar. 10.Colace. 11.Vitamin D2. 12.Mucinex. 13.Apresoline. 14.Levemir. 15.Milk of Magnesia. 16.Narcan. 17.K-Dur. 18.Silvadene. 19.Mylicon. PHYSICAL EXAM: Patient is alert, oriented x3. Pulse is 59, blood pressure 124/60, respiration 20, temperature 98.4, pulse ox 98% on 4 L. HEENT: Conjunctivae normal. Oral mucosa moist. NECK: No jugular venous distention. No lymph node enlargement. CARDIOVASCULAR: S1, S2. RESPIRATORY: Diminished breath sounds at the bases. A few scattered rhonchi and crackles. ABDOMEN: Soft, obese, nontender. LEGS: No edema, no swelling. NERVOUS SYSTEM: No focal deficits. LABS: WBC 5.2, hemoglobin 9.9, sodium 140, potassium 3.8 creatinine is 1.44. Troponin 0.5450. ASSESSMENT: 1. Shortness of breath, possible congestive heart failure acute exacerbation with acute on chronic diastolic dysfunction with ejection fraction 60-65% with acute hypoxic respiratory failure. 2. Moderate mitral stenosis in the previous 2D echo. 3. Anemia, microcytic; anemia of chronic disease. 4. Increased creatinine with chronic kidney disease, stage 3. 5. Diabetes mellitus type 2. 6. Troponin 0.355, possibly indicating a chronic elevation related to congestive heart failure. 7. History of diabetes type 2. 8. Intermediate probability V/Q scan for pulmonary embolism. 9. Hypertension. 10.Hyperlipidemia. 11.History of pulmonary embolism. 12.History of obstructive sleep apnea. 13.History of nephrolithiasis. 14.History of sleep apnea. 15.History of degenerative joint disease. 16.History of abdominal aortic aneurysm repair. 17.Obesity with body mass index of 43. 18.FULL CODE. RECOMMENDATIONS AND DISCUSSION: Recommend to continue current medications, continue to monitor, symptomatic treatment. Initiate IV heparin. Otherwise, we will also get D-dimer and bilateral leg ultrasound also. Guarded prognosis because of multiple complex medical issues. Further recommendations to follow. MMODL / IJN: [id number] /
[2019-08-13 06:17] LABS: Glucose,Whole Blood 86 mg/dL (75-99)
[2019-08-13 06:55] LABS: Calcium 9.1 mg/dL (8.4-10.2); Magnesium 2.1 mg/dL (1.6-2.3); Potassium 3.6 mmol/L (3.5-5.1)
[2019-08-13] MEDS: IPRATROPIUM-ALBUTEROL 3 ML NEB INHALATION SCH ×4 (08:01→21:00)
[2019-08-13] MEDS ORDERED: ERGOCALCIFEROL 50,000 UNIT CAP PO SCH (09:00)
[2019-08-13] MEDS: DOCUSATE 100 MG CAP PO SCH ×2 (09:21→17:48)
[2019-08-13] MEDS: cloNIDine HCL 0.2 MG TAB PO SCH (09:21)
[2019-08-13] MEDS: hydrALAZINE HCL 50 MG TAB PO SCH ×3 (09:21→20:27)
[2019-08-13] MEDS: APIXABAN 2.5 MG TABLET PO SCH ×2 (09:21→17:49)
[2019-08-13] MEDS: guaiFENesin 600 MG TABLET.ER PO SCH ×2 (09:21→20:27)
[2019-08-13] MEDS: TRIAMCINOLONE ACET 0.5% CREAM 15 GM TUBE TOPICAL SCH ×2 (09:22→20:26)
[2019-08-13] MEDS: NYSTATIN 100,000UNIT/GM CREAM 30 GM TUBE TOPICAL SCH ×2 (09:22→20:27)
[2019-08-13] MEDS: ALLOPURINOL 100 MG TAB PO SCH ×2 (09:22→17:48)
[2019-08-13] MEDS: FUROSEMIDE 10 MG/ML 4 ML VIAL IV SCH (09:23)
[2019-08-13] MEDS: SIMETHICONE 80 MG CHEWABLE PO SCH ×4 (09:23→20:34)
[2019-08-13] MEDS: MAGNESIUM HYDROXIDE 2,400 MG/10 ML CUP PO PRN (09:32)
--- NOTE | 2019-08-13 11:59 | P.PN ---
Treva King Patient was seen yesterday She had intubated probability for pulmonary embolism despite being on apixaban 2.5 mg twice daily History of blood pressure is elevated She is still complaining of shortness of breath but denies chest discomfort After adjusting her blood pressure medications for blood pressure is excellent today Heart rates in the normal range Her BUN and creatinine is going up on Lasix 40 IV every 12 On examination, blood pressure 116/59 mmHg pulse rate in the 60s she's afebrile Soft systolic murmur Legs wrapped with Popeye bandage, mild edema Bilateral crackles over lung [place] mucosae are dry Impression Intermediate probability for PE despite being on apixaban 2.5 mg twice daily, management of this per internal medicine and pulmonary medicine Hypertension, blood pressure much better controlled Worsening renal function on IV diuretics Suggest Switched to by mouth Lasix 40 mg twice daily. IV Lasix to be stopped Spironolactone 25 mg daily Stop oral potassium She is on clonidine 0.2 mg twice a day I would also recommend increasing hydralazine dose to allow for reduction in clonidine dose I don't see why this lady can't be on angiotensin receptor blockers also her creatinine was 1.56 This will allow us to reduce the dose of clonidine or discontinue it completely, unless there is a past history of acute worsening renal function with angiotensin receptor blockers I would reduce the dose of clonidine to 0.1 mg every 8 hours while increasing the dose of hydralazine 200 mg 3 times a day and then tomorrow I would stop clonidine completely In terms of her diuretic dose she can go back on Lasix 40 mg twice daily but instead of bringing her oral potassium of treated with spironolactone instead in addition to the Lasix There also help with her blood pressure Objective - Vital Signs Vital signs: Vital Signs Temp 97.8 F 08/13/19 08:00 Pulse 70 08/13/19 11:53 Resp 24 08/13/19 04:00 BP 116/59 08/13/19 08:00 Pulse Ox 96 08/13/19 08:00 Intake & Output 08/12/19 08/13/19 08/13/19 18:59 06:59 18:59 Intake Total 1276 200 Output Total 1350 3050 350 Balance -74 -0100 -350 Weight 88.1 kg Intake: Oral 1276 200 Output: Urine 1350 3050 350 Other: # Voids 4 # Bowel Movements 0 - Labs CBC & Chem 7: 08/12/19 05:10 08/13/19 05:57 Labs: Abnormal Lab Results - Last 24 Hours (Table) 08/12/19 08/12/19 08/12/19 Range/Units 12:36 17:15 18:31 D-Dimer 0.93 H (<0.60) mg/L FEU ABG pCO2 (35-45) mmHg ABG pO2 (83-108) mmHg ABG HCO3 (21-25) mmol/L ABG Total CO2 (19-24) mmol/L ABG O2 Saturation (94-97) % Chloride (98-107) mmol/L Carbon Dioxide (22-30) mmol/L BUN (7-17) mg/dL Creatinine (0.52-1.04) mg/dL POC Glucose (mg/dL) 117 H 207 H (75-99) mg/dL 08/12/19 08/12/19 08/13/19 Range/Units 20:22 20:50 05:57 D-Dimer (<0.60) mg/L FEU ABG pCO2 62 H (35-45) mmHg ABG pO2 62 L (83-108) mmHg ABG HCO3 44 H* (21-25) mmol/L ABG Total CO2 45 H (19-24) mmol/L ABG O2 Saturation 91.8 L (94-97) % Chloride 90 L (98-107) mmol/L Carbon Dioxide 42 H* (22-30) mmol/L BUN 61 H (7-17) mg/dL Creatinine 1.70 H (0.52-1.04) mg/dL POC Glucose (mg/dL) 210 H (75-99) mg/dL
[2019-08-13 12:10] LABS: Glucose,Whole Blood 152 mg/dL (75-99)
[2019-08-13] MEDS: SPIRONOLACTONE 25 MG TAB PO SCH (12:40)
[2019-08-13] MEDS: cloNIDine HCL 0.1 MG TAB PO SCH ×2 (12:40→20:27)
[2019-08-13] MEDS ORDERED: POTASSIUM CHLORIDE ER 20 MEQ TAB.ER PO STA (12:53)
--- NOTE | 2019-08-13 12:53 | P.PN ---
Subjective Patient is seen in follow-up for acute kidney injury on chronic disease. Patient has chronic kidney disease stage III with baseline creatinine in the range of 1.3-1.5. Renal function is slightly worse which is due to diuresis. She admits to good urine output. She is maintained on Lasix 40 mg twice daily along with Diamox. Bicarb level 42. Vital signs are stable. General: The patient appeared well nourished and normally developed. HEENT: Head exam is unremarkable. Neck is without jugular venous distension. LUNGS: Lungs are clear to auscultation and percussion. Breath sounds decreased. HEART: Rate and Rhythm are regular. ABDOMEN: Abdominal exam reveals normal bowel sounds. EXTREMITITES: No clubbing, cyanosis, or edema. Objective - Vital Signs Vital signs: Vital Signs Temp 97.8 F 08/13/19 08:00 Pulse 72 08/13/19 12:03 Resp 24 08/13/19 04:00 BP 116/59 08/13/19 08:00 Pulse Ox 96 08/13/19 08:00 Intake & Output 08/12/19 08/13/19 08/13/19 18:59 06:59 18:59 Intake Total 1276 200 Output Total 1350 3050 350 Balance -74 -2850 -350 Weight 88.1 kg Intake: Oral 1276 200 Output: Urine 1350 3050 350 Other: # Voids 4 # Bowel Movements 0 - Labs CBC & Chem 7: 08/12/19 05:10 08/13/19 05:57 Labs: Abnormal Lab Results - Last 24 Hours (Table) 08/12/19 08/12/19 08/12/19 Range/Units 17:15 18:31 20:22 D-Dimer 0.93 H (<0.60) mg/L FEU ABG pCO2 (35-45) mmHg ABG pO2 (83-108) mmHg ABG HCO3 (21-25) mmol/L ABG Total CO2 (19-24) mmol/L ABG O2 Saturation (94-97) % Chloride (98-107) mmol/L Carbon Dioxide (22-30) mmol/L BUN (7-17) mg/dL Creatinine (0.52-1.04) mg/dL POC Glucose (mg/dL) 207 H 210 H (75-99) mg/dL 08/12/19 08/13/19 08/13/19 Range/Units 20:50 05:57 11:54 D-Dimer (<0.60) mg/L FEU ABG pCO2 62 H (35-45) mmHg ABG pO2 62 L (83-108) mmHg ABG HCO3 44 H* (21-25) mmol/L ABG Total CO2 45 H (19-24) mmol/L ABG O2 Saturation 91.8 L (94-97) % Chloride 90 L (98-107) mmol/L Carbon Dioxide 42 H* (22-30) mmol/L BUN 61 H (7-17) mg/dL Creatinine 1.70 H (0.52-1.04) mg/dL POC Glucose (mg/dL) 152 H (75-99) mg/dL Assessment and Plan Plan: Assessment: 1. Acute kidney injury mostly prerenal secondary to prerenal syndrome. Creatinine 1.7 today. UA benign. 2. Chronic kidney disease stage III with baseline creatinine in the range of 1.3-1.5 secondary to nephrosclerosis. 3. Volume overload. Improving with diuresis. 4. Metabolic alkalosis secondary to diuresis as well as compensation for underlying respiratory acidosis from COPD. 5. Insulin-dependent diabetes mellitus. 6. Acute on chronic diastolic CHF with moderate mitral stenosis. 7. Hypertension with chronic kidney disease. Controlled. 8. Chronic A. fib maintained on anticoagulation. 9. Hypokalemia secondary to diuresis. Magnesium normal. Plan: Agree with changing Lasix to 40 mg orally twice daily. Maintain Diamox 250 mg IV twice daily. Discontinued sodium bicarb. Follow-up chest x-ray. Replace potassium. 40 mg once today. Repeat electrolytes in the morning.
--- NOTE | 2019-08-13 13:09 | XR ---
EXAMINATION TYPE: XR chest 1V portable DATE OF EXAM: 08/13/2019 COMPARISON: 08/12/2019 HISTORY: Congestive heart failure. Shortness of breath. TECHNIQUE: Single frontal view of the chest is obtained. FINDINGS: Layering bilateral small moderate pleural effusions are similar to the prior. There is ass ociated bibasilar airspace disease. Moderate pulmonary vascular congestion. Partially visualized enla rged cardiac mediastinal silhouette with single lead left-sided cardiac device. Diffuse osseous demin eralization. IMPRESSION: Similar sequela of fluid overload with small to moderate bilateral pleural effusions and associated bibasilar airspace disease, likely compressive atelectasis.
--- NOTE | 2019-08-13 16:20 | CT ---
EXAMINATION TYPE: CT brain wo con DATE OF EXAM: 08/13/2019 COMPARISON: 10/11/2015 HISTORY: Dizziness CT DLP: 1047.4 mGycm Automated exposure control for dose reduction was used. TECHNIQUE: CT scan of the head is performed without contrast. FINDINGS: There is no acute intracranial hemorrhage or midline shift identified. There is diffuse v entricular and sulcal prominence consistent with diffuse age-related cerebral atrophy. There is low- attenuation in the periventricular white matter consistent with chronic small vessel ischemic change. The globes are intact. Mild mucosal thickening of the ethmoid sinuses. Remaining paranasal sinuses are well aerated. Partial opacification of the right mastoid air cells. Chronic punctate benign-appea ring calcifications in the subarachnoid space possibly from prior intrathecal contrast injection. Ath erosclerosis of the intracranial vasculature. IMPRESSION: No acute intracranial hemorrhage or midline shift. There is diffuse age-related cerebra l atrophy and chronic small vessel ischemic change noted. Partial opacification of the right mastoid air cells. Correlate with point tenderness to exclude acute mastoiditis.
[2019-08-13 17:20] LABS: Glucose,Whole Blood 227 mg/dL (75-99)
[2019-08-13] MEDS: FUROSEMIDE 40 MG TAB PO SCH (17:48)
[2019-08-13] MEDS: INSULIN ASPART (NovoLOG) 100 UNIT/ML VIAL SQ SCH ×2 (17:49→20:27)
[2019-08-13] MEDS: ASPIRIN 81 MG PO SCH (17:49)
--- NOTE | 2019-08-13 19:33 | PN ---
PROGRESS NOTE DATE OF SERVICE: 08/12/2009 I am covering for Dr. Boyer. This 89-year-old woman who was admitted with shortness of breath, possible congestive heart failure acute exacerbation. The patient also had moderate mitral stenosis on the previous 2D echo. Most recent 2D echo is pending at this time. The patient also had V/Q scan which was markedly limited intermediate probability. Pulmonary following the patient closely. The most recent chest x-ray which was reviewed personally by me showed possible bilateral pleural effusion also. The patient also has some confusion and some dizziness also. PAST MEDICAL HISTORY: Reviewed. REVIEW OF SYSTEMS: Could not be taken the patient is mildly confused. CURRENT MEDICATIONS: Reviewed and include: Tylenol, Diamox, DuoNeb, Zyloprim, Eliquis, Artificial Tears, aspirin, Lipitor, Dulcolax, Sensipar, Catapres, Colace, vitamin D2, Lasix, Mucinex, cefazolin, Levemir, Antivert, Narcan, Mycostatin, MiraLAX, Silvadene, Aldactone, Kenalog cream. PHYSICAL EXAM: Patient is conscious, confused. Pulse 72. Blood pressure 120/60. Respiration 20, temperature normal. Pulse ox 94% on 4 L. HEENT conjunctivae normal. NECK: No JVD. CARDIOVASCULAR: S1, s2 muffed. RESPIRATIONS: Breath sounds diminished in the bases. A few scattered rhonchi and crackles. ABDOMEN: Soft, nontender. LEGS are no edema. No swelling. NERVOUS SYSTEM: No focal deficits. LABS: ABGs 7.45. Sodium 140, potassium 3.6 and WBC 5.8, hemoglobin 9.9, sodium 141, potassium 3.6. The troponin 0.450. ASSESSMENT: 1. Shortness of breath, possible congestive heart failure acute exacerbation with acute on chronic diastolic dysfunction ejection fraction 60-65 percent with acute hypoxic respiratory failure. 2. Moderate mitral stenosis on the previous 2D echo. 3. Rule out transient ischemic attack or stroke. 4. Anemia, microcytic anemia of chronic disease. 5. Increased creatinine with chronic kidney disease stage III. 6. Diabetes type 2. 7. Troponin 0.355, possibly indicating chronic elevation related to congestive heart failure. 8. History of diabetes type 2. 9. Intermediate probability V/Q scan for pulmonary embolism. 10.Hypertension. 11.Hyperlipidemia. 12.History of pulmonary embolus. 13.History of obstructive sleep apnea. 14.History of nephrolithiasis. 15.History of degenerative joint disease. 16.History of abdominal aortic aneurysm repair. 17.Obesity with body mass index of 43. 18.FULL CODE. RECOMMENDATIONS AND DISCUSSION: In this 89-year-old woman who presented with multiple complex medical issues, we will monitor the patient closely, continue the current medications, symptomatic treatment. I would also recommend CT scan of the brain and neurology evaluation. Otherwise continue the rest of medications, diuretics. Closely follow with Pulmonary, Cardiology and Dr. Boyer will follow tomorrow. MMODL / IJN: [id number] /
[2019-08-13 20:09] LABS: Glucose,Whole Blood 347 mg/dL (75-99)
[2019-08-13] MEDS: ATORVASTATIN 40 MG TAB PO SCH (20:27)
[2019-08-13] MEDS: INSULIN DETEMIR (LEVEMIR) 100 UNIT/ML SYR SQ SCH (20:28)
[2019-08-13] MEDS: ARTIFICIAL TEARS-HYPROMELLOSE DROPS 15 ML BTL BOTH EYES SCH (20:35)
--- NOTE | 2019-08-13 21:00 | P.PN ---
Subjective Progress Note Date: 08/13/19 Principal diagnosis: Acute hypercapnic hypoxic respiratory failure likely related to hypoventilation and heart failure Elevated troponin suggestive of non-Q-wave MD Chronic atrial fibrillation well controlled Elevated d-dimer likely multifactorial inflammation, 08/13/2019, patient seen eval examined during the rounds she is awake and alert pleasant, very hard of hearing, labs are reviewed, CO2 slightly low is 42 now but less than yesterday, renal functions overall remains stable but slightly higher trend, glucoses are running high, patient is more awake and alert high h ave discussed with her at length she is agreeable for using BiPAP tonight as well, arterial blood gases done yesterday noted patient has a component of high CO2 likely due to hypoventilation will continue the same above with the BiPAP each night and when necessary during the day This is a 89-year-old female who was seen eval reexamined on third floor patient presented into the hospital with increasing shortness of breath at baseline, patient is a resident of extended care facility she is at home 2 L nasal cannula, patient has been noted to have low oxygen saturation into 80s and decided to brought into hospital, she was however treated with nonrebreather mask without significant improvement oxygen, patient has been transferred to hospital with 4 L nasal cannula, currently his oxygen saturations stable, patient has significant history of the heart failure degenerative joint disease osteoarthritis as well as pulmonary embolism along with hypertension hypertensive cardiovascular disease she has been on oral anticoagulants Eliquis currently patient is getting bronchodilators continuation of anticoagulation along with insulin and other antihypertensive agents, her admit x-ray more sug gestive of CHF-like changes with bilateral pleural effusion, VQ scan is indeterminate, DVT for bilateral ultrasound is negative, patient has elevated d- dimer, patient has elevated CO2 of 38 at the time admission increased to 43, BUN/creatinine stable 66/1.44 patient appeared to be somnolent and lethargic difficult to arose Objective - Vital Signs Vital signs: Vital Signs Temp 97.8 F 08/13/19 08:00 Pulse 74 08/13/19 16:31 Resp 24 08/13/19 04:00 BP 123/58 08/13/19 16:00 Pulse Ox 91 L 08/13/19 16:00 Intake & Output 08/13/19 08/13/19 08/14/19 06:59 18:59 06:59 Intake Total 200 200 230 Output Total 3050 1250 Balance -2850 -1050 230 Weight 88.1 kg Intake: Oral 200 200 230 Output: Urine 3050 1250 Other: # Voids 2 - Exam - Constitutional General appearance: disheveled, morbidly obese, no acute distress - EENT Eyes: EOMI, PERRLA Ears: bilateral: normal - Neck Neck: normal ROM Carotids: bilateral: upstroke normal - Respiratory Respiratory: bilateral: diminished, rales - Cardiovascular Rhythm: regular Heart sounds: normal: S1, S2 - Gastrointestinal General gastrointestinal: normal bowel sounds - Musculoskeletal Musculoskeletal: generalized weakness - Psychiatric Somnolent but arousable - Labs CBC & Chem 7: 08/12/19 05:10 08/13/19 05:57 Labs: Abnormal Lab Results - Last 24 Hours (Table) 08/12/19 08/13/19 08/13/19 Range/Units 20:50 05:57 11:54 ABG pCO2 62 H (35-45) mmHg ABG pO2 62 L (83-108) mmHg ABG HCO3 44 H* (21-25) mmol/L ABG Total CO2 45 H (19-24) mmol/L ABG O2 Saturation 91.8 L (94-97) % Chloride 90 L (98-107) mmol/L Carbon Dioxide 42 H* (22-30) mmol/L BUN 61 H (7-17) mg/dL Creatinine 1.70 H (0.52-1.04) mg/dL POC Glucose (mg/dL) 152 H (75-99) mg/dL 08/13/19 08/13/19 Range/Units 17:00 20:07 ABG pCO2 (35-45) mmHg ABG pO2 (83-108) mmHg ABG HCO3 (21-25) mmol/L ABG Total CO2 (19-24) mmol/L ABG O2 Saturation (94-97) % Chloride (98-107) mmol/L Carbon Dioxide (22-30) mmol/L BUN (7-17) mg/dL Creatinine (0.52-1.04) mg/dL POC Glucose (mg/dL) 227 H 347 H (75-99) mg/dL Assessment and Plan Assessment: Acute hypercapnic hypoxic respiratory failure likely related to hypoventilation and heart failure Elevated troponin suggestive of non-Q-wave MD Chronic atrial fibrillation well controlled Elevated d-dimer likely multifactorial inflammation, Plan: Continue bronchodilator Continue gentle diuresis, however observe renal functions very closely Conservative management for non-ST segment elevated MD, appeared to be demand ischemia Continue BiPAP each night and when necessary during the day Time with Patient: Greater than 30
--- NOTE | 2019-08-14 03:29 | CONS ---
CONSULTATION DATE OF SERVICE: 08/13/2019 REASON FOR CONSULT: Altered mental status. This is a new consult requested for further advice and recommendations for an 89-year- old female who was admitted for further evaluation of congestive heart failure, dyspnea and hypoxemia. The patient was at [facility] and was brought into the emergency room due to increasing dyspnea and hypoxia. The patient currently is on 4 L of oxygen. The report given by nursing staff is as follows: The night prior to this morning, the patient had slept only briefly on her BiPAP device. This morning she was found to be very difficult to awaken. At lunch time the patient had fallen asleep and was difficult to arouse. Then shortly after the rehab nursing tech left the room they heard her cry out and when the rehab nursing tech returned to the room she was found staring at the wall with speech arrest. This lasted only approximately a minute and then she returned back to baseline. According to the clinical notes the patient has been started on Diamox recently. The first dose of spironolactone was started the night prior to this event and by the time that she had this event at 12 noon, she had already received a total of 3 doses. At the time of this intake, the patient was asleep but easily arousable and was coherent and able to carry on a normal conversation. The patient has had no further events since this event today at 12 noon. REVIEW OF SYSTEMS: A 10-point review of systems was deferred due to the patient being tired. However, the review of systems previously taken by the hospitalist was reviewed. PAST MEDICAL HISTORY: Significant for congestive heart failure, chronic atrial fibrillation and hypoxemia. FAMILY HISTORY AND SOCIAL HISTORY: See initial H and P. GENERAL EXAMINATION: Vital signs stable, afebrile. GENERAL APPEARANCE: No acute distress, comfortable, overweight. HEENT: Clear sclerae. Oropharynx is clear. NECK: Supple. PULSES: Radial and pedal pulses appear equal and symmetric. EXTREMITIES: Edema noted in the legs bilaterally extending from the knees down. No edema noted in the hands bilaterally. NEUROLOGICAL EXAM: MENTAL STATUS: The patient was initially asleep but easily to arouse. The patient is oriented to time, place, person. Affect is appropriate. Speech is fluent. CRANIAL NERVE EXAM: Extraocular movements are full. There is no nystagmus noted on vertical or horizontal gaze. Face appears symmetric. Cranial nerve 8 is intact by clinical observation. Palate elevates symmetrically. Tongue is midline without fasciculations or deviation. Shoulder shrug symmetric. MOTOR EXAMINATION: Limited due to patient being in an easy chair which she requires to be in due to her hypoxemia. The patient moves all 4 extremities equally. Her strength in the upper extremities is 5/5 with the deltoids, triceps, and biceps. Wrist flexion and extension is 5/5. No fasciculations or tremor noted. Lower extremity testing was more limited due to the patient's edematous legs and some generalized weakness. Hip flexors were - 5/5, anterior tibialis and gastrocs - 5/5. The patient, however, is unable to lift either leg off the easy chair. Foot flexion extension 5/5 bilaterally. COORDINATION TESTING: Intact to [id number] testing with eyes open. No dysmetria noted. SENSORY EXAMINATION: Grossly intact to light touch throughout. DEEP TENDON REFLEXES: +1 over biceps, triceps, brachioradialis. Patellar reflexes are absent. Ankle jerks absent. Plantar response is mute bilaterally. ASSESSMENT: This is an 89-year-old female who was admitted for acute hypercapnic hypoxic respiratory failure due to hypoventilation and congestive heart failure. On admission, her troponin levels were found elevated. This was consistent with a non QT wave NC. The patient has chronic atrial fib, well controlled. Based on the history obtained there are several potential causes for this abrupt alteration of consciousness. 1. Confusional arousals. This patient has obesity hypoventilation syndrome. She requires BiPAP. The night prior to this event she had not used it very much. That morning she subsequently was found to be very difficult to awaken. The actual event occurred during lunch when she had fallen asleep. I suspect that she with a confusional arousal due to a sleep apnea event. This can be quite common in obstructive sleep apnea. Confusional arousals are not uncommon in sleep apnea. 2. Complex partial seizure. This patient could be at risk for complex partial seizures. An arrhythmia associated with hypoxemia and sleep deprivation all could potentially lower seizure threshold. 3. Medication affects: Diamox could have an increased risk for [employer] side effects. This medication was started the night prior to the event she had that she had already gotten three doses prior to the event. RECOMMENDATIONS: 1. Recommend obtaining a CT of the head to rule out possible acute infarct. 2. EEG to rule out subclinical seizures. 3. Maintain patient on BiPAP at night. Avoid breaks in treatment at night. 4. Avoid awakening the patient during the night if possible for vital signs. Allow the patient to maintain good sleep continuity. 5. Close monitoring of the patient on Diamox. If she continues to have these episodes and we have ruled out other causes, would recommend looking at any potential alternative to Diamox. Thank you for this consultation. This patient's prognosis remains guarded. Neurology will follow closely during this admission. Further recommendations will be made as this case evolves. AKI / LEONIDASN: [id number] / JOSE
[2019-08-14] MEDS: cloNIDine HCL 0.1 MG TAB PO SCH ×3 (04:42→22:47)
[2019-08-14] MEDS: hydrALAZINE HCL 50 MG TAB PO SCH ×3 (04:42→22:47)
[2019-08-14 06:10] LABS: Glucose,Whole Blood 141 mg/dL (75-99)
[2019-08-14] MEDS: INSULIN ASPART (NovoLOG) 100 UNIT/ML VIAL SQ SCH ×4 (06:15→22:48)
[2019-08-14 06:32] LABS: Calcium 8.8 mg/dL (8.4-10.2); Magnesium 2.4 mg/dL (1.6-2.3)
[2019-08-14] MEDS: IPRATROPIUM-ALBUTEROL 3 ML NEB INHALATION SCH ×4 (07:02→20:26)
[2019-08-14] MEDS: APIXABAN 2.5 MG TABLET PO SCH ×2 (08:54→17:38)
[2019-08-14] MEDS: SPIRONOLACTONE 25 MG TAB PO SCH (08:54)
[2019-08-14] MEDS: FUROSEMIDE 40 MG TAB PO SCH ×2 (08:54→17:39)
[2019-08-14] MEDS: DOCUSATE 100 MG CAP PO SCH ×2 (08:54→17:38)
[2019-08-14] MEDS: guaiFENesin 600 MG TABLET.ER PO SCH ×2 (08:54→22:47)
[2019-08-14] MEDS: SIMETHICONE 80 MG CHEWABLE PO SCH ×4 (08:54→22:47)
[2019-08-14] MEDS: ALLOPURINOL 100 MG TAB PO SCH (08:54)
[2019-08-14] MEDS: NYSTATIN 100,000UNIT/GM CREAM 30 GM TUBE TOPICAL SCH ×2 (08:55→22:50)
[2019-08-14] MEDS: TRIAMCINOLONE ACET 0.5% CREAM 15 GM TUBE TOPICAL SCH ×2 (08:55→22:50)
[2019-08-14] MEDS: MAGNESIUM HYDROXIDE 2,400 MG/10 ML CUP PO PRN (08:55)
[2019-08-14 11:23] LABS: Glucose,Whole Blood 166 mg/dL (75-99)
--- NOTE | 2019-08-14 12:30 | P.PN ---
Subjective Progress Note Date: 08/14/19 Principal diagnosis: Acute hypercapnic hypoxic respiratory failure likely related to hypoventilation and heart failure Elevated troponin suggestive of non-Q-wave HI Chronic atrial fibrillation well controlled Elevated d-dimer likely multifactorial inflammation, Sleep disorder breathing and sleep apnea 08/14/2019, Patient seen and examined during the rounds she is awake and alert sitting upright on the chair breathing, breathing comfortably patient has been using BiPAP machine on a regular basis seems to helping her CO2 have been stable, today it came down to 41 renal functions overall unchanged, patient is being planned for discharge given her symptoms patient needs to be evaluated for sleep disorder breathing deep apnea and will need a BiPAP/CPAP each night and when necessary Will arrange it on outpatient basis 08/13/2019, patient seen eval examined during the rounds she is awake and alert pleasant, very hard of hearing, labs are reviewed, CO2 slightly low is 42 now but less than yesterday, renal functions overall remains stable but slightly higher trend, glucoses are running high, patient is more awake and alert high have discussed with her at length she is agreeable for using BiPAP tonight as well, arterial blood gases done yesterday noted patient has a component of high CO2 likely due to hypoventilation will continue the same above with the BiPAP ea ch night and when necessary during the day This is a 89-year-old female who was seen eval reexamined on third floor patient presented into the hospital with increasing shortness of breath at baseline, patient is a resident of extended care facility she is at home 2 L nasal cannula, patient has been noted to have low oxygen saturation into 80s and decided to brought into hospital, she was however treated with nonrebreather mask without significant improvement oxygen, patient has been transferred to hospital with 4 L nasal cannula, currently his oxygen saturations stable, patient has significant history of the heart failure degenerative joint disease osteoarthritis as well as pulmonary embolism along with hypertension hypertensive cardiovascular disease she has been on oral anticoagulants Eliquis currently patient is getting bronchodilators continuation of anticoagulation along with insulin and other antihypertensive agents, her admit x-ray more suggestive of CHF-like changes with bilateral pleural effusion, VQ scan is indeterminate, DVT for bilateral ultrasound is negative, patient has elevated d- dimer, patient has elevated CO2 of 38 at the time admission increased to 43, BUN/creatinine stable 66/1.44 patient appeared to be somnolent and lethargic difficult to arose Objective - Vital Signs Vital signs: Vital Signs Temp 97.7 F 08/14/19 08:00 Pulse 68 08/14/19 11:03 Resp 18 08/14/19 04:00 BP 113/54 08/14/19 08:00 Pulse Ox 99 08/14/19 08:00 Intake & Output 08/13/19 08/14/19 08/14/19 18:59 06:59 18:59 Intake Total 200 955 458 Output Total 1250 1075 Balance -1050 -120 458 Weight 87.9 kg Intake: Oral 200 955 458 Output: Urine 1250 1075 Other: Voiding Method Toilet # Voids 2 1 - Exam - Constitutional General appearance: disheveled, morbidly obese, no acute distress - EENT Eyes: EOMI, PERRLA Ears: bilateral: normal - Neck Neck: normal ROM Carotids: bilateral: upstroke normal - Respiratory Respiratory: bilateral: diminished, rales - Cardiovascular Rhythm: regular Heart sounds: normal: S1, S2 - Gastrointestinal General gastrointestinal: normal bowel sounds - Musculoskeletal Musculoskeletal: generalized weakness - Psychiatric Somnolent but arousable - Labs CBC & Chem 7: 08/12/19 05:10 08/14/19 06:06 Labs: Abnormal Lab Results - Last 24 Hours (Table) 08/13/19 08/13/19 08/14/19 Range/Units 17:00 20:07 06:06 Chloride 93 L (98-107) mmol/L Carbon Dioxide 41 H* (22-30) mmol/L BUN 61 H (7-17) mg/dL Creatinine 1.82 H (0.52-1.04) mg/dL Glucose 124 H (74-99) mg/dL POC Glucose (mg/dL) 227 H 347 H (75-99) mg/dL Magnesium 2.4 H (1.6-2.3) mg/dL 08/14/19 08/14/19 Range/Units 06:08 11:21 Chloride (98-107) mmol/L Carbon Dioxide (22-30) mmol/L BUN (7-17) mg/dL Creatinine (0.52-1.04) mg/dL Glucose (74-99) mg/dL POC Glucose (mg/dL) 141 H 166 H (75-99) mg/dL Magnesium (1.6-2.3) mg/dL Assessment and Plan Assessment: Acute hypercapnic hypoxic respiratory failure likely related to hypoventilation and heart failure Elevated troponin suggestive of non-Q-wave HI Chronic atrial fibrillation well controlled Elevated d-dimer likely multifactorial inflammation, Likely sleep disorder breathing and sleep apnea Plan: Sleep study as outpatient Continue bronchodilator Continue gentle diuresis, however observe renal functions very closely Conservative management for non-ST segment elevated HI, appeared to be demand ischemia
--- NOTE | 2019-08-14 13:19 | P.PN ---
Subjective Patient is seen in follow-up for acute kidney injury on chronic disease. Patient has chronic kidney disease stage III with baseline creatinine in the range of 1.3-1.5. Renal function is slightly worse which is due to diuresis. She admits to good urine output. She is maintained on Lasix 40 mg twice daily along with Diamox. Bicarb level 41. Patient is eager to be discharged. No chest pain or shortness of breath. Vital signs are stable. General: The patient appeared well nourished and normally developed. HEENT: Head exam is unremarkable. Neck is without jugular venous distension. LUNGS: Lungs are clear to auscultation and percussion. Breath sounds decreased. HEART: Rate and Rhythm are regular. ABDOMEN: Nontender, nondistended. EXTREMITITES: 1+ edema. Objective - Vital Signs Vital signs: Vital Signs Temp 97.7 F 08/14/19 08:00 Pulse 60 08/14/19 12:00 Resp 18 08/14/19 04:00 BP 119/58 08/14/19 12:00 Pulse Ox 94 L 08/14/19 12:00 Intake & Output 08/13/19 08/14/19 08/14/19 18:59 06:59 18:59 Intake Total 200 955 558 Output Total 1250 1075 Balance -1050 -120 558 Weight 87.9 kg Intake: Oral 200 955 558 Output: Urine 1250 1075 Other: Voiding Method Toilet # Voids 2 1 - Labs CBC & Chem 7: 08/12/19 05:10 08/14/19 06:06 Labs: Abnormal Lab Results - Last 24 Hours (Table) 08/13/19 08/13/19 08/14/19 Range/Units 17:00 20:07 06:06 Chloride 93 L (98-107) mmol/L Carbon Dioxide 41 H* (22-30) mmol/L BUN 61 H (7-17) mg/dL Creatinine 1.82 H (0.52-1.04) mg/dL Glucose 124 H (74-99) mg/dL POC Glucose (mg/dL) 227 H 347 H (75-99) mg/dL Magnesium 2.4 H (1.6-2.3) mg/dL 08/14/19 08/14/19 Range/Units 06:08 11:21 Chloride (98-107) mmol/L Carbon Dioxide (22-30) mmol/L BUN (7-17) mg/dL Creatinine (0.52-1.04) mg/dL Glucose (74-99) mg/dL POC Glucose (mg/dL) 141 H 166 H (75-99) mg/dL Magnesium (1.6-2.3) mg/dL Assessment and Plan Plan: Assessment: 1. Acute kidney injury mostly prerenal secondary to prerenal syndrome. Renal function slightly worsened with diuresis. Creatinine 1.82 today. UA benign. 2. Chronic kidney disease stage III with baseline creatinine in the range of 1.3-1.5 secondary to nephrosclerosis. 3. Volume overload. Improving with diuresis. 4. Metabolic alkalosis secondary to diuresis as well as compensation for underlying respiratory acidosis from COPD. 5. Insulin-dependent diabetes mellitus. 6. Acute on chronic diastolic CHF with moderate mitral stenosis. 7. Hypertension with chronic kidney disease. Controlled. 8. Chronic A. fib maintained on anticoagulation. 9. Hypokalemia secondary to diuresis. Magnesium normal. Plan: Maintain Lasix 40 mg twice daily. Change Diamox 250 mg twice daily. Also on Aldactone. Anticipate discharge soon to ECF. Repeat BMP and magnesium level 2-3 days postdischarge. Follow up outpatient in 1-2 weeks.
[2019-08-14 14:01] LABS: Hemoglobin A1C 6.7 % (4.0-6.0)
[2019-08-14 16:22] LABS: Glucose,Whole Blood 265 mg/dL (75-99)
--- NOTE | 2019-08-14 17:30 | P.PN ---
Subjective Progress Note Date: 08/14/19 Principal diagnosis: Pulmonary embolism This is a pleasant 89-year-old female patient who was admitted to the hospital with increasing shortness of breath and she was diagnosed with intermediate probability for PE and also when she was admitted she was started on IV Lasix was worsening renal function. She was seen this morning, August [id number]. The patient stated that the lulu rtness of breath is better. She denies any symptoms of chest pain or chest discomfort. She continues to be on oral anticoagulation. The blood pressure seems to be better controlled compared to before. She is now on Lasix orally as well as Aldactone. The kidney function was checked and her creatinine is 1.82. Nephrology is on the case. Objective - Vital Signs Vital signs: Vital Signs Temp 97.7 F 08/14/19 08:00 Pulse 70 08/14/19 16:29 Resp 18 08/14/19 04:00 BP 119/58 08/14/19 12:00 Pulse Ox 94 L 08/14/19 12:00 Intake & Output 08/13/19 08/14/19 08/14/19 18:59 06:59 18:59 Intake Total 200 955 558 Output Total 1250 1075 375 Balance -1050 -120 183 Weight 87.9 kg Intake: Oral 200 955 558 Output: Urine 1250 1075 375 Other: Voiding Method Toilet # Voids 2 1 - Constitutional General appearance: Present: no acute distress - Respiratory Respiratory: bilateral: diminished - Cardiovascular Heart sounds: normal: S1, S2 Abnormal Heart Sounds: Present: systolic murmur - Labs CBC & Chem 7: 08/12/19 05:10 08/14/19 06:06 Labs: Abnormal Lab Results - Last 24 Hours (Table) 08/13/19 08/14/19 08/14/19 Range/Units 20:07 06:06 06:06 Chloride 93 L (98-107) mmol/L Carbon Dioxide 41 H* (22-30) mmol/L BUN 61 H (7-17) mg/dL Creatinine 1.82 H (0.52-1.04) mg/dL Glucose 124 H (74-99) mg/dL POC Glucose (mg/dL) 347 H (75-99) mg/dL Hemoglobin A1c 6.7 H (4.0-6.0) % Magnesium 2.4 H (1.6-2.3) mg/dL 08/14/19 08/14/19 08/14/19 Range/Units 06:08 11:21 16:20 Chloride (98-107) mmol/L Carbon Dioxide (22-30) mmol/L BUN (7-17) mg/dL Creatinine (0.52-1.04) mg/dL Glucose (74-99) mg/dL POC Glucose (mg/dL) 141 H 166 H 265 H (75-99) mg/dL Hemoglobin A1c (4.0-6.0) % Magnesium (1.6-2.3) mg/dL Assessment and Plan Assessment: Assessment #1 intermediate probability for PE. Currently the patient is on oral anticoagulation #2 hypertension which has improved #3 acute on chronic renal failure #4 shortness of breath Plan #1 continue the current medical regimen #2 continue monitor the kidney function and electrolytes #3 possible discharge in the next 24 hours
[2019-08-14] MEDS: ASPIRIN 81 MG PO SCH (17:38)
[2019-08-14 20:58] LABS: Glucose,Whole Blood 189 mg/dL (75-99)
--- NOTE | 2019-08-14 21:52 | P.PN ---
Subjective Progress Note Date: 08/14/19 Jessica King is an 89 yo F with hx CHF, severe GOLDY who was admitted with shortness of breath. She was found to be volume overloaded and has been diuresing well on lasix with improvement in her symptoms. She is being followed by Cardiology, Pulmonary, Nephrology and Neurology. Her chronic metabolic marta losis has improved with consistent use of BiPAP qhs. Objective - Vital Signs Vital signs: Vital Signs Temp 97.7 F 08/14/19 08:00 Pulse 70 08/14/19 16:29 Resp 18 08/14/19 04:00 BP 131/62 08/14/19 16:00 Pulse Ox 95 08/14/19 16:00 Intake & Output 08/14/19 08/14/19 08/15/19 06:59 18:59 06:59 Intake Total 955 876 Output Total 1075 375 Balance -120 501 Weight 87.9 kg Intake: Oral 955 876 Output: Urine 1075 375 Other: Voiding Method Toilet # Voids 1 - Exam General: lethargic elderly female in NAD. Vitals reviewed Lungs: diminished effort, crackles at bases CV: Regular rate and rhythm, no murmur. Peripheral pulses 1+ Abdomen: soft, nondistended, no organomegaly Skin: warm and dry. - Labs CBC & Chem 7: 08/12/19 05:10 08/14/19 06:06 Labs: Abnormal Lab Results - Last 24 Hours (Table) 08/14/19 08/14/19 08/14/19 Range/Units 06:06 06:06 06:08 Chloride 93 L (98-107) mmol/L Carbon Dioxide 41 H* (22-30) mmol/L BUN 61 H (7-17) mg/dL Creatinine 1.82 H (0.52-1.04) mg/dL Glucose 124 H (74-99) mg/dL POC Glucose (mg/dL) 141 H (75-99) mg/dL Hemoglobin A1c 6.7 H (4.0-6.0) % Magnesium 2.4 H (1.6-2.3) mg/dL 08/14/19 08/14/19 08/14/19 Range/Units 11:21 16:20 20:57 Chloride (98-107) mmol/L Carbon Dioxide (22-30) mmol/L BUN (7-17) mg/dL Creatinine (0.52-1.04) mg/dL Glucose (74-99) mg/dL POC Glucose (mg/dL) 166 H 265 H 189 H (75-99) mg/dL Hemoglobin A1c (4.0-6.0) % Magnesium (1.6-2.3) mg/dL Assessment and Plan (1) Chronic renal failure Current Visit: Yes Status: Acute Code(s): N18.9 - CHRONIC KIDNEY DISEASE, UNSPECIFIED SNOMED Code(s): 29607026 (2) Elevated troponin Current Visit: Yes Status: Acute Code(s): R79.89 - OTHER SPECIFIED ABNORMAL FINDINGS OF BLOOD CHEMISTRY SNOMED Code(s): 974638515 (3) Acute on chronic diastolic CHF (congestive heart failure) Current Visit: No Status: Acute Code(s): I50.33 - ACUTE ON CHRONIC DIASTOLIC (CONGESTIVE) HEART FAILURE SNOMED Code(s): 547478746 (4) Acute on chronic renal failure Current Visit: No Status: Acute Code(s): N17.9 - ACUTE KIDNEY FAILURE, UNSPECIFIED; N18.9 - CHRONIC KIDNEY DISEASE, UNSPECIFIED SNOMED Code(s): 957959154 Plan: 1. Acute and chronic respiratory failure with hypercapnia. Likely related to GOLDY and CHF exacerbation. Pulmonary, cardiology and neurology following, recommending she use CPAP qhs and continue with diuresis. Pt with good urine output and negative fluid balance 2. Acute and chronic renal failure. Nephrology following. Continue current medical regimen 3. Elevated troponin. Related to CKD 4. Elevated d-dimer. 5. Chronic PE, continue marquez
--- NOTE | 2019-08-14 21:57 | P.PN ---
Subjective Progress Note Date: 08/14/19 Principal diagnosis: Altered mental status Subjective: Patient is been stable over the last 24 hours no further events of confusional arousals. DC planning in process. EEG is pending for Tuesday morning prior to discharge. Objective - Vital Signs Vital signs: Vital Signs Temp 97.7 F 08/14/19 08:00 Pulse 70 08/14/19 16:29 Resp 18 08/14/19 04:00 BP 131/62 08/14/19 16:00 Pulse Ox 95 08/14/19 16:00 Intake & Output 08/14/19 08/14/19 08/15/19 06:59 18:59 06:59 Intake Total 955 876 Output Total 1075 375 Balance -120 501 Weight 87.9 kg Intake: Oral 955 876 Output: Urine 1075 375 Other: Voiding Method Toilet # Voids 1 - Exam Exam: Patient asleep but easily arousable. Mental status: Patient is oriented to time place person and situation. Pupils: 2 mm equally reactive to light and accommodation symmetric. Cranial nerve examination: Tracks well. No nystagmus noted on vertical horizontal gaze. Face appears symmetric. Tongue is midline without fasciculations or deviation. Motor examination patient is able to move her upper extremities without difficulty she has -5 over 5 strength in the upper extremities. Her lower extremities there is definite weakness particularly distally due to edema. The patient is able to abduct adduct bilaterally. She's able to lift both legs now today off about approximately 20. No fasciculations or tremor noted. Deep tendon reflexes deferred. Coordination testing: [id number] testing is intact with eyes open. No dysmetria noted. Sensory examination grossly intact to light touch throughout. Gait examination deferred - Labs CBC & Chem 7: 08/12/19 05:10 08/14/19 06:06 Labs: Abnormal Lab Results - Last 24 Hours (Table) 08/14/19 08/14/19 08/14/19 Range/Units 06:06 06:06 06:08 Chloride 93 L (98-107) mmol/L Carbon Dioxide 41 H* (22-30) mmol/L BUN 61 H (7-17) mg/dL Creatinine 1.82 H (0.52-1.04) mg/dL Glucose 124 H (74-99) mg/dL POC Glucose (mg/dL) 141 H (75-99) mg/dL Hemoglobin A1c 6.7 H (4.0-6.0) % Magnesium 2.4 H (1.6-2.3) mg/dL 08/14/19 08/14/19 08/14/19 Range/Units 11:21 16:20 20:57 Chloride (98-107) mmol/L Carbon Dioxide (22-30) mmol/L BUN (7-17) mg/dL Creatinine (0.52-1.04) mg/dL Glucose (74-99) mg/dL POC Glucose (mg/dL) 166 H 265 H 189 H (75-99) mg/dL Hemoglobin A1c (4.0-6.0) % Magnesium (1.6-2.3) mg/dL Assessment and Plan Assessment: Assessment elderly female that was admitted for congestive heart failure progressive dyspnea who had an episode of altered mental status. Based on the history of what was occurring the timing of this could have been related to confusional arousal. This patient does have sleep apnea requiring BiPAP. As indicated on my prior note the night prior she had very poor sleep and had not use the BiPAP device the following morning she was very sleepy and difficult to arouse. At lunch time she was eating and fell asleep and then came out of her sleep with a confusional arousal. However we cannot completely exclude at this time that this could not of been of possibly a complex partial seizure. The patient has had no further events. Patient is scheduled for an EEG on Tuesday morning. Neuroimaging studies do not show evidence of any acute intercranial pathology. Additional concern was the use of Diamox is a candidate be neurotoxic an inc reased risk for confusion. This should be carefully monitored for this patient with her heart failure and her overall fragility. Plan 1. Continue close monitoring the patient's neurological status every 4 neuro checks while awake. 2. EEG to be completed in the morning. Once this is read if that it is normal then the patient can be cleared for discharge. Would strongly recommend that this patient follow up with a neurologist as an outpatient. 3. Strongly recommend this patient be evaluated for complex sleep apnea. This patient would benefit from BiPAP with ST mowed. Please encourage patient to use BiPAP while she is napping as well during this inpatient admission. This patient's prognosis still remains guarded but anticipate discharge pending EEG. Next Thank you for allowing me to produce pain in the care of your patient. 30 further questions or concerns please free to contact me Rhonda Patel M.D. Board Certified in Neurology and Sleep Medicine
[2019-08-14] MEDS: ATORVASTATIN 40 MG TAB PO SCH (22:47)
[2019-08-14] MEDS: INSULIN DETEMIR (LEVEMIR) 100 UNIT/ML SYR SQ SCH (22:47)
[2019-08-14] MEDS: ARTIFICIAL TEARS-HYPROMELLOSE DROPS 15 ML BTL BOTH EYES SCH (22:49)
[2019-08-15] MEDS: cloNIDine HCL 0.1 MG TAB PO SCH ×2 (03:47→13:08)
[2019-08-15] MEDS: hydrALAZINE HCL 50 MG TAB PO SCH ×2 (03:47→13:08)
[2019-08-15 04:45] VITALS: RESP 17
[2019-08-15 05:56] LABS: Glucose,Whole Blood 128 mg/dL (75-99)
[2019-08-15] MEDS: INSULIN ASPART (NovoLOG) 100 UNIT/ML VIAL SQ SCH ×2 (06:34→13:07)
[2019-08-15] MEDS: IPRATROPIUM-ALBUTEROL 3 ML NEB INHALATION SCH ×2 (06:56→11:13)
[2019-08-15 08:01] LABS: Calcium 9.1 mg/dL (8.4-10.2); Magnesium 2.7 mg/dL (1.6-2.3); Potassium 4.1 mmol/L (3.5-5.1)
[2019-08-15] MEDS ORDERED: ALLOPURINOL 100 MG TAB PO SCH (09:00)
--- NOTE | 2019-08-15 10:33 | P.DS ---
Providers Date of admission: 08/11/19 13:48 Expected date of discharge: 08/08/19 Attending physician: Karlo Boyer MD Consults: 08/11/19 13:49 Consult Physician Urgent Consulting Provider: [facility] Consult Reason/Comments: AECHF Do you want consulting provider notified?: Yes 08/11/19 17:15 Consult Physician Routine Consulting Provider: Yudi Infante Consult Reason/Comments: elevated creatinine/ on IV lasix Do you want consulting provider notified?: Yes 08/11/19 20:41 Consult Physician Routine Consulting Provider: Lowell Hodges Consult Reason/Comments: copd Do you want consulting provider notified?: Yes 08/13/19 14:35 Consult Physician Urgent Consulting Provider: Rhonda Patel Consult Reason/Comments: intermitten confusion Do you want consulting provider notified?: Yes Primary care physician: Karlieaga Ruiz [facility] Course: Final diagnoses -Acute on chronic hypoxic and hypercapnic respiratory failure, related to GOLDY and CHF exacerbation, who did not have her BiPAP appliance previously at [facility]. -Acute on Chronic renal failure Current Visit: Yes Status: Acute Code(s): N18.9 - CHRONIC KIDNEY DISEASE, UNSPECIFIED SNOMED Code(s): 28637321 - Elevated troponin related to this EKG Current Visit: Yes Status: Acute Code(s): R79.89 - OTHER SPECIFIED ABNORMAL FINDINGS OF BLOOD CHEMISTRY SNOMED Code(s): 045083229 - Acute on chronic diastolic CHF (congestive heart failure) Current Visit: No Status: Acute Code(s): I50.33 - ACUTE ON CHRONIC DIASTOLIC (CONGESTIVE) HEART FAILURE SNOMED Code(s): 611576112 - Acute on chronic renal failure Current Visit: No Status: Acute Code(s): N17.9 - ACUTE KIDNEY FAILURE, UNSPECIFIED; N18.9 - CHRONIC KIDNEY DISEASE, UNSPECIFIED SNOMED Code(s): 578221420 - Elevated d-dimer -Chronic PE on [facility] course:Jessica King is an 89 yo F with hx CHF, severe GOLDY who was admitted with shortness of breath. She was found to be volume overloaded and has been diuresing well on lasix with improvement in her symptoms. She is being followed by Cardiology, Pulmonary, Nephrology and Neurology. Her chronic metab olic alkalosis has improved with consistent use of BiPAP qhs. Significant clinical improvement. Cleared by all consults for discharge. Patient is being discharged to [facility] subacute rehab in a stable condition with guarded prognosis. Patient's family has been advised to bring her BiPAP machine to the subacute rehab as patient must have her BiPAP available during napping times as well as q hs. The impression and plan of care has been dictated as directed. : I performed a history and examination of this patient, discussed the same with the dictator. I agree with the dictator's note ,documented as a scribe. Any additional findings or plans will be noted. Patient Condition at Discharge: Stable Plan - Discharge Summary Discharge Rx Participant: No New Discharge Prescriptions: New Spironolactone [Aldactone] 25 mg PO DAILY tab hydrALAZINE HCL [Apresoline] 100 mg PO Q8H tab cloNIDine HCL [Catapres] 0.1 mg PO Q8H tab Furosemide [Lasix] 40 mg PO BID@0900,1600 tab Allopurinol [Zyloprim] 200 mg PO DAILY tab Continue Aspirin 81 mg PO DAILY@1700 Meclizine [Antivert] 12.5 mg PO Q8HR PRN PRN Reason: Vertigo Vit C/E/Zn/Coppr/Lutein/Zeaxan [Preservision Areds 2 Softgel] 1 cap PO BID@0800,1700 Ergocalciferol [Vitamin D2 (DRISDOL)] 50,000 units PO MO Cinacalcet [Sensipar] 30 mg PO Q14D Febuxostat [Uloric] 40 mg PO BID@0800,1700 Artificial Tears-Hypromellose [Artificial Tear Drops] 1 drop BOTH EYES HS@2100 Simethicone Chew [Mylicon Chew] 80 mg PO QID chew Acetaminophen Tab [Tylenol] 650 mg PO Q6H PRN #1 tab PRN Reason: Pain Apixaban [Eliquis] 2.5 mg PO BID@0800,1700 Atorvastatin [Lipitor] 20 mg PO HS@2100 Docusate [Colace] 100 mg PO BID@0800,1700 guaiFENesin [Mucinex] 600 mg PO BID@0800,2100 Insulin Glargine [Lantus] 12 unit SQ HS@2130 Nystatin 100,000Unit/gm Cream [Mycostatin Cream] 1 applic TOPICAL BID@0800,2100 SILVER sulfADIAZINE Cream [Silvadene 1% Cream] 1 applic TOPICAL BID@0600,2100 Triamcinolone 0.5% Cream [Kenalog 0.5% Cream] 1 applic TOPICAL BID@0800,2100 INSULIN LISPRO (HumaLOG) [humaLOG] See Protocol SQ ACHS Ipratropium-Albuterol Nebulize [Duoneb 0.5 mg-3 mg/3 ml Soln] 3 ml INHALATION RT-QID Polyethylene Glycol 3350 [Miralax] 17 gm PO DAILY PRN PRN Reason: Constipation Ipratropium-Albuterol Nebulize [Duoneb 0.5 mg-3 mg/3 ml Soln] 3 ml INHALATION RT-Q4H PRN PRN Reason: Shortness Of Breath Na Phos,M-B/Na Phos,Di-Ba [Fleet Adult] 133 ml RECTAL ONCE PRN PRN Reason: Constipation Bisacodyl [Dulcolax] 10 mg RECTAL DAILY PRN PRN Reason: Constipation Magnesium Hydroxide [Milk of Magnesia] 2,400 mg PO DAILY PRN PRN Reason: Constipation Discontinued cloNIDine HCL [Catapres] 0.2 mg PO BID@0800,1700 Furosemide [Lasix] 40 mg PO DAILY@0800,1400 hydrALAZINE HCL [Apresoline] 50 mg PO BID@0800,1700 Metolazone [Zaroxolyn] 2.5 mg PO DAILY@0600 Sodium Bicarbonate Tab 650 mg PO BID@0800,1700 Discharge Medication List Aspirin 81 mg PO DAILY@1700 08/26/13 [History] Meclizine [Antivert] 12.5 mg PO Q8HR PRN 04/13/16 [History] Vit C/E/Zn/Coppr/Lutein/Zeaxan [Preservision Areds 2 Softgel] 1 cap PO BID@0800,1700 04/13/16 [History] Ergocalciferol [Vitamin D2 (DRISDOL)] 50,000 units PO MO 07/21/16 [History] Cinacalcet [Sensipar] 30 mg PO Q14D 05/01/19 [History] Febuxostat [Uloric] 40 mg PO BID@0800,1700 05/01/19 [History] Artificial Tears-Hypromellose [Artificial Tear Drops] 1 drop BOTH EYES HS@209905/02/19 [History] Acetaminophen Tab [Tylenol] 650 mg PO Q6H PRN #1 tab 05/10/19 [Rx] Simethicone Chew [Mylicon Chew] 80 mg PO QID chew 05/10/19 [Rx] Apixaban [Eliquis] 2.5 mg PO BID@0800,17008/11/19 [History] Atorvastatin [Lipitor] 20 mg PO HS@209908/11/19 [History] Bisacodyl [Dulcolax] 10 mg RECTAL DAILY PRN 08/11/19 [History] Docusate [Colace] 100 mg PO BID@0800,17008/11/19 [History] INSULIN LISPRO (HumaLOG) [humaLOG] See Protocol SQ ACHS 08/11/19 [History] Insulin Glargine [Lantus] 12 unit SQ HS@212908/11/19 [History] Ipratropium-Albuterol Nebulize [Duoneb 0.5 mg-3 mg/3 ml Soln] 3 ml INHALATION RT-Q4H PRN 08/11/19 [History] Ipratropium-Albuterol Nebulize [Duoneb 0.5 mg-3 mg/3 ml Soln] 3 ml INHALATION RT-QID 08/11/19 [History] Magnesium Hydroxide [Milk of Magnesia] 2,400 mg PO DAILY PRN 08/11/19 [History] Na Phos,M-B/Na Phos,Di-Ba [Fleet Adult] 133 ml RECTAL ONCE PRN 08/11/19 [History] Nystatin 100,000Unit/gm Cream [Mycostatin Cream] 1 applic TOPICAL BID@0800,209908/11/19 [History] Polyethylene Glycol 3350 [Miralax] 17 gm PO DAILY PRN 08/11/19 [History] SILVER sulfADIAZINE Cream [Silvadene 1% Cream] 1 applic TOPICAL BID@0600,209908/11/19 [History] Triamcinolone 0.5% Cream [Kenalog 0.5% Cream] 1 applic TOPICAL BID@0800,209908/11/19 [History] guaiFENesin [Mucinex] 600 mg PO BID@0800,209908/11/19 [History] Allopurinol [Zyloprim] 200 mg PO DAILY tab 08/15/19 [Rx] Furosemide [Lasix] 40 mg PO BID@0900,1600 tab 08/15/19 [Rx] Spironolactone [Aldactone] 25 mg PO DAILY tab 08/15/19 [Rx] cloNIDine HCL [Catapres] 0.1 mg PO Q8H tab 08/15/19 [Rx] hydrALAZINE HCL [Apresoline] 100 mg PO Q8H tab 08/15/19 [Rx] Follow up Appointment(s)/Referral(s): Delfino Villalobos MD [REFERRING] - 2 Weeks Marie Real, [NON-STAFF] - As Needed Lowell Hodges MD [STAFF PHYSICIAN] - 1 Week Karlie Ruiz DO [Primary Care Provider] - 1-2 days Activity/Diet/Wound Care/Special Instructions: Confirm diuretics as per nephrology, including Diamox>. [facility] has been instructed to bring [facility] to subacute rehab. Needs BiPAP every night and when napping as previously ordered. Apparently patient did not have previously and on admission patient had significant elevated CO2. cbc,bmp in 3 days Discharge Disposition: TRANSFER TO SNF/ECF
[2019-08-15] MEDS: DOCUSATE 100 MG CAP PO SCH (10:44)
[2019-08-15] MEDS: SPIRONOLACTONE 25 MG TAB PO SCH (10:44)
[2019-08-15] MEDS: SIMETHICONE 80 MG CHEWABLE PO SCH ×2 (10:44→13:08)
[2019-08-15] MEDS: guaiFENesin 600 MG TABLET.ER PO SCH (10:44)
[2019-08-15] MEDS: APIXABAN 2.5 MG TABLET PO SCH (10:44)
[2019-08-15] MEDS: FUROSEMIDE 40 MG TAB PO SCH (10:44)
[2019-08-15 11:10] LABS: Glucose,Whole Blood 291 mg/dL (75-99)
[2019-08-15 11:14] VITALS: TEMP 97.9
--- NOTE | 2019-08-15 12:51 | P.PN ---
Subjective Patient is seen in follow-up for acute kidney injury on chronic disease. Patient has chronic kidney disease stage III with baseline creatinine in the range of 1.3-1.5. Renal function is fairly stable. She admits to good urine output. She is maintained on Lasix 40 mg twice daily along with Diamox. Bicarb level 39. Patient is eager to be discharged. No chest pain or shortness of breath. Vital signs are stable. General: The patient appeared well nourished and normally developed. HEENT: Head exam is unremarkable. Neck is without jugular venous distension. LUNGS: Lungs are clear to auscultation and percussion. Breath sounds decreased. HEART: Rate and Rhythm are regular. ABDOMEN: Nontender, nondistended. EXTREMITITES: 1+ edema. Objective - Vital Signs Vital signs: Vital Signs Temp 97.9 F 08/15/19 08:00 Pulse 78 08/15/19 11:25 Resp 17 08/15/19 04:00 BP 122/58 08/15/19 08:00 Pulse Ox 91 L 08/15/19 08:00 Intake & Output 08/14/19 08/15/19 08/15/19 18:59 06:59 18:59 Intake Total 876 540 118 Output Total 375 300 400 Balance 501 240 -282 Weight 87.9 kg Intake: Oral 876 540 118 Output: Urine 375 300 400 Other: Voiding Method Bedside Commode # Voids 1 1 # Bowel Movements 1 - Labs CBC & Chem 7: 08/12/19 05:10 08/15/19 06:28 Labs: Abnormal Lab Results - Last 24 Hours (Table) 08/14/19 08/14/19 08/14/19 Range/Units 06:06 16:20 20:57 Chloride (98-107) mmol/L Carbon Dioxide (22-30) mmol/L BUN (7-17) mg/dL Creatinine (0.52-1.04) mg/dL Glucose (74-99) mg/dL POC Glucose (mg/dL) 265 H 189 H (75-99) mg/dL Hemoglobin A1c 6.7 H (4.0-6.0) % Magnesium (1.6-2.3) mg/dL 08/15/19 08/15/19 08/15/19 Range/Units 05:54 06:28 11:08 Chloride 93 L (98-107) mmol/L Carbon Dioxide 39 H (22-30) mmol/L BUN 59 H (7-17) mg/dL Creatinine 1.79 H (0.52-1.04) mg/dL Glucose 110 H (74-99) mg/dL POC Glucose (mg/dL) 128 H 291 H (75-99) mg/dL Hemoglobin A1c (4.0-6.0) % Magnesium 2.7 H (1.6-2.3) mg/dL Assessment and Plan Plan: Assessment: 1. Acute kidney injury mostly prerenal secondary to prerenal syndrome. Renal function fairly stable. Creatinine 1.79 today. UA benign. 2. Chronic kidney disease stage III with baseline creatinine in the range of 1.3-1.5 secondary to nephrosclerosis. 3. Volume overload. Improving with diuresis. 4. Metabolic alkalosis secondary to diuresis as well as compensation for underlying respiratory acidosis from COPD. better. 5. Insulin-dependent diabetes mellitus. 6. Acute on chronic diastolic CHF with moderate mitral stenosis. 7. Hypertension with chronic kidney disease. Controlled. 8. Chronic A. fib maintained on anticoagulation. 9. Hypokalemia secondary to diuresis. Magnesium normal. Better. Plan: Maintain Lasix 40 mg twice daily. Continue Diamox 250 mg orally twice daily for 3 more days. Also on Aldactone. Anticipate discharge soon to ECF. Repeat BMP and magnesium level 2-3 days postdischarge. Follow up outpatient in 1-2 weeks.
[2019-08-15] MEDS: TRIAMCINOLONE ACET 0.5% CREAM 15 GM TUBE TOPICAL SCH (13:07)
[2019-08-15] MEDS: NYSTATIN 100,000UNIT/GM CREAM 30 GM TUBE TOPICAL SCH (13:07)
[2019-08-15 14:36] VITALS: BP 130/60; PULSE 61
--- NOTE | 2019-08-15 14:59 | EEG ---
ELECTROENCEPHALOGRAM REPORT DATE OF SERVICE: 08/15/2019 . This is an inpatient EEG performed on an 89-year-old female who had a brief episode of staring and unresponsiveness 2 days prior to discharge. The events surrounding this involve not sleeping well the night before and not being on adequate time with BiPAP. The following morning, she was difficult to awaken and during lunch, she became very altered for just a few seconds. The patient has not had any further episodes like this. The patient does have significant congestive heart failure. This is an inpatient EEG performed on the [employer] EEG monitor with electrodes placed according to the International 10-20 system and a single EKG channel. Simultaneous video EEG monitoring was performed. This EEG was reviewed in both longitudinal bipolar common average referential and transverse montages. Photic stimulation was performed. Hyperventilation was not performed due to the patient's underlying medical condition. The recording begins with the patient in quiet wakefulness with a well modulated, moderate amplitude 8-9 hertz posterior dominant rhythm that attenuates with eye opening. Initially the [facility] of the study. There is significant electrode artifact emanating from T6 electrode. Intermittent muscle artifact occurs frequently bifrontally. Throughout the study, there are periods where the patient has brief episodes from 2-6 seconds of generalized high-amplitude polymorphic delta slowing that is lateralized to the bifrontal lobes. This occurs both in the context of drowsiness and during wakefulness. Infrequent surface positive sharp waves were also noted toward the end of the recording, particularly after photic stimulation. The patient transitioned into stage 1 sleep (drowsiness at 07:57:05.) This was associated with an attenuation of the background. the appearance of slow rolling eye movements and rare rudimentary vertex waves. During brief periods of drowsiness, high- amplitude polymorphic delta slowing bifrontally again occurred. Deeper stages of sleep were not achieved. IMPRESSION: This EEG is considered abnormal due to the bifrontal slowing reported and rare surface positive sharp waves. This activity can occur in the context of ischemic injury. No electrographic seizures or clinical seizures were noted. No abnormalities were noted in the EKG nor during photic stimulation. CLINICAL CORRELATION: Serial EEGs are recommended and/or clinically indicated, a more prolonged overnight ambulatory EEG would be helpful. A verbal report of this study was provided to the nurse at 1:56 pm. MMBRENDON / LEONIDASN: [id number] /
--- NOTE | 2019-08-15 16:29 | P.PN ---
Subjective Progress Note Date: 08/15/19 Principal diagnosis: Acute hypercapnic hypoxic respiratory failure likely related to hypoventilation and heart failure Elevated troponin suggestive of non-Q-wave TX Chronic atrial fibrillation well controlled Elevated d-dimer likely multifactorial inflammation, Sleep disorder breathing and sleep apnea 08/15/2019, patient seen and evaluated examined during the rounds labs reviewed medications reviewed patient is sitting upright in chair breathing comfortably denies any chest pain very hard of hearing it appears that patient does have a BiPAP machine at home however she is not been using it, prior sleep study was done sometime in the past, patient advised to continue BiPAP at [facility] may need another sleep study for re-titration purposes, agree with discharge planning 08/14/2019, Patient seen and examined during the rounds she is awake and alert sitting upright on the chair breathing, breathing comfortably patient has been using BiPAP machine on a regular basis seems to helping her CO2 have been stable, today it came down to 41 renal functions overall unchanged, patient is being planned for discharge given her symptoms patient needs to be evaluated for sleep disorder breathing deep apnea and will need a BiPAP/CPAP each night and when necessary Will arrange it on outpatient basis 08/13/2019, patient seen eval examined during the rounds she is awake and alert pleasant, very hard of hearing, labs are reviewed, CO2 slightly low is 42 now but less than yesterday, renal functions overall remains stable but slightly higher trend, glucoses are running high, patient is more awake and alert high have discussed with her at length she is agreeable for using BiPAP tonight as well, arterial blood gases done yesterday noted patient has a component of high CO2 likely due to hypoventilation will continue the same above with the BiPAP each night and when necessary during the day This is a 89-year-old female who was seen eval reexamined on third floor patient presented into the hospital with increasing shortness of breath at baseline, patient is a resident of extended care facility she is at home 2 L nasal cannula, patient has been noted to have low oxygen saturation into 80s and decided to brought into hospital, she was however treated with nonrebreather mask without significant improvement oxygen, patient has been transferred to hospital with 4 L nasal cannula, currently his oxygen saturations stable, patient has significant history of the heart failure degenerative joint disease osteoarthritis as well as pulmonary embolism along with hypertension hypertensive cardiovascular disease she has been on oral anticoagulants Eliquis currently patient is getting bronchodilators continuation of anticoagulation along with insulin and other antihypertensive agents, her admit x-ray more suggestive of CHF-like changes with bilateral pleural effusion, VQ scan is indeterminate, DVT for bilateral ultrasound is negative, patient has elevated d- dimer, patient has elevated CO2 of 38 at the time admission increased to 43, BUN/creatinine stable 66/1.44 patient appeared to be somnolent and lethargic difficult to arose Objective - Vital Signs Vital signs: Vital Signs Temp 97.9 F 08/15/19 08:00 Pulse 61 08/15/19 12:00 Resp 17 08/15/19 04:00 BP 130/60 08/15/19 12:00 Pulse Ox 94 L 08/15/19 12:00 Intake & Output 08/14/19 08/15/19 08/15/19 18:59 06:59 18:59 Intake Total 876 540 454 Output Total 375 300 400 Balance 501 240 54 Weight 87.9 kg Intake: Oral 876 540 454 Output: Urine 375 300 400 Other: Voiding Method Bedside Commode # Voids 1 1 # Bowel Movements 1 - Exam - Constitutional General appearance: disheveled, morbidly obese, no acute distress - EENT Eyes: EOMI, PERRLA Ears: bilateral: normal - Neck Neck: normal ROM Carotids: bilateral: upstroke normal - Respiratory Respiratory: bilateral: diminished, rales - Cardiovascular Rhythm: regular Heart sounds: normal: S1, S2 - Gastrointestinal General gastrointestinal: normal bowel sounds - Musculoskeletal Musculoskeletal: generalized weakness - Psychiatric Somnolent but arousable - Labs CBC & Chem 7: 08/12/19 05:10 08/15/19 06:28 Labs: Abnormal Lab Results - Last 24 Hours (Table) 08/14/19 08/15/19 08/15/19 Range/Units 20:57 05:54 06:28 Chloride 93 L (98-107) mmol/L Carbon Dioxide 39 H (22-30) mmol/L BUN 59 H (7-17) mg/dL Creatinine 1.79 H (0.52-1.04) mg/dL Glucose 110 H (74-99) mg/dL POC Glucose (mg/dL) 189 H 128 H (75-99) mg/dL Magnesium 2.7 H (1.6-2.3) mg/dL 05/27/20 Range/Units 11:08 Chloride (98-107) mmol/L Carbon Dioxide (22-30) mmol/L BUN (7-17) mg/dL Creatinine (0.52-1.04) mg/dL Glucose (74-99) mg/dL POC Glucose (mg/dL) 291 H (75-99) mg/dL Magnesium (1.6-2.3) mg/dL Assessment and Plan Assessment: Acute hypercapnic hypoxic respiratory failure likely related to hypoventilation and heart failure Elevated troponin suggestive of non-Q-wave TX Chronic atrial fibrillation well controlled Elevated d-dimer likely multifactorial inflammation, sleep disorder breathing and sleep apnea Plan: Sleep study as outpatient for re-titration purposes in the meantime present BiPAP can be used at [facility] need to bring it up from home and transferred to ECF Continue bronchodilator Continue gentle diuresis, however observe renal functions very closely Conservative management for non-ST segment elevated TX, appeared to be demand ischemia Agree with discharge planning with follow-up with outpatient basis Time with Patient: Greater than 30
--- NOTE | 2019-08-15 16:47 | P.PN ---
Subjective Progress Note Date: 08/15/19 This is a pleasant 89-year-old female who was admitted to the hospital with increasing shortness of breath, diagnosed with intermediate probability for PE, patient had also been diuresed with IV Lasix. Overall her shortness of breath continues to get better. Blood pressure today 130/60 with a heart rate of 60, 94% on 2 L of oxygen. Sodium 139, potassium 4.1, BUN 59, creatinine 1.7, magnesium 2.7. Objective - Vital Signs Vital signs: Vital Signs Temp 97.9 F 08/15/19 08:00 Pulse 61 08/15/19 12:00 Resp 17 08/15/19 04:00 BP 130/60 08/15/19 12:00 Pulse Ox 94 L 08/15/19 12:00 Intake & Output 08/14/19 08/15/19 08/15/19 18:59 06:59 18:59 Intake Total 876 540 454 Output Total 375 300 400 Balance 501 240 54 Weight 87.9 kg Intake: Oral 876 540 454 Output: Urine 375 300 400 Other: Voiding Method Bedside Commode # Voids 1 1 # Bowel Movements 1 - Exam General: The patient appeared well nourished and normally developed. HEENT: Head exam is unremarkable. Neck is without jugular venous distension. LUNGS: Lungs are clear to auscultation and percussion. Breath sounds decreased. HEART: Rate and Rhythm are regular. ABDOMEN: Nontender, nondistended. EXTREMITITES: 1+ edema. - Labs CBC & Chem 7: 08/12/19 05:10 08/15/19 06:28 Labs: Abnormal Lab Results - Last 24 Hours (Table) 08/14/19 08/15/19 08/15/19 Range/Units 20:57 05:54 06:28 Chloride 93 L (98-107) mmol/L Carbon Dioxide 39 H (22-30) mmol/L BUN 59 H (7-17) mg/dL Creatinine 1.79 H (0.52-1.04) mg/dL Glucose 110 H (74-99) mg/dL POC Glucose (mg/dL) 189 H 128 H (75-99) mg/dL Magnesium 2.7 H (1.6-2.3) mg/dL 08/15/19 Range/Units 11:08 Chloride (98-107) mmol/L Carbon Dioxide (22-30) mmol/L BUN (7-17) mg/dL Creatinine (0.52-1.04) mg/dL Glucose (74-99) mg/dL POC Glucose (mg/dL) 291 H (75-99) mg/dL Magnesium (1.6-2.3) mg/dL Assessment and Plan Plan: Assessment and plan: 1. Acute kidney injury mostly prerenal secondary to prerenal syndrome. Renal function fairly stable. Creatinine 1.79 today. UA benign. 2. Chronic kidney disease stage III with baseline creatinine in the range of 1.3-1.5 secondary to nephrosclerosis. 3. Volume overload. Improving with diuresis. 4. Metabolic alkalosis secondary to diuresis as well as compensation for underlying respiratory acidosis from COPD. better. 5. Insulin-dependent diabetes mellitus. 6. Acute on chronic diastolic CHF with moderate mitral stenosis. 7. Hypertension with chronic kidney disease. Controlled. 8. Chronic A. fib maintained on anticoagulation. 9. Hypokalemia secondary to diuresis. Magnesium normal. Better. Plan From cardiology's perspective, patient may be transferred to ECF once cleared by nephrology and primary. We will follow her along with you now on an as-needed basis only, please to hesitate to call with any questions. DNP note has been reviewed, I agree with a documented findings and plan of care. Patient was seen and examined.
[2019-08-15] MEDS ORDERED: acetaZOLAMIDE 250 MG TAB PO SCH (21:00)
--- NOTE | 2019-08-16 23:19 | CDI ---
Documentation Clarification Form Date: 08/17/2019 From: Eduardo Art Phone: If you have a question about this query, please contact Rasheeda Grimaldo Senior Regulatory Affairs Specialist at [phone] between 8am and 5pm. Admit Date: 08/11/2019 Discharge Date: 08/15/2019 Patient Name: Jessica King Visit Number: [id number] ATTENTION: The Clinical Documentation Specialists (CDI) and [facility] Coding Staff appreciate your assistance in clarifying documentation. Please respond to the clarification below the line at the bottom and electronically sign. The CDI & [facility] Coding staff will review the response and follow-up if needed. Please note: Queries are made part of the Legal Health Record. If you have any questions, please contact the author of this message via ITS. Dear Karlo Paris., Myocardial infarction is documented in 08/12 Rhonda Kim MD consult note as "This was consistent with a non QT wave PR" Patient History/Risk Factors: CHF, CKD, Atrail fibrillation, JAYE,Obesity Troponin: On admission 0.355HH EKG Results: 08/10 ED EKG demonstrates A. fib with a rate of 60.QRS 142.QTC 590.There is an intraventricular block.No acute ST segment elevations or depressions.EKG compared to previous and is the same Treatment: Conservative management for non-ST segment elevated PR, appeared to be demand ischemia 08/14 Dr. Tracie Etienne Documented as " Elevated troponin suggestive of non-Q-wave PR and Conservative management for non-ST segment elevated PR, appeared to be demand ischemia". In order to capture the severity of condition and necessary documentation specificity, please clarify: Type of Infarction: NSTEMI Demand ischemia Unable to determine Other Condition, please specify Type 2 NSTEMI MTDD
[2019-08-20] MEDS ORDERED: CINACALCET 30 MG TAB PO SCH (09:00)
== END 2019-08-15 15:10 | DRG 280 ==
LOC: SUPCPDRO 10:55 → EC 10:55 → 3SCARD 13:48
PROVIDERS: ADMIT Family Medicine; ATTEND Family Medicine
PROC: 5A09457 Assistance with Respiratory Ventilation, 24-96 Consecutive Hours, Continuous Positive Airway Pressure (ICD-10-PCS; principal; 2019-08-14)
DX: I13.0 Hypertensive heart and chronic kidney disease with heart failure and stage 1 through stage 4 chronic kidney disease, or unspecified chronic kidney disease (principal); I50.33 Acute on chronic diastolic (congestive) heart failure; I21.A1 Myocardial infarction type 2; J96.01 Acute respiratory failure with hypoxia; J96.02 Acute respiratory failure with hypercapnia; G93.41 Metabolic encephalopathy; Z68.41 Body mass index [BMI] 40.0-44.9, adult; E66.2 Morbid (severe) obesity with alveolar hypoventilation; N17.9 Acute kidney failure, unspecified; E87.4 Mixed disorder of acid-base balance; G40.209 Localization-related (focal) (partial) symptomatic epilepsy and epileptic syndromes with complex partial seizures, not intractable, without status epilepticus; I48.20 Chronic atrial fibrillation, unspecified; I27.82 Chronic pulmonary embolism; Z96.653 Presence of artificial knee joint, bilateral; Z20.828 Contact with and (suspected) exposure to other viral communicable diseases; G47.33 Obstructive sleep apnea (adult) (pediatric); H91.90 Unspecified hearing loss, unspecified ear; J44.9 Chronic obstructive pulmonary disease, unspecified; N18.3 Chronic kidney disease, stage 3 (moderate); E78.5 Hyperlipidemia, unspecified; E11.22 Type 2 diabetes mellitus with diabetic chronic kidney disease; D63.8 Anemia in other chronic diseases classified elsewhere; D50.9 Iron deficiency anemia, unspecified; E87.6 Hypokalemia; I05.0 Rheumatic mitral stenosis; M19.90 Unspecified osteoarthritis, unspecified site; T50.2X5A Adverse effect of carbonic-anhydrase inhibitors, benzothiadiazides and other diuretics, initial encounter; Z79.899 Other long term (current) drug therapy; Z79.01 Long term (current) use of anticoagulants; Z79.82 Long term (current) use of aspirin; Z79.4 Long term (current) use of insulin; Z88.5 Allergy status to narcotic agent; Z99.89 Dependence on other enabling machines and devices; Z98.890 Other specified postprocedural states; Z99.81 Dependence on supplemental oxygen; Z90.710 Acquired absence of both cervix and uterus; Z87.442 Personal history of urinary calculi; Z86.79 Personal history of other diseases of the circulatory system; Z82.49 Family history of ischemic heart disease and other diseases of the circulatory system
CPT/HCPCS: 36415; 36600; 70450; 71045; 78582; 80048; 80053; 81003; 82805; 83036; 83605; 83735; 83880; 84484; 85025; 85379; 85610; 85730; 87635; 93005; 93970; 94640; 94660; 95816; 96374; 99285